=== PATIENT | female | born 1945 | race Caucasian/White ===

== ENCOUNTER 2018-03-24 14:28 | Emergency (ER) | payer MEDICARE ==
[~2018-03-24] VITALS: Ht 160 cm; Wt 69.4 kg
== END 2018-03-24 14:42 | disposition home or self-care (01) ==
LOC: ED 14:28
DX: M79.671 Pain in right foot (principal); M79.89 Other specified soft tissue disorders

== ENCOUNTER 2019-03-02 13:37 | Emergency (ER) | payer MEDICARE ==
[~2019-03-02] VITALS: Ht 160 cm; Wt 69.4 kg
--- OUTSIDE RECORDS SUMMARY | ~2019-03-02 | XMS | Clinical Summary ---
Demographics + + + | Address | [address] | | | [place] [address] | + + + | Home Phone | | + + + | Preferred Language | Unknown | + + + | Marital Status | Unknown | + + + | Nondenominational Affiliation | Unknown | + + + | Race | Unknown | + + + | Ethnic Group | Unknown | + + + Author + + + | Author | [facility] | + + + | Organization | [facility] | + + + | Address | Unknown | + + + | Phone | Unavailable | + + + Care Team Providers + +------+ + | Care Oceanologist Name | Role | Phone | + +------+ + PP | Unavailable | + +------+ + Source Comments RYAN is fully live on both [facility] Ambulatory and [facility] InPatient.[facility] Allergies Not on File Current Medications Not [...]
--- OUTSIDE RECORDS SUMMARY | ~2019-03-02 | XMS | Clinical Summary ---
Demographics + + + | Address | [address] | | | [place] [address] | + + + | Home Phone | | + + + | Preferred Language | Unknown | + + + | Marital Status | Unknown | + + + | Yazidism Affiliation | Unknown | + + + | Race | Unknown | + + + | Ethnic Group | Unknown | + + + Author + + + | Author | [facility] | + + + | Organization | [facility] | + + + | Address | Unknown | + + + | Phone | Unavailable | + + + Care Team Providers + +------+ + | Care Pointing Machine Operator Name | Role | Phone | + +------+ + PP | Unavailable | + +------+ + Source Comments RYAN is fully live on both [facility] Amb[facility] and [facility] InPatient.[facility] Allergies Not on File Current Medications Not [...]
[2019-03-02] MEDS ORDERED: LISINOPRIL20 MG PO (13:55)
[2019-03-02] MEDS ORDERED: SYNTHROID88 MCG PO (13:56)
[2019-03-02] MEDS ORDERED: NORVASC10 MG PO (13:56)
[2019-03-02] MEDS ORDERED: VITAMIN D50000 UNI1 PO (13:57)
[2019-03-02] MEDS ORDERED: MELOXICAM15 MG PO (13:57)
[2019-03-02] MEDS ORDERED: PANTOPRAZOLE SO40 MG PO (18:19)
[2019-03-02] MEDS ORDERED: ZOFRAN4 MG SL (18:19)
--- NOTE | 2019-03-03 08:07 | EKG ---
[facility] [address] [place], [place] [address] Signed Normal sinus rhythm Normal ECG No previous ECGs available Confirmed by ORLY DE ANDA MD ([id number]) on 03/03/2019 8:07:19 AM Electronically Signed By: ORLY DE ANDA MD 03/03/19 0807 PATIENT NAME: ILIANA WANG Electrocardiogram DATE OF : 43 PHYSICIAN: ORLY DE ANDA MD REPORT #: [id number] REPORT IS CONFIDENTIAL AND NOT TO BE RELEASED WITHOUT AUTHORIZATION
== END 2019-03-02 18:32 | disposition home or self-care (01) ==
LOC: ED 13:37
DX: K29.70 Gastritis, unspecified, without bleeding (principal); I10 Essential (primary) hypertension; F03.90 Unspecified dementia, unspecified severity, without behavioral disturbance, psychotic disturbance, mood disturbance, and anxiety; E03.9 Hypothyroidism, unspecified; Z88.0 Allergy status to penicillin; Z88.5 Allergy status to narcotic agent; Z79.899 Other long term (current) drug therapy
CPT/HCPCS: 71045; 71260; 80053; 83605; 83690; 84484; 85025; 85379; 85610; 93005; 93010; 96361; 99284-25; J2405; J7030; Q9967

== ENCOUNTER 2019-03-03 11:29 | Inpatient (IN) | payer MEDICARE ==
[~2019-03-03] VITALS: Ht 160 cm; Wt 73.0 kg
--- OUTSIDE RECORDS SUMMARY | ~2019-03-03 | XMS | Clinical Summary ---
Demographics + + + | Address | [address] | | | [place] [address] | + + + | Home Phone | | + + + | Preferred Language | Unknown | + + + | Marital Status | Unknown | + + + | Yazidi Affiliation | Unknown | + + + | Race | Unknown | + + + | Ethnic Group | Unknown | + + + Author + + + | Author | [facility] | + + + | Organization | [facility] | + + + | Address | Unknown | + + + | Phone | Unavailable | + + + Care Team Providers + +------+ + | Care Charging Plug Placer Name | Role | Phone | + +------+ + PP | Unavailable | + +------+ + Source Comments RYAN is fully live on both [facility] Ambulatory and [facility] InPatient.[facility] Allergies Not on File Current Medications Not on file Active Problems Not on file Social History + +-------+ +--------+------+ | Tobacco [...] on file | | + + + Plan of Treatment + + + + + | Health Maintenance | Due Date | Last Done | Comments | + + + + + | Pneumococcal (Adult) | | | | | (1 of 2 - PCV13) | 9 | | | + + + + + | Influenza (Flu) | | | | | vaccination (#1) | 8 | | | + + + + + Results Not on filefrom Last 3 Months"
--- OUTSIDE RECORDS SUMMARY | ~2019-03-03 | XMS | Clinical Summary ---
Demographics + + + | Address | [address] | | | [place] [address] | + + + | Home Phone | | + + + | Preferred Language | Unknown | + + + | Marital Status | Unknown | + + + | Confucianist Affiliation | Unknown | + + + | Race | Unknown | + + + | Ethnic Group | Unknown | + + + Author + + + | Author | [facility] | + + + | Organization | [facility] | + + + | Address | Unknown | + + + | Phone | Unavailable | + + + Care Team Providers + +------+ + | Care Reed Polisher Name | Role | Phone | + +------+ + PP | Unavailable | + +------+ + Source Comments RYAN is fully live on both [facility] Ambulatory and [facility] InPatient.[facility] Allergies Not on File Current Medications Not [...]
--- OUTSIDE RECORDS SUMMARY | ~2019-03-03 | XMS | Clinical Summary ---
Demographics + + + | Address | [address] | | | [place] [address] | + + + | Home Phone | | + + + | Preferred Language | Unknown | + + + | Marital Status | Unknown | + + + | Judaism Affiliation | Unknown | + + + | Race | Unknown | + + + | Ethnic Group | Unknown | + + + Author + + + | Author | [facility] | + + + | Organization | [facility] | + + + | Address | Unknown | + + + | Phone | Unavailable | + + + Care Team Providers + +------+ + | Care Dressmaking Teacher Name | Role | Phone | + +------+ + PP | Unavailable | + +------+ + Source Comments RYAN is fully live on both [facility] Ambulatory and [facility] InPatient.[facility] Allergies Not on File Current [...]
--- OUTSIDE RECORDS SUMMARY | ~2019-03-03 | XMS | Clinical Summary ---
Demographics + + + | Address | [address] | | | [place] [address] | + + + | Home Phone | | + + + | Preferred Language | Unknown | + + + | Marital Status | Unknown | + + + | Denominational Affiliation | Unknown | + + + | Race | Unknown | + + + | Ethnic Group | Unknown | + + + Author + + + | Author | [facility] | + + + | Organization | [facility] | + + + | Address | Unknown | + + + | Phone | Unavailable | + + + Care Team Providers + +------+ + | Care Bullet Swaging Machine Adjuster Name | Role | Phone | + +------+ + PP | Unavailable | + +------+ + Source Comments RYAN is fully live on both [facility] Amb[facility] and [facility] InPatient.[facility] Allergies Not on File Current Medications [...]
[~2019-03-03 11:29] MED LIST: LISINOPRIL20 MG PO; MELOXICAM15 MG PO; NORVASC10 MG PO; PANTOPRAZOLE SO40 MG PO; SYNTHROID88 MCG PO; VITAMIN D50000 UNI1 PO; ZOFRAN4 MG SL
--- OUTSIDE RECORDS SUMMARY | 2019-03-03 11:32 | XMS ---
PreManage Notification: ILIANA WANG Security Electromechanic Events No recent Security Events currently on file CRITERIA MET - [facility] - 2 Visits in 30 Days CARE PROVIDERS Yunier Felix MD Primary Care Current PHONE: [phone] orguevara Case or Track Worker Current PHONE: Unknown Yamil has no Care Guidelines for this patient. Melinda VISIT COUNT (12 MO.) [address] [place] [address] TOTAL 3 NOTE: Visits indicate total known visits. ED/UCC VISIT TRACKING (12 MO.) 03/03/2019 11:29 [facility] [place] TYPE: Emergency COMPLAINT: - WEAKNESS 03/02/2019 13:39 [facility] TYPE: Emergency COMPLAINT: - VOMITING/BACK PAIN NON INJURY 03/24/2018 14:30 [facility] [place] TYPE: Emergency COMPLAINT: - SORE ON R FOOT/NO INJURY/MSE TO CLINIC DIAGNOSES: - Other specified soft tissue disorders - Pain in right foot INPATIENT VISIT TRACKING (12 MO.) No inpatient visits to display in this time frame [email or web address]
--- NOTE | 2019-03-03 15:02 | NUR ---
1440 CALL FROM ER NURSE REGARDING PATIENT ADMISSION 1445 CALL TO WIRE SAW OPERATOR REGARDING PATIENT 1450 CALL BACK TO ER WITH ROOM ASSIGNMENT, NURSE TOOK REPORT FROM ER NURSE.
--- NOTE | 2019-03-03 15:37 | NUR ---
PATIENT ARRIVED TO MED SURG, ADMITTED, PREPARED FOR SURGERY.
--- NOTE | 2019-03-03 15:38 | NUR ---
DR. LANDRUM IN TO TALK TO PATIENT.
--- NOTE | 2019-03-03 15:41 | EKG ---
[facility] [address] [place], [place] [address] Signed Normal sinus rhythm Normal ECG When compared with ECG of 02-MAR-2019 13:59, No significant change was found Confirmed by ORLY DE ANDA MD ([id number]) on 03/03/2019 3:41:41 PM Electronically Signed By: ORLY DE ANDA MD 03/03/19 1541 PATIENT NAME: ILIANA WANG NATY Electrocardiogram DATE OF : 43 PHYSICIAN: ORLY DE ANDA MD REPORT #: [id number] REPORT IS CONFIDENTIAL AND NOT TO BE RELEASED WITHOUT AUTHORIZATION
--- NOTE | 2019-03-03 18:25 | NUR ---
03/03/191824 Judith Banegas 182: PATIENT BOOSTED UP IN BED. HOB ELEVATED. PATIENT OPENS EYES AND DOES NOT RESPOND TO QUESTIONS. PATIENT CLOSES HER EYES AND FOLLOWS RN COMMAND TO RELAX HER HEAD.
--- NOTE | 2019-03-03 18:28 | CONS ---
[facility] [address] [place], [place] [address] Signed DATE OF CONSULTATION: 03/03/2019 CHIEF COMPLAINT: Generalized abdominal pain/right upper quadrant abdominal pain. HISTORY OF PRESENT ILLNESS: Monserrat is a 73-year-old female, who seems to be demented. In fact, she is going to be seeing a Neurologist in [place] here in about a week or so. Yesterday, she developed what seems like generalized abdominal pain and maybe some right upper quadrant abdominal pain with some nausea and vomiting. She had been to the emergency room yesterday for evaluation. She had a CT scan of the chest, which was unrevealing for any pulmonary embolism and/or pneumonia. There were some concern, she prior had gastroenteritis and she was allowed to go home with her . However, the pain continued to worsen, so her brought her back again today. The white count is borderline high at 12.0 with neutrophils at 88, but yet the liver function tests were fine. Urine seems to have some bacteria in it and lactic acid was okay at 1.7. She seemed to be tender in the right upper quadrant, so a CT scan of the abdomen and pelvis was ordered and sure enough she has a thickened gallbladder wall with a fairly large stone in the neck of her gallbladder with pericholecystic fluid. The common bile duct was unremarkable. I was therefore asked to see her as the general surgeon on-call. In the meantime, she has received her cefoxitin and Flagyl along with some IV fluids, pain medication and her EKG. PAST MEDICAL HISTORY: Diverticulosis, diastasis recti, peripheral arterial disease, osteoarthritis including lumbar area, hypertension, hypothyroidism, obesity, left 5th rib fracture from riding horses and some recent dementia for which she is going to see a neurologist soon. PAST SURGICAL HISTORY: Right total knee replacement, cataracts and her bilateral tubal ligation. SOCIAL HISTORY: She does not smoke, but she has a drink about each week. She is to her at [phone]. They have four children together. She no longer drives. 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 Leroy Kitchen is her primary care provider they prefer the [facility]. FAMILY HISTORY: Mom had diabetes, but not sure about her dad. REVIEW OF SYSTEMS: She had 10 systems reviewed and I can see that she has dementia. She has to basically look to her for most of the answers and he actually did an excellent job, really Electronically Signed By: JOSE LUIS LANDRUM MD 03/03/19 1828 PATIENT NAME: MONSERRAT WANG CONSULTATION DATE OF : 43 REPORT #: [id number] PHYSICIAN: JOSE LUIS LANDRUM MD PCP: ELROY KITCHEN PA-C REPORT IS CONFIDENTIAL AND NOT TO BE RELEASED WITHOUT AUTHORIZATION [facility] [address] [place], [place] [address] Signed the pertinent positives are included in the above. ALLERGIES: Penicillin. MEDICATIONS: Protonix, Zofran, lisinopril, amlodipine, levothyroxine, meloxicam, and vitamin D. PHYSICAL EXAMINATION: VITAL SIGNS: Blood pressure is 136/60, heart rate 81, respiratory rate 16, temperature is 99.3. She is 95% on room air. She is 5 feet 3 inches, at 73 kg. GENERAL: Monserrat is a 73-year-old female lying supine in her hospital bed. Her is with her in the room. It is clear that she has some dementia and is not answering well and has to look to her for most of the answers. She does not appear systemically ill or toxic. She is not jaundiced. She seems to have good skin turgor. LUNGS: Clear to auscultation bilaterally. HEART: Regular rate and rhythm. ABDOMEN: Mildly protuberant, but soft and she is clearly tender in the right upper quadrant right over the gallbladder. LABORATORY DATA: Her white blood count is 12.0, neutrophils were 88, hemoglobin is 13, platelets 231. BUN 13, creatinine 0.8. Her urinalysis showed some bacteria, some white cells and some red blood cells. Lactic acid looked at normal 1.7. Blood cultures were taken and they are pending. Her albumin is good at 4.0, lipase 6.0, total bilirubin 1.2, AST 13, ALT 12, alkaline phosphatase 70. RADIOGRAPHIC STUDIES: The CT scan of the chest, abdomen and pelvis were reviewed, both the report and the actual images. She has no evidence of a pulmonary embolism or pneumonia or other chest pathology. The gallbladder wall is clearly thickened with a large stone in the neck of the gallbladder. There is some pericholecystic inflammation and fluid. Common bile duct seemed to be unremarkable. She has bilateral renal pelvic cysts and/or ectasias. There was also some diverticulosis. As well as diastasis recti. ASSESSMENT/PLAN: Monserrat is a 73-year-old female, who presents with acute cholecystitis and cholelithiasis. She has been admitted, given IV fluids and antibiotics. I reviewed with Monserrat and her the location and function of the gallbladder with respect to the above findings. We discussed laparoscopic versus open cholecystectomy. They understand and expected intraoperative and postoperative course. I think given this time and day, and her dementia, she will probably stay overnight at home in the morning. We have also reviewed the expected intraop and postop course. There is risk to surgery including, but not limited to bleeding, infection, scarring, change in contour of the skin, damage Electronically Signed By: JOSE LUIS LANDRUM MD 03/03/19 1828 PATIENT NAME: MONSERRAT WANG CONSULTATION DATE OF : 43 REPORT #: [id number] PHYSICIAN: JOSE LUIS LANDRUM MD PCP: LEROY KITCHEN PA-C REPORT IS CONFIDENTIAL AND NOT TO BE RELEASED WITHOUT AUTHORIZATION [facility] [address] [place], [place] [address] Signed to bowel, damage to main bile duct, and incisional hernias along with other unforeseen comorbidities. They have expressed understanding and would like to proceed. In fact, her went ahead and signed for her today. MD ADELITA Villanueva/BRICEL /[id number] cc: MD Leroy Villanueva Copies: JOSE LUIS LANDRUM MD ~ Electronically Signed By: JOSE LUIS LANDRUM MD 03/03/19 1828 PATIENT NAME: MONSERRAT WANG CONSULTATION DATE OF : 43 REPORT #: [id number] PHYSICIAN: JOSE LUIS LANDRUM MD PCP: LEROY KITCHEN PA-C REPORT IS CONFIDENTIAL AND NOT TO BE RELEASED WITHOUT AUTHORIZATION
--- NOTE | 2019-03-03 19:13 | NUR ---
RECEIVED REPORT FROM PACU NURSE AND QUAN RN. PATIENT ARRIVED TO THE FLOOR AROUND 1900 FROM SURGERY. PATIENT REPORTS BEING PAINFUL, ICE PACK IN PLACE. AFTER PATIENT WAS TRANSFERED TO BED, PATIENT DENIED HAVING PAIN. PATIENT DROWSY, BUT AROUSABLE WHEN SPOKEN TO AND TOUCHED ON ARM. 2L VIA NC, NO SIGNS OF DISTRESS, CPOX IN PLACE AND O2 SATS WNL. SCDS IN PLACE. X3 DRESSINGS IN PLACE ON ABD, DRESSINGS ARE CDI, NO NEW DRAINAGE NOTED. IV'S ASSESSED, PATENT AND WNL. ACTIVE BT IN RUQ AND LUQ, HYPOACTIVE BT IN RLQ AND LLQ. FAMILY AT BEDSIDE. ASSESSMENT COMPLETE, REFER TO ASSESSMENT. CALL LIGHT WITHIN REACH. NO MORE NEEDS AT THIS TIME. PATIENT COMPLAINS OF NAUSEA, EMESIS BAG PROVIDED, AFTER PATIENT SETTLED IN BED, NO REPORTS OF NAUSEA.
--- NOTE | 2019-03-03 19:40 | NUR ---
PT MOSTLY SLEEPY, BUT AWAKES TO NAME AND SOUND. DENIES PAIN AT THIS TIME. IV INFUSING PER ORDER. FAMILY IN ROOM. EDUCATED TO CALL IF PT NEEDS ANYTHING. FAMILY DENIED NEEDS WELL.
--- NOTE | 2019-03-03 20:15 | NUR ---
PT FAMILY CALLED, PT NEEDING TO USE THE BATHROOM. BSC AT HEAD OF BED, MIMINAL ASSIST, CUEING, PT ABLE TO GET UP OUT OF BED TO COMMODE. COMPLAINS OF RIGHT SHOUDLER DISCOMFORT. NOTE NO SWELLING, DISCOLORATION. ONCE BACK BED, WHICH PT TOLERATED WELL, ICE APPLIED TO RIGHT SHOULDER WELL RIGHT SIDE. PT PREFERED TAP WATER, DRANK SOME, DENIED NAUSEA. VOIDED WITHOUT COMPLAINTS.
--- NOTE | 2019-03-03 21:34 | NUR ---
ROUNDED ON PATIENT RESTING SOUNDLY IN BED WITH EYES CLOSED, RESPIRATORY RATE IS EVEN AND UNLABORED. NO SIGNS OF TENSING OR GRIMACING, NO SIGNS OF DISTRESS. 2L VIA NC, CPOX, WNL. VITALS ASSESSED, WNL. ABD ASSESSED, ACTIVE BOWEL TONES NOTED. DRESSSINGS ON ABD ARE CDI, NO NEW DRAINAGE NOTED. ICE IN PLACE ON ABD. FAMILY AT BEDSIDE. CALL LIGHT WITHIN REACH. NO MORE NEEDS AT THIS TIME. PROVIDED EDUCATION TO FAMILY ABOUT USE OF CALL LIGHT, FAMILY EXPRESSED UNDERSTANDING.
--- NOTE | 2019-03-03 22:23 | NUR ---
ROUNDED ON PATIENT TO OBTAIN FOURTH POST OP VITALS, VITALS ASSESSED, WNL. PATIENT DENIES HAVING PAIN OR NAUSEA. ACTIVE BOWEL TONES NOTED IN RLQ, HYPOACTIVE BOWEL TONES NOTED IN OTHER QUADRANTS. PATIENT SHOWS NO SIGNS OF TENSING OR GRIMACING. PATIENT DROWSY INITIALLY WHEN NURSING STAFF ENTERED ROOM, HOWEVER BECAME MORE ALERT AFTER WAKING UP. FED PATIENT GREEN JELLO, PATIENT TOLERATED WELL. DRESSINGS ON ABD ARE CDI, NO NEW DRAINAGE NOTED. CALL LIGHT WITHIN REACH. NO MORE NEEDS AT THIS TIME.
--- NOTE | 2019-03-03 22:37 | NUR ---
ROUNDED ON PATIENT TO ASSIST PATIENT TO USE BSC. THIS RN AND ANOTHER RN ASSISTED PATIENT TO SITTING UP POSTION IN BED, FOLDED BLANKET USED TO GUARD ABD, PATIENT EDUCATION PROVIDED ABOUT SUCH TECHNIQUE, PATIENT EXPRESSED UNDERSTANDING. ONCE PATIENT WAS ASSISTED TO SITTING POSITION, PATIENT JUST A 1 PA TO BSC. PATIENT SAFELY BACK INTO BED WITH AT BEDSIDE. ICE PACKS IN PLACE. CALL LIGHT WITHIN REACH. IV FLUIDS INFUSING PER MAR ORDER. NO MORE NEEDS AT THIS TIME.
--- NOTE | 2019-03-03 22:54 | NUR ---
DE ALCOHOLIZER AND THIS SUPERINTENDENT GENERAL HELPED PATIENT USE THE BEDSIDE COMMODE AND BACK TO BED. FAMILY IN THE ROOM.
--- NOTE | 2019-03-04 | NUR ---
ROUNDED ON PATIENT RESTING IN BED WITH EYES CLOSED, RESPIRATORY RATE IS EVEN AND UNLABORED. CPOX, WNL. PT SHOWS NO SIGN OF TENSING OR GRIMACING. CALL LIGHT WITHIN REACH. BED ALARM ON FOR SAFETY.
--- NOTE | 2019-03-04 00:45 | NUR ---
ASSESSMENT COMPLETE, REFER TO ASSESSMENT. PATIENT DENIES CHEST PAIN, SHORTNESS OF BREATH, OR DIFFICULTY BREATHING. PATIENT CONFUSED TO DAY OF WEEK, EASILY REORIENTED. PATIENT STATES THAT PATIENT HAS "VERY LITTLE PAIN" AND PATIENT UNABLE TO PROVIDE SPECIFIC NUMERICAL RATING OF PAIN, FACE SCALE USED AND PATIENT POINTED TO FACE THAT COORESPONDS TO "4/10" PAIN RATING, PATIENT DENIES WANTING PRN PAIN MEDICATION. ACTIVE BOWEL TONES NOTED AND PATIENT DENIES NAUSEA. DRESSING ON ABD IS CDI, NO NEW DRAINAGE NOTED. FAMILY AT BEDSIDE. IV FLUIDS INFUSING PER ORDER. BED ALARM ON FOR SAFETY. CALL LIGHT WITHIN REACH. NO MORE NEEDS AT THIS TIME. ICE IN PLACE.
--- NOTE | 2019-03-04 03:01 | NUR ---
THIS RN AND RETAIL BANKING MANAGER ASSISTED PATIENT TO AMBULATE TO RESTROOM. 2PA TO ASSIST PATIENT INTO BED, OTHERWISE PATIENT SBA-1PA TO RESTROOM. PATIENT SAFELY BACK INTO BED. CPOX IN PLACE. 2L VIA NC, NO SIGNS OF DISTRESS. O2 SATS 87% ON ROOM AIR, AFTER 2L VIA NC APPLIED O2 SATS INCREASED TO 90%. BED ALARM ON FOR SAFETY. CALL LIGHT WITHIN REACH, EDUCATION PROVIDED TO PATIENT ON ITS USE. PATIENT STATES PATIENT HAS "VERY LITTLE PAIN", PATIENT DENIES PRN PAIN MEDICATION. NO MORE NEEDS AT THIS TIME.
--- NOTE | 2019-03-04 03:02 | NUR ---
1PA TO THE BATHROOM AND BACK TO BED. SCDS AND BED ALARM ARE BACK ON. IN THE ROOM.
--- NOTE | 2019-03-04 05:28 | NUR ---
ASSESSMENT COMPLETE, REFER TO ASSESSMENT. PATIENT REPORTS "10/10" PAIN IN RIGHT SIDE OF ABD, PRN PAIN MEDICATION ADMINISTERED. PATIENT DENIES CHEST PAIN OR DIFFICULTY BREATHING. PATIENT REPORTS SLIGHT SHORTNESS OF BREATH, PATIENT STATES THIS IS AFTER MOVEMENT, NO SIGNS OF DISTRESS. DRESSING ON ABD SHOWS SCANT AMOUNT OF SHADOWING ON RUQ DRESSING. ALL OTHER DRESSING ARE CDI, NO NEW DRAINAGE NOTED. ACTIVE BOWEL TONES PRESENT IN LLQ, OTHER QUADRANTS HYPOACTIVE. PATIENT TOOK SIPS OF WATER WHEN OFFERED. CHAP STICK APPLIED BY . ICE IN PLACE PER ORDER. 2L VIA NC, NO SIGNS OF DISTRESS, CPOX: 91%. BED ALARM ON FOR SAFETY. CALL LIGHT WITHIN REACH. NO MORE NEEDS AT THIS TIME.
--- NOTE | 2019-03-04 06:04 | OR ---
[facility] [address], [place] [address] Signed DATE OF OPERATION: 03/03/2019 SURGEON: Jose Luis Landrum MD PREOPERATIVE DIAGNOSIS: Acute cholecystitis, cholelithiasis. POSTOPERATIVE DIAGNOSIS: Acute cholecystitis, cholelithiasis (gallstones x2). PROCEDURE PERFORMED: Laparoscopic cholecystectomy without intraoperative cholangiogram. ESTIMATED BLOOD LOSS: 75 to 100 mL. FINDINGS: Monserrat had a significantly distended gallbladder. The gallbladder wall was thickened and inflamed yet friable. The bile was clear and somewhat thin. She had one large stone in the neck of the gallbladder. After gallbladder was out and opened on the back table, there was one additional stone next to it, which was much smaller. As we took the gallbladder down from about the bottom one-third, we encountered significant bleeding in several areas and we ended up abandoning our intraoperative cholangiogram, so we could divide the cystic duct and apply direct pressure with a Ray-Kelly and then we were able to go back and apply several clips along with some judicious cautery to control that bleeding. Consequently, we did abandon our intraoperative cholangiogram. INDICATIONS: Monserrat is a 73-year-old female, who lives with her . She is becoming progressively more demented and she has an appointment actually within the next 7-10 days to see her neurologist. However, she came to our emergency room yesterday with what sounded like generalized abdominal pain and some nausea and vomiting. She had a CT scan of her chest to rule out pulmonary embolism, which was negative. No other pathology in the chest. She was discharged home with a diagnosis of gastroenteritis. Her pain persisted and was worsening, so her brought her back today. On this occasion, the white count was up at 12,000 and she was more tender in the right upper quadrant. Nevertheless, her liver function tests were fine. The urine did have some bacteria. She had a CT scan of the abdomen and pelvis today. The gallbladder wall was thickened. There was pericholecystic fluid and inflammation and a large stone in the neck of the gallbladder. The common bile duct was unremarkable. Consequently, I was asked to see her as a Electronically Signed By: JOSE LUIS LANDRUM MD 03/04/19 0604 PATIENT NAME: MONSERRAT WANG OPERATIVE REPORT DATE OF : 43 REPORT #: [id number] PHYSICIAN: JOSE LUIS LANDRUM MD PCP: LEROY ELIZABETH PA-C REPORT IS CONFIDENTIAL AND NOT TO BE RELEASED WITHOUT AUTHORIZATION [facility] [address], [place] [address] Signed general surgeon on-call. In the meantime, she received some IV fluids, pain control, and her antibiotics including cefoxitin and Flagyl. I met with Monserrat and her in the hospital room. I reviewed with them the above findings. We discussed the location and function of the gallbladder. We discussed laparoscopic versus open cholecystectomy. They understand the expected intraop and postop course. Knowing Sushant medical issues, her dementia, and the level of illness that she has plus the time of day that it is, we decided it will be best Monserrat stay overnight for monitoring and if things are going well, she can go home in the morning. We also discussed the risk of surgery including, but not limited to bleeding, infection, scarring, change in contour of the skin, damage to bowel, damage to main bile duct, incisional hernias, and other unforeseen comorbidities such as pneumonia, heart attacks, and stroke. She and her expressed understanding. Her did sign for her consent. PROCEDURE NOTE: Monserrat was brought down to our operating room and placed in the supine position under general endotracheal tube anesthesia. She was already on preoperative antibiotics. She had SCDs in place. We did hold the heparin on this occasion. She was then prepped and draped in the usual sterile fashion. All trocars were placed in her usual positions under direct visualization of camera without difficulty. We had taken pictures throughout for photodocumentation. We could see the omentum lying over the gallbladder as it was mounded up inside the abdomen. Fortunately, the omentum relatively easily from the gallbladder. We were unable to grasp the gallbladder, so we made a small hole near the fundus and suctioned out clear bile. We then grabbed the hole with our grasper and elevated the gallbladder in the right upper quadrant. We started our routine standard dissection about the bottom third of the gallbladder where it joined the fat, headed towards the triangle of Calot. We did have some bleeding along the lateral liver edge, two clips and some gentle cautery help control that. We encountered some additional bleeding along the edge of the triangle of Calot, which responded well to a clip, and then behind the cystic duct, we encountered the cystic artery. That actually required a couple of clips as well. It took us a few minutes to control the bleeding and we had decided to divide the gallbladder where it came down at the top of the cystic duct. That gave us access to the triangle of Calot and we held direct pressure with the Ray-Kelly for a full 5 minutes. After that, the Ray-Kelly was gently rolled away and all the bleeding had stopped. We suctioned out the blood and then we placed three clips across the cystic duct stump and then just proximal to those three clips, we placed a PDS Endoloop to secure the cystic duct stump. Consequently, we did abandon the intraoperative cholangiogram. We then irrigated the area and suctioned that out until clear. There was no additional bleeding. We carefully and slowly removed the gallbladder from the gallbladder fossa with the help of the cautery. We noticed that the gallbladder wall although thickened, but it was quite friable. As is common, there was some bleeding between the gallbladder wall and the gallbladder fossa. It took a few minutes then to get the gallbladder off the liver and into the EndoCatch bag along with Electronically Signed By: JOSE LUIS LANDRUM MD 03/04/19 0604 PATIENT NAME: MONSERRAT WANG OPERATIVE REPORT DATE OF : 43 REPORT #: [id number] PHYSICIAN: JOSE LUIS LANDRUM MD PCP: LEROY ELIZABETH PA-C REPORT IS CONFIDENTIAL AND NOT TO BE RELEASED WITHOUT AUTHORIZATION [facility] [address], [place] [address] Signed our Ray-Kelly. There was some very mild oozing from the gallbladder fossa, so we placed a piece of Surgicel along the gallbladder fossa and down in to the cystic duct in the triangle of Calot. After this, we used our laparoscopic suturing device to pass 0 Vicryl suture on either side of the fascia of the subxiphoid trocar site. This was tied down to close this fascia primarily. The gallbladder was then removed along with the remaining trocars from the abdomen. The Ray-Kelly was then given to our scrub nurse. The gallbladder was passed off the field and opened by our circulating nurse. There was one large stone and then one smaller stone next to that. Again, the gallbladder showed thickened very friable gallbladder wall. The fascia of the supraumbilical trocar site was then closed with interrupted [id number] and simple 0 Vicryl sutures. Local anesthetic was copiously injected into all trocar sites. The skin and dermis of each trocar site was closed with interrupted 3-0 subcuticular Monocryl sutures. Dry gauze and tape were then applied to all incisions. Monserrat was then awakened from anesthesia, extubated in the OR, and taken to recovery room in stable condition. Jose Luis Landrum MD ALB/MODL /[id number] cc: MD Dr. Leroy Villanueva Copies: JOSE LUIS LANDRUM MD ~ Electronically Signed By: JOSE LUIS LANDRUM MD 03/04/19 0604 PATIENT NAME: MONSERRTA WANG OPERATIVE REPORT DATE OF : 43 REPORT #: [id number] PHYSICIAN: JOSE LUIS LANDRUM MD PCP: LEROY ELIZABETH PA-C REPORT IS CONFIDENTIAL AND NOT TO BE RELEASED WITHOUT AUTHORIZATION
--- NOTE | 2019-03-04 06:30 | NUR ---
ROUNDED ON PATIENT TO ASSIST PATIENT TO RESTROOM SBA. PATIENT REPORTS BEING PAINFUL UPON RETURNING TO BED. BED ALARM ON FOR SAFETY. CALL LIGHT WITHIN REACH. CPOX IN PLACE, WNL. 2L VIA NC, NO SIGN OF DISTRESS. SHANAE RN NOTIFIED TO PROVIDE PATIENT WITH PRN PAIN MEDICATION. PATIENT AND FAMILY DENY ANYMORE NEEDS AT THIS TIME.
--- NOTE | 2019-03-04 06:42 | NUR ---
medicated with 1 norco 3/10 abd and r sided pain.
--- NOTE | 2019-03-04 08:00 | NUR ---
AM CARE OFFERED. FACE WASHED. PT RESTING IN BED. WANTS TO BRUSH TEETH AFTER BREAKFAST.
--- NOTE | 2019-03-04 08:26 | NUR ---
PT SLEEPING SOUDNLY UPON ENTERING ROOM. AWOKE EASILY TO VOICE. PT STATES "MY STOMACH HURTS AROUND HERE." (GESTURING TO GENERALIZED ABDOMEN AREA. MEDICATED WITH 1MG IV DILAUDID. PT ORIENTED TO SELF ONLY. THINKS SHE IS AT HOME. PT EASILY REORIENTED. DENIES NAUSEA. IV FLUSHED AND INFUSING WNL. 3 LAP SITES NOTED, DRESSED WITH GAUZE AND TAPE, SCANT AMOUNT OF SHADOWING TO EACH DRESSING. POSITIVE BT, MILD DISTENTION. DISCUSSED AMBULATION THIS SHIFT, PT AGREEABLE. PT SATTING 92% ON 2LNC. CALL LIGHT WITHIN REACH. BED ALARM ON.
--- NOTE | 2019-03-04 09:15 | NUR ---
PT 1PA UP TO RECLINER. IN ROOM ASSISTING PT TO EAT BREAKFAST. CHAIR ALARM ON. CALL LIGHT WITHIN REACH.
[2019-03-04] MEDS ORDERED: AMLODIPINE BESYL5 MG PO (11:10)
[2019-03-04] MEDS ORDERED: ATORVASTATIN CA20 MG PO (11:11)
[2019-03-04] MEDS ORDERED: VITAMIN D31000 UNI1 PO (11:26)
--- NOTE | 2019-03-04 11:27 | NUR ---
Medications reconciled using pharmacy records and patient's interview
--- NOTE | 2019-03-04 13:12 | NUR ---
PT SITTING UP IN BED. TEARFUL BECAUSE IS GETTING READY TO LEAVE. O2 SATS 89-90% ON 2L NC. ASSISTED PT TO USE I.S. BED ALARM ON.
--- NOTE | 2019-03-04 14:49 | NUR ---
PATIENT UP TO BSC AND BACK TO BED. O2 LOW AND NO VOID, RN NOTIFIED. FRESH WATER GIVEN. PATIENT SAYS SHE HAS PAIN WHEN ASKED, RN NOTIFIED. CALL LIGHT IN REACH. NO FURTHER NEEDS AT THIS TIME.
--- NOTE | 2019-03-04 15:00 | NUR ---
PT SITTING UP ON COMMODE UPON ENTERING ROOM. SATS 88-89% ON 2L NC. INCREASED O2 TO 3L SAT INCREASED TO 90%. HR 125. PT DID NOT VOID. ASSISTED BACK TO BED. ONCE AT REST O2 SAT 92% ON 2L. HR REMAINS 125 AND RESPIRATION RATE 33. BP 155/77. NOTIFIED DR. LANDRUM. RECIEVED ORDER TO ADVANCE DIET TO REGULAR AND TROPONIN LABS. R.T. NOTIFIED, STATES HE WILL BE BY SOON TO ASSESS PT. QUAN CHARGE NURSE AWARE OF PT CONDITION. PT REFUSES TO USE I.S. WILL CONTINUE TO MONITOR CLOSELY.
--- NOTE | 2019-03-04 15:45 | NUR ---
PT AGREEABLE TO GOING FOR A WALK. PT AMB HALLWAY WITH THIS RN, , AND WHEELCHAIR FOLLOW. PT STEADY ON FEET WITH SBA. PT SHOWED NO SIGNS OF DISTRESS OR SOB WHILE AMB. AMB BACK TO ROOM TO SIT UP IN RECLINER. SATS 90% ON 2L UPON FINISHING WALK, HR 132. HR DOWN TO 105 AT REST. RR 28. AT BEDSIDE. WILL CONTINUE TO MONITOR. PT ENCOURAGED PO FLUIDS AND FOOD. CALL LIGHT WITHIN REACH.
--- NOTE | 2019-03-04 17:05 | NUR ---
PT SLEEPING SOUNDLY IN BED. RESP EVEN AND UNLABORED. SATTING 94% ON 2L NC. HR 105. BED ALARM ON.
--- NOTE | 2019-03-04 19:01 | NUR ---
PT SITTING UP IN BED. ATE 100% OF DINNER OMID WELL. PT REPORTS HEART "POUNDING REALLY HARD." HR REMAINS 105-125, REGULAR. FACE FLUSHED, ORAL TEMP 99. RR 24, BP 145/65, O2 SAT 90% ON 2LNC. PT DENIES CHEST PAIN OR SOB. NOTIFIED DR. LANDRUM. SEE NEW ORDERS. PT AND FAMILY EDUCATED ON PLAN OF CARE AND NEW ORDERS.
--- NOTE | 2019-03-04 19:13 | NUR ---
PT ATE BETTER THIS EVENING. DRANK 2 ENSURES, ATE 100% OF DINNER. TAKING MORE PO FLUIDS WELL. PT MENTATION APPEARS MORE CLEAR. , SON, AND DAUGHTER IN LAW AT BEDSIDE. BED ALARM ON.
--- NOTE | 2019-03-04 19:35 | NUR ---
BEDSIDE REPORT RECEIVED FROM CARLOS HERNANDEZ. PT RESTING IN BED, HOB ELEVATED. HR 113, SPO2 91% ON 2L OXYGEN BY NC. IV IN RIGHT HAND INFILTRATED, D/C'D WNL. IVF BOLUS INFUSING WNL RIGHT AC. PT RATES PAIN 4/10 IN HAND, RIGHT ARM ELEVATED. BED ALARM ON. FAMILY AT BEDSIDE.
--- NOTE | 2019-03-04 21:41 | NUR ---
PT ASSESSMENT COMPLETE. DRESSINGS CDI X 3. PT UNABLE TO RATE PAIN, 4/10 WITH FACES SCALE. PT ORIENTED TO NAME AND ONLY. AT BEDSIDE. PT GIVEN CHUX FOLDED TO BRACE AND ENCOURAGED TO DEEP BREATHE. IV LEAKING, D/C'D WNL. RN DEVON IN ROOM FOR IV START. SCDS, BED ALARM ON. PT GIVEN CHOCOLATE ENSURE. HR 117 ON TELE 1. SPO2 WNL ON 2L OXYGEN BY NC.
--- NOTE | 2019-03-04 22:33 | NUR ---
IV STARTED BY CCU RN IN RIGHT HAND, PT TOLERATED WELL. PT DENIES ANY PAIN AT THIS TIME. IVF AND ANTIBIOTIC INFUSING WNL. LIGHTS OFF IN PT ROOM. BED ALARM ON. PT REQUESTING TO SLEEP. SPO2 WNL ON 2L OXYGEN BY NC. HR 120.
--- NOTE | 2019-03-04 22:44 | EKG ---
[facility] [address] [place] [address] Signed Sinus tachycardia Minimal voltage criteria for LVH, may be normal variant Abnormal ECG When compared with ECG of 03-MAR-2019 11:41, Nonspecific T wave abnormality Confirmed by ORLY DE ANDA MD ([id number]) on 03/04/2019 10:43:57 PM Electronically Signed By: ORLY DE ANDA MD 03/04/19 2244 PATIENT NAME: ILIANA WANG Electrocardiogram DATE OF : 43 PHYSICIAN: ORLY DE ANDA MD REPORT #: [id number] REPORT IS CONFIDENTIAL AND NOT TO BE RELEASED WITHOUT AUTHORIZATION
--- NOTE | 2019-03-04 23:18 | NUR ---
NOTIFIED DR DE ANDA OF PT SUSTAINED HEART RATE PER TELE IN THE 130'S. PT IS LAYING IN BED, LOOKING AROUND, NO TREMORS, DENIES PAIN, VOIDED; RESP EVEN AND UNLABORED. AT BEDSIDE. CONTINUE TO MONITOR, BLADDER SCAN PRN, REPORT SX
--- NOTE | 2019-03-05 00:03 | NUR ---
IN TO SWITCH IV FLUIDS, PT QUIETLY ASKING WHO ARE YOU, WHAT ARE YOU DOING, REASSURED PT, ALTHOUGH UNSURE IF PT ABLE TO UNDERSTAND, EYE GAZE DID NOT RESPOND TO ANSWER. POSSIBLE THAT HER HEART RATE INCREASING DUE TO A STARTLE REACTION HEART RATE IN THE TEENS AND WHEN RN OUT OF ROOM HR UP TO THE 30'S. ASLEEP ON THE COUCH.
--- NOTE | 2019-03-05 00:05 | NUR ---
CHECKED ON PT, RESTING IN BED WITH EYES CLOSED. BREATHING EQUAL AND NON-LABORED. SPO2 92% ON 2L OXYGEN BY NC. HR 117.
--- NOTE | 2019-03-05 00:08 | NUR ---
V/S AND I&O DONE AND CHARTED. ASSISTED PATIENT TO USE THE BATHROOM AND BACK TO BED. BED ALARM ON. IS IN THE ROOM.
--- NOTE | 2019-03-05 02:30 | NUR ---
PT APPEARS TO BE SLEEPING, EYES CLOSED, BREATHING NON-LABORED. HR 104 ON TELE 1, SPO2 WNL ON 2L OXYGEN BY NC. BED ALARM IN PLACE. IVF INFUSING.
--- NOTE | 2019-03-05 04:06 | NUR ---
IN PT ROOM FOR MEDICATION ADMINISTRATION. PT DISORIENTED TO ALL BUT SELF. AT BEDSIDE. PRN PAIN MEDICATION ADMINISTERED PER FACES SCALE 6. 2PA TO BSC FOR VOID PT STATES "I DON'T FEEL WELL." ENCOURAGED TO DEEP BREATHE, PT UNABLE TO EFFECTIVELY USE IS INSTRUCTED. PT GIVEN BITES OF CRACKERS, PUDDING WITH PO PAIN MEDICATION. SPO2 90% ON 2L OXYGEN BY NC, RR INCREASED WITH ACTIVITY, CONFUSION. REORIENATION PROVIDED. AXILLARY TEMP 100.4. PT NOW RESTING IN BED. ASSESSMENT COMPLETE. SCDS ON. CALL LIGHT IN REACH. IVF INFUSING WNL.
--- NOTE | 2019-03-05 04:40 | NUR ---
IV FLAGYL INFUSION COMPLETE. PT AWAKENS CONFUSED, REORIENTATION PROVIDED. IVF INFUSING WNL. RR 22 AT THIS TIME. HR 120 ON TELE 1, SINUS TACHYCARDIA. BED ALARM IN PLACE.
--- NOTE | 2019-03-05 05:22 | NUR ---
CALL LIGHT ANSWERED, USED CALL LIGHT FOR ASSISTANCE. 1PA TO RESTROOM FOR 200 ML VOID. PT CONFUSED, ORIENTATION PROVIDED. IVF INFUSING WNL. GIVEN ICE WATER REQUESTED. CALL LIGHT IN REACH. BED ALARM ON.
--- NOTE | 2019-03-05 05:48 | NUR ---
PT WITH EYES CLOSED. COUNTED RESP WHILE ASLEEP, SL IRREGULAR, SHALLOW @ 26. IV INFUSING PER ORDER.
--- NOTE | 2019-03-05 06:40 | NUR ---
PT ORIENTED TO SELF ONLY THIS SHIFT, REORIENTATION PROVIDED THROUGHOUT SHIFT. PT REMAINS TACHYCARDIC ON TELE 1 THROUGHOUT SHIFT. SPO2 WNL ON 2L OXYGEN BY NC. SBA TO RESTROOM FOR VOIDS. BED ALARM IN PLACE. USING CALL LIGHT FOR . IVF INFUSING THROUGHOUT SHIFT, NEW IV SITE RIGHT HAND WNL. SCDS IN PLACE. MINIMAL PO INTAKE. PT ENCOURAGED TO TAKE DEEP BREATHS, USE IS, UNABLE TO FOLLOW COMMANDS TO DEEP BREATHE.
--- NOTE | 2019-03-05 06:56 | NUR ---
PT RESTING WITH EYES CLOSED, AWAKENS TO VOICE FOR IV ANTIBIOTIC ADMINISTRATION AND PO MEDICATION ADMINISTRATION. SPO2 90% ON 2L OXYGEN BY NC, HR 123, CONT. PULSE OX IN PLACE. BED ALARM ON.
--- NOTE | 2019-03-05 08:25 | NUR ---
PT SITTING UP IN BED DRINKING ENSURE, WATCHING TV. STATES "I'M FEELING BETTER." NOTED THAT NC WAS OFF AND O2 SATS WERE 86%. REAPPLIED 2L NC, SATS INCREASED TO 88%. SATS 90% ON 3LNC. ATTEMPTED TO EDUCATE PT ON I.S. AND ENCOURAGE USE, PT NONCOMPLIANT AT THIS TIME. AT BEDSIDE. BED ALARM ON.
--- NOTE | 2019-03-05 08:26 | NUR ---
PATIENT SITTING UP IN BED EATING BREAKFAST, IN ROOM. RN IN ROOM. CALL LIGHT IN REACH. NO FURTHER NEEDS AT THIS TIME.
--- NOTE | 2019-03-05 08:45 | NUR ---
STRAIGHT CATH COMPLETED BY [facility] STUDENT NURSE, THIS RN PRESENT FOR OBSERVATION. URINE OBTAINED. PT OMID WELL. SAMPLE SENT TO LAB. PT ASSISTED TO POSITION OF COMFORT. CURRENTLY SITTING UP EATING BREAKFAST WITH ASSISTANCE FROM . ORIENTED TO SELF AND "DAGO". COMPLIANT WITH I.S. AFTER STRAIGHT CATH, USED APPROPRIATELY. CALL LIGHT WITHIN REACH. BED ALARM ON.
--- NOTE | 2019-03-05 09:20 | NUR ---
PT 1PA TO AMB TO RECLINER. SITTING UP IN RECLINER WITH WARM BLANKET VISITING WITH . CALL LIGHT WITHIN REACH.
--- NOTE | 2019-03-05 11:00 | NUR ---
PT AMB HALLWAY WITH 1PA. HEART RATE INCREASED TO 145 WHILE WALKING, PT BECAME SLIGHTLY SOB BUT OTHERWISE ASYMPTOMATIC. DR. DE ANDA AWARE. PT BACK TO BED AFTER WALK. HR CAME DOWN TO 115 SHORTLY AFTER GETTING BACK TO BED. PT DENIES PAIN. DRINKING ENSURE. AT BEDSIDE. O2 SATS 93% ON 3L NC. BED ALARM ON. CALL LIGHT WITHIN REACH.
--- NOTE | 2019-03-05 13:20 | NUR ---
PT RESTING IN BED, EYES CLOSED, RESP EVEN AND UNLABORED. O2 SATS 94% ON 3LNC WHILE ASLEEP. AT BEDSIDE. BED ALARM ON.
--- NOTE | 2019-03-05 14:45 | NUR ---
PT SITTING UP IN BED, DRINKING ENSURE. DENIES PAIN OR OTHER CONCERNS. REMAINS CONFUSED. AT BEDSIDE. BED ALARM ON.
--- NOTE | 2019-03-05 16:10 | NUR ---
PT BECOMING AGITATED IN BED, TRYING TO PULL ON CORDS, TEARFUL, REFUSING TO LEAVE NASAL CANNULA ON, O2 SATS 80%. HR 125-136. DR. RODRIGUES AWARE. ATTEMPTED TO CALM PT DOWN, GOT HER TO REAPPLY NC AND ASSISTED PT TO AMB TO RESTROOM. PT VOIDED 100ML OF FOUL SMELLING SELINA URINE. PT 1PA TO AMB TO RECLINER. BLADDER SCANNED FOR 1ML. ONCE IN RECLINER AND AT REST PT HR DOWN TO 88-98. O2 SAT 90% ON 3L NC. PT MORE RELAXED, TOOK A FEW SIPS OF WATER, NO RESTING WITH EYES CLOSED. CALL LIGHT WITHIN REACH.
--- NOTE | 2019-03-05 16:36 | NUR ---
PT HAD SMALL EMESIS, APPROX 100ML. PT DENIES NAUSEA, STATES "I FEEL BETTER." PT CLEANED UP GOWN CHANGED.
--- NOTE | 2019-03-05 16:42 | NUR ---
22G IV IN RIGHT HAND STARTED 03/04/19 BY [facility] CONSULTANT CARLOS COLEMAN.
--- NOTE | 2019-03-05 17:02 | NUR ---
PT TRANSPORTED TO IMAGING FOR CHEST X RAY. RETURNED AT THIS TIME. ASSISTED TO BED. BED ALARM ON. AT BEDSIDE.
--- NOTE | 2019-03-05 17:51 | NUR ---
NOTED MODERATE ABD DISTENTION, SLIGHTLY FIRM TO THE TOUCH, PT REPORTS MILD "BLOATING." AND DR. RODRIGUES NOTIFIED AND AWARE OF DISTENTION, POSITIVE BT AND FLATUS. MADE AWARE OF LOW URINE OUTPUT, EMESIS AND LE EDEMA.
--- NOTE | 2019-03-05 18:04 | NUR ---
PATIENT IN CHAIR RESTING WITH EYES CLOSED, FAMILY IN ROOM. FRESH WATER GIVEN. CALL LIGHT IN REACH. NO FURTHER NEEDS AT THIS TIME.
--- NOTE | 2019-03-05 19:06 | NUR ---
PT RESTING IN CHAIR WITH EYES CLOSED, RESP EVEN AND UNLABORED. SATS 93% ON 3L NC, HR 105. FAMILY AT BEDSIDE.
--- NOTE | 2019-03-05 19:15 | NUR ---
SHIFT REPORT RECEIVED. PATIENT'S RETURNED TO ROOM. PATIENT IS SLEEPING SOUNDLY IN RECLINER, OPENS EYES ONCE DURING REPORT. RR 22. O2 SAT 93% ON 2L NC. PATIENT'S DENIES ANY QUESTIONS AT THIS TIME.
--- NOTE | 2019-03-05 21:29 | NUR ---
PATIENT SLEEPING SOUNDLY IN RECLINER. PATIENT REPLIES 1 WORD ANSWERS TO VERBAL STIMULI BUT WILL NOT OPEN EYES. ASSISTED PATIENT 2PA UP TO BSC. PATIENT IS SEVERELY DROWSEY. PATIENT HAD NO URINE OUTPUT AND NO SIGNS OF INCONTINENCE IN CHAIR. VS STABLE, PATIENT REQUIRING 3L NC TO MAINTAIN O2 SAT >90%. BREATHING IS SLIGHTLY LABORED. LUNGS ARE CLEAR. IV BOLUS STARTED NOW DUE TO IV INCOMPATIBILITY WITH PRIOR IV MEDS. LAP SITES APPEAR WNL. BOWEL SOUNDS ACTIVE. ABD MODERATELY DISTENDED AND FIRM. 1+ EDEMA NOTED IN JONATHAN LOWER EXTREMITIES. PATIENT TOLERATED PILLS WITH VERBAL ENCOURAGEMENT FROM HER . 2PA PATIENT TO BED. HOB ELEVATED. LEGS ELEVATED ON PILLOW X2. BED ALARM ON. CALL LIGHT IN REACH. PATIENT'S STAYING THE NIGHT, LINENS PROVIDED.
--- NOTE | 2019-03-05 22:30 | NUR ---
PATIENT SLEEPING SOUNDLY. DOES NOT WAKE WHEN RN ENTERED ROOM. IV SITES WNL, X2. IV FLUIDS PER ORDER. IV ABX STARTED PER ORDER. PATIENT BREATHING EVEN AND NONLABORED, RR 20. O2 SAT 92% ON 3L NC. ATTENDS ARE DRY. BED ALARM ON. CALL LIGHT IN REACH.
--- NOTE | 2019-03-05 23:32 | NUR ---
JOSE LOWE CHECKED PATIENTS ATTENDS WHICH WERE DRY. WILL CONTINUE TO MONITOR FOR URINE OUTPUT.
--- NOTE | 2019-03-06 01:09 | NUR ---
PROGRAM SUPPORT ASSISTANT AND JOSE LOWE ASSISTED PATIENT UP TO BSC. PATIENT CONTINUES TO HAVE NO URINE OUTPUT. BLADDER SCAN FOR 249ML. IV FLUIDS CONTINUE TO INFUSE. PATIENT APPEARS COMFORTABLE RESTING IN BED. BED ALARM ON. CALL LIGHT IN REACH.
--- NOTE | 2019-03-06 04:00 | NUR ---
IV ABX STARTED. PATIENT APPEARED TO BE SLEEPING BUT WAS TALKING VERY LOW, LIKE TALKING IN HER SLEEP. ATTEMPT TO WAKE PATIENT AND ASSESS IF SHE NEEDS ANYTHING. PATIENT STATES "I'M JUST FINE" AND REST QUIETLY. PATIENT APPEARS COMFORTABLE. O2 SAT 86% ON 3L NC, INCREASED TO 4L NC. O2 SAT 90%. WILL CONTINUE TO MONITOR.
--- NOTE | 2019-03-06 04:58 | NUR ---
PATIENT ATTEMPTS TO CLIMB OUT OF BED, BED ALARM ALERTS STAFF AND ATTEMPTING TO ASSIST THE PATIENT. PATIENT UNABLE TO VERBALIZE NEEDS. ASSITED HER UP TO THE BSC. PATIENT CONTINUES TO BE VERY DROWSY. PATIENT VOIDED SMALL AMOUNT AND RETURNED TO BED. DENIES PAIN AND MOVES SLOWLY BUT EASILY. REQUIRES FREQUENT DIRECTION. PATIENT O2 SAT 90% ON THE 4L NC. ABD SEVERELY DISTENDED AND FIRM. BOWEL SOUNDS HYPOACTIVE. 1+ EDEMA NOTED IN JONATHAN LOWER EXTREMITIES. ELEAVTED ON PILLOW. SCDS IN PLACE. PATIENT POSITIONED FOR COMFORT. BED ALARM ON. CALL LIGHT IN REACH.
--- NOTE | 2019-03-06 05:57 | NUR ---
NOTIFIED DR. LANDRUM AT 0515 OF PATIENT CURRENT VS, ABD AND O2 CONCERNS. ORDERS FOR ABD/PELVIS CT RECEIVED. IMAGING CALLED, FLOAT NURSE TO ACCOMPANY PATIENT. PATIENT'S NOTIFIED.
--- NOTE | 2019-03-06 06:00 | NUR ---
PATIENT OFF FLOOR FOR IMAGING
--- NOTE | 2019-03-06 06:11 | NUR ---
PATIENT WAS VERY DROWSY THIS SHIFT, UNABLE TO VERBALIZE PAIN OR OTHER CONCERNS. URINE OUTPUT 225ML FOR THIS SHIFT, BLADDER SCAN SHOWS NO EVIDENCE OF RETENSION. O2 REQUIREMENTS INCREASED FROM 2L NC TO 4L VIA OXYMASK. ABD SEVERLY DISTENDED, FIRM AND BOWEL SOUNDS HYPOACTIVE TO ABSENT. CT ORDERED THIS MORNING TO ASSESS FOR POSSIBLE ILEUS PER DR. LANDRUM. 2PA UP TO BSC. IV FLUIDS PER ORDER. AT BEDSIDE DURING THE NIGHT AND HOME THIS AM, REQUESTING TO BE NOTIFIED OF ANY UPDATES.
--- NOTE | 2019-03-06 06:23 | NUR ---
PATIENT RETURNED FOR IMAGING. 4L OXYMASK IN PLACE. PATIENT DROWSEY AND NOT ANSWERING QUESTIONS. HOB ELEAVTED. BED ALARM ON. IV FLUIDS PER ORDER. DR. LANDRUM ARRIVED TO UNIT TO SEE PATIENT.
--- NOTE | 2019-03-06 07:15 | NUR ---
DR. LANDRUM IN TO SEE PATIENT. ORDERS FOR ROBBINS RECIEVED. [facility] STUDENT ERMIAS ASSISTED IN ROBBINS PLACEMENT. STERIL TECHNIQUE USED. PATIENT TOLERATED WELL. 350 OUT, URINE SELINA.
--- NOTE | 2019-03-06 07:15 | NUR ---
REPORT RECEIVED FROM CARLOS HUTCHISON. PT IN BED IN UPRIGHT POSITION. DROWSY BUT AROUSABLE. MUMBLES ANSWERS TO QUESTIONS. ON OXY MASK ATT.
--- NOTE | 2019-03-06 07:43 | NUR ---
PATIENT RESTING IN BED, EYES CLOSED. THIS PRIMARY GRADE TEACHER ASSISTED PATIENT TO WASH HANDS, PATIENT DOES NOT WANT FACE WASHED AT THIS TIME. CALL LIGHT IN REACH. BED ALARM ON. NO OTHER NEEDS AT THIS TIME.
--- NOTE | 2019-03-06 10:00 | NUR ---
PT SITTING UPRIGHT IN BED ALSEEP. ASSESSMENT DONE. MEDS GIVEN WITH RN STUDENT SHARRI.
--- NOTE | 2019-03-06 11:00 | NUR ---
PATIENT RESTING IN BED, EYES CLOSED. THIS RADIO FREQUENCY TECHNICIAN ASSISTED PATIENT WITH ORAL SWABS AND APPLIED CHAPSTICK TO PATIENT'S LIPS. PATIENT'S IN ROOM, CALL LIGHT IN REACH, NO OTHER NEEDS AT THIS TIME.
--- NOTE | 2019-03-06 14:00 | NUR ---
PATIENT COMPLAINS OF DRY CRACKED TONGUE, RN AND PHYSICIAN TO BEDSIDE, FAMILY IN ROOM. THIS PATIENT SERVICE REPRESENTATIVE PERFORMED ORAL CARE AND APPLIED CHAPSTICK TO PATIENT'S LIPS, NO OTHER NEEDS AT THIS TIME.
--- NOTE | 2019-03-06 15:59 | NUR ---
PT SENT VIA [facility] TO [facility] FOR ERCP PER DR LANDRUM. PT REMAINS DROWSY. FAMILY IN ROOM. REPORT GIVEN TO [facility]W. UNHOOKED FROM IVF. VS STABLE. PT TEMP 100.1.
--- NOTE | 2019-03-06 16:39 | NUR ---
CALLED REPORT TO RN TERRY AT [facility]. DISCUSSED PT HISTORY AND THIS STAY. VS, LABS, MEDS AND SOCIAL SITUATION. ANSWERED RN'S QUESTIONS.
--- NOTE | 2019-03-06 16:48 | NUR ---
TRIED TO WASTE 0.5 MG DILAUIDID WITH CARLOS MANRIQUE. PT NO LONGER IN PYXIS. UNABLE TO ACCOUNT FOR IN PYXIS. PHARMACY NOTIFIED. PLACED REMAINING 0.5 MG IN SHARPS CONTAINER.
--- NOTE | 2019-03-08 07:47 | DS ---
[facility] [address], [place] [address] Signed ADMISSION DATE: 03/05/2019 DISCHARGE DATE: 03/06/2019 FINAL DIAGNOSES: 1. Acute cholecystitis with cholelithiasis. 2. Urinary tract infection. PROCEDURES PERFORMED: 1. Laparoscopic cholecystectomy without intraoperative cholangiogram. 2. CT scan of abdomen and pelvis. HISTORY OF PRESENT ILLNESS: Monserrat is a 73-year-old demented lady, who lives with her . She came into the ER on Monday and was evaluated and found to have normal labs and so forth and a negative chest x-ray following an elevated D-dimer. She was discharged to home with a thought she might have viral gastroenteritis. Her brought her back the next day as she was not getting any better. The white count was borderline at 12 and again the liver function tests and so forth seemed to be fine. A CT scan of abdomen and pelvis was done and on this occasion one could see a thick and inflamed gallbladder with a large gallstone. I was asked to admit her as a general surgeon on-call. HOSPITAL COURSE: Monserrat was admitted as above and started on her antibiotics, initially cefoxitin and Flagyl and later cefepime and Flagyl. We took her to the operating room that same day and she underwent a laparoscopic cholecystectomy without intraoperative cholangiogram. As it is common with inflamed gallbladder, she had some bleeding along the edge of the gallbladder where it joins the liver and we did have little bleeding from our cystic duct, which we controlled with a clip. Due to the amount of inflammation in the triangle of Calot, we decided not to dissect down any farther than where the neck joins the cystic duct. We secured the cyst. Therefore, we abandoned our intraoperative cholangiogram. We secured the cystic duct stump with a PDS Endoloop and a couple of clips were placed to macy its location. Gallbladder had been carefully removed from the gallbladder fossa with the help of our cautery. We did place some Surgicel in the gallbladder fossa, but we did not place a drain. There was no further bleeding and we felt satisfied with the surgery. She was kept in the hospital and was noted to have some tachycardia while awake. We attributed this partly to her dementia. While asleep, her heart rate went back down into the 70s and 80s. Repeat blood work was fine including our troponin levels. We did have our Internal Medicine Service see her as well. However, we started to increase her diet and she started to have some increased abdominal distention, mainly in the epigastric and right upper quadrant areas. We did send off a straight cath urine. It came back with white blood cells and bacteria and we Electronically Signed By: JOSE LUIS LANDRUM MD 03/08/19 0747 PATIENT NAME: MONSERRAT WANG DISCHARGE SUMMARY DATE OF : 43 REPORT #: [id number] PHYSICIAN: JOSE LUIS LANDRUM MD PCP: LEROY KITCHEN PA-C REPORT IS CONFIDENTIAL AND NOT TO BE RELEASED WITHOUT AUTHORIZATION [facility] [address], [place] [address] Signed were awaiting that final result. In the meantime, we kept her on the cefepime and Flagyl. She was very difficult to assess with her dementia, she looks mostly to her and answers very little. She really was not able to cooperate with her incentive spirometry. She did have a temperature spike and we felt like her epigastric distention and right upper quadrant distention were little more, although she did not complain of pain and did not seem to have any peritoneal signs or symptoms on exam. We went ahead and send her down for CT scan of abdomen and pelvis and there is fluid collection in her gallbladder fossa and kind of extending around the left lobe of the liver. It seemed to be contained. I had a long discussion with Monserrat and her and later her son and daughter, who were in the room. We felt like we did not know the exact source of that presumed biloma. The density was not enough to consider the hematoma plus the hemoglobin levels did not drop significantly. We did give her some IV fluid and even then her urine output dropped off as well. We felt like she needed an ERCP to not only provide preferential drainage of the distal common bile duct, but to look for source of leak as well. Hence, she might also require percutaneous drainage as well. Neither of those are available at our small [facility]. Consequently, we had contacted Dr. Yony Roe, at [facility]. After a long review with Dr. Roe and family, Dr. Roe was kind enough to take her in transfer. DISCHARGE PLANS AND MEDICATIONS: Monserrat was transferred down to [facility] as stated above. Her ongoing care will be per the staff. We will look forward to their input. I am certainly available locally here in [place] to help follow up with Monserrat as she returns home. I am also available obviously to answer any additional questions once she and her and family return back to [place]. Discussed this in detail, overall in agreement. Monserrat and her have expressed understanding and agreed to the above plan. Jose Luis Landrum MD ALB/MODL /[id number] cc: Vero Kitchen MD Electronically Signed By: JOSE LUIS LANDRUM MD 03/08/19 0747 PATIENT NAME: MONSERRAT WANG DISCHARGE SUMMARY DATE OF : 43 REPORT #: [id number] PHYSICIAN: JOSE LUIS LANDRUM MD PCP: LEROY KITCHEN PA-C REPORT IS CONFIDENTIAL AND NOT TO BE RELEASED WITHOUT AUTHORIZATION [address] [address] Signed MD Yony Villanueva MD Copies: VERO KITCHEN MD, ANDREW L MD SHEPPARD, BRETT MD ~ Electronically Signed By: JOSE LUIS LANDRUM MD 03/08/19 0747 PATIENT NAME: MONSERRAT WANG DISCHARGE SUMMARY DATE OF : 43 REPORT #: [id number] PHYSICIAN: JOSE LUIS LANDRUM MD PCP: LEROY KITCHEN PA-C REPORT IS CONFIDENTIAL AND NOT TO BE RELEASED WITHOUT AUTHORIZATION
== END 2019-03-06 15:42 | disposition short-term general hospital (02) | DRG 393 ==
LOC: ED 11:29 → MS 15:00 → ED 15:00 → MS 15:01
PROVIDERS: ADMIT Colon & Rectal Surgery
DX: K91.89 Other postprocedural complications and disorders of digestive system (principal); J96.91 Respiratory failure, unspecified with hypoxia; J90 Pleural effusion, not elsewhere classified; N39.0 Urinary tract infection, site not specified; R00.0 Tachycardia, unspecified; F03.90 Unspecified dementia, unspecified severity, without behavioral disturbance, psychotic disturbance, mood disturbance, and anxiety; I73.9 Peripheral vascular disease, unspecified; M47.816 Spondylosis without myelopathy or radiculopathy, lumbar region; I10 Essential (primary) hypertension; E03.9 Hypothyroidism, unspecified; E66.9 Obesity, unspecified; Z79.899 Other long term (current) drug therapy; Z79.1 Long term (current) use of non-steroidal anti-inflammatories (NSAID); Z96.651 Presence of right artificial knee joint; Z88.5 Allergy status to narcotic agent; Z88.0 Allergy status to penicillin; Y83.6 Removal of other organ (partial) (total) as the cause of abnormal reaction of the patient, or of later complication, without mention of misadventure at the time of the procedure; Z90.49 Acquired absence of other specified parts of digestive tract; Z68.28 Body mass index [BMI] 28.0-28.9, adult
CPT/HCPCS: 00790; 36415; 71046; 74177; 80048; 80053; 81001; 83605; 83690; 83735; 83880; 84100; 84484; 85025; 87088; 93005; 93010; 94762; 96361; 99285-25; J0330; J0692; J0694; J1100; J1170; J1644; J1650; J1885; J2250; J2405; J2704; J2765; J3010; J7030; J7040; J7060; J7120; Q9967

== ENCOUNTER 2019-04-09 10:28 | Emergency (ER) | payer MEDICARE ==
[~2019-04-09] VITALS: Ht 160 cm; Wt 73.0 kg
--- OUTSIDE RECORDS SUMMARY | ~2019-04-09 | XMS | Encounter Summary ---
Demographics + + + | Address | [address] | | | [place] [address] | + + + | Home Phone | | + + + | Preferred Language | Unknown | + + + | Marital Status | | + + + | Anabaptist Affiliation | ADV | + + + | Race | White | + + + | Ethnic Group | Not or | + + + Author + + + | Author | [facility] | + + + | Organization | [facility] | + + + | Address | Unknown | + + + | Phone | Unavailable | + + + Support + + +---------+ + | Name | Relationship | Address | Phone | + + +---------+ + | Aristides Marrufo | ECON | Unknown | | + + +---------+ + Care Team Providers + +------+ + | Care Saxophone Assembler Name | Role | Phone | + +------+ + | Estelita Kitchen PA-C | PCP | | + +------+ + Encounter Details +--------+--------+ + + + | Date | Type | Department | Care Team | Description | +--------+--------+ + + + | 03/06/ | Intake | Transfer Center | | N/A | | 2019 | | [address] | | | | | | [place], | | | | | | [place] [address] | | | +--------+--------+ + + + Social History + +-------+ [...] + + documented as of this encounter Plan of Treatment +--------+ + + + + | Date | Type | Specialty | Care Team | Description | +--------+ + + + + | 04/19/ | Hospital | | Ulysses Raines W | | | 2018 | Encounter | | MD Joseph [address] | | | | | | [address] | | | | | | [place], [place] | | | | | | [address] | | | | | | [phone] | | | | | | | | +--------+ + + + + | 04/19/ | Appointment | Gastroenterology | Tabatha Coello | | | 2018 | | | [address] | | | | | | [address] | | | | | | [place] [address] | | +--------+ + + + + documented as of this encounter Visit Diagnoses Not on filedocumented in this encounter"
--- OUTSIDE RECORDS SUMMARY | ~2019-04-09 | XMS | Encounter Summary ---
Demographics + + + | Address | [address] | | | [place] [address] | + + + | Home Phone | | + + + | Preferred Language | Unknown | + + + | Marital Status | | + + + | Sikhism Affiliation | ADV | + + + | Race | White | + + + | Ethnic Group | Not or | + + + Author + + + | Author | [facility] | + + + | Organization | [facility] | + + + | Address | Unknown | + + + | Phone | Unavailable | + + + Support + + +---------+ + | Name | Relationship | Address | Phone | + + +---------+ + | Aristides Marrufo | ECON | Unknown | | + + +---------+ + Care Team Providers + +------+ + | Care Automatic Edger Name | Role | Phone | + +------+ + | Estelita Kitchen PA-C | PCP | | + +------+ + Reason for Referral PROC - Dept/Practice Procedure (Urgent) + +--------+ + + + + | Status | Reason | Specialty | Diagnoses / | Referred By | Referred To | | | | | Procedures | Contact | Contact | + +--------+ + + + + | Authorized | | Gastroenterol | Diagnoses | [place], | Gas Endo | | | | ogy | Bile leak, | Ulysses W | [address] | | | | | postoperativ | MD Joseph | [address] | | | | | e | [address] | [facility] | | | | | Procedures | [place] | Mailcode: | | | | | CONSULT TO | Rd | [address] | | | | | GI | [place], [place] | [place] | | | | | PROCEDURE: | [id number] | [address] | | | | | ERCP / | Phone: | [place], | | | | | BILIARY | [phone] | [place] [address] | | | | | MANOMETRY | Fax: | Phone: | | | | | MD ANES UPR | [phone] | [phone] | | | | | GI NDSC PX | | Fax: | | | | | NOS MD | | [phone] | | | | | ERCP,BIOPSY | | | | | | | MD | | | | | | | ERCP,SPHINCT | | | | | | | EROTOMY MD | | | | | | | ERCP,W/REMOV | | | | | | | AL | | | | | | | STONE,JONATHAN/PA | | | | | | | NCR DUCTS | | | | | | | MD ERCP | | | | | | | W/REMOVAL | | | | | | | FOREIGN BODY | | | | | | | OR STENT | | | | | | | MD ERCP | | | | | | | W/PLACE OF | | | | | | | ENDOSCOPIC | | | | | | | STENT MD | | | | | | | ERCP W/REMOV | | | | | | | AND | | | | | | | EXCHANGE OF | | | | | | | STENT MD | | | | | | | ERCP W/TRANS | | | | | | | ENDOSCOPI | | | | | | | BALLOON | | | | | | | DILATION OF | | | | | | | DUCT MD | | | | | | | ERCP | | | | | | | W/ABLATION | | | | | | | OF TUMOR | | | | | | | POLP OR | | | | | | | LESION | | | + +--------+ + + + + Encounter Details +--------+ + + + + | Date | Type | Department | Care Team | Description | +--------+ + + + + | 03/08/ | Tire Classifier | Digestive Health | Ulysses Raines W | Bile leak, | | 2019 | | Center at [facility] [address] | MD Joseph [address] | postoperative | | | | [address] | [address] | (Primary Dx) | | | | Mailcode: Center | [place], [place] | | | | | [facility] and | [address] | | | | | [facility] | [phone] | | | | | [place], [place] | | | | | | [address] | | | | | | [phone] | | | +--------+ + + + [...] | Ulysses Raines W | | | 2019 | Encounter | | MD Joseph [address] | | | | | | [address] | | | | | | [place], [place] | | | | | | [address] | | | | | | [phone] | | | | | | | | +--------+ + + + + | 04/19/ | Appointment | Gastroenterology | Tabatha Coello | | | 2018 | | | Therapeutic [address] | | | | | | [address] | | | | | | [place] [address] | | +--------+ + + + + documented as of this encounter Visit Diagnoses + + | Diagnosis | + + | Bile leak, postoperative - Primary Unspecified disorder of biliary tract | + + documented in this encounter"
--- OUTSIDE RECORDS SUMMARY | ~2019-04-09 | XMS | Encounter Summary ---
Demographics + + + | Address | [address] | | | [place] [address] | + + + | Home Phone [...] + + + | Author | [facility] | + + + | Organization | [facility] | + + + | Address | Unknown | + + + | Phone | Unavailable | + + + Support + + +---------+ + | Name | Relationship | Address | Phone | + + +---------+ + | Aristides Marrufo | ECON | Unknown | | + + +---------+ + Care Team Providers + +------+ + | Care Print Production Associate Name | Role | Phone | + [...] | Event | Procedural Unit at | Lui, [address] | | | | | Rachelle Patel [address] | [address] | | | | | [address] [facility] | [place], [place] | | | | | Road Mailcode: | [address] | | | | | [address] | [phone] | | | | | [address] | | | | | | [place], [place] | | | | | | [address] | | | | | | [phone] | | | +--------+ + + + [...] + + + | [facility] | Other [facility]; Right; adb- upper | 03/06/191753 by | [...] 20 g; Yes; Lidocaine; No; | Hernando Burns RN | Dorothy Sinha RN | | [address] [...] [address] | | | | | | [place], [place] | | | | | | [address] | | | | | | [phone] | | | | | | | | +--------+ + + + + | 04/19/ | Appointment | Gastroenterology | Tabatha Coello | | | 2018 | | | [address] | | | | | | [address] | | | | | | [place] [address] | | +--------+ + + + + [...] | | | | INTRAPROCEDURE PRN, Starting Mon | | 4:39 | | | | | 03/08/19 at 1639, Until Mon03/08/19 | | PM PDT | | | | | at 1656 | | | | | | + +-------+ +-------+---+---+ +---+---+ | | | +---+---+ documented in this encounter"
--- OUTSIDE RECORDS SUMMARY | ~2019-04-09 | XMS | Clinical Summary ---
Demographics + + + | Address | [address] | | | [place] [address] | + + + | Home Phone | | + + + | Preferred Language | Unknown | + + + | Marital Status | | + + + | Scientology Affiliation | ADV | + + + | Race | White | + + + | Ethnic Group | Not or | + + + Author + + + | Author | [facility] | + + + | Organization | [facility] | + + + | Address | Unknown | + + + | Phone | Unavailable | + + + Support + + +---------+ + | Name | Relationship | Address | Phone | + + +---------+ + | Aristides Marrufo | ECON | Unknown | | + + +---------+ + Care Team Providers + +------+ + | Care Log Getter Name | Role | Phone | + +------+ + | Estelita Kitchen PA-C | PP | | + +------+ + Source Comments [facility] is fully live on both [facility] and [facility] Allergies + + + + + + | Active Allergy | Reactions | Severity | Noted | Comments | | | | | Date | | + + + + + + | Codeine | Unknown | | 03/06/20 | Possible GI Upset. | | | | | 19 | | + + + + + + | Penicillin | Unknown | | 03/06/20 | | | | | | 19 | | + + + + + + Medications + + + +---------+------+------+-------+ | Medication | Sig | Dispensed | Refills | Star | End | Statu | | | | | | t | Date | s | | | | | | Date | | | + + + +---------+------+------+-------+ | amLODIPine 5 mg | Take 5 mg by mouth | | 0 | | | Activ | | oral tablet | once daily. | | | | | e | + + + +---------+------+------+-------+ | atorvastatin 20 mg | Take 20 mg by mouth | | 0 | | | Activ | | oral tablet | once daily. | | | | | e | + + + +---------+------+------+-------+ | levothyroxine 88 | Take 88 mcg by mouth | | 0 | | | Activ | | mcg oral tablet | before breakfast. | | | | | e | + + + +---------+------+------+-------+ | lisinopril 20 mg | Take 20 mg by mouth | | 0 | | | Activ | | oral tablet | once daily. | | | | | e | + + + +---------+------+------+-------+ | meloxicam 15 mg | Take 15 mg by mouth | | 0 | | | Activ | | oral tablet | once daily. | | | | | e | + + + +---------+------+------+-------+ | pantoprazole 40 mg | Take 40 mg by mouth | | 0 | | | Activ | | oral tablet,delayed | once daily. | | | | | e | | release (/EC) | | | | | | | + + + +---------+------+------+-------+ | ondansetron ODT 4 | Dissolve 4 mg on | | 0 | | | Activ | | mg oral | tongue and swallow | | | | | e | | tablet,disintegratin | every eight hours as | | | | | | | g | needed. | | | | | | + + + +---------+------+------+-------+ | acetaminophen 325 | Take 2 tablets by | | 0 | 05/0 | | Activ | | mg oral tablet | mouth every four | | | 5/20 | | e | | | hours as needed. | | | 19 | | | + + + +---------+------+------+-------+ | artificial tears | Instill 1 drop into | 15 mL | 0 | 05/0 | | Activ | | (dextran | both eyes three | | | 5/20 | | e | | 70-hypromellose) | times daily. | | | 19 | | | | 0.1-0.3 % ophthalmic | Indications: dry and | | | | | | | (eye) | inflamed cornea and | | | | | | | dropsIndications: | conjunctiva of eyes | | | | | | | keratoconjunctivitis | | | | | | | | sicca | | | | | | | + + + +---------+------+------+-------+ | polyethylene | Mix 1 packet and | | 0 | 05/0 | | Activ | | glycol 17 gram oral | take orally three | | | 5/20 | | e | | powder in packet | times daily as | | | 19 | | | | | needed (1st line - | | | | | | | | for no BM for 2 | | | | | | | | days). | | | | | | + + + +---------+------+------+-------+ | senna-docusate | Take 1 tablet by | 50 | 0 | 05/0 | | Activ | | 8.6-50 mg oral | mouth two times | tablet | | 5/20 | | e | | tablet | daily. | | | 19 | | | + + + +---------+------+------+-------+ Active Problems Not on file Encounters +--------+ + + + + | Date | Type | Specialty | Care Team | Description | +--------+ + + + + | 04/05/ | Abstract | | Gio Gonzalez, | Medical Records | | 2019 | | | MD | Review | +--------+ + + + + | 03/11/ | Transcribe | | Transcribe | | | 2019 | Orders | | Ashley Yoo, | | | | | | | | +--------+ + + + + | 03/11/ | Pharmacy | | | | | 2018 | Visit | | | | +--------+ + + + + | 03/10/ | Pharmacy | | | | | 2018 | Visit | | | | +--------+ + + + + 03/08/ | Anesthesia | | Travis Rivers | | | 2019 | Event | | MD Liu | | +--------+ + + + + | 03/08/ | Stage Settings Painter | | de Ulysses Woods W | Bile leak, | | 2019 | | | MD Joseph | postoperative | | | | | | (Primary Dx) | +--------+ + + + + | 03/06/ | Hospital | | Gio Gonzalez, | | | 2019 - | Encounter | | | | | | | | | | | 03/10/ | | | | | | 2019 | | | | | +--------+ + + + + +---+ + | | Discharge | | | Summary - | | | Jonatan, | | | MD Keaton | | | - | | | 03/10/2019 | | | 11:08 AM | | | PDT | | | Formatting | | | of this | | | note might | | | be | | | different | | | from the | | | original.[facility] | | | [facility] | | | & [facility] | | | [facility] | | | ISCHARGE | | | SUMMARY & | | | INTERDISCIP | | | LINARY | | | INSTRUCTION | | | SPatient: | | | Monserrat Krasu | | | [place]N: | | | [id number] | | | ission | | | Date: | | | 03/06/2019Dis | | | charge | | | Date: | | | 03/10/2019 | | | Attending | | | Physician: | | | Gio | | | Gonzalez, | | | MDPCP: | | | Estelita | | | E Ron, | | | PA-CService | | | : [facility] blue | | | | | | surgeryDiag | | | noses | | | Principal | | | Final | | | Diagnosis: | | | 1. Bile | | | leakAdditio | | | nal | | | Diagnoses: | | | 2. | | | Decondition | | | ingPROCEDUR | | | ES 1. | | | Sphincterot | | | charlie 2. 10F | | | x 10 cm | | | plastic | | | stent | | | placed3. | | | ERCP4. RUQ | | | biloma | | | drain | | | placement - | | | 12 F | | | biliary | | | drainBrief | | | Hospital | | | Course 73 | | | year old | | | female with | | | worsening | | | dementia, | | | recent | | | laparoscopi | | | c | | | cholecystec | | | emmanuel | | | presenting | | | as a | | | transfer | | | from O[facility] | | | ([facility] [place], | | | [place] | | | [place]) with | | | possible | | | biloma. | | | Patient | | | initially | | | presented | | | to OSH with | | | abdominal | | | pain, work | | | up revealed | | | a | | | leukocytosi | | | s of 12K | | | and CT | | | imaging | | | concerning | | | for acute | | | jethro | | | cystitis. | | | Although | | | her LFTs | | | were | | | normal. | | | She then | | | underwent | | | laparoscopi | | | c | | | cholecystec | | | emmanuel on | | | 02/21/19. | | | Intraoperat | | | lisa course | | | was | | | significant | | | for | | | moderate | | | bleeding | | | around the | | | triangle of | | | Calot and | | | liver edges | | | during | | | dissection | | | (EBL | | | 150ml), | | | intra op | | | cholangiogr | | | am was | | | aborted due | | | to | | | difficult | | | dissection | | | and | | | bleeding. | | | Post | | | operatively | | | patient | | | was slow to | | | advance. | | | On POD #3, | | | patient was | | | noted to | | | have low | | | urine | | | output with | | | very | | | minimal PO | | | intake. Her | | | wbc was | | | 4.8 with t | | | max of | | | 100.1. CT | | | imaging was | | | obtained | | | and was | | | concerning | | | for biloma. | | | She was | | | then | | | transferred | | | to [facility] | | | for next | | | level of | | | care. | | | Upon | | | arrival to | | | [facility], | | | patient was | | | very | | | somnolent | | | and hard to | | | arouse, | | | requiring | | | 4L by NC. | | | 0.2 mg of | | | narcan was | | | administere | | | d with | | | improvement | | | in | | | alertness. | | | Narcan | | | improved | | | her | | | somnolence. | | | On 5 | | | she was | | | taken with | | | IR for RUQ | | | biloma | | | drain | | | placement | | | and biloma | | | drainage | | | which she | | | tolerated | | | well. | | | Following | | | the | | | procedure, | | | she did | | | seem to | | | have an | | | improvement | | | in her | | | mentation | | | and per | | | she | | | was | | | nearing | | | baseline | | | other than | | | more severe | | | sundowning | | | each | | | night. On | | | 054/03 she | | | went with | | | GI for ERCP | | | where they | | | completed | | | a | | | sphincterot | | | charlie and | | | placed a | | | [id number] | | | plast | | | stent. On | | | day of | | | discharge, | | | her pain | | | was well | | | controlled | | | and she was | | | tolerating | | | a regular | | | diet. PT | | | recommended | | | SNF | | | placement | | | however she | | | does have | | | an | | | extremely | | | supportive | | | family and | | | has great | | | in house | | | support. | | | We decided | | | to send her | | | home with | | | home health | | | and | | | physical | | | therapy | | | given these | | | | | | factors.Phy | | | sical Exam | | | at | | | Discharge:W | | | t 78.1 kg | | | (172 lb 3.2 | | | oz), BP | | | 169/70, | | | Pulse 72, | | | Temperature | | | 36.9 C | | | (98.4 F), | | | RR 16, | | | SpO2 94%. | | | Facility | | | age limit | | | for growth | | | percentiles | | | is 17 | | | years. See | | | progress | | | noteActivit | | | y No | | | activity | | | restriction | | | s | | | Medication | | | List START | | | taking | | | these | | | medications | | | | | | acetaminoph | | | en 325 mg | | | TabCommonly | | | known as: | | | | | | TYLENOLTake | | | 2 tablets | | | by mouth | | | every four | | | hours as | | | needed. | | | artificial | | | tears | | | (dextran | | | 70-hypromel | | | lose) | | | 0.1-0.3 % | | | DropCommonl | | | y known as: | | | NATURE'S | | | TEARSInstil | | | l 1 drop | | | into both | | | eyes three | | | times | | | daily. | | | Indications | | | : dry and | | | inflamed | | | cornea and | | | conjunctiva | | | of eyes | | | omeprazole | | | 40 mg | | | CpdrCommonl | | | y known as: | | | | | | PRILOSECTak | | | e 1 capsule | | | by mouth | | | before | | | breakfast. | | | Administer | | | 30 to 60 | | | minutes | | | before | | | mealsStart | | | taking on: | | | 03/11/2019 | | | polyethylen | | | e glycol 17 | | | gram | | | PwpkCommonl | | | y known as: | | | | | | MIRALAXMix | | | 1 packet | | | and take | | | orally | | | three times | | | daily as | | | needed (1st | | | line - for | | | no BM for | | | 2 days). | | | senna-docus | | | ate 8.6-50 | | | mg | | | TabCommonly | | | known as: | | | SENOKOT | | | STake 1 | | | tablet by | | | mouth two | | | times | | | daily. | | | CONTINUE | | | taking | | | these | | | medications | | | | | | amLODIPine | | | 5 mg | | | TabCommonly | | | known as: | | | | | | NORVASCTake | | | 5 mg by | | | mouth once | | | daily. | | | atorvastati | | | n 20 mg | | | TabCommonly | | | known as: | | | | | | LIPITORTake | | | 20 mg by | | | mouth once | | | daily. | | | levothyroxi | | | ne 88 mcg | | | TabTake 88 | | | mcg by | | | mouth | | | before | | | breakfast. | | | lisinopril | | | 20 mg | | | TabCommonly | | | known as: | | | | | | PRINIVILTak | | | e 20 mg by | | | mouth once | | | daily. | | | meloxicam | | | 15 mg | | | TabCommonly | | | known as: | | | MOBICTake | | | 15 mg by | | | mouth once | | | daily. | | | ondansetron | | | ODT 4 mg | | | TbdiCommonl | | | y known as: | | | ZOFRAN | | | ODTDissolve | | | 4 mg on | | | tongue and | | | swallow | | | every eight | | | hours as | | | needed. | | | pantoprazol | | | e 40 mg | | | TbecCommonl | | | y known as: | | | | | | PROTONIXTak | | | e 40 mg by | | | mouth once | | | daily. | | | HOME HEALTH | | | REFERRAL | | | AFTER | | | HOSPITALIZA | | | TION | | | Comments: I | | | certify | | | that this | | | patient is | | | under my | | | care and | | | that I, or | | | Nurse | | | Practitione | | | r or | | | Physician | | | Health And Fitness Instructor | | | working | | | with me, | | | had a face | | | to face | | | encounter | | | with this | | | patient on | | | 03/10/2019On | | | behalf of | | | Attending | | | Physician: | | | Gio | | | Gonzalez, | | | MDI am | | | ordering | | | and certify | | | that the | | | following | | | services | | | are | | | medically | | | necessary | | | home health | | | services | | | Home Health | | | Skilled | | | Nursing | | | Evaluate | | | and Treat | | | I am | | | ordering | | | and certify | | | that the | | | following | | | services | | | are | | | medically | | | necessary | | | home health | | | services | | | Home Health | | | Physical | | | Therapy | | | Evaluate | | | and Treat | | | I certify | | | that the | | | patient is | | | homebound | | | based on | | | the | | | following | | | clinical | | | findings | | | Blind or | | | senile and | | | rquires the | | | assistance | | | of another | | | person in | | | leaving | | | his/her | | | residence | | | | | | Electronica | | | lly signed | | | by Gio | | | Jyothi | | | at | | | 03/10/2019 | | | 11:30 AM | | | PDT | +---+ + +--------+ +---+ +-----+ | 03/06/ | Outside | | Other, Faculty | | | 2018 | Records | | | | +--------+ +---+ +-----+ | 03/06/ | Intake | | | N/A | | 2018 | | | | | +--------+ +---+ +-----+ 03/05/ | Outside | | Other, Faculty | | | 2018 | Records | | | | +--------+ +---+ +-----+ | 03/03/ | Outside | | Other, Faculty | | | 2018 | Records | | | | +--------+ +---+ +-----+ | 03/02/ | Outside | | Other, Faculty | | | 2018 | Records | | | | +--------+ +---+ +-----+ from Last 3 Months Family History + + +------+ + | Medical History | Relation | Name | Comments | + + +------+ + | GI problems | Neg Hx | | | + + +------+ + Social History + +-------+ +--------+------+ | [...] recent travel history available. | + + Last Filed Vital Signs + + + [...] | | + + + + + Plan of Treatment +--------+ + + + + | Date | Type | Specialty | Care Team | Description | +--------+ + + + + | 04/19/ | Hospital | | Ulysses Rondon W | | | 2018 | Encounter | | MD Joseph [address] | | | | | | [address] | | | | | | [place], [place] | | | | | | [address] | | | | | | [phone] | | | | | | | | +--------+ + + + + | 04/19/ | Appointment | | Tabatha Coello | | | 2018 | | | [address] | | | | | | [address] | | | | | | [place] [address] | | +--------+ + + + + + + + + + | Health Maintenance | Due Date | Last Done | Comments | + + + + + | Pneumococcal | | | | | vaccination (1 of 2 | 9 | | | | - PCV13) | | | | + + + + + | Influenza (Flu) | | | | | vaccination (Season | 9 | | | | Ended) | | | | + + + + + Implants + +-------+------+ +--------+--------+--------+ | Implanted | Type | Area | Manufacture | Device | Shelf | Model | | | | | r | | Expira | / | | | | | | Identi | tion | Serial | | | | | | fier | Date | / Lot | + +-------+------+ +--------+--------+--------+ | Stent-03/08/2019Implanted: | STENT | | COOK | | 08/13/ | / | | 03/08/2019 by Ulysses oRndon | | | MEDICAL | | 2020 | /[id number] | | W MD Joseph (Quantity not on | | | | | | [id number] | | file) | | | | | | | + +-------+------+ +--------+--------+--------+ + + | Description:Rad Shine | | Biliary Stent | + + Procedures + +--------+ + + + | [...] + | OUTSIDE RADIOLOGY - | | 03/06/2019 | | Results for this | | CT | | 12:00 AM | | procedure are in the | | | | PDT | | results section. | + +--------+ + + + | OUTSIDE RADIOLOGY - | | 03/06/2019 | | Results for this | | CT | | 12:00 AM | | procedure [...] + | OUTSIDE RADIOLOGY - | | 03/03/2019 | | Results for this | | CT | | 12:00 AM | | procedure are in the | | | | PDT | | results section. | + +--------+ + + + | OUTSIDE RADIOLOGY - | | 03/03/2019 | | Results for this | | CT | | 12:00 AM | | procedure [...] | | Results for this | | CT | | 12:00 AM | | procedure are in the | | | | PDT | | results section. | + +--------+ + + + from Last 3 Months Results RENAL FUNCTION SET (NA,K,CL,CO2,BUN,CREAT,GLUC,CA,PHOS,ALB ) (03/10/2019 10:04 AM PDT)Only the most recent of 2 results within the time period is included. + + + + + + | [...] | | | LABORATORY | | | [facility] | | | SERVICES, | | | [...] | Specimen | + + | Blood | + + + + + | Narrative | Performed At | + + + | Sample hemolyzed. Results for LD, K, and AST may be | [facility] | | inaccurate. Refer to comment under test. GFR is estimated using | LABORATORY | | the MDRD equation recommended by the National Kidney Disease Education | SERVICES, CORE | | Program. Estimated GFR Interpretive Information: <60 mL/min/1.73 | | | sq m Chronic Kidney Disease <15 | | | mL/min/1.73 sq m Kidney Failure Estimated | | | GFR greater than 60 mL/min/1.73 sq m is of limited clinical value. | | | The MDRD equation is not valid in the following situations: - | | | Patients under 18 years of age - Severe malnutrition or obesity - | | | Vegetarian diet - Rapidly changing kidney function - Amputees, | | | paraplegics, or other muscle-wasting diseses | | + + + + + + + + | Performing | Address | City/State/Zipcode | Phone Number | | Organization | | | | + + + + + | [facility] | [address] | [place] [address] | | | SERVICES, CORE | [address] | | | + + + + + MAGNESIUM, PLASMA (03/10/2019 10:04 AM PDT)Only the most recent of 5 results within the is included. + +-------+ + + + | Component [...] | Specimen | + + | Blood | + + + + + + + | Performing | Address | City/State/Zipcode | Phone Number | | Organization | | | | + + + + + | [facility] | [address] | [place] [address] | | | SERVICES, CORE | [address] | | | + + + + + COMPLETE METABOLIC SET (NA,K,CL,CO2,BUN,CREAT,GLUC,CA,AST,ALT,BILI TOTAL,ALK PHOS,ALB,PROT TOTAL) (2019 5:02 AM PDT)Only the most recent of 3 results within the time period is included. + + + + + + | [...] | | | LABORATORY | | | [facility] | | | SERVICES, | | | [...] | Specimen | + + | Blood | + + + + + | Narrative | Performed At | + + + | GFR is estimated using the MDRD equation recommended by the | [facility] | | National Kidney Disease Education Program. Estimated GFR | LABORATORY | | Interpretive Information: <60 mL/min/1.73 sq | SERVICES, CORE | | m Chronic Kidney Disease <15 mL/min/1.73 | | | sq m Kidney Failure Estimated GFR greater | | | than 60 mL/min/1.73 sq m is of limited clinical value. The MDRD | | | equation is not valid in the following situations: - Patients under | | | 18 years of age - Severe malnutrition or obesity - Vegetarian diet | | | - Rapidly changing kidney function - Amputees, paraplegics, or other | | | muscle-wasting diseses | | + + + + + + + + | Performing | Address | City/State/Zipcode | Phone Number | | Organization | | | | + + + + + | [facility] | [address] | [place] [address] | | | SERVICES, CORE | [address] [...] | Specimen | + + | Blood | + + + + + + + | Performing | Address | City/State/Zipcode | Phone Number | | Organization | | | | + + + + + | [facility] | [address] | [place] [address] | | | SERVICES, CORE | [address] [...] Ulysses Rondon Jr., MD 03/08/2019 5:06 PM | | | Gastroenterology Post-procedure Note Patient was submitted to ERCP | | | with sphincterotomy and stent placement successfully. Garcia | | | Findings: No active extravasation seen during injection but pooling | | | seen over time Sphincterotomy 10F x 10 cm plastic [...] + | MRN: | [facility] | | [id number] Date: 03/08/2019Patient Name: Monserrat Perkins #: | ENDOSCOPY | | [id number] of : 4CSN: [id number] Type: | | | InpatientRoom: GI 3Procedure: | | | ERCPIndications: Treatment of bile | | | leakProviders: ULYSSES RONDON JR, MD (Doctor), | | | RADHA DUNNE RN (Nurse), | | | GUERO MICHEL (Residential Leasing Agent)Referring MD: GIO GONZALEZ, | | | MDRequesting Provider: Medicines: Cipro 400 mg IV, | | | Indomethacin 100 mg [place], Monitored | | | Anesthesia | | | CareComplications: No immediate complications. Estimated | | | blood loss: | | | Minimal.Procedure: Pre-Anesthesia | | | Assessment: - Prior to the | | | procedure, a History and Physical was | | | performed, and patient | | | medications and allergies were | | | reviewed. The patient is | | | competent. The risks and | | | benefits of the procedure and the sedation options and | | | risks were discussed with the | | | patient. All questions were | | | answered and informed consent was obtained. Patient | | | identification and proposed | | | procedure were verified by | | | the physician, the nurse, the insulation engineman and the | | | police crime scene technician in the | | | pre-procedure area in the procedure | | | room. Mental Status | | | Examination: alert and oriented. | | | Airway Examination: normal | | | oropharyngeal airway and neck | | | mobility. Respiratory Examination: clear to | | | auscultation. CV Examination: | | | RRR, no murmurs, no S3 or | | | S4. Prophylactic Antibiotics: The patient requires | | | prophylactic antibiotics as | | | clinically indicated based on | | | published guidelines for the planned ERCP. The | | | patient received antibiotic | | | therapy before the procedure. | | | Prior Anticoagulants: The patient has taken | | | no previous anticoagulant or | | | antiplatelet agents. ASA | | | Grade Assessment: III - A patient with severe systemic | | | disease. After reviewing the | | | risks and benefits, the | | | patient was deemed in satisfactory condition to undergo | | | the procedure. The anesthesia | | | plan was to use monitored | | | anesthesia care (MAC). Immediately prior to | | | administration of | | | medications, the patient was | | | re-assessed for adequacy to receive sedatives. The heart | | | rate, respiratory rate, | | | oxygen saturations, blood | | | pressure, adequacy of pulmonary ventilation, and | | | response to care were | | | monitored throughout the | | | procedure. The physical status of the patient was | | | re-assessed after the | | | procedure. Prior to the | | | procedure, a History and Physical with | | | airway assessment was | | | performed (see patient record), | | | and patient medications and | | | allergies were reviewed. The | | | risks and benefits of the procedure and the sedation | | | options and risks were | | | discussed. All questions were | | | answered and informed consent was obtained. After | | | reviewing the risks and | | | benefits, the patient was deemed | | | in satisfactory condition to | | | undergo the procedure. | | | Immediately prior to administration of medications, the | | | patient was re-assessed for | | | adequacy to receive | | | sedatives. The heart rate, respiratory rate, oxygen | | | saturations, blood pressure, | | | adequacy of pulmonary | | | ventilation, and response to care were monitored | | | throughout the procedure. The | | | physical status of the | | | patient was re-assessed after the | | | procedure. The Olympus | | | [id number]-[id number] Duodenoscope #[id number] was | | | introduced through the mouth, | | | and advanced to the duodenum | | | and used to inject contrast into the bile duct. | | | The ERCP was accomplished | | | without difficulty. The | | | patient tolerated the procedure well.Estimated Blood Loss: | | | Estimated blood loss was minimal.Findings: A underwater welder film of the | | | abdomen was obtained. Surgical clips, consistent with a | | | previous cholecystectomy, were seen in the area of the right | | | upper quadrant of the abdomen. The esophagus was successfully | | | intubated under direct vision. The scope was advanced from | | | the mouth to the duodenum. The pharynx, larynx and associated | | | structures, as well as the upper GI tract, were normal. The | | | major papilla was on the rim of a diverticulum. A 0.035 inch | | | x 270 cm straight Visiglide wire was passed into the biliary | | | tree. The CleverCut distal wire sphincterotome was passed | | | over the guidewire and the bile duct was then deeply cannulated. | | | Contrast was injected. I personally interpreted the bile duct | | | images. Ductal flow of contrast was adequate. Image quality | | | was adequate. Contrast extended to the entire biliary tree. | | | Opacification of the entire biliary tree was successful. The | | | maximal diameter of the main bile duct was 8 mm. The was no | | | active extravasation during injection but mild pooling was | | | seen on delayed fluoroscopy at the percutaneous drain site. A | | | 4 mm biliary sphincterotomy was made with a monofilament | | | traction (standard) sphincterotome using ERBE electrocautery. There | | | was no post-sphincterotomy bleeding. One 10 Fr by 10 cm | | | temporary plastic biliary stent with a single external flap | | | and a single internal flap was placed 9 cm into the common | | | bile duct. Bile flowed through the stent. The stent was in | | | good position. The total fluoroscopy exposure time was 40 | | | seconds.Impression: - The major papilla was on the | | | rim of a diverticulum. - A | | | biliary sphincterotomy was | | | performed. - One temporary | | | plastic biliary stent was placed into | | | the common bile | | | duct.Recommendation: - Return patient to hospital [facility] for | | | ongoing care. - Clear liquid | | | diet today. - Watch for | | | pancreatitis, bleeding, perforation, and | | | | | | cholangitis. - Repeat ERCP in | | | 6 weeks to remove stent.Attending Participation: I personally | | | performed the entire procedure.ULYSSES RONDON JR, MD03/08/2019 5:11:12 | | | PMNumber of Addenda: 0Note Initiated On: 03/08/2019 4:04 [facility] Letter | | | to: ESTELITA KITCHEN PA-C | | + + + + +---------+ + + | Performing | Address | City/State/[facility] | Phone Number | | Organization | | | | + +---------+ + + | [facility] | | | | + +---------+ + + PROCEDURE NOTE (03/08/2019 11:14 AM PDT)ALT, PLASMA (03/08/2019 5:26 AM PDT) + +-------+ [...] | Specimen | + + | Blood | + + + + + + + | Performing | Address | City/State/Zipcode | Phone Number | | Organization | | | | + + + + + | [facility] | [address] | [place] [address] | | | SERVICES, CORE | PARK [...] | Specimen | + + | Blood | + + + + + | Narrative | Performed At | + + + | Sample hemolyzed. Results for LD, K, and AST may be | [facility] | | inaccurate. Refer to comment under test. | LABORATORY | | | SERVICES, CORE | + + + + + + + + | Performing | Address | City/State/Zipcode | Phone Number | | Organization | | | | + + + + + | [facility] | [address] | [place] [address] | | | SERVICES, CORE | PARK [...] | Specimen | + + | Blood | + + + + + + + | Performing | Address | City/State/Zipcode | Phone Number | | Organization | | | | + + + + + | [facility] | [address] | [place] [address] | | | SERVICES, CORE | [address] | | | + + + + + PROTEIN TOTAL, PLASMA (03/08/2019 5:26 AM PDT) + [...] | Specimen | + + | Blood | + + + + + + + | Performing | Address | City/State/Zipcode | Phone Number | | Organization | | | | + + + + + | [facility] | [address] | [place] [address] | | | SERVICES, CORE | [address] [...] | Specimen | + + | Blood | + + + + + + + | Performing | Address | City/State/Zipcode | Phone Number | | Organization | | | | + + + + + | [facility] | [address] | [place] [address] | | | SERVICES, CORE | PARK [...] | Specimen | + + | Blood | + + + + + + + | Performing | Address | City/State/Zipcode | Phone Number | | Organization | | | | + + + + + | [facility] | [address] | [place] [address] | | | SERVICES, CORE | [address] [...] of bilateral leak. COMPARISON: Outside CT | RECOGNITION 2 | | dated 03/06/2019 TECHNIQUE: Radiopharmaceutical: Tc-99m labeled | | | iminodiacetic acid (ZACH) derivative 4.72 mCi IV. The IV | | | administration of the radiopharmaceutical was uneventful. Dynamic | | | images in 20 degrees POLISH were obtained for an angiogram and then [...] Erica Lyons MD 03/07/2019 5:23 PM Preliminary: | | | Erica Lyons MD Dictation initiated: Erica Lyons MD | | | 03/07/2019 5:11 PM | | + + + [...] | | Dynamic images in 20 degrees POLISH were obtained for an angiogram and then [...] necessary, edited the report. I agree with e report as now presented. | | [...] | IMPRESSION: Percutaneous placement of a 12.5) Gibraltarian drainage | | | catheter into biliary, yielding 800 mL of purulent fluid. Plan: | | | Back placed to gravity drainage. | | | | | | PROCEDURE SUMMARY: - 12.5 Gibraltarian biliary drainage catheter | | | placement [...] Preliminary: Micah Sharma MD Dictation initiated: Micah | | | MD Zachary 03/07/2019 5:32 PM | | + + + + + | Procedure Note | + + | Service Account, Radiant Res In Interface - 03/07/2019 5:37 PM PDT PROCEDURE: | | Drainage catheter placement Procedural PersonnelAttending physician(s): Micah Sharma | | [place]afne physician(s): Rimma Velasquez MD Pre-procedure diagnosis: Postoperative | | bilomaPost-procedure diagnosis: SameIndication: Postoperative bilomaAdditional clinical | | history: 33-year-old female status post laparoscopic cholecystectomy now with large | | intra-abdominal biloma requiring drainage. Complications: No immediate complications. | | IMPRESSION: Percutaneous placement of a 12.5) Gibraltarian drainage catheter into biliary, | | yielding 800 mL of purulent fluid. Plan: Back placed to gravity | | drainage. | | PROCEDURE SUMMARY:- 12.5 Gibraltarian biliary drainage catheter placement under ultrasound and [...] necessary, edited the report. I agree with e report as now presented. | | [...] | | | + +---------+ + + BILIRUBIN, TOTAL, BODY FLUID (03/07/2019 [...] visit | | | | | | [email or web address] | | | | | | luids/ Test developed | | | | | | and characteristics | | | | | | determined by [facility] | | | | | | Laboratories. See | | | | | | Compliance Statement B: | | | | | | [employer]/CSPerformed | | | | | | by [employer],[address] | | | | | | [facility],[place] | | | | | | [address] | | | | | | [phone]. | | | | | | the orthopedic specialty hospitalVadim MD, | | | | | | [...] [facility] | [address] | [place], [place] | | | [place] | | [address] | | + + + + + LAB HOLD - BODY FLUID (03/07/2019 11:53 AM PDT) + + | Specimen | + + | Aspirate | + + + + + + + | Performing | Address | City/State/Zipcode | Phone Number | | Organization | | | | + + + + + | [email or web address] | [address] | [place] [address] | | | SERVICES, KENNY | [address] | | | [...] - | | | | | | [place] | | + + + + + + + + | Specimen | + + | Aspirate | + + + + + | [...] + | [facility] - | [address] | [place] [address] | | | [place] | | | | + + + [...] | + + + + + | [facility] | [address] | [place] [address] | | | SERVICES, CORE | [address] [...] | | | | | | a cvahx-qr-yjfnn amylase | | | | | | [...] | diagnosis or patient management decisions. | SERVICES, CORE | + + + + + + + + | Performing | Address | City/State/Zipcode | Phone Number | | Organization | | | | + + + + + | [facility] | [address] | [place] [address] | | | SERVICES, CORE | [address] | | | + + + + + PROCEDURE NOTE (03/07/2019 8:28 AM PDT)CBC (HEMOGRAM) ONLY (03/07/2019 7:46 AM PDT)Only khari pretty most recent of 2 results within the time period is included. + + + + + + | [...] | Specimen | + + | Blood | + + + + + + + | Performing | Address | City/State/Zipcode | Phone Number | | Organization | | | | + + + + + | [facility] | [address] | [place] [address] | | | KENNY POWELL | [address] | | | + + + + + ORDERS OTHER (03/07/2019 12:00 AM PDT) + + + | Narrative | Performed At | + + + | | | + + + CULTURE, BLOOD BACTI & YEAST [facility] (03/06/2019 9:13 PM PDT)Only the most recent of 2 result s within the time period is included. + + + + + + | [...] | Specimen | + + | Blood | + + + + + + + | Performing | Address | City/State/Zipcode | Phone Number | | Organization | | | | + + + + + | [facility] | [address] | [place] [address] | | | SERVICES, CORE | PARK [...] | Specimen | + + | Blood | + + + + + | Narrative | Performed At | + + + | INR Therapeutic ranges for full anticoagulation: INR for | [facility] | | Venous Thromboembolism (2.0 - 3.0) INR INR | LABORATORY | | for most patients with mech. valves (2.5 - 3.5) INR | SERVICES, KENNY | + + + + + + + + | Performing | Address | City/State/Zipcode | Phone Number | | Organization | | | | + + + + + | [facility] | [address] | [place] [address] | | | KENNY POWELL | [address] [...] + + + + + + | [facility] | 428 | ms | [facility] [...] + | [facility] | [address] | [place], [place] | | | CARDIOLOGY | [address] | [address] | | + + + + + OUTSIDE RADIOLOGY - CT (03/06/2019 12:00 AM PDT)Only the most recent of 5 results within th e time period is included. + + + | Narrative | Performed At | + + + | | | + + + OUTSIDE RADIOLOGY - X-RAY (03/05/2019 12:00 AM PDT)Only the most recent of 2 results within the time period is included. + + + | Narrative | Performed At | + + + | | | + + + from Last 3 Months Insurance + +--------+ +--------+ + +------+ | Payer | Benefi | Subscriber | Effect | Phone | Address | Type | | | t Plan | ID | lisa | | | | | | / | | Dates | | | | | | Group | | | | | | + +--------+ +--------+ + +------+ | [employer] | MODA | xxxxxxxxx | 05/06/20 | [phone] | [address] | PPO | | | MEDICA | | 16-Pre | 4 | [address] | | | | RE PPO | | sent | | [place], | | | | | | | | [place] [address] | | + +--------+ +--------+ + +------+ + +--------+ +--------+ + + | Guarantor Name | Accoun | Relation to | Date | Phone | Billing Address | | | t Type | Patient | of | | | | | | | | | | + +--------+ +--------+ + + | Monserrat Marrufo | Person | Self [birth year] | [id number] | | | al/Fam | | 1945 | [phone] | [place] [address] | | | vilma | | | 0 (Home) | | + +--------+ +--------+ + + Advance Directives + + + + + | Code Status | Date | Date | Comments | | | Activated | Inactivated | | + + + + + | Full Code | 03/06/2019 | 03/10/2019 | | | | 6:27 PM | 6:53 PM | | + + + + +"
--- OUTSIDE RECORDS SUMMARY | ~2019-04-09 | XMS | Clinical Summary ---
Demographics + + + | Address | [address] | | | [place] [address] | + + + | Home Phone | | + + + | Preferred Language | Unknown | + + + | Marital Status | | + + + | Yazdanism Affiliation | ADV | + + + [...] Team Providers + +------+ + | Care Tire Balancer Name | Role | Phone | + +------+ + | Estelita Kitchen PA-C | PP | | + +------+ + Source Comments [facility] is fully live on both [facility] and [facility] In[facility] Allergies + + + + + + [...] | 2019 | Event | | MD Lui | | +--------+ + + + + | 03/08/ | Piano Refinisher | | de Ulysses Woods W | [...] | | SPatient: | | | Monserrat Kraus | | | AlgerMRN: | | | [id number] | | | ission | | | [...] | | placed a | | | [id number] | | | plast | | | [...] | | | Physician | | | Designer | | | working | | | [...] [address] | | | | | | [place], [place] | | | | | | [address] | | | | | | [phone] | | | | | | | | +--------+ + + + + | 04/19/ | Appointment | | Tabatha Coello | | | 2018 | | | [address] | | | | | | [address] | | | | | | [place] [address] | | +--------+ + + + + [...] | / | | 03/08/2019 by Ulysses Rondon | | | MEDICAL | | 2020 [...] | | | LABORATORY | | | NIUEAN | | | SERVICES, | | | [...] | + + + + + | [facility] | [address] | [place] [address] | | | SERVICES, CORE | [address] [...] [facility] | [address] | [place] [address] | | | SERVICES, CORE | [address] [...] | | | LABORATORY | | | NIUEAN | | | SERVICES, | | | [...] the MDRD equation recommended by the | [facility] | | National Kidney Disease Education Program. [...] | + + + + + | [facility] | [address] | [place] [address] | | | SERVICES, CORE | PARK [...] | + + + + + | [facility] | [address] | [place] [address] | | | SERVICES, CORE | [address] [...] + | MRN: | [facility] | | [id number] Date: 03/08/2019Patient Name: Monserrat Perkins #: | ENDOSCOPY | | [id number] of : 4CSN: [id number] Type: | | | InpatientRoom: GI 3Procedure: | | | ERCPIndications: Treatment of bile | | | leakProviders: ULYSSES RONDON JR, MD (Doctor), | | | RADHA DUNNE RN (Nurse), | | | GUERO MICHEL (Autism Specialist)Referring MD: GIO GONZALEZ, | | | MDRequesting Provider: Medicines: Cipro 400 mg IV, | | | Indomethacin 100 mg PA, Monitored | | | Anesthesia | | [...] | | the physician, the nurse, the telecom assistant and the | | | medical instrument technician in the | | | pre-procedure [...] The Olympus | | | TJF-[id number] Duodenoscope #[id number] was | | | introduced through the mouth, | | | and advanced to the duodenum | | | and used to inject contrast into the bile duct. | | | The ERCP was accomplished | | | without difficulty. The | | | patient tolerated the procedure well.Estimated Blood Loss: | | | Estimated blood loss was minimal.Findings: A resident program specialist film of the | | | abdomen [...] of Addenda: 0Note Initiated On: 03/08/2019 4:04 [facility] Letter | | | to: ESTELITA KITCHEN PA-C | | + + + + +---------+ + + | Performing | Address | City/State/[facility] | Phone Number | | Organization | [...] [facility] | [address] | [place] [address] | | | SERVICES, CORE | PARK [...] [facility] | [address] | [place] [address] | | | SERVICES, CORE | PARK [...] [facility] | [address] | [place] [address] | | | SERVICES, CORE | PARK [...] | + + + + + | [facility] | [address] | [place] [address] | | | SERVICES, CORE | [address] [...] [facility] | [address] | [place] [address] | | | SERVICES, CORE | PARK [...] | + + + + + | [facility] | [address] | [place] [address] | | | SERVICES, CORE | [address] [...] | | | images in 20 degrees ENGLISH were obtained for an angiogram and then [...] | | Dynamic images in 20 degrees ENGLISH were obtained for an angiogram and then [...] | IMPRESSION: Percutaneous placement of a 12.5) Uruguayan drainage | | | catheter into biliary, yielding 800 mL of purulent fluid. Plan: | | | Back placed to gravity drainage. | | | | | | PROCEDURE SUMMARY: - 12.5 Uruguayan biliary drainage catheter | | | placement [...] | IMPRESSION: Percutaneous placement of a 12.5) Uruguayan drainage catheter into biliary, | | yielding 800 mL of purulent fluid. Plan: Back placed to gravity | | drainage. | | PROCEDURE SUMMARY:- 12.5 Uruguayan biliary drainage catheter placement under ultrasound and [...] visit | | | | | | [email or web address] | | | | | | luids/ Test developed | | | | | | and characteristics | | | | | | determined by [facility] | | | | | | Laboratories. See | | | | | | Compliance Statement B: | | | | | | [employer]/CSPerformed | | | | | | by [employer],[address] | | | | | | [facility],[place] | | | | | | [address] | | | | | | [phone]. | | | | | | spanish fork hospitalVadim MD, | | | | | [...] [facility] | [address] | [place], [place] | | | [place] | | [address] | | + + + + + LAB HOLD - BODY FLUID (03/07/2019 11:53 AM PDT) + + | Specimen | + + | Aspirate | + + + + + + + | Performing | Address | City/State/Zipcode | Phone Number | | Organization | | | | + + + + + | [email or web address] | [address] | [place] [address] | | | SERVICES, KENNY | [address] [...] + | [facility] - | [address] | [place] [address] | | | [place] | | | | + + + [...] | + + + + + | [facility] | [address] | [place] [address] | | | SERVICES, CORE | [address] [...] | | | | | | a ucltj-nq-cqxzt amylase | | | | | | [...] | + + + + + | [facility] | [address] | [place] [address] | | | SERVICES, CORE | [address] [...] | + + + + + | [facility] | [address] | [place] [address] | | | KENNY POWELL | [address] | | | + + + + + ORDERS OTHER (03/07/2019 12:00 AM PDT) + + + | Narrative | Performed At | + + + | | | + + + CULTURE, BLOOD BACTI & YEAST [facility] (03/06/2019 9:13 PM PDT)Only the most recent [...] [facility] | [address] | [place] [address] | | | SERVICES, CORE | PARK [...] [facility] | [address] | [place] [address] | | | KENNY POWELL | [address] [...] DEPT OF | [address] | [place], [place] | | | CARDIOLOGY | [address] | [address] | | + + + + + [...] | [employer] | [phone] | 05/06/20 | [phone] | [address] | PPO | | | MEDICA | | 16-Pre | 4 | [address] | | | | RE PPO | | sent | | [place], | | | | | | | | [place] [address] | | + +--------+ +--------+ + +------+ + +--------+ +--------+ + + | Guarantor Name | Accoun | Relation to | Date | Phone | Billing Address | | | t Type | Patient | of | | | | | | | | | | + +--------+ +--------+ + + | Monserrat Marrufo | Person | Self | [birth year] | [address] | | | al/Fam | | 1945 | [phone] | [place] [address] | | | vilma | | | [...]
--- OUTSIDE RECORDS SUMMARY | ~2019-04-09 | XMS | Encounter Summary ---
Demographics + + + | Address | [address] | | | [place] [address] | + + + | Home Phone | | + + + | Preferred Language | Unknown | + + + | Marital Status | | + + + | Latter-Day Affiliation | ADV | + + + | Race | White | + + + | Ethnic Group | Not or | + + + Author + + + | Author | [facility] | + + + | Organization | [facility] | + + + | Address | Unknown | + + + | Phone | Unavailable | + + + Support + + +---------+ + | Name | Relationship | Address | Phone | + + +---------+ + | Aristides Marrufo | ECON | Unknown | | + + +---------+ + Care Team Providers + +------+ + | Care Web Design Specialist Name | Role | Phone | + [...] Pharmacy | | | | | | [address] | | | | | | [facility] | | | | | | [place], [place] | | | | | | [address] | | | +--------+ + + + [...] 2018 | Encounter | | MD Joseph [address] [facility] | | | | | | [address] | | | | | | [place], [place] | | | | | | [address] | | | | | | [phone] | | | | | | | | +--------+ + + + + | 04/19/ | Appointment | Gastroenterology | Tabatha Coello | | | 2019 | | | Therapeutic [address] | | | | | | [address] | | | | | | [place] [address] | | +--------+ + + + + documented as of this encounter Visit Diagnoses Not on filedocumented in this encounter"
--- OUTSIDE RECORDS SUMMARY | ~2019-04-09 | XMS | Encounter Summary ---
Demographics + + + | Address | [address] | | | [place] [address] | + + + | Home Phone | | + + + | Preferred Language | Unknown | + + + | Marital Status | | + + + | Christianity Affiliation | ADV | + + + | Race | White | + + + | Ethnic Group | Not or | + + + Author + + + | Author | [facility] | + + + | Organization | [facility] | + + + | Address | Unknown | + + + | Phone | Unavailable | + + + Support + + +---------+ + | Name | Relationship | Address | Phone | + + +---------+ + | Aristides Marrufo | ECON | Unknown | | + + +---------+ + Care Team Providers + +------+ + | Care Roller Engraver Name | Role | Phone | + +------+ + PCP | Unavailable | + +------+ + Encounter Details +--------+ + + + + | Date | Type | Department | Care Team | Description | +--------+ + + + + | 03/10/ | Abstract | Neurology at | Clinic, Neurology | | | 2017 | | [facility] & | | | | | | Healing [address] | | | | | | [address] Mail Code: | | | | | | [facility] | | | | | | Health and Healing, | | | | | | [address] [facility] | | | | | | [place] [address] | | | | | | [phone] | | | +--------+ + + + [...] | Encounter | | MD Joseph [address] | | | | | | [address] | | | | | | [place], [place] | | | | | | [address] | | | | | | [phone] | | | | | | | | +--------+ + + + + | 04/19/ | Appointment | Gastroenterology | Tabatha Coello | | | 2019 | | | Therapeutic [address] | | | | | [address] | | | | | | [place] [address] | | +--------+ + + + + documented as of this encounter Visit Diagnoses Not on filedocumented in this encounter"
--- OUTSIDE RECORDS SUMMARY | ~2019-04-09 | XMS | Encounter Summary ---
Demographics + + + | Address | [address] | | | [place] [address] | + + + | Home Phone [...] + + + | Author | [facility] | + + + | Organization | [facility] | + + + | Address | Unknown | + + + | Phone | Unavailable | + + + Support + + +---------+ + | Name | Relationship | Address | Phone | + + +---------+ + | Aristides Marrufo | ECON | Unknown | | + + +---------+ + Care Team Providers + +------+ + | Care Commissary Helper Name | Role | Phone | + +------+ + | Estelita Kitchen PA-C | PCP | | + +------+ + Encounter Details +--------+ + + + + | Date | Type | Department | Care Team | Description | +--------+ + + + + | 03/02/ | Outside | UNKNOWN DEPARTMENT | Other, Faculty | | | 2019 | Records | [address] | [phone] | | | | | [facility] | | | | | | [place], [place] | | | | | | [address] | | | +--------+ + + + [...] Rd | | | | | | [place], [place] | | | | | | [address] | | | | | | [phone] | | | | | | | | +--------+ + + + + | 04/19/ | Appointment | Gastroenterology | Teamb[facility]atha | | | 2018 | | | Therapeutic [address] | | | | | | [address] | | | | | | [place] [address] | | +--------+ + + + + [...]
--- OUTSIDE RECORDS SUMMARY | ~2019-04-09 | XMS | Encounter Summary ---
Demographics + + + | Address | [address] | | | [place] [address] | + + + | Home Phone | | + + + | Preferred Language | Unknown | + + + | Marital Status | | + + + | Yarsanism Affiliation | ADV | + + + | Race | White | + + + | Ethnic Group | Not or | + + + Author + + + | Author | [facility] | + + + | Organization | [facility] | + + + | Address | Unknown | + + + | Phone | Unavailable | + + + Support + + +---------+ + | Name | Relationship | Address | Phone | + + +---------+ + | Aristides Marrufo | ECON | Unknown | | + + +---------+ + Care Team Providers + +------+ + | Care Clinical Program Director Name | Role | Phone | + [...] [address] | | | | | | [facility] | | | | | | [place], [place] | | | | | | [address] | | | +--------+ + + + [...] 2018 | Encounter | | MD Joseph [address] [facility] | | | | | | [address] | | | | | | [place], [place] | | | | | | [address] | | | | | | [phone] | | | | | | | | +--------+ + + + + | 04/19/ | Appointment | Gastroenterology | Tabatha Coello | | | 2019 | | | Therapeutic [address] | | | | | | [address] | | | | | | [place] [address] | | +--------+ + + + + documented as of this encounter Visit Diagnoses Not on filedocumented in this encounter"
--- OUTSIDE RECORDS SUMMARY | ~2019-04-09 | XMS | Encounter Summary ---
Demographics + + + | Address | [address] | | | [place] [address] | + + + | Home Phone | | + + + | Preferred Language | Unknown | + + + | Marital Status | | + + + | Christian Affiliation | ADV | + + + | Race | White | + + + | Ethnic Group | Not or | + + + Author + + + | Author | [facility] | + + + | Organization | [facility] | + + + | Address | Unknown | + + + | Phone | Unavailable | + + + Support + + +---------+ + | Name | Relationship | Address | Phone | + + +---------+ + | Aristides Marrufo | ECON | Unknown | | + + +---------+ + Care Team Providers + +------+ + | Care Merchandise Processor Name | Role | Phone | + [...] Medical Records | | 2019 | | [place] [address] | [address] | Review | | | | [address] | [facility] | | | | | Mailcode: Chemult | [place], [place] | | | | | [facility] and | [address] | | | | | [facility] | [phone] | | | | | [place], [place] | | | | | | [address] | | | | | | [phone] | | | +--------+ + + + [...] | | | | | | [place] | | | | | | [address] | | | | | | [phone] | | | | | | | | +--------+ + + + + | 04/19/ | Appointment | Gastroenterology | Tabatha Coello | | | 2018 | | | [address] | | | | | | [address] | | | | | | [place] [address] | | +--------+ + + + + documented as of this encounter Visit Diagnoses Not on filedocumented in this encounter"
--- OUTSIDE RECORDS SUMMARY | ~2019-04-09 | XMS | Encounter Summary ---
Demographics + + + | Address | [address] | | | [place] [address] | + + + | Home Phone | | + + + | Preferred Language | Unknown | + + + | Marital Status | | + + + | Voodoo Affiliation | ADV | + + + | Race | White | + + + | Ethnic Group | Not or | + + + Author + + + | Author | [facility] | + + + | Organization | [facility] | + + + | Address | Unknown | + + + | Phone | Unavailable | + + + Support + + +---------+ + | Name | Relationship | Address | Phone | + + +---------+ + | Aristides Marrufo | ECON | Unknown | | + + +---------+ + Care Team Providers + +------+ + | Care Bookkeeping Clerk Name | Role | Phone | + +------+ + | Estelita Kitchen PA-C | PCP | | + +------+ + Encounter Details +--------+ + + + + | Date | Type | Department | Care Team | Description | +--------+ + + + + | 03/06/ | Outside | UNKNOWN DEPARTMENT | Other, Faculty | | | 2019 | Records | [address] | [phone] | | | | | [facility] | | | | | | [place], [place] | | | | | | [address] | | | +--------+ + + + [...] [address] | | | | | | [place], [place] | | | | | | [address] | | | | | | [phone] | | | | | | | | +--------+ + + + + | 04/19/ | Appointment | Gastroenterology | [address] | | | 2019 | | | Therapeutic [address] | | | | | | [address] | | | | | | [place] [address] | | +--------+ + + + + [...]
--- OUTSIDE RECORDS SUMMARY | ~2019-04-09 | XMS | Encounter Summary ---
Demographics + + + | Address | [address] | | | [place] [address] | + + + | Home Phone | | + + + | Preferred Language | Unknown | + + + | Marital Status | | + + + | Yazidi Affiliation | ADV | + + + | Race | White | + + + | Ethnic Group | Not or | + + + Author + + + | Author | [facility] | + + + | Organization | [facility] | + + + | Address | Unknown | + + + | Phone | Unavailable | + + + Support + + +---------+ + | Name | Relationship | Address | Phone | + + +---------+ + | Aristides Marrufo | ECON | Unknown | | + + +---------+ + Care Team Providers + +------+ + | Care Public Relations Assistant Name | Role | Phone | + +------+ + | Estelita Kitchen PA-C | PCP | | + +------+ + Encounter Details +--------+ + + + + | Date | Type | Department | Care Team | Description | +--------+ + + + + | 03/06/ | Outside | UNKNOWN DEPARTMENT | Other, Faculty | | | 2019 | Records | [address] [facility] | [phone] | | | | | [facility] | | | | | | [place], [place] | | | | | | [address] | | | +--------+ + + + [...] Rd | | | | | | [place], [place] | | | | | | [address] | | | | | | [phone] | | | | | | | | +--------+ + + + + | 04/19/ | Appointment | Gastroenterology | [address] | | | 2019 | | | Therapeutic [address] | | | | | | [address] | | | | | | [place] [address] | | +--------+ + + + + [...]
--- OUTSIDE RECORDS SUMMARY | ~2019-04-09 | XMS | Encounter Summary ---
Demographics + + + | Address | [address] | | | [place] [address] | + + + | Home Phone | | + + + | Preferred Language | Unknown | + + + | Marital Status | | + + + | Sabianism Affiliation | ADV | + + + | Race | White | + + + | Ethnic Group | Not or | + + + Author + + + | Author | [facility] | + + + | Organization | [facility] | + + + | Address | Unknown | + + + | Phone | Unavailable | + + + Support + + +---------+ + | Name | Relationship | Address | Phone | + + +---------+ + | Aristides Marrufo | ECON | Unknown | | + + +---------+ + Care Team Providers + +------+ + | Care Boiler Welder Name | Role | Phone | + +------+ + | Estelita Kitchen PA-C | PCP | | + +------+ + Encounter Details +--------+ + + + + | Date | Type | Department | Care Team | Description | +--------+ + + + + | 03/11/ | Transcribe | Endoscopic | Transcribe | | | 2019 | Orders | Procedural Unit at | Encounter, Provider, | | | | | [facility] | MD [address] | | | | | [address] | [place] [address] | | | | | Mailcode: OC2L | | | | | | [facility] | | | | | | and Healing, | | | | | | [address] | | | | | | [place], [place] | | | | | | [address] | | | | | | [phone] | | | +--------+ + + + [...] + | 04/19/ | Hospital | | de [facility]es [facility] | | | 2019 | Encounter | | MD Joseph [address] | | | | | | [address] | | | | | | [place], [place] | | | | | | [address] | | | | | | [phone] | | | | | | | | +--------+ + + + + | 04/19/ | Appointment | Gastroenterology | Tabatha Coello | | | 2018 | | | [address] | | | | | | [address] | | | | | | [place] [address] | | +--------+ + + + + +------+ +--------+ + + | Name | Type | Priori | Associated Diagnoses | Order Schedule | | | | ty | | | +------+ +--------+ + + | ERCP | Procedures | Urgent | Bile leak, | Expected: 03/11/2019 | | | | | postoperative | | +------+ +--------+ + + documented as of this encounter Visit Diagnoses + + | Diagnosis | + + | Bile leak, postoperative - Primary Unspecified disorder of biliary tract | + + documented in this encounter"
--- OUTSIDE RECORDS SUMMARY | ~2019-04-09 | XMS | Encounter Summary ---
Demographics + + + | Address | [address] | | | [place] [address] | + + + | Home Phone | | + + + | Preferred Language | Unknown | + + + | Marital Status | | + + + | Confucianism Affiliation | ADV | + + + | Race | White | + + + | Ethnic Group | Not or | + + + Author + + + | Author | [facility] | + + + | Organization | [facility] | + + + | Address | Unknown | + + + | Phone | Unavailable | + + + Support + + +---------+ + | Name | Relationship | Address | Phone | + + +---------+ + | Aristides Marrufo | ECON | Unknown | | + + +---------+ + Care Team Providers + +------+ + | Care Furnace Repairer Helper Name | Role | Phone | [...] Medical Records | | 2019 | | [place] [address] | [address] | Review | | | | [address] | [facility] | | | | | Mailcode: [place] | [place], [place] | | | | | [facility] and | [address] | | | | | [facility] | [phone] | | | | | [place], [place] | | | | | | [address] | | | | | | [phone] | | | +--------+ + + + [...] [place] | | | | | | [address] | | | | | | [phone] | | | | | | | | +--------+ + + + + | 04/19/ | Appointment | Gastroenterology | Tabatha Coello | | | 2018 | | | [address] | | | | | | [address] | | | | | | [place] [address] | | +--------+ + + + + documented as of this encounter Visit Diagnoses Not on filedocumented in this encounter"
--- OUTSIDE RECORDS SUMMARY | ~2019-04-09 | XMS | Encounter Summary ---
Demographics + + + | Address | [address] | | | [place] [address] | + + + | Home Phone | | + + + | Preferred Language | Unknown | + + + | Marital Status | | + + + | Judaism Affiliation | ADV | + + + | Race | White | + + + | Ethnic Group | Not or | + + + Author + + + | Author | [facility] | + + + | Organization | [facility] | + + + | Address | Unknown | + + + | Phone | Unavailable | + + + Support + + +---------+ + | Name | Relationship | Address | Phone | + + +---------+ + | Aristides Marrufo | ECON | Unknown | | + + +---------+ + Care Team Providers + +------+ + | Care Manager Of Marketing Name | Role | Phone | + +------+ + | Estelita Kitchen PA-C | PCP | | + +------+ + Encounter Details +--------+ + + + + | Date | Type | Department | Care Team | Description | +--------+ + + + + | 03/03/ | Outside | UNKNOWN DEPARTMENT | Other, Faculty | | | 2019 | Records | [address] [facility] | [phone] | | | | | [facility] | | | | | | [place], [place] | | | | | | [address] | | | +--------+ + + + [...] Rd | | | | | | [place], [place] | | | | | | [address] | | | | | | [phone] | | | | | | | | +--------+ + + + + | 04/19/ | Appointment | Gastroenterology | [address] | | | 2019 | | | Therapeutic [address] | | | | | | [address] | | | | | | [place] [address] | | +--------+ + + + + [...] this encounter Results OUTSIDE RADIOLOGY - CT (03/03/2019 12:00 AM PDT) + + + | Narrative | Performed At | + + + | | | + + + OUTSIDE RADIOLOGY - CT (03/03/2019 12:00 AM PDT) + + + | Narrative | Performed At | + + + | | | + + + documented in this encounter Visit Diagnoses Not on filedocumented in this encounter"
--- OUTSIDE RECORDS SUMMARY | ~2019-04-09 | XMS | Encounter Summary ---
Demographics + + + | Address | [address] | | | [place] [address] | + + + | Home Phone | | + + + | Preferred Language | Unknown | + + + | Marital Status | | + + + | Roman Catholic Affiliation | ADV | + + + | Race | White | + + + | Ethnic Group | Not or | + + + Author + + + | Author | [facility] | + + + | Organization | [facility] | + + + | Address | Unknown | + + + | Phone | Unavailable | + + + Support + + +---------+ + | Name | Relationship | Address | Phone | + + +---------+ + | Aristides Marrufo | ECON | Unknown | | + + +---------+ + Care Team Providers + +------+ + | Care Newspaper Writer Name | Role | Phone | + [...] | | 2019 - | Encounter | [address] | MD [address] | | | | | [place], [place] | [address] | | | 03/10/ | | [address] | [place], [place] | | | 2018 | | [phone] | [address] | | | | | | [phone] | | | | | | | [...] might be different fro m the original. [facility] DISCHARGE SUMMARY & INTERDISCIPLINARY INSTRUCTIONS Patient: Monserrat Marrufo Admission Date: 03/06/2019 Discharge Date: 03/10/2019 Attending Physician: Gio Hsu MD PCP: Estelita Velasquez PA-C Service: [facility] blue surgery Diagnoses Principal Final Diagnosis: 1. Bile leak Additional Diagnoses: 2. Deconditioning PROCEDURES 1. Sphincterotomy 2. 10F x 10 cm plastic stent placed 3. ERCP 4. RUQ biloma drain placement - 12 F biliary drain Brief Hospital Course 73 year old female with worsening dementia, recent laparoscopic cholecystectomy presenting as a transfer from [facility] with possible biloma. Patient initially presented [...] for biloma. She was then transferred to [facility] for next level of care. Upon arrival to [facility], patient was very somnolent and hard [...] that I, or Nurse Practitioner or Physician Reservationist working with me, had a face to face encounter with this patient on 03/10/2019 On behalf of Attending Physician: Gio Hsu MD I am ordering and certify that the following services are medically necessary home health [facility] Jail Evaluate and Treat I am ordering and certify that the following services are medically necessary [facility] Physical Therapy Evaluate and Treat I certify that the patient is homebound based on the following clinical findings Blind or s enile and rquires the assistance of another person in leaving his/her residence Associated attestation - Gio Hsu MD - 03/10/2019 11:30 AM PDT Gio Hsu M.D. On License Of [facility] ([facility]) Professor and Vice-Ice Cream Maker of Surgery The [employer]on Ramey Chair for Pancreatic Disease Research [facility] [place] Cell phone: [phone] / [facility] provider's line [phone]. email: [email or web address] documented in this encounter Medications at [...] documented as of this encounter Progress Notes Ketaon Cheung MD - 03/10/2019 7:40 AM PDTFormatting [...] such information, when appropriate Gio Hsu M.D. [facility] ([facility]) Professor and Vice-Ice Cream Maker of Surgery The [employer] Chair for Pancreatic Disease Research [facility] [place] Cell phone: [phone] / [facility] provider's line [phone]. 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 I saw the patient and reviewed and verified all information documented by the medical stud ent and resident, and made modifications to such information, when appropriate Gio Hsu M.D. On License Of [facility] ([facility]) Professor and Vice-Ice Cream Maker of Surgery The [employer] Ramey Chair for Pancreatic Disease Research [facility] [place] Cell phone: [phone] / [facility] provider's line [phone]. email: [email or web address] Kortney Russo MD - 03/07/2019 8:50 [...] 03/06/192299 - 03/07/1965803/07/19699 - 03/08/19 0659 Shift 4306-4643 24 Hour Total 8481-0110 1105-0173 0650-0431 24 Hour Total I N T A [...] ( LOS: 1 day ) Attending Provider: iGo Hsu MD Interval History and Events: -febrile [...] Jarrett Barrios MD General Surgery PGY-1 Pager [phone] Associated attestation - Gio Hsu MD - 03/07/2019 7:11 AM PDT I saw the patient and reviewed and verified all information documented by the medical stud ent and resident, and made modifications to such information, when appropriate Gio Hsu M.D. [facility] ([facility]) Professor and Vice-Ice Cream Maker of Surgery The [employer] R[employer] Chair for Pancreatic Disease Research [facility] [place] Cell phone: [phone] / [facility] provider's line [phone]. email: [email or web address] documented in this encounter Plan of Treatment +--------+ + + + + | Date | Type | Specialty | Care Team | Description | +--------+ + + + + | 04/19/ | Hospital | | Ulysses Rondon W | | | 2019 | Encounter | | MD Joseph [address] | | | | | | [address] | | | | | | [place], [place] | | | | | | [address] | | | | | | [phone] | | | | | | | | +--------+ + + + + | 04/19/ | Appointment | Gastroenterology | Tabatha Coello | | | 2019 | | | [address] | | | | | | [address] | | | | | | [place] [address] | | +--------+ + + + + + +---------+--------+ + + | Name | [...] | + + + + + | [facility] | [address] | [place] [address] | | | SERVICES, CORE | PARK [...] | | | LABORATORY | | | B[place] | | | SERVICES, | | | [...] [facility] | [address] | [place] [address] | | | SERVICES, CORE | PARK [...] | + + + + + | [facility] | [address] | [place] [address] | | | SERVICES, CORE | COLETTE [...] [facility] | [address] | [place] [address] | | | KENNY POWELL | COLETTE [...] | | | LABORATORY | | | [place]HI | | | SERVICES, | | | [...] the MDRD equation recommended by the | [facility] | | National Kidney Disease Education Program. [...] | + + + + + | [facility] | [address] | [place] [address] | | | SHERRY, KENNY | COLETTE [...] + | MRN: | [facility] | | [id number] Date: 03/08/2019Patient Name: Monserrat Perkins #: | ENDOSCOPY | | [id number] of : [id number]: [id number] Type: | | | InpatientRoom: GI 3Procedure: | | | ERCPIndications: Treatment of bile | | | leakProviders: ULYSSES RONDON JR, MD (Doctor), | | | RADHA DUNNE RN (Nurse), | | | GUERO MICHEL (Dental Assistant)Referring MD: GIO HSU, | | | MDRequesting Provider: Medicines: Cipro 400 mg IV, | | | Indomethacin 100 mg DE, Monitored | | | Anesthesia | | [...] | | the physician, the nurse, the intermodal dispatcher and the | | | surfacing technician in the | | | pre-procedure [...] The Olympus | | | TJF-160VF Duodenoscope #[id number] was | | | introduced through the mouth, | | | and advanced to the duodenum | | | and used to inject contrast into the bile duct. | | | The ERCP was accomplished | | | without difficulty. The | | | patient tolerated the procedure well.Estimated Blood Loss: | | | Estimated blood loss was minimal.Findings: A power reactor operator film of the | | | abdomen [...] Addenda: 0Note Initiated On: 03/08/2019 4:04 [facility] Letter | | | to: [...] (L) | 6.4 - 8.2 g/dL | [facility] | | | PROTEIN, | | | [...] | + + + + + | [facility] | [address] | [place] [address] | | | SERVICES, CORE | PARK [...] [facility] | [address] | [place] [address] | | | SERVICES, CORE | PARK [...] under test. | LABORATORY | | | KNENY POWELL | + + + + + + + + | Performing | Address | City/State/Zipcode | Phone Number | | Organization | | | | + + + + + | [facility] | [address] | [place] [address] | | | SERVICES, KENNY | COLETTE [...] [facility] | [address] | [place] [address] | | | SERVICES, CORE | PARK [...] | + + + + + | [facility] | [address] | [place] [address] | | | SERVICES, CORE | COLETTE [...] | + + + + + | [facility] | [address] | [place] [address] | | | SERVICES, CORE | COLETTE [...] SHERRY, | | | | | | KENNY | | + +-------+ + + + + + | Specimen | + + | Blood | + + + + + + + | Performing | Address | City/State/Zipcode | Phone Number | | Organization | | | | + + + + + | [facility] | [address] | [place] [address] | | | KENNY POWELL | COLETTE [...] | | | LABORATORY | | | [place] | | | SERVICES, | | | [...] | + + + + + | [facility] ([facility]) | [address] | [place] [address] | | | SERVICES, CORE | COLETTE [...] | | | images in 20 degrees SYRIAC were obtained for an angiogram and then [...] | | Dynamic images in 20 degrees SYRIAC were obtained for an angiogram and then [...] | IMPRESSION: Percutaneous placement of a 12.5) Puerto Rican drainage | | | catheter into biliary, yielding 800 mL of purulent fluid. Plan: | | | Back placed to gravity drainage. | | | | | | PROCEDURE SUMMARY: - 12.5 Puerto Rican biliary drainage catheter | | | placement [...] | IMPRESSION: Percutaneous placement of a 12.5) Puerto Rican drainage catheter into biliary, | | yielding 800 mL of purulent fluid. Plan: Back placed to gravity | | drainage. | | PROCEDURE SUMMARY:- 12.5 Puerto Rican biliary drainage catheter placement under ultrasound and [...] | + + + + + | [facility] | [address] | [place] [address] | | | SERVICES, CORE | COLETTE [...] | epithelial cells No organisms seen | [facility] | + + + + + + [...] + | [facility] - | [address] | [place] [address] | | | [facility] | | | | + + + + + CY VENEGAS STAT (03/07/2019 11:53 AM PDT) + + [...] + + | [facility] | [address] | [place] [address] | | | SERVICES, CORE | PARK [...] | | | | | | a xxiuz-jx-mggms amylase | | | | | | [...] | + + + + + | [facility] | [address] | [place] [address] | | | SERVICES, CORE | PARK [...] visit | | | | | | [email or web address] | | | | | | luids/ Test developed | | | | | | and characteristics | | | | | | determined by [facility] | | | | | | Laboratories. See | | | | | | Compliance Statement B: | | | | | | [employer]/CSPerformed | | | | | | by Here@ [employer],[address] | | | | | | [facility] | | | | | | [address] | | | | | | [phone].[employer]. | | | | | | [facility], Vadim Rodas MD, | | | | | | [...] [facility] | [address] | ONLY, [place] | | | UNIV [facility] INT[facility] | | [address] | | + + + + + [...] | + + + + + | [facility] | [address] | [place] [address] | | | SHERRY, KENNY | COLETTE [...] SERVICES, | | | | | | KENNY | | + +-------+ + + + + + | Specimen | + + | Blood | + + + + + + + | Performing | Address | City/State/Zipcode | Phone Number | | Organization | | | | + + + + + | [facility] | [address] | [place] [address] | | | SERVICES, CORE | COLETTE [...] | | | LABORATORY | | | B[place]HI | | | SERVICES, | | | [...] | Interpretive Information: <60 mL/min/1.73 sq | [facility] | | m Chronic Kidney Disease <15 [...] | + + + + + | [facility] | [address] | [place] [address] | | | KENNY POWELL | COLETTE DONALD | | | + + + + + ORDERS OTHER (03/07/2019 12:00 AM PDT) + + + | Narrative | Performed At | + + + | | | + + + CULTURE, BLOOD BACTI & YEAST [facility] (03/06/2019 9:13 PM PDT) + + + [...] | + + + + + | [facility] | [address] | [place] [address] | | | SERVICES, CORE | PARK [...] [facility] | [address] | [place] [address] | | | SERVICES, CORE | PARK [...] [facility] | [address] | [place] [address] | | | SERVICES, CORE | PARK [...] [facility] | [address] | [place] [address] | | | KENNY POWELL | COLETTE [...] [facility] | [address] | [place] [address] | | | SERVICES, CORE | PARK [...] | | | LABORATORY | | | BANGLADESHI | | | SERVICES, | | | [...] [facility] | [address] | [place] [address] | | | SERVICES, CORE | COLETTE [...] + + + + + | [facility] | [address] | [place], [place] | | | CARDIOLOGY | [address] | [address] | | + + + + + [...] | | | EVENING, First dose on Fri | | PM PDT | | [...] | | | | 20 doses, Starting Lenora 03/07/19 at | | | | | | | 1008, Until Lenora 03/07/19 at 1226, | | | | [...] 4:38 | | | | | Starting Mon03/08/19 at 1638, | | PM PDT | | | | | Until Mon03/08/19 at 1746 | | | | | [...] | + +---------+ +--------+---+---+ +---------+ +--------+---+---+ | New Bag | 03/09/20 | 500 mg | | | | | 19 3:40 | | | | | | AM PDT | | | | +---------+ +--------+---+---+ | New Bag | 03/08/20 | 500 mg | | [...] | | | | 20 doses, Starting Lenora 03/07/19 at | | | | | | | 1008, Until Lenora 5/2/19 at 1226, | | | | | | | periprocedural sedation | | | | | | + +-------+ +--------+---+---+ +---+---+ | | | +---+---+ + +-------+ +--------+---+---+ | naloxone (NARCAN) injection 0.2 | Given | 03/06/20 | 0.2 mg | | | | mg 0.2 mg, intravenous, | | 19 7:47 | | | | | NEEDED, Starting 03/06/19 at | | PM PDT | | | | | 1944, Until Rome 03/10/19 at 1848, | | | | | | | over sedation | | | | | | + +-------+ +--------+---+---+ +---+---+ | | | +---+---+ + +-------+ +--------+---+---+ | naloxone (NARCAN) injection 0.4 | Given | 03/06/20 | 0.2 mg | | | | mg 0.4 mg, intravenous, ONCE, 1 | | 19 6:09 | | | [...] 9:45 | | | | | on 5/4/19 at 2100, Until | | AM PDT [...] | | | | | | Until Mon03/08/19 at 1807 | | | | | [...]
--- OUTSIDE RECORDS SUMMARY | ~2019-04-09 | XMS | Encounter Summary ---
Demographics + + + | Address | [address] | | | [place] [address] | + + + | Home Phone [...] Team Providers + +------+ + | Care Spa Director/Finance Name | Role | Phone | + [...] | | | | | [address] [facility] | [place], [place] | | | | | Road Mailcode: | [address] | | | | | [address] | [phone] | | | | | [address] | | | | | | [place], [place] | | | | | | [address] | | | | | | [phone] | | | +--------+ + + + [...] + + + | [facility] | Other [facility]; Right; adb- upper | [address]/19[address] by [...] [address] | | | | | | [place], [place] | | | | | | [address] | | | | | | [phone] | | | | | | | | +--------+ + + + + | 04/19/ | Appointment | Gastroenterology | Tabatha Coello | | | 2018 | | | [address] | | | | | | [address] | | | | | | [place] [address] | | +--------+ + + + + [...]
--- OUTSIDE RECORDS SUMMARY | ~2019-04-09 | XMS | Encounter Summary ---
Demographics + + + | Address | [address] | | | [place] [address] | + + + | Home Phone | | + + + | Preferred Language | Unknown | + + + | Marital Status | | + + + | Congregational Affiliation | ADV | + + + | Race | White | + + + | Ethnic Group | Not or | + + + Author + + + | Author | [facility] | + + + | Organization | [facility] | + + + | Address | Unknown | + + + | Phone | Unavailable | + + + Support + + +---------+ + | Name | Relationship | Address | Phone | + + +---------+ + | Aristides Marrufo | ECON | Unknown | | + + +---------+ + Care Team Providers + +------+ + | Care Capsule Filler Name | Role | Phone | + +------+ + | Estelita Kitchen PA-C | PCP | | + +------+ + Encounter Details +--------+ + + + + | Date | Type | Department | Care Team | Description | +--------+ + + + + | 03/05/ | Outside | UNKNOWN DEPARTMENT | Other, Faculty | | | 2019 | Records | [address] | [phone] | | | | | [facility] | | | | | | [place], [place] | | | | | | [address] | | | +--------+ + + + [...] Rd | | | | | | [place], [place] | | | | | | [address] | | | | | | [phone] | | | | | | | | +--------+ + + + + | 04/19/ | Appointment | Gastroenterology | [facility] | | | 2018 | | | Therapeutic [address] | | | | | | [address] | | | | | | [place] [address] | | +--------+ + + + + [...]
--- OUTSIDE RECORDS SUMMARY | ~2019-04-09 | XMS | Encounter Summary ---
Demographics + + + | Address | [address] | | | [place] [address] | + + + | Home Phone [...] Team Providers + +------+ + | Care Dispatcher Service Name | Role | Phone | + +------+ + | Estelita Kitchen PA-C | PCP | | + +------+ + Encounter Details +--------+ + + + + | Date | Type | Department | Care Team | Description | +--------+ + + + + | 03/02/ | Outside | UNKNOWN DEPARTMENT | Other, Faculty | | | 2019 | Records | [address] [facility] [address] | [phone] | | | | | [facility] | | | | | | [place], [place] | | | | | | [address] | | | +--------+ + + + [...] Rd | | | | | | [place], [place] | | | | | | [address] | | | | | | [phone] | | | | | | | | +--------+ + + + + | 04/19/ | Appointment | Gastroenterology | [facility] | | | 2018 | | | Therapeutic [address] | | | | | | [address] | | | | | | [place] [address] | | +--------+ + + + + [...]
--- OUTSIDE RECORDS SUMMARY | ~2019-04-09 | XMS | Encounter Summary ---
Demographics + + + | Address | [address] | | | [place] [address] | + + + | Home Phone | | + + + | Preferred Language | Unknown | + + + | Marital Status | | + + + | Druze Affiliation | ADV | + + + | Race | White | + + + | Ethnic Group | Not or | + + + Author + + + | Author | [facility] | + + + | Organization | [facility] | + + + | Address | Unknown | + + + | Phone | Unavailable | + + + Support + + +---------+ + | Name | Relationship | Address | Phone | + + +---------+ + | Aristides Marrufo | ECON | Unknown | | + + +---------+ + Care Team Providers + +------+ + | Care Golf Shoe Spike Assembler Name | Role | Phone | + +------+ + PCP | Unavailable | + +------+ + Encounter Details +--------+ + + + + | Date | Type | Department | Care Team | Description | +--------+ + + + + | 03/10/ | Abstract | Neurology at | Clinic, Neurology | | | 2017 | | [facility] | | | | | | Healing [address] | | | | | | [address] Mail Code: | | | | | | [facility] | | | | | | Health and Healing, | | | | | | [address] [facility] | | | | | | [place] [address] | | | | | | [phone] | | | +--------+ + + + [...] Rd | | | | | | [place], [place] | | | | | | [address] | | | | | | [phone] | | | | | | | | +--------+ + + + + | 04/19/ | Appointment | Gastroenterology | Tabatha Coello | | | 2019 | | | Therapeutic [address] | | | | | [address] | | | | | | [place] [address] | | +--------+ + + + + documented as of this encounter Visit Diagnoses Not on filedocumented in this encounter"
--- OUTSIDE RECORDS SUMMARY | ~2019-04-09 | XMS | Encounter Summary ---
Demographics + + + | Address | [address] | | | [place] [address] | + + + | Home Phone | | + + + | Preferred Language | Unknown | + + + | Marital Status | | + + + | Episcopalian Affiliation | ADV | + + + | Race | White | + + + | Ethnic Group | Not or | + + + Author + + + | Author | [facility] | + + + | Organization | [facility] | + + + | Address | Unknown | + + + | Phone | Unavailable | + + + Support + + +---------+ + | Name | Relationship | Address | Phone | + + +---------+ + | Aristides Marrufo | ECON | Unknown | | + + +---------+ + Care Team Providers + +------+ + | Care Psychology Lecturer Name | Role | Phone | + [...] [address] | | | | | | [facility] | | | | | | [place], [place] | | | | | | [address] | | | +--------+ + + + [...] 2018 | Encounter | | MD Joseph [address] [facility] | | | | | | [address] | | | | | | [place], [place] | | | | | | [address] | | | | | | [phone] | | | | | | | | +--------+ + + + + | 04/19/ | Appointment | Gastroenterology | Tabatha Coello | | | 2019 | | | Therapeutic [address] | | | | | | [address] | | | | | | [place] [address] | | +--------+ + + + + documented as of this encounter Visit Diagnoses Not on filedocumented in this encounter"
--- OUTSIDE RECORDS SUMMARY | ~2019-04-09 | XMS | Encounter Summary ---
Demographics + + + | Address | [address] | | | [place] [address] | + + + | Home Phone [...] + + + | Author | [facility] | + + + | Organization | [facility] | + + + | Address | Unknown | + + + | Phone | Unavailable | + + + Support + + +---------+ + | Name | Relationship | Address | Phone | + + +---------+ + | Aristides Marrufo | ECON | Unknown | | + + +---------+ + Care Team Providers + +------+ + | Care Launch Operator Name | Role | Phone | [...] | e | [address] | [facility] | | | | | Procedures | [address] | Mailcode: | | | | | CONSULT TO | Rd | [address] | | | | | GI | [place], [place] | [address] | | | | | PROCEDURE: | [address] | [address] | | | | | ERCP / | Phone: | [place], | | | | | BILIARY | [phone] | [place] [address] | | | | | MANOMETRY | Fax: | Phone: | | | | | [place] ANES [facility] | [phone] | [phone] | | | | | GI NDSC PX | | Fax: | | | | | [place] | | [phone] | | | | | ERCP,BIOPSY | | | | | | | [place] | | | | | | | ERCP,SPHINCT | | | | | | | EROTOMY [place] | | | | | | | ERCP,W/REMOV | | | | | | | AL | | | | | | | STONE,JONATHAN/PA | | | | | | | NCR DUCTS | | | | | | | [place] ERCP | | | | | | | W/REMOVAL | | | | | | | FOREIGN BODY | | | | | | | OR STENT | | | | | | | [place] ERCP | | | | | | | W/PLACE OF | | | | | | | ENDOSCOPIC | | | | | | | STENT [place] | | | | | | | ERCP W/REMOV | | | | | | | AND | | | | | | | EXCHANGE OF | | | | | | | STENT [place] | | | | | | | ERCP W/TRANS | | | | | | | ENDOSCOPI | | | | | | | BALLOON | | | | | | | DILATION OF | | | | | | | DUCT [place] | | | | | | | [...] + + + + | 03/08/ | Book Canvasser | Digestive Health | [address] | Bile leak, | | 2019 | | Center at [facility] [address] | MD Joseph [address] | postoperative | | | | [address] | [address] | (Primary Dx) | | | | Mailcode: Center | [place], [place] | | | | | [facility] and | [address] | | | | | [facility] [address] | [phone] | | | | | [place], [place] | | | | | | [address] | | | | | | [phone] | | | +--------+ + + + [...] Rd | | | | | | [place], [place] | | | | | | [address] | | | | | | [phone] | | | | | | | | +--------+ + + + + | 04/19/ | Appointment | Gastroenterology | Tabatha Coello | | | 2018 | | | Therapeutic [address] | | | | | | [address] | | | | | | [place] [address] | | +--------+ + + + + documented as of this encounter Visit Diagnoses + + | Diagnosis | + + | Bile leak, postoperative - Primary Unspecified disorder of biliary tract | + + documented in this encounter"
--- OUTSIDE RECORDS SUMMARY | ~2019-04-09 | XMS | Encounter Summary ---
Demographics + + + | Address | [address] | | | [place] [address] | + + + | Home Phone | | + + + | Preferred Language | Unknown | + + + | Marital Status | | + + + | Restorationism Affiliation | ADV | + + + | Race | White | + + + | Ethnic Group | Not or | + + + Author + + + | Author | [facility] | + + + | Organization | [facility] | + + + | Address | Unknown | + + + | Phone | Unavailable | + + + Support + + +---------+ + | Name | Relationship | Address | Phone | + + +---------+ + | Aristides Marrufo | ECON | Unknown | | + + +---------+ + Care Team Providers + +------+ + | Care Engineering Inspection Assistant Name | Role | Phone | [...] | | | | | [place], | | | | | | [place] [address] | | | +--------+--------+ + + + [...] [address] | | | | | | [place], [place] | | | | | | [address] | | | | | | [phone] | | | | | | | | +--------+ + + + + | 04/19/ | Appointment | Gastroenterology | Tabatha Coello | | | 2018 | | | [address] | | | | | | [address] | | | | | | [place] [address] | | +--------+ + + + + documented as of this encounter Visit Diagnoses Not on filedocumented in this encounter"
--- OUTSIDE RECORDS SUMMARY | ~2019-04-09 | XMS | Encounter Summary ---
Demographics + + + | Address | [address] | | | [place] [address] | + + + | Home Phone | | + + + | Preferred Language | Unknown | + + + | Marital Status | | + + + | Confucianism Affiliation | ADV | + + + | Race | White | + + + | Ethnic Group | Not or | + + + Author + + + | Author | [facility] | + + + | Organization | [facility] | + + + | Address | Unknown | + + + | Phone | Unavailable | + + + Support + + +---------+ + | Name | Relationship | Address | Phone | + + +---------+ + | Aristides Marrufo | ECON | Unknown | | + + +---------+ + Care Team Providers + +------+ + | Care Glue Sprayer Name | Role | Phone | + +------+ + | Estelita Kitchen PA-C | PCP | | + +------+ + Encounter Details +--------+ + + + + | Date | Type | Department | Care Team | Description | +--------+ + + + + | 03/05/ | Outside | UNKNOWN DEPARTMENT | Other, Faculty | | | 2019 | Records | [address] | [phone] | | | | | [facility] | | | | | | [place], [place] | | | | | | [address] | | | +--------+ + + + [...] Rd | | | | | | [place], [place] | | | | | | [address] | | | | | | [phone] | | | | | | | | +--------+ + + + + | 04/19/ | Appointment | Gastroenterology | [facility] | | | 2018 | | | Therapeutic [address] | | | | | | [address] | | | | | | [place] [address] | | +--------+ + + + + [...]
--- OUTSIDE RECORDS SUMMARY | ~2019-04-09 | XMS | Encounter Summary ---
Demographics + + + | Address | [address] | | | [place] [address] | + + + | Home Phone | | + + + | Preferred Language | Unknown | + + + | Marital Status | | + + + | Congregation Affiliation | ADV | + + + | Race | White | + + + | Ethnic Group | Not or | + + + Author + + + | Author | [facility] | + + + | Organization | [facility] | + + + | Address | Unknown | + + + | Phone | Unavailable | + + + Support + + +---------+ + | Name | Relationship | Address | Phone | + + +---------+ + | Aristides Marrufo | ECON | Unknown | | + + +---------+ + Care Team Providers + +------+ + | Care Continuous Improvement Manager Name | Role | Phone | [...] Encounter, Provider, | | | | | [facility] | MD [address] | | | | | [address] | [place] [address] | | | | | Mailcode: OC2L | | | | | | [facility] | | | | | | and Healing, | | | | | | [address] | | | | | | [place], [place] | | | | | | [address] | | | | | | [phone] | | | +--------+ + + + [...] Rd | | | | | | [place], [place] | | | | | | [address] | | | | | | [phone] | | | | | | | | +--------+ + + + + | 04/19/ | Appointment | Gastroenterology | Tabatha Coello | | | 2018 | | | [address] | | | | | | [address] | | | | | | [place] [address] | | +--------+ + + + + [...]
--- OUTSIDE RECORDS SUMMARY | ~2019-04-09 | XMS | Encounter Summary ---
Demographics + + + | Address | [address] | | | [place] [address] | + + + | Home Phone | | + + + | Preferred Language | Unknown | + + + | Marital Status | | + + + | Moravian Affiliation | ADV | + + + | Race | White | + + + | Ethnic Group | Not or | + + + Author + + + | Author | [facility] | + + + | Organization | [facility] | + + + | Address | Unknown | + + + | Phone | Unavailable | + + + Support + + +---------+ + | Name | Relationship | Address | Phone | + + +---------+ + | Aristides Marrufo | ECON | Unknown | | + + +---------+ + Care Team Providers + +------+ + | Care Bad Credit Collector Name | Role | Phone [...] [address] | | | | | | [facility] | | | | | | [place], [place] | | | | | | [address] | | | +--------+ + + + [...] 2018 | Encounter | | MD Joseph [address] [facility] [facility] | | | | | | [address] | | | | | | [place], [place] | | | | | | [address] | | | | | | [phone] | | | | | | | | +--------+ + + + + | 04/19/ | Appointment | Gastroenterology | Tabatha Coello | | | 2019 | | | Therapeutic [address] | | | | | | [address] | | | | | | [place] [address] | | +--------+ + + + + documented as of this encounter Visit Diagnoses Not on filedocumented in this encounter"
--- OUTSIDE RECORDS SUMMARY | ~2019-04-09 | XMS | Encounter Summary ---
Demographics + + + | Address | [address] | | | [place] [address] | + + + | Home Phone [...] + + + | Author | [facility] | + + + | Organization | [facility] | + + + | Address | Unknown | + + + | Phone | Unavailable | + + + Support + + +---------+ + | Name | Relationship | Address | Phone | + + +---------+ + | Aristides Marrufo | ECON | Unknown | | + + +---------+ + Care Team Providers + +------+ + | Care Scrap Preparer Name | Role | Phone | + [...] [address] | | | | | [place], [place] | [address] | | | 03/10/ | | [address] | [place] | | | 2018 | | [phone] | [address] | | | | | | [phone] | | | | | | | [...] might be different fro m the original. [facility] DISCHARGE SUMMARY & INTERDISCIPLINARY INSTRUCTIONS Patient: Monserrat Marrufo Admission Date: 03/06/2019 Discharge Date: 03/10/2019 Attending Physician: Gio Hsu MD PCP: Estelita Velasquez PA-C Service: [facility] blue surgery Diagnoses Principal Final Diagnosis: 1. Bile leak Additional Diagnoses: 2. Deconditioning PROCEDURES 1. Sphincterotomy 2. 10F x 10 cm plastic stent placed 3. ERCP 4. RUQ biloma drain placement - 12 F biliary drain Brief Hospital Course 73 year old female with worsening dementia, recent laparoscopic cholecystectomy presenting [facility] a [facility] with possible biloma. Patient initially presented [...] She was then transferred to [facility] for next level of care. Upon arrival to [facility], patient was very somnolent and hard [...] that I, or Nurse Practitioner or Physician Log Truck Driver working with me, had a face to face encounter with this patient on 03/10/2019 On behalf of Attending Physician: Gio Hsu MD I am ordering and certify that the following services are medically necessary home health [facility] Evaluate and Treat I am ordering and certify that the following services are medically necessary [facility] Physical Therapy Evaluate and Treat I certify that the patient is homebound based on the following clinical findings Blind or s enile and rquires the assistance of another person in leaving his/her residence Associated attestation - Gio Hsu MD - 03/10/2019 11:30 AM PDT Gio Hsu M.D. [employer] [facility] [employer] ([facility]) Professor and Vice-Ton Cylinder Inspector of Surgery [employer] [facility] for Pancreatic Disease Research [facility] [place] Cell phone: [phone] / [facility] provider's line [phone]. email: [email or web address] documented in this encounter Medications at [...] bowel regimen - DVT ppx: SCDs, lovenox Ketaon Cheung MD PGY1 Associated attestation - Gio Hsu MD - 03/10/2019 9:57 AM PDT I saw the patient and reviewed and verified all information documented by the medical stud ent and resident, and made modifications to such information, when appropriate Gio Hsu M.D. [employer] ([facility]) Professor and Vice-Ton Cylinder Inspector of Surgery [employer] [facility] for Pancreatic Disease Research [facility] Cell phone: [phone] / [facility] provider's line [phone]. email: [email or web address] Jarrett Barrios MD - 03/08/2019 5:42 [...] today - continue cefepime and metronidazole - TELEVISION DIRECTOR after procedure (when patient is non-NPO) - OT cog eval - PT eval, encourage ambulation - pain control, no opioids - bowel regimen - DVT ppx: SCDs Jarrett Barrios MD General Surgery PGY-1 Pager [phone] Associated attestation - Gio Hsu MD - 03/08/2019 3:56 PM PDT. I saw the patient and reviewed and verified all information documented by the medical stud ent and resident, and made modifications to such information, when appropriate Gio Hsu M.D. [employer] ([facility]) Professor and Vice-Ton Cylinder Inspector of Surgery [employer] [facility] for Pancreatic Disease Research [facility] Cell phone: [phone] / [facility] provider's line [phone]. email: [email or web address] Kortney Russo MD - 03/07/2019 8:50 [...] 03/06/192299 - 03/07/1965803/07/19699 - 03/08/19 0659 Shift 9200-0642 24 Hour Total 7093-6333 3712-9537 4024-2863 24 Hour Total I N T A [...] in Epic. ALEXY De Jesus [facility] imma Vealsquez [facility] - 03/07/2019 11:03 AM PDTPre-procedure evaluation [...] Jarrett Barrios MD General Surgery PGY-1 Pager [phone] Associated attestation - Gio Hsu MD - 03/07/2019 7:11 AM PDT I saw the patient and reviewed and verified all information documented by the medical stud ent and resident, and made modifications to such information, when appropriate Gio Hsu M.D. [employer] [facility] [employer] ([facility]) Professor and Vice-Ton Cylinder Inspector of Surgery [employer] Chair for Pancreatic Disease Research [facility] Cell phone: [phone] / [facility] provider's line [phone]. email: [email or web address] documented in this encounter Plan of Treatment +--------+ + + + + | Date | Type | Specialty | Care Team | Description | +--------+ + + + + | 04/19/ | Hospital | | Ulysses Rondon W | | | 2019 | Encounter | | MD Joseph [address] | | | | | | [address] | | | | | | [place], [place] | | | | | | [address] | | | | | | [phone] | | | | | | | | +--------+ + + + + | 04/19/ | Appointment | Gastroenterology | Tabatha Coello | | | 2019 | | | [address] | | | | | | [address] | | | | | | [place] [address] | | +--------+ + + + + [...] | + + + + + | [facility] | [address] | [place] [address] | | | SERVICES, CORE | PARK [...] | | | LABORATORY | | | RWANDAN | | | SERVICES, | | | [...] [facility] | [address] | [place] [address] | | | SERVICES, CORE | PARK [...] | + + + + + | [facility] | [address] | [place] [address] | | | SERVICES, CORE | COLETTE [...] [facility] | [address] | [place] [address] | | | KENNY POWELL | COLETTE [...] | | | LABORATORY | | | RWANDAN | | | SERVICES, | | | [...] the MDRD equation recommended by the | [facility] | | National Kidney Disease Education [...] + + + + | [facility]ORATORY | [address] [facility] | [place] [address] | | | SHERRY, KENNY | COLETTE [...] + | MRN: | [facility] | | [id number] Date: 03/08/2019Patient Name: Monserrat Perkins #: | ENDOSCOPY | | [id number] of : 4CSN: [id number] Type: | | | InpatientRoom: GI 3Procedure: | | | ERCPIndications: Treatment of bile | | | leakProviders: ULYSSES RONDON JR, MD (Doctor), | | | RADHA DUNNE RN (Nurse), | | | GUERO MCIHEL (Brewery Pumper)Referring MD: GIO HSU, | | | MDRequesting Provider: Medicines: Cipro 400 mg IV, | | | Indomethacin 100 mg RI, Monitored | | | Anesthesia | | [...] | | the physician, the nurse, the ship mate and the | | | eye technician in the | | | pre-procedure [...] The Olympus | | | TJF-[id number] Duodenoscope #[id number] was | | | introduced through the mouth, | | | and advanced to the duodenum | | | and used to inject contrast into the bile duct. | | | The ERCP was accomplished | | | without difficulty. The | | | patient tolerated the procedure well.Estimated Blood Loss: | | | Estimated blood loss was minimal.Findings: A pier hand helper film of the | | | abdomen [...] of Addenda: 0Note Initiated On: 03/08/2019 4:04 [facility] Letter | | | to: ESTELITA KITCHEN [...] (L) | 6.4 - 8.2 g/dL | [facility] | | | PROTEIN, | | | [...] | + + + + + | [facility] | [address] | [place] [address] | | | SERVICES, CORE | PARK [...] [facility] | [address] | [place] [address] | | | SERVICES, CORE | PARK [...] [facility] | [address] | [place] [address] | | | SERVICES, KENNY | COLETTE [...] [facility] | [address] | [place] [address] | | | SERVICES, CORE | PARK [...] | + + + + + | [facility] | [address] [facility] | [place] [address] | | | SERVICES, CORE | COLETTE [...] + + + + | [facility] | [address] | [place] [address] | | | SERVICES, CORE | COLETTE [...] [facility] | [address] | [place] [address] | | | KENNY POWELL | COLETTE [...] | | | LABORATORY | | | RWANDAN | | | SERVICES, | | | [...] + + + + | [facility] [employer] [facility] | [address] [facility] | [place] [address] | | | SERVICES, CORE | COLETTE [...] | | | images in 20 degrees PORTUGUESE were obtained for an angiogram and then [...] | | Dynamic images in 20 degrees PORTUGUESE were obtained for an angiogram and then [...] | IMPRESSION: Percutaneous placement of a 12.5) Swazi drainage | | | catheter into biliary, yielding 800 mL of purulent fluid. Plan: | | | Back placed to gravity drainage. | | | | | | PROCEDURE SUMMARY: - 12.5 Swazi biliary drainage catheter | | | placement [...] | IMPRESSION: Percutaneous placement of a 12.5) Swazi drainage catheter into biliary, | | yielding 800 mL of purulent fluid. Plan: Back placed to gravity | | drainage. | | PROCEDURE SUMMARY:- 12.5 Swazi biliary drainage catheter placement under ultrasound and [...] | + + + + + | [facility] | [address] | [place] [address] | | | SERVICES, CORE | COLETTE [...] | epithelial cells No organisms seen | [facility] | + + + + + + [...] + | [facility] - | [address] | [place] [address] | | | [facility] | | | | + + + [...] + + | [facility] | [address] [facility] | [place] [address] | | | SERVICES, CORE | PARK [...] | | | | | | a njbtt-gx-rvgfb amylase | | | | | | [...] | + + + + + | [facility] | [address] | [place] [address] | | | SERVICES, CORE | PARK [...] visit | | | | | | [email or web address] | | | | | | luids/ Test developed | | | | | | and characteristics | | | | | | determined by [facility] [employer] | | | | | | [facility]. See | | | | | | Compliance Statement B: | | | | | | Me[employer]/CSPerformed | | | | | | by [employer],[address] | | | | | | [facility] | | | | | | [address] | | | | | | [phone][employer]. | | | | | | [facility], Vadim Rodas MD, | | | [...] [facility] | [address] | [place], [place] | | | [facility] | | [address] | | + + + + + [...] + + + + | [facility] | [address] | [place] [address] | | | SHERRY, KENNY | COLETTE [...] [facility] | [address] | [place] [address] | | | SERVICES, CORE | COLETTE [...] | | | LABORATORY | | | RWANDAN | | | SERVICES, | | | [...] | Interpretive Information: <60 mL/min/1.73 sq | [facility] | | m Chronic Kidney Disease <15 [...] | + + + + + | [facility] | [address] | [place] [address] | | | KENNY POWELL | COLETTE DONALD | | | + + + + + ORDERS OTHER (03/07/2019 12:00 AM PDT) + + + | Narrative | Performed At | + + + | | | + + + CULTURE, BLOOD BACTI & YEAST [facility] (03/06/2019 9:13 PM PDT) + + [...] [facility] | [address] | [place] [address] | | | SERVICES, CORE | PARK [...] [facility] | [address] | [place] [address] | | | SERVICES, CORE | PARK [...] [facility] | [address] | [place] [address] | | | SERVICES, CORE | PARK [...] [facility] | [address] | [place] [address] | | | KENNY POWELL | COLETTE [...] [facility] | [address] | [place] [address] | | | SERVICES, CORE | PARK [...] | | | LABORATORY | | | RWANDAN | | | SERVICES, | | | [...] [facility] | [address] | [place] [address] | | | SERVICES, CORE | COLETTE [...] + + | [facility] | [address] | [place], [place] | | | CARDIOLOGY | [address] | [address] | | + + + + + [...] | | | | | 1945, Until [place] 03/10/19 at 1848, | | | | [...]
--- OUTSIDE RECORDS SUMMARY | ~2019-04-09 | XMS | Encounter Summary ---
Demographics + + + | Address | [address] | | | [place] [address] | + + + | Home Phone [...] Team Providers + +------+ + | Care Embroidery Supervisor Name | Role | Phone | [...] 2019 | Records | [address] [facility] | [phone] | | | | | [facility] | | | | | | [place], [place] | | | | | | [address] | | | +--------+ + + + [...] Rd | | | | | | [place], [place] | | | | | | [address] | | | | | | [phone] | | | | | | | | +--------+ + + + + | 04/19/ | Appointment | Gastroenterology | [facility] | | | 2019 | | | Therapeutic [address] | | | | | | [address] | | | | | | [place] [address] | | +--------+ + + + + [...]
[~2019-04-09 10:28] MED LIST changes: +AMLODIPINE BESYL5 MG PO; +ATORVASTATIN CA20 MG PO; +VITAMIN D31000 UNI1 PO
== END 2019-04-09 17:09 | disposition home or self-care (01) ==
LOC: ED 10:28
DX: G89.18 Other acute postprocedural pain (principal); R10.10 Upper abdominal pain, unspecified; I10 Essential (primary) hypertension; E03.9 Hypothyroidism, unspecified; Z88.0 Allergy status to penicillin; Z88.5 Allergy status to narcotic agent; Z79.899 Other long term (current) drug therapy
CPT/HCPCS: 74160; 80053; 83690; 85025; 99284-25; Q9967

== ENCOUNTER 2019-11-07 10:28 | Emergency (ER) | payer MEDICARE ==
[~2019-11-07] VITALS: Ht 160 cm; Wt 73.0 kg
--- OUTSIDE RECORDS SUMMARY | ~2019-11-07 | XMS | Encounter Summary ---
Demographics + + + | Address | [address] | | | [place] [address] | + + + | Home Phone | | + + + | Preferred Language | Unknown | + + + | Marital Status | | + + + | Shinto Affiliation | ADV | + + + | Race | White | + + + | Ethnic Group | Not or | + + + Author + + + | Author | [facility] | + + + | Organization | [facility] | + + + | Address | Unknown | + + + | Phone | Unavailable | + + + Support + + +---------+ + | Name | Relationship | Address | Phone | + + +---------+ + | Aristides Marrufo | ECON | Unknown | | + + +---------+ + Care Team Providers + +------+ + | Care Melt Helper Name | Role | Phone | + +------+ + | Estelita Kitchen PA-C | PCP | | + +------+ + Reason for Visit AUTH/CERT +--------+--------+ + + + + | Status | Reason | Specialty | Diagnoses / | Referred By | Referred To | | | | | Procedures | Contact | Contact | +--------+--------+ + + + + | | | | | | | +--------+--------+ + + + + Encounter Details +--------+ + + + + | Date | Type | Department | Care Team | Description | +--------+ + + + + | 03/06/ | Hospital | [facility] [address] | Gio Hsu, | | | 2019 - | Encounter | [address] | MD [address] [facility] | | | | | [place], [place] | [address] | | | 03/10/ | | [address] | [place], [place] | | | 2018 | | [phone] | [address] | | | | | | [phone] | | | | | | | | +--------+ + + + + Social History + +-------+ +--------+------+ | Tobacco Use | Types | Packs/Day | Years | Date | | | | | Used | | + +-------+ +--------+------+ | Never Assessed | | | | | + +-------+ +--------+------+ + + + | Sex Assigned at | Date Recorded | | | | + + + | Not on file | | + + + + + + + | Job Start Date | Occupation | Industry | + + + + | Not on file | Not on file | Not on file | + + + + + + + + | Travel History | Travel Start | Travel End | + + + + + + | No recent travel history available. | + + documented as of this encounter Last Filed Vital Signs + + + + + | Vital Sign | Reading | Time Taken | Comments | + + + + + | Blood Pressure | 169/70 | 03/10/2019 5:21 AM | | | | | PDT | | + + + + + | Pulse | 72 | 03/10/2019 5:21 AM | | | | | PDT | | + + + + + | Temperature | 36.9 C (98.4 F) | 03/10/2019 5:21 AM | | | | | PDT | | + + + + + | Respiratory Rate | 16 | 03/10/2019 5:21 AM | | | | | PDT | | + + + + + | Oxygen Saturation | 92% | 03/10/2019 9:00 AM | | | | | PDT | | + + + + + | Inhaled Oxygen | - | - | | | Concentration | | | | + + + + + | Weight | 78.1 kg (172 lb 3.2 | 03/08/2019 3:34 PM | | | | oz) | PDT | | + + + + + | Height | - | - | | + + + + + | Body Mass Index | - | - | | + + + + + documented in this encounter Functional Status + + + + | Functional Status | Response | Date of Assessment | + + + + | Because of a physical, mental, or emotional | No | 03/07/2019 | | condition, do you have serious difficulty | | | | doing errands alone such as visiting the | | | | doctor? | | | + + + + + + + + | Cognitive Status | Response | Date of Assessment | + + + + | Because of a physical, mental, or emotional | No | 03/07/2019 | | condition, do you have serious difficulty | | | | concentrating, remembering, or making | | | | decisions? (5 years old or older) | | | + + + + documented as of this encounter Discharge Summaries Keaton Cheung MD - 03/10/2019 11:08 AM PDTFormatting of this note might be different fro m the original. [facility] DISCHARGE SUMMARY & INTERDISCIPLINARY INSTRUCTIONS Patient: Monserrat Marrufo Admission Date: 03/06/2019 Discharge Date: 03/10/2019 Attending Physician: Gio Hsu MD PCP: Estelita Velasquez PA-C Service: [facility] blue surgery Diagnoses Principal Final Diagnosis: 1. Bile leak Additional Diagnoses: 2. Deconditioning PROCEDURES 1. Sphincterotomy 2. 10F x 10 cm plastic stent placed 3. ERCP 4. RUQ biloma drain placement - 12 F biliary drain Brief Hospital Course 73 year old female with worsening dementia, recent laparoscopic cholecystectomy presenting as a transfer from [facility] ([facility]) with possible biloma. Patient initially presented to OS with abdominal pain, work up revealed a leukocytosis of 12K and CT imaging concerning for acute jethro cystitis. Although her LFTs were normal. She then underwent laparoscopic cholecystectomy on 02/21/19. Intraoperative course was significan t for moderate bleeding around the triangle of Calot and liver edges during dissection (EBL 150ml), intra op cholangiogram was aborted due to difficult dissection and bleeding. Post op eratively patient was slow to advance. On POD #3, patient was noted to have low urine output with very minimal PO intake. Her wbc was 4.8 with t max of 100.1. CT imaging was obtained a nd was concerning for biloma. She was then transferred to [facility] for next level of care. Upon arrival to [facility], patient was very somnolent and hard to arouse, requiring 4L by NC. 0. 2 mg of narcan was administered with improvement in alertness. Narcan improved her somnolen ce. On 03/06 she was taken with IR for RUQ biloma drain placement and biloma drainage which she tolerated well. Following the procedure, she did seem to have an improvement in her men tation and per she was nearing baseline other than more severe sundowning each night . On she went with GI for ERCP where they completed a sphincterotomy and placed a 10 Fx10cm plast stent. On day of discharge, her pain was well controlled and she was toleratin g a regular diet. PT recommended SNF placement however she does have an extremely supportiv e family and has great in house support. We decided to send her home with home health and p hysical therapy given these factors. Physical Exam at Discharge: Wt 78.1 kg (172 lb 3.2 oz), BP 169/70, Pulse 72, Temperature 36.9 C (98.4 F), RR 16, Sp O2 94%. Facility age limit for growth percentiles is 18 years. See progress note Activity No activity restrictions Medication List START taking these medications acetaminophen 325 mg Tab Commonly known as: TYLENOL Take 2 tablets by mouth every four hours as needed. artificial tears (dextran 70-hypromellose) 0.1-0.3 % Drop Commonly known as: NATURE'S TEARS Instill 1 drop into both eyes three times daily. Indications: dry and inflamed cornea and c onjunctiva of eyes omeprazole 40 mg Cpdr Commonly known as: PRILOSEC Take 1 capsule by mouth before breakfast. Administer 30 to 60 minutes before meals Start taking on: 03/11/2019 polyethylene glycol 17 gram Pwpk Commonly known as: MIRALAX Mix 1 packet and take orally three times daily as needed (1st line - for no BM for 2 days). senna-docusate 8.6-50 mg Tab Commonly known as: SENOKOT S Take 1 tablet by mouth two times daily. CONTINUE taking these medications amLODIPine 5 mg Tab Commonly known as: NORVASC Take 5 mg by mouth once daily. atorvastatin 20 mg Tab Commonly known as: LIPITOR Take 20 mg by mouth once daily. levothyroxine 88 mcg Tab Take 88 mcg by mouth before breakfast. lisinopril 20 mg Tab Commonly known as: PRINIVIL Take 20 mg by mouth once daily. meloxicam 15 mg Tab Commonly known as: MOBIC Take 15 mg by mouth once daily. ondansetron ODT 4 mg Tbdi Commonly known as: ZOFRAN ODT Dissolve 4 mg on tongue and swallow every eight hours as needed. pantoprazole 40 mg Tbec Commonly known as: PROTONIX Take 40 mg by mouth once daily. HOME HEALTH REFERRAL AFTER HOSPITALIZATION Comments: I certify that this patient is under my care and that I, or Nurse Practitioner or Physician Gas Flow Regulator working with me, had a face to face encounter with this patient on 03/10/2019 On behalf of Attending Physician: Gio Hsu MD I am ordering and certify that the following services are medically necessary home health [facility] Evaluate and Treat I am ordering and certify that the following services are medically necessary [facility] Physical Therapy Evaluate and Treat I certify that the patient is homebound based on the following clinical findings Blind or s enile and rquires the assistance of another person in leaving his/her residence Associated attestation - Gio Hsu MD - 03/10/2019 11:30 AM PDT Gio Hsu M.D. [employer] ([facility]) Professor and Vice-Clerical Methods Analyst of Surgery [employer] for Pancreatic Disease Research [facility] [place] Cell phone: [phone] / [facility] provider's line [phone]. email: [email or web address] documented in this encounter Medications at Time of Discharge + + + +---------+ + + | Medication | Sig | Dispensed | Refills | Start | End Date | | | | | | Date | | + + + +---------+ + + | acetaminophen 325 | Take 2 tablets by | | 0 | 05/05/20 | | | mg oral tablet | mouth every four | | | 19 | | | | hours as needed. | | | | | + + + +---------+ + + | amLODIPine 5 mg | Take 5 mg by mouth | | 0 | | | | oral tablet | once daily. | | | | | + + + +---------+ + + | artificial tears | Instill 1 drop into | 15 mL | 0 | 05/05/20 | | | (dextran | both eyes three | | | 19 | | | 70-hypromellose) | times daily. | | | | | | 0.1-0.3 % ophthalmic | Indications: dry and | | | | | | (eye) | inflamed cornea and | | | | | | dropsIndications: | conjunctiva of eyes | | | | | | keratoconjunctivitis | | | | | | | sicca | | | | | | + + + +---------+ + + | atorvastatin 20 mg | Take 20 mg by mouth | | 0 | | | | oral tablet | once daily. | | | | | + + + +---------+ + + | levothyroxine 88 | Take 88 mcg by mouth | | 0 | | | | mcg oral tablet | before breakfast. | | | | | + + + +---------+ + + | lisinopril 20 mg | Take 20 mg by mouth | | 0 | | | | oral tablet | once daily. | | | | | + + + +---------+ + + | meloxicam 15 mg | Take 15 mg by mouth | | 0 | | | | oral tablet | once daily. | | | | | + + + +---------+ + + | ondansetron ODT 4 | Dissolve 4 mg on | | 0 | | | | mg oral | tongue and swallow | | | | | | tablet,disintegratin | every eight hours as | | | | | | g | needed. | | | | | + + + +---------+ + + | pantoprazole 40 mg | Take 40 mg by mouth | | 0 | | | | oral tablet,delayed | once daily. | | | | | | release (DR/EC) | | | | | | + + + +---------+ + + | polyethylene | Mix 1 packet and | | 0 | 05/05/20 | | | glycol 17 gram oral | take orally three | | | 19 | | | powder in packet | times daily as | | | | | | | needed (1st line - | | | | | | | for no BM for 2 | | | | | | | days). | | | | | + + + +---------+ + + | senna-docusate | Take 1 tablet by | 50 | 0 | 05/05/20 | | | 8.6-50 mg oral | mouth two times | tablet | | 19 | | | tablet | daily. | | | | | + + + +---------+ + + documented as of this encounter Progress Notes Keaton Cheung MD - 03/10/2019 7:40 AM PDTFormatting of this note might be different fro m the original. DEPARTMENT OF SURGERY Blue Surgery Admission Date: 03/06/2019 ( LOS: 4 days ) Attending Provider: Gio Hsu MD Procedure: 03/07 RUQ biloma drain placement 03/08 Sphincterotomy, 10F x 10 cm plastic stent placed Interval History and Events: - VSS, overactive and a bit delirious per overnight BP 169/70 (BP Location: Right upper arm, Patient Position: Lying on back) | Pulse 72 | Te mp 36.9 C (98.4 F) | Resp 16 | Wt 78.1 kg (172 lb 3.2 oz) | SpO2 94% Intake/Output 03/08 07 - 03/09 0700 03/09 0701 - 03/10 0700 05 0701 - 03/11 0700 P.O. 400 I.V. 1510 1523.8 IV Piggyback 560 100 Total Intake 2069 2022.8 Urine (mL/kg/hr) 11 (0) 1 (0) Drains (mL/kg/hr) 200 (0.1) 30 (0) Total Output(mL/kg) 200 (2.6) 41 (0.5) 1 (0) Net +1870 +1982.8 -1 Urine 6 x 14 x 1 x Stool 1 x General: Laying in bed HEENT: R eye with diminishing redness and tearing today Resp: Unlabored breathing on RA CV: Non-tachycardic Abd: soft, mildly distended, non-tender, incisions c/d/i. Drain with 30 ml bilious o/p Extremities: WWP Mental status: alert, engaged Data Labs: CBC with diff last 72 hours (or 3 results) - Refreshable Chemistries: Last 72 Hours (or 3 results) - Refreshable Recent Labs 03/08/19 0526 03/09/19 0502 NA 139 140 K 3.9 3.1* CL 107 107 BICARB 26 27 BUN 15 13 EGFRAFRICAN >60 >60 CR 0.56* 0.51* GLU 112* 119* CA 7.7* 7.6* MG 2.1 2.2 PO4 1.9* 2.2* Liver Tests: Last 72 hours (or 3 results) Recent Labs 03/08/19 0503/09/19 0502 AST 28 39 ALT 22 26 TBILI 0.8 0.8 AP 74 85 ALB 1.5* 1.5* TP 5.2* 5.1* Microbiology: reviewed, 03/06 BCx NGTD, 03/07 Drain Cx with E coli Path: reviewed, none Imagin/2 HIDA scan: Rapid tracer visualization within the drain placed inferior to the left hepatic lobe, consistent with drained bile leak. Minimal pooling of the tracer at the g allbladder fossa and near the CBD. Assessment and Plan: Monserrat Marrufo is a 73 y.o. female with HTN, hypothyroidism and dementia who transferred after a recent laparoscopic cholecystectomy c/b biloma s/p drain on 03/07. HIDA scan with ongoing b ile leak. #biloma, ongoing bile leak, s/p IR drain placement #s/p Sphincterotomy, 10F x 10 cm plastic stent placed -ERCP to be repeated in 6 weeks -maintain IR drain -continue cefepime and metronidazole #FenGI -regular diet -daily labs, replete lytes prn #funcitonal status, ADLs - OT cog eval, appreciate recs - PT eval, encourage ambulation - pain control, no opioids - bowel regimen - DVT ppx: SCDs, lovenox Keaton Cheung MD PGY1 Associated attestation - Gio Hsu MD - 03/10/2019 9:57 AM PDT I saw the patient and reviewed and verified all information documented by the medical stud ent and resident, and made modifications to such information, when appropriate Gio Hsu M.D. [employer] ([facility]) Professor and Vice-Clerical Methods Analyst of Surgery [employer] for Pancreatic Disease Research [facility] [place] Cell phone: [phone] / [facility] provider's line [phone]. email: [email or web address] Jarrett Barrios MD - 03/08/2019 5:42 AM PDTFormatting of this note might be different fro m the original. DEPARTMENT OF SURGERY Blue Surgery Admission Date: 03/06/2019 ( LOS: 2 days ) Attending Provider: Gio Hsu MD Procedure: 03/07 RUQ biloma drain placement Interval History and Events: - RUQ biloma drain placement yesterday - HIDA scan showed ongoing leak - temp close to febrile yesterday at 37.9 and tachycardic with range 84-112, otherwise vss BP 147/77 (BP Location: Left upper arm, Patient Position: Lying on back) | Pulse 97 | Tem p 37.3 C (99.1 F) | Resp 18 | SpO2 97% Intake/Output 03/06 07 - 03/07 0700 05/ 07 - 03/08 0700 03/08 07 - 03/09 0700 P.O. 0 I.V. 816.3 1220 IV Piggyback 460 560 Total Intake 1276.3 1780 Urine 1000 1 Drains 925 Total Output 1000 926 Net +276.3 +854 Urine 1 x 6 x General: Laying in bed HEENT: Nasal cannula in place Resp: Unlabored breathing on 4 L NC CV: Non-tachycardic Abd: soft, mildly distended, non-tender, incisions c/d/i. Drain with 925 ml bilious o/p Extremities: WWP Mental status: Sleeping, arousable, engages with providers Data Labs: reviewed, LFTs normal, pertinents: Phos 1.9 Microbiology: reviewed, 03/06 BCx NGTD, 03/07 Drain Cx pending Path: reviewed, none Imagin/2 HIDA scan: Rapid tracer visualization within the drain placed inferior to the left hepatic lobe, consistent with drained bile leak. Minimal pooling of the tracer at the g allbladder fossa and near the CBD. Assessment and Plan: Monserrat Marrufo is a 73 y.o. female with HTN, hypothyroidism and dementia who transferred after a recent laparoscopic cholecystectomy c/b biloma s/p drain on 03/07. HIDA scan with ongoing b ile leak. - NPO, mIVF - plan for ERCP possibly today - continue cefepime and metronidazole - TABLE SETTER after procedure (when patient is non-NPO) - OT cog eval - PT eval, encourage ambulation - pain control, no opioids - bowel regimen - DVT ppx: SCDs Jarrett Barrios MD General Surgery PGY-1 Pager [phone] Associated attestation - Gio Hsu MD - 03/08/2019 3:56 PM PDT. I saw the patient and reviewed and verified all information documented by the medical stud ent and resident, and made modifications to such information, when appropriate Gio Hsu M.D. [employer] ([facility]) Professor and Vice-Clerical Methods Analyst of Surgery [employer] for Pancreatic Disease Research [facility] [place] Cell phone: [phone] / [facility] provider's line [phone]. email: [email or web address] Kortney Russo MD - 03/07/2019 8:50 PM PDT INTERVENTIONAL RADIOLOGY Progress Note Assessment: 73 y.o. female POD # 1 s/p RUQ biloma drain placement - 12 F biliary drain with drain to gr avity bag. Plan: -continue drain to gravity bag. S: Part hard of hearing, missing hearing aid. Relatives and at bedside during AM 5/3 interview. Patient awake, alert, answering questions with slight delay. Denies fever, chil ls, abdominal pain. Bag draining brownish fluid, minimal within the bag at time of intervie w. Minimal erythema of skin medially at edge of dressing, patient reports no pain at site. E dge will be marked by nursing staff after interview and will be followed. Patient's reports that patient is more interactive and alert today compared to prior, able to recall some items and reports missing her dog. O: Last 24 hour min/max Temp: 37.9 C (100.2 F) Temp Min: 36.6 C (97.9 F) Max: 38.8 C (101.8 F) Pulse: 98 Pulse Min: 84 Max: 121 Resp: 18 Resp Min: 16 Max: 26 BP: 153/75 BP Min: 137/69 Max: 182/89 SpO2: 96 % SpO2 Min: 91 % Max: 97 % There is no height or weight on file to calculate BMI. Physical Examination Gen: nontoxic appearing alert elderly female in no acute distress resting comfortably in be d with at bedside and relatives Cardiac: Regular rate Chest: No respiratory distress, speaking short sentences after minimal delay Abdomen: Non-distended, non-tender; no rebound or guarding, biliary drain dressing is clean , no leakage, minimal erythema less than 2 mm of the skin at medial edge of dressing Date 03/06/192299 - 03/07/1965803/07/19699 - 03/08/19 0659 Shift 0725-4217 24 Hour Total 3905-3232 6526-8714 7261-5077 24 Hour Total I N T A K E I.V. 791.3 816.3 338.8 207.5 546.3 IV Piggyback 460 460 100 100 200 Shift Total 1251.3 1276.3 438.8 307.5 746.3 O U T P U T Urine 850 1000 Drains 800 50 850 Shift Total 850 1000 800 50 850 Weight (kg) Labs CBC with diff last 72 hours (or 3 results) - Refreshable Recent Labs 03/06/19191203/07/19 0746 WBC 4.08 4.85 HB 10.5* 10.8* HCT 31.7* 32.3* PLT 219 264 Chemistries: Last 72 Hours (or 3 results) - Refreshable Recent Labs 03/06/19191203/07/19 0746 NA 139 141 K 3.4 3.5 CL 106 107 BICARB 25 30 BUN 16 13 CR 0.67 0.60 GLU 137* 123* CA 7.8* 8.3* MG 1.9 1.9 Lab Results Component Value Date AST 23 03/07/2019 ALT 26 03/07/2019 TBILI 0.9 03/07/2019 AP 70 03/07/2019 TP 5.5 03/07/2019 ALB 1.7 03/07/2019 No results found for: APTT, FIBRINOGEN Lab Results Component Value Date INRPT 1.47 (H) 03/06/2019 Imaging No new imaging in the interim Medications Current Facility-Administered Medications Medication Dose Route Frequency acetaminophen (TYLENOL) tablet 650 mg 650 mg oral Q4H PRN bisacodyl (DULCOLAX) suppository 10 mg 10 mg rectal DAILY PRN ceFEPIme (MAXIPIME) injection 1 g 1 g intravenous Q8H lactated ringers IV 75 mL/hr intravenous CONTINUOUS metroNIDAZOLE (FLAGYL) IV 500 mg 500 mg intravenous Q8H naloxone (NARCAN) injection 0.2 mg 0.2 mg intravenous PRN polyethylene glycol (MIRALAX) packet 34 g 34 g oral TID PRN potassium chloride IV (peripheral line) 20 mEq 20 mEq intravenous ONCE senna-docusate (SENOKOT S) 8.6-50 mg 1 tablet 1 tablet oral BID sodium chloride 0.9 % (NS) IV infusion intravenous PRN Allergies Allergen Reactions Codeine Unknown Possible GI Upset. Penicillin Unknown Problem List There is no problem list on file for this patient. Kortney Russo MD Rimma Miller [facility] - 03/07/2019 12:02 PM PDTINTERVENTIONAL RADIOLOGY POST SEDATION NOTE Maximum level of sedation achieved during the procedure: 2 Moderately sedated, easily arous ed with light tactile stimulation Current level of sedation: 0 Awake and alert BP 168/90 | Pulse 104 | Temp 37.3 C (99.1 F) | Resp 18 | SpO2 94% Access site: percutaneous The patient is recovered from moderate (conscious) sedation with an appropriate level of pa in control. ALEXY De Jesus [facility] Rimma Diaz [facility] - 03/07/2019 12:00 PM PDTINTERVENTIONAL RADIOLOGY BRIEF PROCEDURE NOTE DATE: 03/07/2019 12:00 PM PROCEDURE: RUQ biloma drain placement - 12 F biliary drain PRE-PROCEDURE DIAGNOSIS: 73 y.o. female PMHx dementia presenting as transfer from [facility] s/p r ecent laparoscopic cholecystectomy with possible biloma POST-PROCEDURE DIAGNOSIS: same IR ATTENDING: Dr Sharma IR FELLOW: Dr Velasquez IR PA: ACCESS: percutaneous MEDICATIONS: Fentanyl 25 mcg IV Versed 0.5 mg IV COMPLICATION(S): None immediate ESTIMATED BLOOD LOSS: minimal FINDINGS: 1. Yellow colored fluid aspirated - a total of 800 ml . Sample sent to lab 2. Keep drain to gravity bag Full dictated report forthcoming, which can be found under the imaging tab in Epic. ALEXY De Jesus [facility] imma Velasquez [facility] - 03/07/2019 11:03 AM PDTPre-procedure evaluation I assessed the patient immediately prior to the procedure and reviewed the most recent cons ult/H&P. There are no relevant changes from the most recent consult/H&P or pre-sedation evaluation. ALEXY De Jesus [facility] Jarrett Loera MD - 03/07/2019 5:23 AM PDT DEPARTMENT OF SURGERY Blue Surgery Admission Date: 03/06/2019 ( LOS: 1 day ) Attending Provider: Gio Hsu MD Interval History and Events: -febrile to 38.8 overnight, tachycardic with range 83-121, requiring 4L NC O2 to maintain s ats 92-95 -pulled abbott out with balloon up overnight, pulled multiple PIVs, now has a sitter - was somnolent, received narcan after arrival BP 165/87 (BP Location: Left upper arm, Patient Position: Lying on back) | Pulse 121 | Te mp 37.7 C (99.9 F) | Resp 22 | SpO2 94% Intake/Output 03/05 701 - 03/06 0700 03/06 701 - 03/07 0700 I.V. 65 IV Piggyback 460 Total Intake 525 Urine 1000 Total Output 1000 Net -475 General: not alert but not somnolent, arousable, will engage w providers HEENT: Nasal cannula in place Resp: on 4 L NC, non labored CV: tachy to 120s, regular Abd: soft, mildly distended, diffusely tender to palpation with guarding, incisions c/d/i : abbott replaced after being pulled out w balloon up overnight Extremities: wwp Neuro: somnolent Mental Status: alert to verbal, oriented x 0 Data Labs: reviewed, no leukocytosis, LFTs normal, H/H 10.5/31.7 Microbiology: reviewed, BCx pending Path: reviewed, none Imaging: reviewed, none Assessment and Plan: Monserrat Marrufo is a 73 y.o. female with HTN, hypothyroidism and dementia who transferred after a recent laparoscopic cholecystectomy c/b biloma. - NPO, mIVF - IR drain placement today - ERCP today - continue cefepime and metronidazole - follow up blood cultures - pain control, no opioids - bowel regimen - DVT ppx: SCDs Jarrett Barrios MD General Surgery PGY-1 Pager [phone] Associated attestation - Gio Hsu MD - 03/07/2019 7:11 AM PDT I saw the patient and reviewed and verified all information documented by the medical stud ent and resident, and made modifications to such information, when appropriate Gio Hsu M.D. [employer] ([facility]) Professor and Vice-Clerical Methods Analyst of Surgery [employer] Panc[employer] Disease Research [facility] [place] Cell phone: [phone] / [facility] provider's line [phone]. email: [email or web address] documented in this encounter Plan of Treatment + +---------+--------+ + + | Name | Type | Priori | Associated Diagnoses | Order Schedule | | | | ty | | | + +---------+--------+ + + | IR DRAIN PROCEDURE | Imaging | Routin | | One Time for 1 | | | | e | | Occurrences starting | | | | | | 03/07/2019 until | | | | | | 03/07/2019 | + +---------+--------+ + + documented as of this encounter Procedures + +--------+ + + + | Procedure Name | Priori | Date/Time | Associated Diagnosis | Comments | | | ty | | | | + +--------+ + + + | RENAL FUNCTION SET | Routin | 03/10/2019 | | Results for this | | (NA,K,CL,CO2,BUN,CRE | e | 10:04 AM | | procedure are in the | | AT,GLUC,CA,PHOS,ALB | | PDT | | results section. | | ) | | | | | + +--------+ + + + | MAGNESIUM, PLASMA | Routin | 03/10/2019 | | Results for this | | | e | 10:04 AM | | procedure are in the | | | | PDT | | results section. | + +--------+ + + + | COMPLETE METABOLIC | Routin | 2019 | | Results for this | | SET | e | 5:02 AM | | procedure are in the | | (NA,K,CL,CO2,BUN,CRE | | PDT | | results section. | | AT,GLUC,CA,AST,ALT,B | | | | | | TUNG TOTAL,ALK | | | | | | PHOS,ALB,PROT TOTAL) | | | | | + +--------+ + + + | PHOSPHORUS, PLASMA | Routin | 2019 | | Results for this | | | e | 5:02 AM | | procedure are in the | | | | PDT | | results section. | + +--------+ + + + | MAGNESIUM, PLASMA | Routin | 2019 | | Results for this | | | e | 5:02 AM | | procedure are in the | | | | PDT | | results section. | + +--------+ + + + | CARDIOLOGY | | 2019 | | Results for this | | | | 12:00 AM | | procedure are in the | | | | PDT | | results section. | + +--------+ + + + | ERCP | Routin | 03/08/2019 | | Results for this | | | e | 5:04 PM | | procedure are in the | | | | PDT | | results section. | + +--------+ + + + | ERCP | Routin | 03/08/2019 | | Results for this | | | e | 4:04 PM | | procedure are in the | | | | PDT | | results section. | + +--------+ + + + | PROCEDURE NOTE | Routin | 03/08/2019 | | Results for this | | | e | 11:14 AM | | procedure are in the | | | | PDT | | results section. | + +--------+ + + + | ALT, PLASMA | Urgent | 03/08/2019 | | Results for this | | | | 5:26 AM | | procedure are in the | | | | PDT | | results section. | + +--------+ + + + | RENAL FUNCTION SET | Routin | 03/08/2019 | | Results for this | | (NA,K,CL,CO2,BUN,CRE | e | 5:26 AM | | procedure are in the | | AT,GLUC,CA,PHOS,ALB | | PDT | | results section. | | ) | | | | | + +--------+ + + + | AST, PLASMA | Urgent | 03/08/2019 | | Results for this | | | | 5:26 AM | | procedure are in the | | | | PDT | | results section. | + +--------+ + + + | BILIRUBIN DIRECT | Urgent | 03/08/2019 | | Results for this | | | | 5:26 AM | | procedure are in the | | | | PDT | | results section. | + +--------+ + + + | PROTEIN TOTAL, | Urgent | 03/08/2019 | | Results for this | | PLASMA | | 5:26 AM | | procedure are in the | | | | PDT | | results section. | + +--------+ + + + | ALKALINE | Urgent | 03/08/2019 | | Results for this | | PHOSPHATASE, PLASMA | | 5:26 AM | | procedure are in the | | | | PDT | | results section. | + +--------+ + + + | MAGNESIUM, PLASMA | Routin | 03/08/2019 | | Results for this | | | e | 5:26 AM | | procedure are in the | | | | PDT | | results section. | + +--------+ + + + | BILIRUBIN TOTAL | Urgent | 03/08/2019 | | Results for this | | | | 5:26 AM | | procedure are in the | | | | PDT | | results section. | + +--------+ + + + | NM HEPATOBILIARY | Routin | 03/07/2019 | | Results for this | | INCLUDING | e | 4:32 PM | | procedure are in the | | GALLBLADDER | | PDT | | results section. | + +--------+ + + + | IR DRAIN PROCEDURE | Routin | 03/07/2019 | | Results for this | | | e | 12:06 PM | | procedure are in the | | | | PDT | | results section. | + +--------+ + + + | BILIRUBIN, TOTAL, | Routin | 03/07/2019 | | Results for this | | BODY FLUID | e | 11:53 AM | | procedure are in the | | | | PDT | | results section. | + +--------+ + + + | LAB HOLD - BODY | Routin | 03/07/2019 | | | | FLUID | e | 11:53 AM | | | | | | PDT | | | + +--------+ + + + | CULTURE, WOUND | Routin | 03/07/2019 | | Results for this | | ABSCESS OR ASPIRATE | e | 11:53 AM | | procedure are in the | | W/ ANAEROBE | | PDT | | results section. | + +--------+ + + + | GRAM SMEAR ONLY, | Routin | 03/07/2019 | | Results for this | | STAT | e | 11:53 AM | | procedure are in the | | | | PDT | | results section. | + +--------+ + + + | AMYLASE, BODY FLUIDS | Routin | 03/07/2019 | | Results for this | | | e | 11:53 AM | | procedure are in the | | | | PDT | | results section. | + +--------+ + + + | PROCEDURE NOTE | Routin | 03/07/2019 | | Results for this | | | e | 8:28 AM | | procedure are in the | | | | PDT | | results section. | + +--------+ + + + | CBC (HEMOGRAM) ONLY | Urgent | 03/07/2019 | | Results for this | | | | 7:46 AM | | procedure are in the | | | | PDT | | results section. | + +--------+ + + + | COMPLETE METABOLIC | Routin | 03/07/2019 | | Results for this | | SET | e | 7:46 AM | | procedure are in the | | (NA,K,CL,CO2,BUN,CRE | | PDT | | results section. | | AT,GLUC,CA,AST,ALT,B | | | | | | TUNG TOTAL,ALK | | | | | | PHOS,ALB,PROT TOTAL) | | | | | + +--------+ + + + | CBC ONLY | Urgent | 03/07/2019 | | Results for this | | | | 7:46 AM | | procedure are in the | | | | PDT | | results section. | + +--------+ + + + | MAGNESIUM, PLASMA | Routin | 03/07/2019 | | Results for this | | | e | 7:46 AM | | procedure are in the | | | | PDT | | results section. | + +--------+ + + + | ORDERS OTHER | | 03/07/2019 | | Results for this | | | | 12:00 AM | | procedure are in the | | | | PDT | | results section. | + +--------+ + + + | CULTURE, BLOOD BACTI | Routin | 03/06/2019 | | Results for this | | & YEAST [facility] | e | 9:13 PM | | procedure are in the | | | | PDT | | results section. | + +--------+ + + + | CULTURE, BLOOD BACTI | Routin | 03/06/2019 | | Results for this | | & YEAST [facility] | e | 9:13 PM | | procedure are in the | | | | PDT | | results section. | + +--------+ + + + | CULTURE, BLOOD BACTI | Routin | 03/06/2019 | | Results for this | | & YEAST | e | 9:13 PM | | procedure are in the | | | | PDT | | results section. | + +--------+ + + + | CULTURE, BLOOD BACTI | Routin | 03/06/2019 | | Results for this | | & YEAST | e | 9:13 PM | | procedure are in the | | | | PDT | | results section. | + +--------+ + + + | CBC (HEMOGRAM) ONLY | Routin | 03/06/2019 | | Results for this | | | e | 7:13 PM | | procedure are in the | | | | PDT | | results section. | + +--------+ + + + | INR | Routin | 03/06/2019 | | Results for this | | | e | 7:13 PM | | procedure are in the | | | | PDT | | results section. | + +--------+ + + + | COMPLETE METABOLIC | Routin | 03/06/2019 | | Results for this | | SET | e | 7:13 PM | | procedure are in the | | (NA,K,CL,CO2,BUN,CRE | | PDT | | results section. | | AT,GLUC,CA,AST,ALT,B | | | | | | TUNG TOTAL,ALK | | | | | | PHOS,ALB,PROT TOTAL) | | | | | + +--------+ + + + | CBC ONLY | Routin | 03/06/2019 | | Results for this | | | e | 7:13 PM | | procedure are in the | | | | PDT | | results section. | + +--------+ + + + | MAGNESIUM, PLASMA | Routin | 03/06/2019 | | Results for this | | | e | 7:13 PM | | procedure are in the | | | | PDT | | results section. | + +--------+ + + + | 12 LEAD ECG | Routin | 03/06/2019 | | Results for this | | | e | 6:43 PM | | procedure are in the | | | | PDT | | results section. | + +--------+ + + + | OUTSIDE RADIOLOGY - | | 03/02/2019 | | Results for this | | X-RAY | | 12:00 AM | | procedure are in the | | | | PDT | | results section. | + +--------+ + + + documented in this encounter Results MAGNESIUM, PLASMA (03/10/2019 10:04 AM PDT) + +-------+ + + + | Component | Value | Ref Range | Performed | Pathologist | | | | | At | Signature | + +-------+ + + + | MAGNESIUM,P | 2.0 | 1.6 - 2.6 mg/dL | [facility] | | | LASMA | | | LABORATORY | | | | | | SERVICES, | | | | | | CORE | | + +-------+ + + + + + | Specimen | + + | Blood - Blood | | (substance) | + + + + + + + | Performing | Address | City/State/Zipcode | Phone Number | | Organization | | | | + + + + + | [facility] | [address] | [place] [address] | | | SERVICES, CORE | [address] | | | + + + + + RENAL FUNCTION SET (NA,K,CL,CO2,BUN,CREAT,GLUC,CA,PHOS,ALB ) (03/10/2019 10:04 AM PDT) + + + + + + | Component | Value | Ref Range | Performed | Pathologist | | | | | At | Signature | + + + + + + | GLUCOSE, | 116 (H) | 70 - 99 mg/dL | [facility] | | | PLASMA | | | LABORATORY | | | (LAB) | | | SERVICES, | | | | | | CORE | | + + + + + + | BUN, PLASMA | 7 | 6 - 20 mg/dL | [facility] | | | (LAB) | | | LABORATORY | | | | | | SERVICES, | | | | | | CORE | | + + + + + + | CREATININE | 0.48 (L) | 0.60 - 1.10 | [facility] | | | PLASMA | | mg/dL | LABORATORY | | | (LAB) | | | SERVICES, | | | | | | CORE | | + + + + + + | EGFR | >60 | >60 mL/min | [facility] | | | - | | | LABORATORY | | | GABONESE | | | SERVICES, | | | | | | CORE | | + + + + + + | EGFR NON | >60 | >60 mL/min | [facility] | | | -MARGA | | | LABORATORY | | | RICAN | | | SERVICES, | | | | | | CORE | | + + + + + + | SODIUM, | 139 | 136 - 145 | [facility] | | | PLASMA | | mmol/L | LABORATORY | | | (LAB) | | | SERVICES, | | | | | | CORE | | + + + + + + | POTASSIUM, | 3.3 (L) | 3.4 - 5.0 | [facility] | | | PLASMA | | mmol/L | LABORATORY | | | (LAB) | | | SERVICES, | | | | | | CORE | | + + + + + + | CHLORIDE, | 105 | 97 - 108 mmol/L | [facility] | | | PLASMA | | | LABORATORY | | | (LAB) | | | SERVICES, | | | | | | CORE | | + + + + + + | TOTAL CO2, | 29 | 21 - 32 mmol/L | [facility] | | | PLASMA | | | LABORATORY | | | (LAB) | | | SERVICES, | | | | | | CORE | | + + + + + + | CALCIUM, | 7.8 (L) | 8.6 - 10.2 | [facility] | | | PLASMA | | mg/dL | LABORATORY | | | (LAB) | | | SERVICES, | | | | | | CORE | | + + + + + + | CALCIUM(ALB | 9.5 | 8.6 - 10.2 | [facility] | | | CORRECTED) | | mg/dL | LABORATORY | | | | | | SERVICES, | | | | | | CORE | | + + + + + + | ALBUMIN, | 1.9 (L) | 3.5 - 4.7 g/dL | [facility] | | | PLASMA | | | LABORATORY | | | (LAB) | | | SERVICES, | | | | | | CORE | | + + + + + + | PHOSPHORUS, | 2.2 (L) | 2.4 - 4.7 mg/dL | [facility] | | | PLASMA | | | LABORATORY | | | (LAB) | | | SERVICES, | | | | | | CORE | | + + + + + + | POTASSIUM | Sl Hemo | | [facility] | | | CMNT | | | LABORATORY | | | | | | SERVICES, | | | | | | CORE | | + + + + + + | ANION GAP | 5 | 4 - 11 mmol/L | [facility] | | | | | | LABORATORY | | | | | | SERVICES, | | | | | | CORE | | + + + + + + | ANION | 10 | 4 - 11 mmol/L | [facility] | | | GAP(ALB | | | LABORATORY | | | CORRECTED) | | | SERVICES, | | | | | | CORE | | + + + + + + + + | Specimen | + + | Blood - Blood | | (substance) | + + + + + | Narrative | Performed At | + + + | Sample hemolyzed. Results for LD, K, and AST may be inaccurate. | [facility] | | Refer to comment under test. GFR is estimated using the MDRD | LABORATORY | | equation recommended by the National Kidney Disease Education Program. | SERVICES, CORE | | Estimated GFR Interpretive Information: <60 mL/min/1.73 sq m | | | Chronic Kidney Disease <15 mL/min/1.73 sq m | | | Kidney Failure Estimated GFR greater than 60 | | | mL/min/1.73 sq m is of limited clinical value. The MDRD equation | | | is not valid in the following situations: - Patients under 18 years | | | of age - Severe malnutrition or obesity - Vegetarian diet - Rapidly | | | changing kidney function - Amputees, paraplegics, or other | | | muscle-wasting diseses | | + + + + + + + + | Performing | Address | City/State/Zipcode | Phone Number | | Organization | | | | + + + + + | [facility] | [address] | [place] [address] | | | SERVICES, CORE | [address] | | | + + + + + PHOSPHORUS, PLASMA (2019 5:02 AM PDT) + +---------+ + + + | Component | Value | Ref Range | Performed | Pathologist | | | | | At | Signature | + +---------+ + + + | PHOSPHORUS, | 2.2 (L) | 2.4 - 4.7 mg/dL | [facility] | | | PLASMA | | | LABORATORY | | | (LAB) | | | SERVICES, | | | | | | CORE | | + +---------+ + + + + + | Specimen | + + | Blood - Blood | | (substance) | + + + + + + + | Performing | Address | City/State/Zipcode | Phone Number | | Organization | | | | + + + + + | [facility] | [address] | [place] [address] | | | SERVICES, CORE | [address] | | | + + + + + MAGNESIUM, PLASMA (2019 5:02 AM PDT) + +-------+ + + + | Component | Value | Ref Range | Performed | Pathologist | | | | | At | Signature | + +-------+ + + + | MAGNESIUM,P | 2.2 | 1.6 - 2.6 mg/dL | [facility] | | | LASMA | | | LABORATORY | | | | | | SERVICES, | | | | | | CORE | | + +-------+ + + + + + | Specimen | + + | Blood - Blood | | (substance) | + + + + + + + | Performing | Address | City/State/Zipcode | Phone Number | | Organization | | | | + + + + + | [facility] | [address] | [place] [address] | | | SERVICES, CORE | [address] | | | + + + + + COMPLETE METABOLIC SET (NA,K,CL,CO2,BUN,CREAT,GLUC,CA,AST,ALT,BILI TOTAL,ALK PHOS,ALB,PROT TOTAL) (2019 5:02 AM PDT) + + + + + + | Component | Value | Ref Range | Performed | Pathologist | | | | | At | Signature | + + + + + + | GLUCOSE, | 119 (H) | 70 - 99 mg/dL | [facility] | | | PLASMA | | | LABORATORY | | | (LAB) | | | SERVICES, | | | | | | CORE | | + + + + + + | BUN, PLASMA | 13 | 6 - 20 mg/dL | [facility] | | | (LAB) | | | LABORATORY | | | | | | SERVICES, | | | | | | CORE | | + + + + + + | CREATININE | 0.51 (L) | 0.60 - 1.10 | [facility] | | | PLASMA | | mg/dL | LABORATORY | | | (LAB) | | | SERVICES, | | | | | | CORE | | + + + + + + | EGFR | >60 | >60 mL/min | [facility] | | | - | | | LABORATORY | | | GABONESE | | | SERVICES, | | | | | | CORE | | + + + + + + | EGFR NON | >60 | >60 mL/min | [facility] | | | -MARGA | | | LABORATORY | | | RICAN | | | SERVICES, | | | | | | CORE | | + + + + + + | SODIUM, | 140 | 136 - 145 | [facility] | | | PLASMA | | mmol/L | LABORATORY | | | (LAB) | | | SERVICES, | | | | | | CORE | | + + + + + + | POTASSIUM, | 3.1 (L) | 3.4 - 5.0 | [facility] | | | PLASMA | | mmol/L | LABORATORY | | | (LAB) | | | SERVICES, | | | | | | CORE | | + + + + + + | CHLORIDE, | 107 | 97 - 108 mmol/L | [facility] | | | PLASMA | | | LABORATORY | | | (LAB) | | | SERVICES, | | | | | | CORE | | + + + + + + | TOTAL CO2, | 27 | 21 - 32 mmol/L | [facility] | | | PLASMA | | | LABORATORY | | | (LAB) | | | SERVICES, | | | | | | CORE | | + + + + + + | CALCIUM, | 7.6 (L) | 8.6 - 10.2 | [facility] | | | PLASMA | | mg/dL | LABORATORY | | | (LAB) | | | SERVICES, | | | | | | CORE | | + + + + + + | CALCIUM(ALB | 9.6 | 8.6 - 10.2 | [facility] | | | CORRECTED) | | mg/dL | LABORATORY | | | | | | SERVICES, | | | | | | CORE | | + + + + + + | BILIRUBIN | 0.8 | 0.3 - 1.2 mg/dL | [facility] | | | TOTAL | | | LABORATORY | | | | | | SERVICES, | | | | | | CORE | | + + + + + + | TOTAL | 5.1 (L) | 6.4 - 8.2 g/dL | [facility] | | | PROTEIN, | | | LABORATORY | | | PLASMA | | | SERVICES, | | | (LAB) | | | CORE | | + + + + + + | ALBUMIN, | 1.5 (L) | 3.5 - 4.7 g/dL | [facility] | | | PLASMA | | | LABORATORY | | | (LAB) | | | SERVICES, | | | | | | CORE | | + + + + + + | ALK PHOS | 85 | 53 - 141 U/L | [facility] | | | | | | LABORATORY | | | | | | SERVICES, | | | | | | CORE | | + + + + + + | AST(SGOT) | 39 | <=41 U/L | [facility] | | | | | | LABORATORY | | | | | | SERVICES, | | | | | | CORE | | + + + + + + | ALT (SGPT) | 26 | <=60 U/L | [facility] | | | | | | LABORATORY | | | | | | SERVICES, | | | | | | CORE | | + + + + + + | ANION GAP | 6 | 4 - 11 mmol/L | [facility] | | | | | | LABORATORY | | | | | | SERVICES, | | | | | | CORE | | + + + + + + | ANION | 12 (H) | 4 - 11 mmol/L | [facility] | | | GAP(ALB | | | LABORATORY | | | CORRECTED) | | | SERVICES, | | | | | | CORE | | + + + + + + | POTASSIUM | No Hemo | | [facility] | | | CMNT | | | LABORATORY | | | | | | SERVICES, | | | | | | CORE | | + + + + + + | BILI T CMNT | No Hemo | | [facility] | | | | | | LABORATORY | | | | | | SERVICES, | | | | | | CORE | | + + + + + + | AST CMNT | No Hemo | | [facility] | | | | | | LABORATORY | | | | | | SERVICES, | | | | | | CORE | | + + + + + + + + | Specimen | + + | Blood - Blood | | (substance) | + + + + + | Narrative | Performed At | + + + | GFR is estimated using the MDRD equation recommended by the | [facility] | | National Kidney Disease Education Program. Estimated GFR | LABORATORY | | Interpretive Information: <60 mL/min/1.73 sq m | SERVICES, CORE | | Chronic Kidney Disease <15 mL/min/1.73 sq m | | | Kidney Failure Estimated GFR greater than 60 mL/min/1.73 sq m is of | | | limited clinical value. The MDRD equation is not valid in the | | | following situations: - Patients under 18 years of age - Severe | | | malnutrition or obesity - Vegetarian diet - Rapidly changing kidney | | | function - Amputees, paraplegics, or other muscle-wasting diseses | | + + + + + + + + | Performing | Address | City/State/Zipcode | Phone Number | | Organization | | | | + + + + + | [facility] | [address] | [place] [address] | | | SERVICES, CORE | [address] | | | + + + + + CARDIOLOGY (2019 12:00 AM PDT) + + + | Narrative | Performed At | + + + | | | + + + ERCP (03/08/2019 5:04 PM PDT) + + + | Narrative | Performed At | + + + | Ulysses Rondon Jr., MD 03/08/2019 5:06 PM Gastroenterology | | | Post-procedure Note Patient was submitted to ERCP with | | | sphincterotomy and stent placement successfully. Garcia Findings: | | | No active extravasation seen during injection but pooling seen over | | | time Sphincterotomy 10F x 10 cm plastic stent placed | | | Recommendations: 1. Repeat ERCP in 6 weeks 2. Clear liquid diet | | | Please refer to procedure report under the results tab for the | | | full details. Ulysses Rondon MD | | + + + ERCP (03/08/2019 4:04 PM PDT) + + | Specimen | + + | | + + + + + | Narrative | Performed At | + + + | MRN: | [facility] | | [id number] Date: 03/08/2019Patient Name: Monserrat Perkins #: | ENDOSCOPY | | [id number] of : 4CSN: [id number] Type: | | | InpatientRoom: GI 3Procedure: ERCPIndications: | | | Treatment of bile leakProviders: ULYSSES WChe DE BRICEÑO | | | MD DEANNE (Doctor), RADHA DUNNE RN | | | (Nurse), GUERO MICHEL (Band Sewer)Referring MD: G[facility], | | | MDRequesting Provider: Medicines: Cipro 400 mg IV, | | | Indomethacin 100 mg IN, Monitored | | | Anesthesia CareComplications: No immediate complications. | | | Estimated blood loss: | | | Minimal.Procedure: Pre-Anesthesia Assessment: | | | - Prior to the procedure, a History and Physical | | | was performed, and patient medications | | | and allergies were reviewed. The | | | patient is competent. The risks and | | | benefits of the procedure and the sedation options and | | | risks were discussed with the patient. All questions | | | were answered and informed consent was | | | obtained. Patient identification and | | | proposed procedure were verified by the | | | physician, the nurse, the experimental plastics fabricator and the | | | tool repair technician in the pre-procedure area in the procedure | | | room. Mental Status Examination: alert and | | | oriented. Airway Examination: normal | | | oropharyngeal airway and neck mobility. | | | Respiratory Examination: clear to | | | auscultation. CV Examination: RRR, no murmurs, no S3 or | | | S4. Prophylactic Antibiotics: The patient requires | | | prophylactic antibiotics as clinically | | | indicated based on published guidelines | | | for the planned ERCP. The patient | | | received antibiotic therapy before the | | | procedure. Prior Anticoagulants: The patient has taken | | | no previous anticoagulant or antiplatelet agents. ASA | | | Grade Assessment: III - A patient with | | | severe systemic disease. After | | | reviewing the risks and benefits, the | | | patient was deemed in satisfactory condition to undergo | | | the procedure. The anesthesia plan was to use | | | monitored anesthesia care (MAC). | | | Immediately prior to administration of | | | medications, the patient was | | | re-assessed for adequacy to receive sedatives. The heart | | | rate, respiratory rate, oxygen saturations, blood | | | pressure, adequacy of pulmonary | | | ventilation, and response to care were | | | monitored throughout the procedure. The | | | physical status of the patient was | | | re-assessed after the procedure. Prior | | | to the procedure, a History and Physical with | | | airway assessment was performed (see patient record), | | | and patient medications and allergies were | | | reviewed. The risks and benefits of the | | | procedure and the sedation options and | | | risks were discussed. All questions were | | | answered and informed consent was obtained. After | | | reviewing the risks and benefits, the patient was | | | deemed in satisfactory condition to | | | undergo the procedure. Immediately | | | prior to administration of medications, the | | | patient was re-assessed for adequacy to receive | | | sedatives. The heart rate, respiratory rate, oxygen | | | saturations, blood pressure, adequacy of | | | pulmonary ventilation, and response to | | | care were monitored throughout the | | | procedure. The physical status of the | | | patient was re-assessed after the procedure. | | | The Olympus TJF-160VF Duodenoscope #[id number] was | | | introduced through the mouth, and advanced to the | | | duodenum and used to inject contrast into | | | the bile duct. The ERCP was | | | accomplished without difficulty. The | | | patient tolerated the procedure well.Estimated Blood Loss: | | | Estimated blood loss was minimal.Findings: A stock preparer film of the | | | abdomen was obtained. Surgical clips, consistent with a | | | previous cholecystectomy, were seen in the area of the right | | | upper quadrant of the abdomen. The esophagus was successfully | | | intubated under direct vision. The scope was advanced from the | | | mouth to the duodenum. The pharynx, larynx and associated | | | structures, as well as the upper GI tract, were normal. The | | | major papilla was on the rim of a diverticulum. A 0.035 inch x | | | 270 cm straight Visiglide wire was passed into the biliary | | | tree. The CleverCut distal wire sphincterotome was passed over | | | the guidewire and the bile duct was then deeply cannulated. | | | Contrast was injected. I personally interpreted the bile duct images. | | | Ductal flow of contrast was adequate. Image quality was | | | adequate. Contrast extended to the entire biliary tree. | | | Opacification of the entire biliary tree was successful. The | | | maximal diameter of the main bile duct was 8 mm. The was no | | | active extravasation during injection but mild pooling was seen | | | on delayed fluoroscopy at the percutaneous drain site. A 4 mm | | | biliary sphincterotomy was made with a monofilament traction | | | (standard) sphincterotome using ERBE electrocautery. There was | | | no post-sphincterotomy bleeding. One 10 Fr by 10 cm temporary plastic | | | biliary stent with a single external flap and a single internal | | | flap was placed 9 cm into the common bile duct. Bile flowed | | | through the stent. The stent was in good position. The total | | | fluoroscopy exposure time was 40 seconds.Impression: | | | - The major papilla was on the rim of a diverticulum. | | | - A biliary sphincterotomy was performed. | | | - One temporary plastic biliary stent was placed | | | into the common bile | | | duct.Recommendation: - Return patient to hospital [facility] for | | | ongoing care. - Clear liquid diet today. | | | - Watch for pancreatitis, bleeding, | | | perforation, and cholangitis. | | | - Repeat ERCP in 6 weeks to remove | | | stent.Attending Participation: I personally performed the entire | | | procedure.ULYSSES RONDON JR, MD03/08/2019 5:11:12 PMNumber of | | | Addnunu: Leo Initiated On: 03/08/2019 4:04 [facility] Letter to: | | | ESTELITA KITCHEN PA-C | | + + + + +---------+ + + | Performing | Address | City/State/Zipcode | Phone Number | | Organization | | | | + +---------+ + + | [facility] | | | | + +---------+ + + PROCEDURE NOTE (03/08/2019 11:14 AM PDT)PROTEIN TOTAL, PLASMA (03/08/2019 5:26 AM PDT) + +---------+ + + + | Component | Value | Ref Range | Performed | Pathologist | | | | | At | Signature | + +---------+ + + + | TOTAL | 5.2 (L) | 6.4 - 8.2 g/dL | [facility] | | | PROTEIN, | | | LABORATORY | | | PLASMA | | | SERVICES, | | | (LAB) | | | CORE | | + +---------+ + + + + + | Specimen | + + | Blood - Blood | | (substance) | + + + + + + + | Performing | Address | City/State/Zipcode | Phone Number | | Organization | | | | + + + + + | [facility] | [address] | [place] [address] | | | SERVICES, CORE | [address] | | | + + + + + ALT, PLASMA (03/08/2019 5:26 AM PDT) + +-------+ + + + | Component | Value | Ref Range | Performed | Pathologist | | | | | At | Signature | + +-------+ + + + | ALT (SGPT) | 22 | <=60 U/L | [facility] | | | | | | LABORATORY | | | | | | SERVICES, | | | | | | CORE | | + +-------+ + + + + + | Specimen | + + | Blood - Blood | | (substance) | + + + + + + + | Performing | Address | City/State/Zipcode | Phone Number | | Organization | | | | + + + + + | [facility] | [address] | [place] [address] | | | SERVICES, CORE | [address] | | | + + + + + AST, PLASMA (03/08/2019 5:26 AM PDT) + +---------+ + + + | Component | Value | Ref Range | Performed | Pathologist | | | | | At | Signature | + +---------+ + + + | AST(SGOT) | 28 | <=41 U/L | [facility] | | | | | | LABORATORY | | | | | | SERVICES, | | | | | | CORE | | + +---------+ + + + | AST CMNT | [address] | | [facility] | | | | | | LABORATORY | | | | | | SERVICES, | | | | | | CORE | | + +---------+ + + + + + | Specimen | + + | Blood - Blood | | (substance) | + + + + + | Narrative | Performed At | + + + | Sample hemolyzed. Results for LD, K, and AST may be inaccurate. | [facility] | | Refer to comment under test. | LABORATORY | | | SERVICES, CORE | + + + + + + + + | Performing | Address | City/State/Zipcode | Phone Number | | Organization | | | | + + + + + | [facility] | [address] | [place] [address] | | | SERVICES, CORE | [address] | | | + + + + + ALKALINE PHOSPHATASE, PLASMA (03/08/2019 5:26 AM PDT) + +-------+ + + + | Component | Value | Ref Range | Performed | Pathologist | | | | | At | Signature | + +-------+ + + + | ALK PHOS | 74 | 53 - 141 U/L | [facility] | | | | | | LABORATORY | | | | | | SERVICES, | | | | | | CORE | | + +-------+ + + + + + | Specimen | + + | Blood - Blood | | (substance) | + + + + + + + | Performing | Address | City/State/Zipcode | Phone Number | | Organization | | | | + + + + + | [facility] | [address] | [place] [address] | | | SERVICES, CORE | [address] | | | + + + + + BILIRUBIN DIRECT (03/08/2019 5:26 AM PDT) + +-------+ + + + | Component | Value | Ref Range | Performed | Pathologist | | | | | At | Signature | + +-------+ + + + | BILIRUBIN | 0.1 | 0.0 - 0.3 mg/dL | [facility] | | | DIRECT | | | LABORATORY | | | | | | SERVICES, | | | | | | CORE | | + +-------+ + + + + + | Specimen | + + | Blood - Blood | | (substance) | + + + + + + + | Performing | Address | City/State/Zipcode | Phone Number | | Organization | | | | + + + + + | [facility] | [address] | [place] [address] | | | SERVICES, CORE | [address] | | | + + + + + BILIRUBIN TOTAL (03/08/2019 5:26 AM PDT) + +-------+ + + + | Component | Value | Ref Range | Performed | Pathologist | | | | | At | Signature | + +-------+ + + + | BILIRUBIN | 0.8 | 0.3 - 1.2 mg/dL | [facility] | | | TOTAL | | | LABORATORY | | | | | | SERVICES, | | | | | | CORE | | + +-------+ + + + + + | Specimen | + + | Blood - Blood | | (substance) | + + + + + + + | Performing | Address | City/State/Zipcode | Phone Number | | Organization | | | | + + + + + | [facility] | [address] | [place] [address] | | | SHERRY, KENNY | [address] | | | + + + + + MAGNESIUM, PLASMA (03/08/2019 5:26 AM PDT) + +-------+ + + + | Component | Value | Ref Range | Performed | Pathologist | | | | | At | Signature | + +-------+ + + + | MAGNESIUM,P | 2.1 | 1.6 - 2.6 mg/dL | [facility] | | | [place] | | | LABORATORY | | | | | | SHERRY, | | | | | | CORE | | + +-------+ + + + + + | Specimen | + + | Blood - Blood | | (substance) | + + + + + + + | Performing | Address | City/State/Zipcode | Phone Number | | Organization | | | | + + + + + | [facility] | [address] | [place] [address] | | | SERVICES, CORE | [address] | | | + + + + + RENAL FUNCTION SET (NA,K,CL,CO2,BUN,CREAT,GLUC,CA,PHOS,ALB ) (03/08/2019 5:26 AM PDT) + + + + + + | Component | Value | Ref Range | Performed | Pathologist | | | | | At | Signature | + + + + + + | GLUCOSE, | 112 (H) | 70 - 99 mg/dL | [facility] | | | PLASMA | | | LABORATORY | | | (LAB) | | | SERVICES, | | | | | | CORE | | + + + + + + | BUN, PLASMA | 15 | 6 - 20 mg/dL | [facility] | | | (LAB) | | | LABORATORY | | | | | | SERVICES, | | | | | | CORE | | + + + + + + | CREATININE | 0.56 (L) | 0.60 - 1.10 | [facility] | | | PLASMA | | mg/dL | LABORATORY | | | (LAB) | | | SERVICES, | | | | | | CORE | | + + + + + + | EGFR | >60 | >60 mL/min | [facility] | | | - | | | LABORATORY | | | GABONESE | | | SERVICES, | | | | | | CORE | | + + + + + + | EGFR NON | >60 | >60 mL/min | [facility] | | | -MARGA | | | LABORATORY | | | RICAN | | | SERVICES, | | | | | | CORE | | + + + + + + | SODIUM, | 139 | 136 - 145 | [facility] | | | PLASMA | | mmol/L | LABORATORY | | | (LAB) | | | SERVICES, | | | | | | CORE | | + + + + + + | POTASSIUM, | 3.9 | 3.4 - 5.0 | [facility] | | | PLASMA | | mmol/L | LABORATORY | | | (LAB) | | | SERVICES, | | | | | | CORE | | + + + + + + | CHLORIDE, | 107 | 97 - 108 mmol/L | [facility] | | | PLASMA | | | LABORATORY | | | (LAB) | | | SERVICES, | | | | | | CORE | | + + + + + + | TOTAL CO2, | 26 | 21 - 32 mmol/L | [facility] | | | PLASMA | | | LABORATORY | | | (LAB) | | | SERVICES, | | | | | | CORE | | + + + + + + | CALCIUM, | 7.7 (L) | 8.6 - 10.2 | [facility] | | | PLASMA | | mg/dL | LABORATORY | | | (LAB) | | | SERVICES, | | | | | | CORE | | + + + + + + | CALCIUM(ALB | 9.7 | 8.6 - 10.2 | [facility] | | | CORRECTED) | | mg/dL | LABORATORY | | | | | | SERVICES, | | | | | | CORE | | + + + + + + | ALBUMIN, | 1.5 (L) | 3.5 - 4.7 g/dL | [facility] | | | PLASMA | | | LABORATORY | | | (LAB) | | | SERVICES, | | | | | | CORE | | + + + + + + | PHOSPHORUS, | 1.9 (L) | 2.4 - 4.7 mg/dL | [facility] | | | PLASMA | | | LABORATORY | | | (LAB) | | | SERVICES, | | | | | | CORE | | + + + + + + | POTASSIUM | Sl Hemo | | [facility] | | | CMNT | | | LABORATORY | | | | | | SERVICES, | | | | | | CORE | | + + + + + + | ANION GAP | 6 | 4 - 11 mmol/L | [facility] | | | | | | LABORATORY | | | | | | SERVICES, | | | | | | CORE | | + + + + + + | ANION | 12 (H) | 4 - 11 mmol/L | [facility] | | | GAP(ALB | | | LABORATORY | | | CORRECTED) | | | SERVICES, | | | | | | CORE | | + + + + + + + + | Specimen | + + | Blood - Blood | | (substance) | + + + + + | Narrative | Performed At | + + + | Sample hemolyzed. Results for LD, K, and AST may be inaccurate. | [facility] | | Refer to comment under test. GFR is estimated using the MDRD | LABORATORY | | equation recommended by the National Kidney Disease Education Program. | SERVICES, CORE | | Estimated GFR Interpretive Information: <60 mL/min/1.73 sq m | | | Chronic Kidney Disease <15 mL/min/1.73 sq m | | | Kidney Failure Estimated GFR greater than 60 | | | mL/min/1.73 sq m is of limited clinical value. The MDRD equation | | | is not valid in the following situations: - Patients under 18 years | | | of age - Severe malnutrition or obesity - Vegetarian diet - Rapidly | | | changing kidney function - Amputees, paraplegics, or other | | | muscle-wasting diseses | | + + + + + + + + | Performing | Address | City/State/Zipcode | Phone Number | | Organization | | | | + + + + + | [facility] | [address] | [place] [address] | | | SERVICES, CORE | [address] | | | + + + + + NM HEPATOBILIARY INCLUDING GALLBLADDER (03/07/2019 4:32 PM PDT) + + | Specimen | + + | | + + + + + | Narrative | Performed At | + + + | HIDA GALLBLADDER SCAN: 03/07/2019 4:32 PM CLINICAL HISTORY: 73 | [facility] | | years of age, Female, with history of recent cholecystectomy, referred | RADIOLOGY VOICE | | for evaluation of bilateral leak. COMPARISON: Outside CT dated | RECOGNITION 2 | | 03/06/2019 TECHNIQUE: Radiopharmaceutical: Tc-99m labeled | | | iminodiacetic acid (ZACH) derivative 4.72 mCi IV. The IV | | | administration of the radiopharmaceutical was uneventful. Dynamic | | | images in 20 degrees AFGHAN were obtained for an angiogram and then every | | | minute for 60 minutes. Additional delayed imaging was performed at 75 | | | minutes. FINDINGS: There is rapid clearance of the | | | radiopharmaceutical by the liver, suggesting good hepatocellular | | | function. This is followed by radiotracer excretion into the bile | | | ducts and visualization of the small bowel, suggesting patency of the | | | biliary tree. The radiotracer is rapidly visualized within the drain | | | inferior to the left hepatic lobe, consistent with bilateral leak | | | draining into the percutaneous drain. The delayed images show | | | persistent tracer within the drain with minimal pooling of the tracer | | | at the gallbladder fossa and near the CBD. IMPRESSION: Rapid | | | tracer visualization within the drain placed inferior to the left | | | hepatic lobe, consistent with drained bile leak. Minimal pooling of | | | the tracer at the gallbladder fossa and near the CBD. I | | | have personally reviewed the images and, if necessary, edited the | | | report. I agree with the report as now presented. Final | | | signature: Erica Lyons MD 03/07/2019 5:23 PM Preliminary: Erica | | | MD Serena Dictation initiated: Erica Lyons MD 03/07/2019 | | | 5:11 PM | | + + + + + | Procedure Note | + + | Service Account, Radiant Res In Interface - 03/07/2019 5:24 PM PDT HIDA GALLBLADDER | | SCAN: 03/07/2019 4:32 PM CLINICAL HISTORY: 73 years of age, Female, with history of recent | | cholecystectomy, referred for evaluation of bilateral leak. COMPARISON: Outside CT | | dated 03/06/2019 TECHNIQUE: Radiopharmaceutical: Tc-99m labeled iminodiacetic acid (ZACH) | | derivative 4.72 mCi IV.The IV administration of the radiopharmaceutical was uneventful. | | Dynamic images in 20 degrees AFGHAN were obtained for an angiogram and then every minute | | for 60 minutes. Additional delayed imaging was performed at 75 minutes. FINDINGS: There | | is rapid clearance of the radiopharmaceutical by the liver, suggesting good | | hepatocellular function. This is followed by radiotracer excretion into the bile ducts | | and visualization of the small bowel, suggesting patency of the biliary tree. The | | radiotracer is rapidly visualized within the drain inferior to the left hepatic lobe, | | consistent with bilateral leak draining into the percutaneous drain. The delayed images | | show persistent tracer within the drain with minimal pooling of the tracer at the | | gallbladder fossa and near the CBD. IMPRESSION: Rapid tracer visualization within the | | drain placed inferior to the left hepatic lobe, consistent with drained bile leak. | | Minimal pooling of the tracer at the gallbladder fossa and near the CBD. I have | | personally reviewed the images and, if necessary, edited the report. I agree with the | | report as now presented. Final signature: Erica Lyons MD 03/07/2019 5:23 PM | | Preliminary: Erica Lyons MD Dictation initiated: Erica Lyons MD 03/07/2019 5:11 | | PM | | | | | | | |I have personally reviewed the images and, if necessary, edited the report. I agree with th e report as now presented. | | | |Final signature: Erica Lyons MD 03/07/2019 5:23 PM | |Preliminary: Erica Lyons MD | |Dictation initiated: Erica Lyons MD 03/07/2019 5:11 PM | + + + +---------+ + + | Performing | Address | City/State/Zipcode | Phone Number | | Organization | | | | + +---------+ + + | [facility] | | | | | VOICE RECOGNITION 2 | | | | + +---------+ + + IR DRAIN PROCEDURE (03/07/2019 12:06 PM PDT) + + | Specimen | + + | | + + + + + | Narrative | Performed At | + + + | PROCEDURE: Drainage catheter placement Procedural Personnel | [facility] | | Attending physician(s): Micah Sharma MD Fellow physician(s): | RADIOLOGY VOICE | | Rimma Velasquez MD Pre-procedure diagnosis: Postoperative biloma | RECOGNITION 2 | | Post-procedure diagnosis: Same Indication: Postoperative biloma | | | Additional clinical history: 33-year-old female status post | | | laparoscopic cholecystectomy now with large intra-abdominal biloma | | | requiring drainage. Complications: No immediate complications. | | | IMPRESSION: Percutaneous placement of a 12.5) Georgian drainage | | | catheter into biliary, yielding 800 mL of purulent fluid. Plan: | | | Back placed to gravity drainage. | | | | | | PROCEDURE SUMMARY: - 12.5 Georgian biliary drainage catheter | | | placement under ultrasound and guidance recorded images - Additional | | | procedure(s): None PROCEDURE DETAILS: Pre-procedure Consent: | | | Informed consent for the procedure including risks, benefits and | | | alternatives was obtained and time-out was performed prior to the | | | procedure. Preparation: The site was prepared and draped using | | | maximal sterile barrier technique including cutaneous antisepsis. | | | Anesthesia/sedation Level of anesthesia/sedation: Moderate sedation | | | (conscious sedation) Anesthesia/sedation administered by: Independent | | | trained observer under attending supervision with continuous | | | monitoring of the patient's level of consciousness and physiologic | | | status Total intra-service sedation time (minutes): 60 Drainage | | | catheter placement The patient was positioned supine. Initial imaging | | | was performed ultrasound. Images were recorded.. Local anesthesia was | | | administered. The fluid collection was accessed using 18-gauge open | | | needle and a wire was advanced behind the left lobe of the liver into | | | the region of the cholecystectomy clips. This allowed placement of the | | | pigtail catheter in this location. Position of the drainage catheter | | | within the fluid collection was confirmed. The fluid was then | | | aspirated for total of 800 mL's. - Initial imaging findings: Large | | | upper quadrant biloma surrounding the left lobe of the liver offering | | | pathway to the gallbladder fossa. - Drainage catheter placed: Via | | | left upper quadrant approach with pigtail portion in the gallbladder | | | fossa. - External catheter securement: 0 Prolene suture - | | | Post-drainage imaging findings: Evacuation of the biloma. Contrast | | | Contrast agent: None Contrast volume (mL): 0 Radiation Dose | | | Fluoroscopy time (2): 7 Additional Details Additional | | | description of procedure: None Specimens removed: Aspirated fluid | | | sent for analysis. Estimated blood loss (mL): Less than 10 | | | Standardized report: [email or web address]_[email or web address] Attestation Signer | | | name: Micah Sharma MD I attest that I was present for the entire | | | procedure. I reviewed the stored images and agree with the report as | | | written. I have personally reviewed the images and, if | | | necessary, edited the report. I agree with the report as now | | | presented. Final signature: Micah Sharma MD 03/07/2019 5:36 PM | | | Preliminary: Micah Sharma MD Dictation initiated: Micah Sharma MD 03/07/2019 5:32 PM | | + + + + + | Procedure Note | + + | Service Account, Radiant Res In Interface - 03/07/2019 5:37 PM PDT PROCEDURE: | | Drainage catheter placement Procedural PersonnelAttending physician(s): Micah Sharma | | Fedanielle physician(s): Rimma Velasquez MD Pre-procedure diagnosis: Postoperative | | bilomaPost-procedure diagnosis: SameIndication: Postoperative bilomaAdditional clinical | | history: 33-year-old female status post laparoscopic cholecystectomy now with large | | intra-abdominal biloma requiring drainage. Complications: No immediate complications. | | IMPRESSION: Percutaneous placement of a 12.5) Georgian drainage catheter into biliary, | | yielding 800 mL of purulent fluid. Plan: Back placed to gravity | | drainage. | | PROCEDURE SUMMARY:- 12.5 Georgian biliary drainage catheter placement under ultrasound and | | guidance recorded images- Additional procedure(s): None PROCEDURE DETAILS: | | Pre-procedureConsent: Informed consent for the procedure including risks, benefits and | | alternatives was obtained and time-out was performed prior to the procedure.Preparation: | | The site was prepared and draped using maximal sterile barrier technique including | | cutaneous antisepsis. Anesthesia/sedationLevel of anesthesia/sedation: Moderate sedation | | (conscious sedation)Anesthesia/sedation administered by: Independent trained observer | | under attending supervision with continuous monitoring of the patient's level of | | consciousness and physiologic statusTotal intra-service sedation time (minutes): 60 | | Drainage catheter placementThe patient was positioned supine. Initial imaging was | | performed ultrasound. Images were recorded.. Local anesthesia was administered. The | | fluid collection was accessed using 18-gauge open needle and a wire was advanced behind | | the left lobe of the liver into the region of the cholecystectomy clips. This allowed | | placement of the pigtail catheter in this location. Position of the drainage catheter | | within the fluid collection was confirmed. The fluid was then aspirated for total of 800 | | mL's.- Initial imaging findings: Large upper quadrant biloma surrounding the left lobe | | of the liver offering pathway to the gallbladder fossa.- Drainage catheter placed: Via | | left upper quadrant approach with pigtail portion in the gallbladder fossa.- External | | catheter securement: 0 Prolene suture- Post-drainage imaging findings: Evacuation of the | | biloma. ContrastContrast agent: NoneContrast volume (mL): 0 Radiation Dose Fluoroscopy | | time (2): 7 Additional DetailsAdditional description of procedure: None Specimens | | removed: Aspirated fluid sent for analysis.Estimated blood loss (mL): Less than | | 10Standardized report: [email or web address]_DrainPlacement_v2 AttestationSigner name: Micah Sharma MDI | | attest that I was present for the entire procedure. I reviewed the stored images and | | agree with the report as written. I have personally reviewed the images and, if | | necessary, edited the report. I agree with the report as now presented. Final | | signature: Micah Sharma MD 03/07/2019 5:36 PM Preliminary: Micah Sharma MD | | Dictation initiated: Micah Sharma MD 03/07/2019 5:32 PM | |Drainage catheter placement | |The patient was positioned supine. Initial imaging was performed ultrasound. Images were re corded.. Local anesthesia was administered. The fluid collection was accessed using 18-gauge open needle and a wire was | |advanced behind the left lobe of the liver into the region of the cholecystectomy clips. Th is allowed placement of the pigtail catheter in this location. Position of the drainage cath eter within the fluid | |collection was confirmed. The fluid was then aspirated for total of 800 mL's. | |- Initial imaging findings: Large upper quadrant biloma surrounding the left lobe of the li ina offering pathway to the gallbladder fossa. | |- Drainage catheter placed: Via left upper quadrant approach with pigtail portion in the ga llbladder fossa. | |- External catheter securement: 0 Prolene suture | |- Post-drainage imaging findings: Evacuation of the biloma. | | | |Contrast | |Contrast agent: None | |Contrast volume (mL): 0 | | | |Radiation Dose | | | |Fluoroscopy time (2): 7 | | | | | |Additional Details | |Additional description of procedure: None | | | |Specimens removed: Aspirated fluid sent for analysis. | |Estimated blood loss (mL): Less than 10 | |Standardized report: SIR_DrainPlacement_v2 | | | |Attestation | |Signer name: Micah Sharma MD | |I attest that I was present for the entire procedure. I reviewed the stored images and agre e with the report as written. | | | | | | | |I have personally reviewed the images and, if necessary, edited the report. I agree with th e report as now presented. | | | |Final signature: Micah Sharma MD 03/07/2019 5:36 PM | |Preliminary: Micah Sharma MD | |Dictation initiated: Micah Sharma MD 03/07/2019 5:32 PM | + + + +---------+ + + | Performing | Address | City/State/Zipcode | Phone Number | | Organization | | | | + +---------+ + + | [facility] | | | | | VOICE RECOGNITION 2 | | | | + +---------+ + + LAB HOLD - BODY FLUID (03/07/2019 11:53 AM PDT) + + | Specimen | + + | Aspirate | + + + + + + + | Performing | Address | City/State/Zipcode | Phone Number | | Organization | | | | + + + + + | [facility] | [address] | [place] [address] | | | KENNY POWELL | [address] | | | + + + + + CULTURE, WOUND ABSCESS OR ASPIRATE W/ ANAEROBE (03/07/2019 11:53 AM PDT) + + + + + + | Component | Value | Ref Range | Performed | Pathologist | | | | | At | Signature | + + + + + + | CULTURE | Escherichia coli (A) | | [facility] | | | RESULT | | | [facility] - | | | | | | [facility]T | | + + + + + + + + | Specimen | + + | Aspirate - Thoracic | | structure (body | | structure) | + + + + + | Narrative | Performed At | + + + | Culture Report: 1+ Escherichia coli No anaerobic organisms | [facility] - | | isolated Gram Stain: Rare polymorphonuclear cells No squamous | [facility] - | | epithelial cells No organisms seen | [place] | + + + + + + + + | Organism | Antibiotic | Method | Susceptibility | + + + + + | Escherichia coli | Amoxicillin/Clavulan | SUSCEPTIBILITY-JANIA | Resistant | | | ate | | | + + + + + | Escherichia coli | Ampicillin | SUSCEPTIBILITY-JANIA | Resistant | + + + + + | Escherichia coli | Cefazolin | SUSCEPTIBILITY-[facility]AN[facility] | Resistant | + + + + + | Escherichia coli | Ceftriaxone | SUSCEPTIBILITY-JANIA | Sensitive | + + + + + | Escherichia coli | Ciprofloxacin | SUSCEPTIBILITY-[facility]AN[facility] | Sensitive | + + + + + | Escherichia coli | Gentamicin | SUSCEPTIBILITY-[facility]AN[facility] | Sensitive | + + + + + | Escherichia coli | Piperacillin/Tazobac | SUSCEPTIBILITY-JANIA | Sensitive | | | moore | | | + + + + + | Escherichia coli | Tobramycin | SUSCEPTIBILITY-[facility]AN[facility] | Sensitive | + + + + + | Escherichia coli | Trimethoprim/Sulfa | SUSCEPTIBILITY-[facility]AN[facility] | Sensitive | + + + + + + + + + + | Performing | Address | City/State/Zipcode | Phone Number | | Organization | | | | + + + + + | [facility] | [address] | [place] [address] | | | [place] | | | | + + + + + GRAM SMEAR ONLY, STAT (03/07/2019 11:53 AM PDT) + + + + + + | Component | Value | Ref Range | Performed | Pathologist | | | | | At | Signature | + + + + + + | GRAM STAIN | No organisms seen | No organisms | [facility] | | | RESULT | | seen | LABORATORY | | | | | | SERVICES, | | | | | | CORE | | + + + + + + | SMEAR | Dilute cytospin | | [facility] | | | PREPARATION | | | LABORATORY | | | | | | SERVICES, | | | | | | CORE | | + + + + + + | SOURCE BODY | Abdominal wound | | [facility] | | | SITE | | | LABORATORY | | | | | | SERVICES, | | | | | | CORE | | + + + + + + + + | Specimen | + + | Fluid | + + + + + + + | Performing | Address | City/State/Zipcode | Phone Number | | Organization | | | | + + + + + | [facility] | [address] | [place] [address] | | | SHERRY, CORE | [address] | | | + + + + + AMYLASE, BODY FLUIDS (03/07/2019 11:53 AM PDT) + + + + + + | Component | Value | Ref Range | Performed | Pathologist | | | | | At | Signature | + + + + + + | AMYLASE | <2Comment: | U/L | [facility] | | | BODY FLUID | Interpretative criteria | | LABORATORY | | | | for amylase in body | | SERVICES, | | | | fluids obtained from | | CORE | | | | different sites are as | | | | | | follows:DRAIN FLUIDDrain | | | | | | Fluid amylase should be | | | | | | interpreted in the | | | | | | context of source and in | | | | | | correlation with serum | | | | | | results and/or other | | | | | | clinical | | | | | | evidence.PANCREATIC | | | | | | FLUIDIn the context of | | | | | | pancreatic cyst versus | | | | | | pseudocyst | | | | | | differentiation, a | | | | | | pancreatic fluid amylase | | | | | | activity <115 U/L is | | | | | | evidence against the | | | | | | possibility that the | | | | | | fluid collection | | | | | | represents a | | | | | | pseudocyst.PERITONEAL | | | | | | FLUID/ASCITESIn normal | | | | | | peritoneal fluid, | | | | | | amylase activity is | | | | | | comparable to that | | | | | | observed in serum or | | | | | | plasma. Pancreatic | | | | | | ascites may be | | | | | | associated with | | | | | | peritoneal amylase | | | | | | activity 3-5 x greater | | | | | | than a corresponding | | | | | | serum or plasma | | | | | | level.PLEURAL FLUIDAn | | | | | | elevated pleural fluid | | | | | | amylase activity is a | | | | | | level greater than the | | | | | | upper reference limit | | | | | | for serum (115 U/L) and | | | | | | a [id number]-cimye amylase | | | | | | ratio greater than 1.0. | | | | + + + + + + + + | Specimen | + + | Fluid | + + + + + | Narrative | Performed At | + + + | This is a lab-developed test not evaluated by the FDA. The | [facility] | | results are not intended to be used as the sole means for clinical | LABORATORY | | diagnosis or patient management decisions. | [facility] | + + + + + + + + | Performing | Address | City/State/Zipcode | Phone Number | | Organization | | | | + + + + + | [facility] | [address] | [place] [address] | | | KENNY POWELL | [address] | | | + + + + + BILIRUBIN, TOTAL, BODY FLUID (03/07/2019 11:53 AM PDT) + + + + + + | Component | Value | Ref Range | Performed | Pathologist | | | | | At | Signature | + + + + + + | SOURCE | Drain | | [facility] | | | | | | REG UN[facility] | | | | | | [facility] | | + + + + + + | BILIRUBIN, | 8.3Comment: INTERPRETIVE | mg/dL | [facility] | | | TOTAL, BODY | INFORMATION: Bilirubin, | | REG UNIV | | | FLUID | Total, Body Fluid For | | PTH - [facility] | | | | information on body | | | | | | fluid reference ranges | | | | | | and/or interpretive | | | | | | guidance visit | | | | | | [email or web address] | | | | | | luids/ Test developed | | | | | | and characteristics | | | | | | determined by [facility] | | | | | | Laboratories. See | | | | | | Compliance Statement B: | | | | | | [employer]/CSPerformed | | | | | | by Car reviews,[address] | | | | | | [address], [facility] [place] | | | | | | [address] | | | | | | [phone].[employer]. | | | | | | Vadim cordon MD, | | | | | | Lab. Director | | | | + + + + + + + + | Specimen | + + | Fluid | + + + + + + + | Performing | Address | City/State/Zipcode | Phone Number | | Organization | | | | + + + + + | [facility] | [address] | [place], [place] | | | UNIV P[facility] | | [address] | | + + + + + PROCEDURE NOTE (03/07/2019 8:28 AM PDT)CBC (HEMOGRAM) ONLY (03/07/2019 7:46 AM PDT) + + + + + + | Component | Value | Ref Range | Performed | Pathologist | | | | | At | Signature | + + + + + + | WHITE CELL | 4.85 | 3.50 - 10.80 | [facility] | | | COUNT | | K/cu mm | LABORATORY | | | | | | SERVICES, | | | | | | CORE | | + + + + + + | RED CELL | 3.65 (L) | 4.00 - 5.20 | [facility] | | | COUNT | | M/cu mm | LABORATORY | | | | | | SERVICES, | | | | | | CORE | | + + + + + + | HEMOGLOBIN | 10.8 (L) | 12.0 - 16.0 | [facility] | | | | | g/dL | LABORATORY | | | | | | SERVICES, | | | | | | CORE | | + + + + + + | HEMATOCRIT | 32.3 (L) | 36.0 - 46.0 % | [facility] | | | | | | LABORATORY | | | | | | SERVICES, | | | | | | CORE | | + + + + + + | MCV | 88.5 | 80.0 - 100.0 fL | [facility] | | | | | | LABORATORY | | | | | | SERVICES, | | | | | | CORE | | + + + + + + | MCHC | 33.4 | 32.0 - 36.0 | [facility] | | | | | g/dL | LABORATORY | | | | | | SERVICES, | | | | | | CORE | | + + + + + + | RDW SD | 46.1 | 35.1 - 46.3 fL | [facility] | | | | | | LABORATORY | | | | | | SERVICES, | | | | | | CORE | | + + + + + + | PLATELET | 264 | 150 - 400 K/cu | [facility] | | | COUNT | | mm | LABORATORY | | | | | | SERVICES, | | | | | | CORE | | + + + + + + | MPV | 11.0 | 9.7 - 12.3 fL | [facility] | | | | | | LABORATORY | | | | | | SERVICES, | | | | | | CORE | | + + + + + + | NRBC% | 0.0 | 0.0 - 0.3 % | [facility] | | | | | | LABORATORY | | | | | | SERVICES, | | | | | | CORE | | + + + + + + | NRBC# | 0.00 | 0.00 - 0.02 | [facility] | | | | | K/cu mm | LABORATORY | | | | | | SERVICES, | | | | | | CORE | | + + + + + + + + | Specimen | + + | Blood - Blood | | (substance) | + + + + + + + | Performing | Address | City/State/Zipcode | Phone Number | | Organization | | | | + + + + + | [facility] | [address] | [place] [address] | | | SERVICES, CORE | [address] | | | + + + + + MAGNESIUM, PLASMA (03/07/2019 7:46 AM PDT) + +-------+ + + + | Component | Value | Ref Range | Performed | Pathologist | | | | | At | Signature | + +-------+ + + + | MAGNESIUM,P | 1.9 | 1.6 - 2.6 mg/dL | [facility] | | | LASMA | | | LABORATORY | | | | | | SERVICES, | | | | | | CORE | | + +-------+ + + + + + | Specimen | + + | Blood - Blood | | (substance) | + + + + + + + | Performing | Address | City/State/Zipcode | Phone Number | | Organization | | | | + + + + + | [facility] | [address] | [place] [address] | | | SERVICES, CORE | [address] | | | + + + + + COMPLETE METABOLIC SET (NA,K,CL,CO2,BUN,CREAT,GLUC,CA,AST,ALT,BILI TOTAL,ALK PHOS,ALB,PROT TOTAL) (03/07/2019 7:46 AM PDT) + +---------+ + + + | Component | Value | Ref Range | Performed | Pathologist | | | | | At | Signature | + +---------+ + + + | GLUCOSE, | 123 (H) | 70 - 99 mg/dL | [facility] | | | PLASMA | | | LABORATORY | | | (LAB) | | | SERVICES, | | | | | | CORE | | + +---------+ + + + | BUN, PLASMA | 13 | 6 - 20 mg/dL | [facility] | | | (LAB) | | | LABORATORY | | | | | | SERVICES, | | | | | | CORE | | + +---------+ + + + | CREATININE | 0.60 | 0.60 - 1.10 | [facility] | | | PLASMA | | mg/dL | LABORATORY | | | (LAB) | | | SERVICES, | | | | | | CORE | | + +---------+ + + + | EGFR | >60 | >60 mL/min | [facility] | | | - | | | LABORATORY | | | GABONESE | | | SERVICES, | | | | | | CORE | | + +---------+ + + + | EGFR NON | >60 | >60 mL/min | [facility] | | | -MARGA | | | LABORATORY | | | RICAN | | | SERVICES, | | | | | | CORE | | + +---------+ + + + | SODIUM, | 141 | 136 - 145 | [facility] | | | PLASMA | | mmol/L | LABORATORY | | | (LAB) | | | SERVICES, | | | | | | CORE | | + +---------+ + + + | POTASSIUM, | 3.5 | 3.4 - 5.0 | [facility] | | | PLASMA | | mmol/L | LABORATORY | | | (LAB) | | | SERVICES, | | | | | | CORE | | + +---------+ + + + | CHLORIDE, | 107 | 97 - 108 mmol/L | [facility] | | | PLASMA | | | LABORATORY | | | (LAB) | | | SERVICES, | | | | | | CORE | | + +---------+ + + + | TOTAL CO2, | 30 | 21 - 32 mmol/L | [facility] | | | PLASMA | | | LABORATORY | | | (LAB) | | | SERVICES, | | | | | | CORE | | + +---------+ + + + | CALCIUM, | 8.3 (L) | 8.6 - 10.2 | [facility] | | | PLASMA | | mg/dL | LABORATORY | | | (LAB) | | | SERVICES, | | | | | | CORE | | + +---------+ + + + | CALCIUM(ALB | 10.1 | 8.6 - 10.2 | [facility] | | | CORRECTED) | | mg/dL | LABORATORY | | | | | | SERVICES, | | | | | | CORE | | + +---------+ + + + | BILIRUBIN | 0.9 | 0.3 - 1.2 mg/dL | [facility] | | | TOTAL | | | LABORATORY | | | | | | SERVICES, | | | | | | CORE | | + +---------+ + + + | TOTAL | 5.5 (L) | 6.4 - 8.2 g/dL | [facility] | | | PROTEIN, | | | LABORATORY | | | PLASMA | | | SERVICES, | | | (LAB) | | | CORE | | + +---------+ + + + | ALBUMIN, | 1.7 (L) | 3.5 - 4.7 g/dL | [facility] | | | PLASMA | | | LABORATORY | | | (LAB) | | | SERVICES, | | | | | | CORE | | + +---------+ + + + | ALK PHOS | 70 | 53 - 141 U/L | [facility] | | | | | | LABORATORY | | | | | | SERVICES, | | | | | | CORE | | + +---------+ + + + | AST(SGOT) | 23 | <=41 U/L | [facility] | | | | | | LABORATORY | | | | | | SERVICES, | | | | | | CORE | | + +---------+ + + + | ALT (SGPT) | 26 | <=60 U/L | [facility] | | | | | | LABORATORY | | | | | | SERVICES, | | | | | | CORE | | + +---------+ + + + | ANION GAP | 4 | 4 - 11 mmol/L | [facility] | | | | | | LABORATORY | | | | | | SERVICES, | | | | | | CORE | | + +---------+ + + + | ANION | 9 | 4 - 11 mmol/L | [facility] | | | GAP(ALB | | | LABORATORY | | | CORRECTED) | | | SERVICES, | | | | | | CORE | | + +---------+ + + + | POTASSIUM | No Hemo | | [facility] | | | CMNT | | | LABORATORY | | | | | | SERVICES, | | | | | | CORE | | + +---------+ + + + | BILI T CMNT | No Hemo | | [facility] | | | | | | LABORATORY | | | | | | SERVICES, | | | | | | CORE | | + +---------+ + + + | AST CMNT | No Hemo | | [facility] | | | | | | LABORATORY | | | | | | SERVICES, | | | | | | CORE | | + +---------+ + + + + + | Specimen | + + | Blood - Blood | | (substance) | + + + + + | Narrative | Performed At | + + + | GFR is estimated using the MDRD equation recommended by the | [facility] | | National Kidney Disease Education Program. Estimated GFR | LABORATORY | | Interpretive Information: <60 mL/min/1.73 sq m | SERVICES, CORE | | Chronic Kidney Disease <15 mL/min/1.73 sq m | | | Kidney Failure Estimated GFR greater than 60 mL/min/1.73 sq m is of | | | limited clinical value. The MDRD equation is not valid in the | | | following situations: - Patients under 18 years of age - Severe | | | malnutrition or obesity - Vegetarian diet - Rapidly changing kidney | | | function - Amputees, paraplegics, or other muscle-wasting diseses | | + + + + + + + + | Performing | Address | City/State/Zipcode | Phone Number | | Organization | | | | + + + + + | [facility] | [address] | [place] [address] | | | KENNY POWELL | [address] | | | + + + + + ORDERS OTHER (03/07/2019 12:00 AM PDT) + + + | Narrative | Performed At | + + + | | | + + + CULTURE, BLOOD BACTI & YEAST [facility]ARRUKHVALENTINO (03/06/2019 9:13 PM PDT) + + + + + + | Component | Value | Ref Range | Performed | Pathologist | | | | | At | Signature | + + + + + + | CULTURE | Final Report:No Bacteria | | [facility] | | | RESULT | or Yeast isolated at 5 | | LABORATORY | | | | days. | | SERVICES, | | | | | | CORE | | + + + + + + + + | Specimen | + + | Blood - Antecubital | | region structure | | (body structure) | + + + + + + + | Performing | Address | City/State/Zipcode | Phone Number | | Organization | | | | + + + + + | [facility] | [address] | [place] [address] | | | SHERRY, KENNY | [address] | | | + + + + + CULTURE, BLOOD BACTI & YEAST [facility] (03/06/2019 9:13 PM PDT) + + + + + + | Component | Value | Ref Range | Performed | Pathologist | | | | | At | Signature | + + + + + + | CULTURE | Final Report:No Bacteria | | [facility] | | | RESULT | or Yeast isolated at 5 | | LABORATORY | | | | days. | | SERVICES, | | | | | | CORE | | + + + + + + + + | Specimen | + + | Blood - Antecubital | | region structure | | (body structure) | + + + + + + + | Performing | Address | City/State/Zipcode | Phone Number | | Organization | | | | + + + + + | [facility] | [address] | [place] [address] | | | SERVICES, CORE | [address] | | | + + + + + CBC (HEMOGRAM) ONLY (03/06/2019 7:13 PM PDT) + + + + + + | Component | Value | Ref Range | Performed | Pathologist | | | | | At | Signature | + + + + + + | WHITE CELL | 4.08 | 3.50 - 10.80 | [facility] | | | COUNT | | K/cu mm | LABORATORY | | | | | | SERVICES, | | | | | | CORE | | + + + + + + | RED CELL | 3.58 (L) | 4.00 - 5.20 | [facility] | | | COUNT | | M/cu mm | LABORATORY | | | | | | SERVICES, | | | | | | CORE | | + + + + + + | HEMOGLOBIN | 10.5 (L) | 12.0 - 16.0 | [facility] | | | | | g/dL | LABORATORY | | | | | | SERVICES, | | | | | | CORE | | + + + + + + | HEMATOCRIT | 31.7 (L) | 36.0 - 46.0 % | [facility] | | | | | | LABORATORY | | | | | | SERVICES, | | | | | | CORE | | + + + + + + | MCV | 88.5 | 80.0 - 100.0 fL | [facility] | | | | | | LABORATORY | | | | | | SERVICES, | | | | | | CORE | | + + + + + + | MCHC | 33.1 | 32.0 - 36.0 | [facility] | | | | | g/dL | LABORATORY | | | | | | SERVICES, | | | | | | CORE | | + + + + + + | RDW SD | 46.0 | 35.1 - 46.3 fL | [facility] | | | | | | LABORATORY | | | | | | SERVICES, | | | | | | CORE | | + + + + + + | PLATELET | 219 | 150 - 400 K/cu | [facility] | | | COUNT | | mm | LABORATORY | | | | | | SERVICES, | | | | | | CORE | | + + + + + + | MPV | 10.5 | 9.7 - 12.3 fL | [facility] | | | | | | LABORATORY | | | | | | SERVICES, | | | | | | CORE | | + + + + + + | NRBC% | 0.0 | 0.0 - 0.3 % | [facility] | | | | | | LABORATORY | | | | | | SERVICES, | | | | | | CORE | | + + + + + + | NRBC# | 0.00 | 0.00 - 0.02 | [facility] | | | | | K/cu mm | LABORATORY | | | | | | SERVICES, | | | | | | CORE | | + + + + + + + + | Specimen | + + | Blood - Blood | | (substance) | + + + + + + + | Performing | Address | City/State/Zipcode | Phone Number | | Organization | | | | + + + + + | [facility] | [address] | [place] [address] | | | SERVICES, CORE | [address] | | | + + + + + INR (03/06/2019 7:13 PM PDT) + + + + + + | Component | Value | Ref Range | Performed | Pathologist | | | | | At | Signature | + + + + + + | INR | 1.47 (H) | 0.90 - 1.20 INR | [facility] | | | | | | LABORATORY | | | | | | SERVICES, | | | | | | CORE | | + + + + + + + + | Specimen | + + | Blood - Blood | | (substance) | + + + + + | Narrative | Performed At | + + + | INR Therapeutic ranges for full anticoagulation: INR for | [facility] | | Venous Thromboembolism (2.0 - 3.0) INR INR for | LABORATORY | | most patients with mech. valves (2.5 - 3.5) INR | KENNY POWELL | + + + + + + + + | Performing | Address | City/State/Zipcode | Phone Number | | Organization | | | | + + + + + | [facility] | [address] | [place] [address] | | | KENNY POWELL | [address] | | | + + + + + MAGNESIUM, PLASMA (03/06/2019 7:13 PM PDT) + +-------+ + + + | Component | Value | Ref Range | Performed | Pathologist | | | | | At | Signature | + +-------+ + + + | MAGNESIUM,P | 1.9 | 1.6 - 2.6 mg/dL | [facility] | | | LASMA | | | LABORATORY | | | | | | SERVICES, | | | | | | CORE | | + +-------+ + + + + + | Specimen | + + | Blood - Blood | | (substance) | + + + + + + + | Performing | Address | City/State/Zipcode | Phone Number | | Organization | | | | + + + + + | [facility] | [address] | [place] [address] | | | SERVICES, CORE | [address] | | | + + + + + COMPLETE METABOLIC SET (NA,K,CL,CO2,BUN,CREAT,GLUC,CA,AST,ALT,BILI TOTAL,ALK PHOS,ALB,PROT TOTAL) (03/06/2019 7:13 PM PDT) + +---------+ + + + | Component | Value | Ref Range | Performed | Pathologist | | | | | At | Signature | + +---------+ + + + | GLUCOSE, | 137 (H) | 70 - 99 mg/dL | [facility] | | | PLASMA | | | LABORATORY | | | (LAB) | | | SERVICES, | | | | | | CORE | | + +---------+ + + + | BUN, PLASMA | 16 | 6 - 20 mg/dL | [facility] | | | (LAB) | | | LABORATORY | | | | | | SERVICES, | | | | | | CORE | | + +---------+ + + + | CREATININE | 0.67 | 0.60 - 1.10 | [facility] | | | PLASMA | | mg/dL | LABORATORY | | | (LAB) | | | SERVICES, | | | | | | CORE | | + +---------+ + + + | EGFR | >60 | >60 mL/min | [facility] | | | - | | | LABORATORY | | | GABONESE | | | SERVICES, | | | | | | CORE | | + +---------+ + + + | EGFR NON | >60 | >60 mL/min | [facility] | | | -MARGA | | | LABORATORY | | | RICAN | | | SERVICES, | | | | | | CORE | | + +---------+ + + + | SODIUM, | 139 | 136 - 145 | [facility] | | | PLASMA | | mmol/L | LABORATORY | | | (LAB) | | | SERVICES, | | | | | | CORE | | + +---------+ + + + | POTASSIUM, | 3.4 | 3.4 - 5.0 | [facility] | | | PLASMA | | mmol/L | LABORATORY | | | (LAB) | | | SERVICES, | | | | | | CORE | | + +---------+ + + + | CHLORIDE, | 106 | 97 - 108 mmol/L | [facility] | | | PLASMA | | | LABORATORY | | | (LAB) | | | SERVICES, | | | | | | CORE | | + +---------+ + + + | TOTAL CO2, | 25 | 21 - 32 mmol/L | [facility] | | | PLASMA | | | LABORATORY | | | (LAB) | | | SERVICES, | | | | | | CORE | | + +---------+ + + + | CALCIUM, | 7.8 (L) | 8.6 - 10.2 | [facility] | | | PLASMA | | mg/dL | LABORATORY | | | (LAB) | | | SERVICES, | | | | | | CORE | | + +---------+ + + + | CALCIUM(ALB | 9.6 | 8.6 - 10.2 | [facility] | | | CORRECTED) | | mg/dL | LABORATORY | | | | | | SERVICES, | | | | | | CORE | | + +---------+ + + + | BILIRUBIN | 0.9 | 0.3 - 1.2 mg/dL | [facility] | | | TOTAL | | | LABORATORY | | | | | | SERVICES, | | | | | | CORE | | + +---------+ + + + | TOTAL | 5.3 (L) | 6.4 - 8.2 g/dL | [facility] | | | PROTEIN, | | | LABORATORY | | | PLASMA | | | SERVICES, | | | (LAB) | | | CORE | | + +---------+ + + + | ALBUMIN, | 1.7 (L) | 3.5 - 4.7 g/dL | [facility] | | | PLASMA | | | LABORATORY | | | (LAB) | | | SERVICES, | | | | | | CORE | | + +---------+ + + + | ALK PHOS | 63 | 53 - 141 U/L | [facility] | | | | | | LABORATORY | | | | | | SERVICES, | | | | | | CORE | | + +---------+ + + + | AST(SGOT) | 21 | <=41 U/L | [facility] | | | | | | LABORATORY | | | | | | SERVICES, | | | | | | CORE | | + +---------+ + + + | ALT (SGPT) | 27 | <=60 U/L | [facility] | | | | | | LABORATORY | | | | | | SERVICES, | | | | | | CORE | | + +---------+ + + + | ANION GAP | 8 | 4 - 11 mmol/L | [facility] | | | | | | LABORATORY | | | | | | SERVICES, | | | | | | CORE | | + +---------+ + + + | ANION | 13 (H) | 4 - 11 mmol/L | [facility] | | | GAP(ALB | | | LABORATORY | | | CORRECTED) | | | SERVICES, | | | | | | CORE | | + +---------+ + + + | POTASSIUM | No Hemo | | [facility] | | | CMNT | | | LABORATORY | | | | | | SERVICES, | | | | | | CORE | | + +---------+ + + + | BILI T CMNT | No Hemo | | [facility] | | | | | | LABORATORY | | | | | | SERVICES, | | | | | | CORE | | + +---------+ + + + | AST CMNT | No Hemo | | [facility] | | | | | | LABORATORY | | | | | | SERVICES, | | | | | | CORE | | + +---------+ + + + + + | Specimen | + + | Blood - Blood | | (substance) | + + + + + | Narrative | Performed At | + + + | GFR is estimated using the MDRD equation recommended by the | [facility] | | National Kidney Disease Education Program. Estimated GFR | LABORATORY | | Interpretive Information: <60 mL/min/1.73 sq m | SERVICES, CORE | | Chronic Kidney Disease <15 mL/min/1.73 sq m | | | Kidney Failure Estimated GFR greater than 60 mL/min/1.73 sq m is of | | | limited clinical value. The MDRD equation is not valid in the | | | following situations: - Patients under 18 years of age - Severe | | | malnutrition or obesity - Vegetarian diet - Rapidly changing kidney | | | function - Amputees, paraplegics, or other muscle-wasting diseses | | + + + + + + + + | Performing | Address | City/State/Zipcode | Phone Number | | Organization | | | | + + + + + | [facility] | [address] | [place] [address] | | | SERVICES, CORE | [address] | | | + + + + + 12 LEAD ECG (03/06/2019 6:43 PM PDT) + + + + + + | Component | Value | Ref Range | Performed | Pathologist | | | | | At | Signature | + + + + + + | VENTRICULAR | 119 | bpm | [facility] | | | RATE | | | OF | | | | | | CARDIOLOGY | | + + + + + + | ATRIAL RATE | 119 | ms | [facility] | | | | | | OF | | | | | | CARDIOLOGY | | + + + + + + | P-R | 154 | ms | [facility] | | | INTERVAL | | | OF | | | | | | CARDIOLOGY | | + + + + + + | P AXIS | 28 | deg | [facility] | | | | | | OF | | | | | | CARDIOLOGY | | + + + + + + | QRS | 75 | ms | [facility] | | | DURATION | | | OF | | | | | | CARDIOLOGY | | + + + + + + | QT | 305 | ms | [facility] | | | | | | OF | | | | | | CARDIOLOGY | | + + + + + + | QTC-BAZETT | 428 | ms | [facility] | | | | | | OF | | | | | | CARDIOLOGY | | + + + + + + | R AXIS | -10 | deg | [facility] | | | | | | OF | | | | | | CARDIOLOGY | | + + + + + + | T AXIS | 188 | deg | [facility] | | | | | | OF | | | | | | CARDIOLOGY | | + + + + + + | ECG | Sinus tachycardia | | [facility] | | | IMPRESSION | | | OF | | | | | | CARDIOLOGY | | + + + + + + | ECG | Nonspecific T | | [facility] | | | IMPRESSION | abnormalities, diffuse | | OF | | | | leads- ABNORMAL ECG - | | CARDIOLOGY | | + + + + + + | ECG | Electronically signed | | [facility] | | | IMPRESSION | by: GEORGIE STYLES | | OF | | | | 03-06-2019 21:47:12 | | CARDIOLOGY | | + + + + + + + + | Specimen | + + | | + + + + + | Narrative | Performed At | + + + | | | + + + + + + + + | Performing | Address | City/State/Zipcode | Phone Number | | Organization | | | | + + + + + | [facility] | [address] | [place], [place] | | | CARDIOLOGY | [address] | [phone] | | + + + + + OUTSIDE RADIOLOGY - X-RAY (03/02/2019 12:00 AM PDT) + + + | Narrative | Performed At | + + + | | | + + + documented in this encounter Visit Diagnoses + + | Diagnosis | + + | Bile leak, postoperative - Primary Unspecified disorder of biliary tract | + + documented in this encounter Administered Medications + +--------+ +--------+------+------+ | Medication Order | MAR | Action | Dose | Rate | Site | | | Action | Date | | | | + +--------+ +--------+------+------+ | acetaminophen (TYLENOL) tablet | Given | 03/10/20 | 650 mg | | | | 650 mg 650 mg, oral, EVERY 4 | | 19 4:30 | | | | | HOURS NEEDED, Starting Wed | | AM PDT | | | | | 03/06/19 at 1824, Until 03/10/19 | | | | | | | at 1848, mild pain, first line, | | | | | | | multimodal pain control | | | | | | + +--------+ +--------+------+------+ +-------+ +--------+---+---+ | Given | 03/09/20 | 650 mg | | | | | 19 9:39 | | | | | | PM PDT | | | | +-------+ +--------+---+---+ | Given | 03/09/20 | 650 mg | | | | | 19 9:33 | | | | | | AM PDT | | | | +-------+ +--------+---+---+ +---+---+ | | | +---+---+ + +-------+ +------+---+---+ | amLODIPine (NORVASC) tablet 5 | Given | 03/10/20 | 5 mg | | | | mg 5 mg, oral, DAILY, First dose | | 19 9:43 | | | | | on 03/09/19 at 1500, Until | | AM PDT | | | | | Discontinued | | | | | | + +-------+ +------+---+---+ +-------+ +------+---+---+ | Given | 03/09/20 | 5 mg | | | | | 19 2:27 | | | | | | PM PDT | | | | +-------+ +------+---+---+ +---+---+ | | | +---+---+ + +-------+ +--------+---+---+ | artificial tears (dextran | Given | 03/10/20 | 1 drop | | | | 70-hypromellose) (NATURE'S TEARS) | | 19 9:43 | | | | | 0.1-0.3 % ophthalmic drops 1 | | AM PDT | | | | | drop 1 drop, Both Eyes, THREE | | | | | | | TIMES DAILY, First dose on Sat | | | | | | | 03/09/19 at 1715, Until | | | | | | | Discontinued | | | | | | + +-------+ +--------+---+---+ +-------+ +--------+---+---+ | Given | 03/10/20 | 1 drop | | | | | 19 5:25 | | | | | | AM PDT | | | | +-------+ +--------+---+---+ | Given | 03/09/20 | 1 drop | | | | | 19 6:08 | | | | | | PM PDT | | | | +-------+ +--------+---+---+ +---+---+ | | | +---+---+ + +-------+ +-------+---+---+ | atorvastatin (LIPITOR) tablet | Given | 03/10/20 | 20 mg | | | | 20 mg 20 mg, oral, DAILY, First | | 19 9:43 | | | | | dose on 03/09/19 at 1500, Until | | AM PDT | | | | | Discontinued | | | | | | + +-------+ +-------+---+---+ +-------+ +-------+---+---+ | Given | 03/09/20 | 20 mg | | | | | 19 2:28 | | | | | | PM PDT | | | | +-------+ +-------+---+---+ +---+---+ | | | +---+---+ + +-------+ +-----+---+---+ | ceFEPIme (MAXIPIME) injection 1 | Given | 03/10/20 | 1 g | | | | g 1 g, intravenous, EVERY 8 | | 19 5:22 | | | | | HOURS, First dose on Mon03/06/19 | | AM PDT | | | | | at 2100, Until Discontinued | | | | | | + +-------+ +-----+---+---+ +-------+ +-----+---+---+ | Given | 03/09/20 | 1 g | | | | | 19 9:16 | | | | | | PM PDT | | | | +-------+ +-----+---+---+ | Given | 03/09/20 | 1 g | | | | | 19 1:23 | | | | | | PM PDT | | | | +-------+ +-----+---+---+ +---+---+ | | | +---+---+ + +-------+ +-------+---+---------+ | enoxaparin (LOVENOX) injection | Given | 03/09/20 | 40 mg | | Abdomen | | 40 mg 40 mg, subcutaneous, EVERY | | 19 9:17 | | | | | EVENING, First dose on Mon | | PM PDT | | | | | 03/08/19 at 2100, Until | | | | | | | Discontinued | | | | | | + +-------+ +-------+---+---------+ +-------+ +-------+---+---------+ | Given | 03/08/20 | 40 mg | | Abdomen | | | 19 8:24 | | | | | | PM PDT | | | | +-------+ +-------+---+---------+ +---+---+ | | | +---+---+ + +-------+ +--------+---+---+ | fentaNYL (SUBLIMAZE) injection | Given | 03/07/20 | 25 mcg | | | | 25-100 mcg 25-100 mcg, | | 19 11:44 | | | | | intravenous, INTRAPROCEDURE PRN, | | AM PDT | | | | | 20 doses, Starting [facility] 03/07/19 at | | | | | | | 1008, Until [facility] 03/07/19 at 1226, | | | | | | | periprocedural pain management | | | | | | + +-------+ +--------+---+---+ +---+---+ | | | +---+---+ + +-------+ +--------+---+---+ | indomethacin (INDOCIN) | Given | 03/08/20 | 100 mg | | | | suppository 100 mg 100 mg, | | 19 4:37 | | | | | rectal, ONCE, 1 dose, Mon03/08/19 | | PM PDT | | | | | at 1700 | | | | | | + +-------+ +--------+---+---+ +---+---+ | | | +---+---+ + +-------+ +-------+---+---+ | iohexol (OMNIPAQUE) 300 mg | Given | 03/08/20 | 10 mL | | | | iodine/mL INTRAPROCEDURE PRN, | | 19 4:38 | | | | | Starting 03/08/19 at 1638, | | PM PDT | | | | | Until 03/08/19 at 1746 | | | | | | + +-------+ +-------+---+---+ +---+---+ | | | +---+---+ + +---------+ + + +---+ | lactated ringers IV 75 mL/hr, | New Bag | 03/09/20 | 75 mL/hr | 75 mL/hr | | | intravenous, CONTINUOUS, Starting | | 19 7:34 | | | | | 03/06/19 at 1900, Until Sun | | PM PDT | | | | | 03/10/19 at 0427 | | | | | | + +---------+ + + +---+ + + + + +---+ | Rate/Dose Verify | 03/09/20 | 75 mL/hr | 75 mL/hr | | | | 19 6:32 | | | | | | PM PDT | | | | + + + + +---+ | Rate/Dose Verify | 03/09/20 | 75 mL/hr | 75 mL/hr | | | | 19 2:30 | | | | | | PM PDT | | | | + + + + +---+ +---+---+ | | | +---+---+ + +---------+ +--------+-------+---+ | lactated ringers IV 500 mL, | New Bag | 03/06/20 | 500 mL | 500 | | | intravenous, ONCE, 1 dose, Wed | | 19 7:55 | | mL/hr | | | 03/06/19 at 1945 | | PM PDT | | | | + +---------+ +--------+-------+---+ +---+---+ | | | +---+---+ + +-------+ +--------+---+---+ | levothyroxine tablet 88 mcg 88 | Given | 03/10/20 | 88 mcg | | | | mcg, oral, BEFORE BREAKFAST, | | 19 5:22 | | | | | First dose on 03/10/19 at 0630, | | AM PDT | | | | | Until Discontinued | | | | | | + +-------+ +--------+---+---+ +---+---+ | | | +---+---+ + +-------+ +---+---+---+ | methyl salicylate-menthol | Given | 03/10/20 | | | | | (BENGAY) ointment topical, | | 19 5:31 | | | | | NEEDED, Starting 03/10/19 at | | AM PDT | | | | | 0157, Until 03/10/19 at 1848, | | | | | | | mild pain | | | | | | + +-------+ +---+---+---+ +-------+ +---+---+---+ | Given | 03/10/20 | | | | | | 19 2:32 | | | | | | AM PDT | | | | +-------+ +---+---+---+ +---+---+ | | | +---+---+ + +---------+ +--------+---+---+ | metroNIDAZOLE (FLAGYL) IV 500 | New Bag | 03/09/20 | 500 mg | | | | mg 500 mg, intravenous, EVERY 8 | | 19 12:20 | | | | | HOURS, First dose on Mon03/06/19 | | PM PDT | | | | | at 2000, Until Discontinued | | | | | | + +---------+ +--------+---+---+ +---------+ +--------+---+---+ | | 03/09/20 | 500 mg | | | | | 19 3:40 | | | | | | AM PDT | | | | +---------+ +--------+---+---+ | | 03/08/20 | 500 mg | | | | | 19 8:24 | | | | | | PM PDT | | | | +---------+ +--------+---+---+ +---+---+ | | | +---+---+ + +-------+ +--------+---+---+ | midazolam (PF) (VERSED) | Given | 03/07/20 | 0.5 mg | | | | injection 1-5 mg 1-5 mg, | | 19 11:48 | | | | | intravenous, INTRAPROCEDURE PRN, | | AM PDT | | | | | 20 doses, Starting [facility] 03/07/19 at | | | | | | | 1008, Until [facility] 03/07/19 at 1226, | | | | | | | periprocedural sedation | | | | | | + +-------+ +--------+---+---+ +---+---+ | | | +---+---+ + +-------+ +--------+---+---+ | naloxone (NARCAN) injection 0.2 | Given | 03/06/20 | 0.2 mg | | | | mg 0.2 mg, intravenous, | | 19 7:47 | | | | | NEEDED, Starting [facility] 03/06/19 at | | PM PDT | | | | | 1944, Until [facility] 03/10/19 at 1848, | | | | | | | over sedation | | | | | | + +-------+ +--------+---+---+ +---+---+ | | | +---+---+ + +-------+ +--------+---+---+ | naloxone (NARCAN) injection 0.4 | Given | 03/06/20 | 0.2 mg | | | | mg 0.4 mg, intravenous, ONCE, | | 19 6:09 | | | | | dose, Mon03/06/19 at 1845 | | PM PDT | | | | + +-------+ +--------+---+---+ + +---+ | | | + +---+ | naloxone (NARCAN) injection 1 | | | dose, Starting Mon03/06/19 at | | | 1945, Until Mon03/06/19 at 1947 | | + +---+ | | | + +---+ + +-------+ +-------+---+---+ | omeprazole (PRILOSEC) capsule | Given | 03/10/20 | 40 mg | | | | 40 mg 40 mg, oral, BEFORE | | 19 5:22 | | | | | BREAKFAST, First dose on Sat | | AM PDT | | | | | 03/09/19 at 1315, Until | | | | | | | Discontinued | | | | | | + +-------+ +-------+---+---+ +-------+ +-------+---+---+ | Given | 03/09/20 | 40 mg | | | | | 19 2:27 | | | | | | PM PDT | | | | +-------+ +-------+---+---+ +---+---+ | | | +---+---+ + +-------+ +--------+---+---+ | potassium & sodium phosphates | Given | 03/09/20 | 500 mg | | | | (K PHOS NEUTRAL) tablet 500 mg | | 19 9:21 | | | | | 500 mg, oral, ONCE, 1 dose, Sat | | AM PDT | | | | | 03/09/19 at 0645 | | | | | | + +-------+ +--------+---+---+ +---+---+ | | | +---+---+ + +---------+ +--------+---+---+ | potassium chloride IV | New Bag | 03/06/20 | 20 mEq | | | | (peripheral line) 20 mEq 20 mEq, | | 19 9:16 | | | | | intravenous, ONCE, 1 dose, Wed | | PM PDT | | | | | 03/06/19 at 2115 | | | | | | + +---------+ +--------+---+---+ +---+---+ | | | +---+---+ + + + +--------+---+---+ | potassium chloride IV | Rate/Dos | 03/08/20 | 20 mEq | | | | (peripheral line) 20 mEq 20 mEq, | e Verify | 19 12:55 | | | | | intravenous, ONCE, 1 dose, [place] | | AM PDT | | | | | 03/07/19 at 2000 | | | | | | + + + +--------+---+---+ + + +--------+ +---+ | Rate/Dose Change | 03/07/20 | 20 mEq | 50 mL/hr | | | | 19 9:56 | | | | | | PM PDT | | | | + + +--------+ +---+ | New Bag | 03/07/20 | 20 mEq | 86.7 | | | | 19 9:31 | | mL/hr | | | | PM PDT | | | | + + +--------+ +---+ +---+---+ | | | +---+---+ + +---------+ +--------+---+---+ | potassium chloride IV | New Bag | 03/09/20 | 20 mEq | | | | (peripheral line) 20 mEq 20 mEq, | | 19 7:33 | | | | | intravenous, ONCE, 1 dose, Sat | | AM PDT | | | | | 03/09/19 at 0645 | | | | | | + +---------+ +--------+---+---+ +---+---+ | | | +---+---+ + + + +---+---+---+ | probiotic kefir (KIRAN'S KEFIR) | Given - | 03/10/20 | | | | | oral, TWICE DAILY, First dose | Food | 19 9:45 | | | | | on 03/09/19 at 2100, Until | | AM PDT | | | | | Discontinued | | | | | | + + + +---+---+---+ +---+---+ | | | +---+---+ + +-------+ + +---+---+ | saliva substitute (MOUTH KOTE) | Given | 03/10/20 | 4 sprays | | | | spray 4 spray 4 spray, oral, | | 19 2:32 | | | | | NEEDED, Starting 03/10/19 at | | AM PDT | | | | | 0201, Until 03/10/19 at 1848, | | | | | | | dry mouth | | | | | | + +-------+ + +---+---+ +---+---+ | | | +---+---+ + +-------+ + +---+---+ | senna-docusate (SENOKOT S) | Given | 03/10/20 | 1 tablet | | | | 8.6-50 mg 1 tablet 1 tablet, | | 19 9:43 | | | | | oral, TWICE DAILY, First dose on | | AM PDT | | | | | 03/06/19 at 2100, Until | | | | | | | Discontinued | | | | | | + +-------+ + +---+---+ +-------+ + +---+---+ | Given | 03/09/20 | 1 tablet | | | | | 19 9:21 | | | | | | AM PDT | | | | +-------+ + +---+---+ +---+---+ | | | +---+---+ + +---------+ + + +---+ | sodium chloride 0.9 % (NS) IV | New Bag | 03/07/20 | 77 mL/hr | 77 mL/hr | | | infusion intravenous, | | 19 11:30 | | | | | INTRAPROCEDURE CONTINUOUS PRN, | | AM PDT | | | | | Starting [facility] 03/07/19 at 1130, | | | | | | | Until 03/08/19 at 1807 | | | | | | + +---------+ + + +---+ +---+---+ | | | +---+---+ + +---------+ +---------+---+---+ | sodium phosphate IV 30 mmol 30 | New Bag | 03/08/20 | 30 mmol | | | | mmol, intravenous, ONCE, 1 dose, | | 19 9:17 | | | | | 03/08/19 at 0830 | | AM PDT | | | | + +---------+ +---------+---+---+ +---+---+ | | | +---+---+ documented in this encounter"
--- OUTSIDE RECORDS SUMMARY | ~2019-11-07 | XMS | Encounter Summary ---
Demographics + + + | Address | [address] | | | [place] [address] | + + + | Home Phone | | + + + | Preferred Language | Unknown | + + + | Marital Status | | + + + | Synagogue Affiliation | ADV | + + + | Race | White | + + + | Ethnic Group | Not or | + + + Author + + + | Author | [facility] | + + + | Organization | [facility] | + + + | Address | Unknown | + + + | Phone | Unavailable | + + + Support + + +---------+ + | Name | Relationship | Address | Phone | + + +---------+ + | Aristides Marrufo | ECON | Unknown | | + + +---------+ + Care Team Providers + +------+ + | Care Manager Coding Name | Role | Phone | + [...] | [address] | MD [address] | | | | | [place], [place] | [address] | | | 03/10/ | | [address] | [place], [place] | | | 2018 | | [phone] | [address] | | | | | | [phone] | | | | | | | [...] might be different fro m the original. [facility] DISCHARGE SUMMARY & INTERDISCIPLINARY INSTRUCTIONS Patient: Monserrat Marrufo Admission Date: 03/06/2019 Discharge Date: 03/10/2019 Attending Physician: Gio Hsu MD PCP: Estelita Velasquez PA-C Service: [facility] blue surgery Diagnoses Principal Final Diagnosis: 1. Bile leak Additional Diagnoses: 2. Deconditioning PROCEDURES 1. Sphincterotomy 2. 10F x 10 cm plastic stent placed 3. ERCP 4. RUQ biloma drain placement - 12 F biliary drain Brief Hospital Course 73 year old female with worsening dementia, recent laparoscopic cholecystectomy presenting as a transfer from [facility] ([facility]) with possible biloma. Patient initially presented [...] for biloma. She was then transferred to [facility] for next level of care. Upon arrival to [facility], patient was very somnolent and hard to [...] that I, or Nurse Practitioner or Physician Security Control Room Officer working with me, had a face to face encounter with this patient on 03/10/2019 On behalf of Attending Physician: Gio Hsu MD I am ordering and certify that the following services are medically necessary home health [facility] Evaluate and Treat I am ordering and certify that the following services are medically necessary [facility] Physical Therapy Evaluate and Treat I certify that the patient is homebound based on the following clinical findings Blind or s enile and rquires the assistance of another person in leaving his/her residence Associated attestation - Gio Hsu MD - 03/10/2019 11:30 AM PDT Gio Hsu M.D. [facility] ([facility]) Professor and Vice-Packing Tractor Machine Operator of Surgery [employer] [facility] Panc[employer] [facility] [place] Cell phone: [phone] / [facility] provider's line [phone]. email: [email or web address] documented in this encounter Medications at [...] such information, when appropriate Gio Hsu M.D. [facility] ([facility]) Professor and Vice-Packing Tractor Machine Operator of Surgery [employer] [facility] for Pancreatic Disease Research [facility] [place] Cell phone: [phone] / [facility] provider's line [phone]. email: [email or web address] Jarrett Barrios MD - 03/08/2019 5:42 [...] today - continue cefepime and metronidazole - ETIQUETTE TEACHER after procedure (when patient is non-NPO) - OT cog eval - PT eval, encourage ambulation - pain control, no opioids - bowel regimen - DVT ppx: SCDs Jarrett Barrios MD General Surgery PGY-1 Pager [phone] Associated attestation - Gio Hsu MD - 03/08/2019 3:56 PM PDT. I saw the patient and reviewed and verified all information documented by the medical stud ent and resident, and made modifications to such information, when appropriate Gio Hsu M.D. [facility] ([facility]) Professor and Vice-Packing Tractor Machine Operator of Surgery [employer] [facility] [employer] Pancreat[employer] Disease Research [facility] [place] Cell phone: [phone] / [facility] provider's line [phone]. email: [email or web address] Kortney Russo MD - 03/07/2019 8:50 [...] 03/06/192299 - 03/07/1965803/07/19699 - 03/08/19 0659 Shift [id number] 24 Hour Total [id number] [phone] 7143-1514 24 Hour Total I N T A [...] Jarrett Barrios MD General Surgery PGY-1 Pager [phone] Associated attestation - Gio Hsu MD - 03/07/2019 7:11 AM PDT I saw the patient and reviewed and verified all information documented by the medical stud ent and resident, and made modifications to such information, when appropriate Gio Hsu M.D. [facility] ([facility]) Professor and Vice-Packing Tractor Machine Operator of Surgery [employer] [facility] Pancreatic Disease Research [facility] [place] Cell phone: [phone] / [facility] provider's line [phone]. email: [email or web address] documented in this encounter Plan of [...] [facility] | [address] | [place] [address] | | | SERVICES, CORE | CO[place]TTE [...] | | | LABORATORY | | | POLISH | | | SERVICES, | | | [...] | + + + + + | [facility] | [address] | [place] [address] | | | SERVICES, CORE | COLETTE [...] | + + + + + | [facility] | [address] | [place] [address] | | | SERVICES, CORE | PARK [...] + + | [facility] | [address] | [place] [address] | | | SERVICES, CORE | PARK [...] | | | LABORATORY | | | POLISH | | | SERVICES, | | | [...] | + + + + + | [facility] | [address] | [place] [address] | | | SERVICES, CORE | COLETTE [...] + | MRN: | [facility] | | [id number] Date: 03/08/2019Patient Name: Monserrat Perkins #: | ENDOSCOPY | | [id number] of : [id number]: [id number] Type: | | | InpatientRoom: GI 3Procedure: ERCPIndications: | | | Treatment of bile leakProviders: ULYSSES WChe DE BRICEÑO | | | MD DEANNE (Doctor), RADHA DUNNE RN | | | (Nurse), GUERO MICHEL (Drafting Engineer)Referring MD: GIO HSU, | | | MDRequesting Provider: Medicines: Cipro 400 mg IV, | | | Indomethacin 100 mg PA, Monitored | | | Anesthesia CareComplications: No [...] | | | physician, the nurse, the criminal justice faculty and the | | | natural resource technician in the pre-procedure area in the [...] | | | The Olympus TJF-[id number] Duodenoscope #[id number] was | | | introduced through the mouth, and advanced to the | | | duodenum and used to inject contrast into | | | the bile duct. The ERCP was | | | accomplished without difficulty. The | | | patient tolerated the procedure well.Estimated Blood Loss: | | | Estimated blood loss was minimal.Findings: A bindery machine feeder offbearer film of the | | | abdomen [...] | Addnunu: Leo Initiated On: 03/08/2019 4:04 [facility] Letter to: | | | ESTELITA KITCHEN [...] [facility] | [address] | [place] [address] | | | SERVICES, CORE | PARK [...] LABORATORY | [address] | [place] [address] | | | SERVICES, CORE | PARK [...] [facility] | [address] | [place] [address] | | | SERVICES, CORE | PARK [...] [facility] | [address] | [place] [address] | | | SERVICES, CORE | COLETTE [...] [facility] | [address] | [place] [address] | | | SERVICES, CORE | PARK [...] | + + + + + | [facility] | [address] | [place] [address] | | | SHERRY, KENNY | PARK [...] | + + + + + | [facility] | [address] | [place] [address] | | | SERVICES, CORE | COLETTE [...] | | | LABORATORY | | | POLISH | | | SERVICES, | | | [...] | + + + + + | [facility] | [address] | [place] [address] | | | SERVICES, CORE | COLETTE [...] | | | images in 20 degrees INDIAN were obtained for an angiogram and then [...] | | Dynamic images in 20 degrees INDIAN were obtained for an angiogram and then [...] | IMPRESSION: Percutaneous placement of a 12.5) Armenian drainage | | | catheter into biliary, yielding 800 mL of purulent fluid. Plan: | | | Back placed to gravity drainage. | | | | | | PROCEDURE SUMMARY: - 12.5 Armenian biliary drainage catheter | | | placement [...] | IMPRESSION: Percutaneous placement of a 12.5) Armenian drainage catheter into biliary, | | yielding 800 mL of purulent fluid. Plan: Back placed to gravity | | drainage. | | PROCEDURE SUMMARY:- 12.5 Armenian biliary drainage catheter placement under ultrasound and [...] | + + + + + | [facility] | [address] | [place] [address] | | | KENNY POWELL | [address] [...] - | | | | | | [place] | | + + + + + [...] + | [facility] - | [address] | [place] [address] | | | [place] | | | [...] [facility] | [address] | [place] [address] | | | SHERRY, CORE | PARK [...] | | | | | | a rjdgu-gj-lcxde amylase | | | | | | [...] | + + + + + | [facility] | [address] | [place] [address] | | | KENNY POWELL | COLETTE [...] visit | | | | | | [email or web address] | | | | | | luids/ Test developed | | | | | | and characteristics | | | | | | determined by [facility] | | | | | | Laboratories. See | | | | | | Compliance Statement B: | | | | | | Attendify/CSPerformed | | | | | | by [employer],[address] | | | | | | [address], [facility] | | | | | | [address] | | | | | | [phone].[email or web address]. | | | | | | Vadim [...] [facility] | [address] | [place], [place] | | | [facility] | | [address] | | + + + + + [...] [facility] | [address] | [place] [address] | | | SERVICES, CORE | [address] | | | + + + + + MAGNESIUM, PLASMA (03/07/2019 7:46 AM PDT) + +-------+ + + + | Component | Value | Ref Range | Performed | Pathologist | | | | | At | Signature | + +-------+ + + + | MAGNESIUM,P | 1.9 | 1.6 - 2.6 mg/dL | [facility] | | | LASMA | | | [...] | + + + + + | [facility] | [address] | [place] [address] | | | SERVICES, CORE | PARK [...] | | | LABORATORY | | | POLISH | | | SERVICES, | | | [...] the MDRD equation recommended by the | [facility] | | National Kidney Disease Education Program. [...] | + + + + + | [facility] | [address] | [place] [address] | | | KENNY POWELL | [address] [...] | + + + + + | [facility] | [address] | [place] [address] | | | SHERRY, KENNY | [address] [...] [facility] | [address] | [place] [address] | | | SERVICES, CORE | PARK [...] [facility] | [address] | [place] [address] | | | SERVICES, CORE | PARK [...] | + + + + + | [facility] | [address] | [place] [address] | | | KENNY POWELL | [address] [...] [facility] | [address] | [place] [address] | | | SERVICES, CORE | PARK [...] | | | LABORATORY | | | POLISH | | | SERVICES, | | | [...] [facility] | [address] | [place] [address] | | | SERVICES, CORE | [address] [...] DEPT OF | [address] | [place], [place] | | | CARDIOLOGY | [address] | [address] | | + + + + + [...] | | | | 20 doses, Starting [facility] 03/07/19 at | | | | | | | 1008, Until [facility] 03/07/19 at 1226, | | | [...] | | | | 20 doses, Starting [facility] 03/07/19 at | | | | | | | 1008, Until [facility] 03/07/19 at 1226, | | | | | | | periprocedural sedation | | | | | | + +-------+ +--------+---+---+ +---+---+ | | | +---+---+ + +-------+ +--------+---+---+ | naloxone (NARCAN) injection 0.2 | Given | 03/06/20 | 0.2 mg | | | | mg 0.2 mg, intravenous, | | 19 7:47 | | | | | NEEDED, Starting [facility] 03/06/19 at | | PM PDT | | | | | 1944, Until [place] 03/10/19 at 1848, | | | | [...]
--- OUTSIDE RECORDS SUMMARY | ~2019-11-07 | XMS | Encounter Summary ---
Demographics + + + | Address | [address] | | | [place] [address] | + + + | Home Phone | | + + + | Preferred Language | Unknown | + + + | Marital Status | | + + + | Anabaptist Affiliation | ADV | + + + | Race | White | + + + | Ethnic Group | Not or | + + + Author + + + | Author | [facility] | + + + | Organization | [facility] | + + + | Address | Unknown | + + + | Phone | Unavailable | + + + Support + + +---------+ + | Name | Relationship | Address | Phone | + + +---------+ + | Aristides Marrufo | ECON | Unknown | | + + +---------+ + Care Team Providers + +------+ + | Care Cobol Engineer Name | Role | Phone | + +------+ + | Estelita Kitchen PA-C | PCP | | + +------+ + Reason for Visit + + + | Reason | Comments | + + + | Medical Records | | | Review | | + + + Encounter Details +--------+ + + + + | Date | Type | Department | Care Team | Description | +--------+ + + + + | 04/05/ | Abstract | [facility] | Yony Roe, | Medical Records | | 2019 | | [place] [address] | [address] | Review | | | | [address] | [facility] | | | | | Mailcode: [place] | [place], [place] | | | | | [facility] and | [address] | | | | | [facility] | [phone] | | | | | [place], [place] | | | | | | [address] | | | | | | [phone] | | | +--------+ + + + [...] + + documented as of this encounter Functional Status + + + [...] as of this encounter Plan of Treatment Not on filedocumented as of this encounter Visit Diagnoses Not on filedocumented in this encounter"
--- OUTSIDE RECORDS SUMMARY | ~2019-11-07 | XMS | Encounter Summary ---
Demographics + + + | Address | [address] | | | [place] [address] | + + + | Home Phone | | + + + | Preferred Language | Unknown | + + + | Marital Status | | + + + | Moravian Affiliation | ADV | + + + | Race | White | + + + | Ethnic Group | Not or | + + + Author + + + | Author | [facility] | + + + | Organization | [facility] | + + + | Address | Unknown | + + + | Phone | Unavailable | + + + Support + + +---------+ + | Name | Relationship | Address | Phone | + + +---------+ + | Aristides Marrufo | ECON | Unknown | | + + +---------+ + Care Team Providers + +------+ + | Care Bank Vault Custodian Name | Role | Phone | + [...] | +--------+ + + + + | 03/08/ | Anesthesia | Endoscopic | Travis Rivers | | | 2019 | Event | Procedural Unit at | MD Lui [address] | | | | | [address] | [address] | | | | | [address] | [place], [place] | | | | | Mailcode: [facility]83 | [address] | | | | | Cipriano Odom | [phone] | | | | | [address] [place], [place] | | | | | | [address] | | | | | | [phone] | | | +--------+ + + + + Anesthesia Record + + + + + | Procedure Name | Responsible | Anesthesia Start | Anesthesia Stop Time | | | Anesthesiologist | Time | | + + + + + | ERCP | Travis Rivers, | 03/08/19 1618 | 03/08/19 1702 | | | MD | | | + + + + + +----+---+ + + | Da | T | Event | Comment | | te | i | | | | | m | | | | | e | | | +----+---+ + + | 05 | 1 | | | | /0 | 6 | | | | 3/ | 0 | | | | 20 | 5 | | | | 19 | | | | +----+---+ + + | | 1 | Pt. Check | Prior to anesthesia start, pt. Identified, examined, chart | | | 6 | | reviewed, PARQ held, anesthetic plan made or approved by | | | 0 | | attending anesthesiologist. NPO status confirmed as appropriate | | | 5 | | for procedure Preoperative evaluation: unchanged | +----+---+ + + | | 1 | Eq Check | Anesthesia machine checked Equipment verified | | | 6 | | | | | 0 | | | | | 7 | | | +----+---+ + + | | 1 | An Start | | | | 6 | | | | | 1 | | | | | 8 | | | +----+---+ + + | | 1 | An Start | | | | 6 | Data | | | | 3 | | | | | 0 | | | +----+---+ + + | | 1 | Vitals | Monitors applied Vital signs checked Patient ready for anesthesia | | | 6 | Checked | | | | 3 | | | | | 0 | | | +----+---+ + + | | 1 | Ready | | | | 6 | | | | | 3 | | | | | 7 | | | +----+---+ + + | | 1 | Abx | | | | 6 | Administere | | | | 4 | d | | | | 0 | | | +----+---+ + + | | 1 | Note | Vitals briefly not capturing in Epic, entered by hand | | | 6 | | | | | 4 | | | | | 1 | | | +----+---+ + + | | 1 | Incision | | | | 6 | | | | | 4 | | | | | 2 | | | +----+---+ + + | | 1 | O2 by FM | | | | 6 | | | | | 4 | | | | | 3 | | | +----+---+ + + | | 1 | O2 by NC | | | | 6 | | | | | 4 | | | | | 9 | | | +----+---+ + + | | 1 | Surgery end | | | | 6 | | | | | 5 | | | | | 6 | | | +----+---+ + + | | 1 | an stop | | | | 6 | data | | | | 5 | | | | | 6 | | | +----+---+ + + | | 1 | PACU Rpt | | | | 7 | Given | | | | 0 | | | | | 2 | | | +----+---+ + + | | 1 | Anesthesia | | | | 7 | End | | | | 0 | | | | | 2 | | | +----+---+ + + +------+ | Meds | +------+ + + + | Name | Total | + + + | propofol | 40 mg | + + + | propofol (DIPRIVAN) 200 mg | 127,303 mcg | + + + | ciprofloxacin (CIPRO) IV 400 mg | 400 mg | | in D5W (RTU) | | + + + | lactated ringers IV | 300 mL | + + + + + | Name | + + | Air Flow rate (L/min) | + + + + | No blood administrations on file. | + + +--------+ + + + | Type | Details | Placement | Removal | +--------+ + + + | [facility] | Other hospital; Midline; adb- | 03/06/191752 by | | | on | lower quadrant | | | +--------+ + + + | [facility] | Other hospital; Right; adb- upper | 03/06/191753 by | | | on | quadrant | | | +--------+ + + + | [facility] | Other hospital; Upper, Midline; | 03/06/191753 by | | | on | adb- upper quadrant | | | +--------+ + + + | Drain | 03/07/19; 1205; Dr Sharma; | 03/07/19 1205 by | | | | Biliary; Midline; adb- upper | Scot Gabi | | | | quadrant; 1 | | | +--------+ + + + | Periph | 03/08/19; 0442; Left; Lateral; | 03/08/19 0442 by | 03/10/19 1147 by | | eral | Wrist; 20 g; Yes; Lidocaine; No; | Hernando Burns, CARLOS | Dorothy Sinha RN | | IV | Positive; 03/10/19; 1147; | | | | | Discharge | | | +--------+ + + + documented in this encounter Social History + +-------+ +--------+------+ | Tobacco [...] Visit Diagnoses Not on filedocumented in this encounter Administered Medications + +--------+ +--------+------+------+ | Medication Order | MAR | Action | Dose | Rate | Site | | | Action | Date | | | | + +--------+ +--------+------+------+ | ciprofloxacin (CIPRO) IV 400 | Given | 03/08/20 | 400 mg | | | | mg in D5W (RTU) 400 mg, | | 19 4:42 | | | | | intravenous, ONCE, 1 dose, Fri | | PM PDT | | | | | 03/08/19 at 1700 | | | | | | + +--------+ +--------+------+------+ +---+---+ | | | +---+---+ + +---------+ [...] +---+ +---+---+ | | | +---+---+ + + + + +---+---+ | propofol (DIPRIVAN) 200 mg | Rate/Dos | 03/08/20 | 80 | | | | INTRAPROCEDURE CONTINUOUS PRN, | e Change | 19 4:39 | mcg/kg/m | | | | Starting 03/08/19 at 1629, | | PM PDT | in | | | | Until Mon03/08/19 at 1656 | | | | | | + + + + +---+---+ +---------+ + +---+---+ | New Bag | 03/08/20 | 75 | | | | | 19 4:29 | mcg/kg/m | | | | | PM PDT | in | | | +---------+ + +---+---+ +---+---+ | | | +---+---+ + +-------+ +-------+---+---+ | propofol (DIPRIVAN) injection | Given | 03/08/20 | 40 mg | | | | INTRAPROCEDURE PRN, Starting Fri | | 19 4:39 | | | | | 03/08/19 at 1639, Until Mon03/08/19 | | PM PDT | | | | | at 1656 | | | | | | + +-------+ +-------+---+---+ +---+---+ | | | +---+---+ documented in this encounter"
--- OUTSIDE RECORDS SUMMARY | ~2019-11-07 | XMS | Encounter Summary ---
Demographics + + + | Address | [address] | | | [place] [address] | + + + | Home Phone | | + + + | Preferred Language | Unknown | + + + | Marital Status | | + + + | Mandaeism Affiliation | ADV | + + + | Race | White | + + + | Ethnic Group | Not or | + + + Author + + + | Author | [facility] | + + + | Organization | [facility] | + + + | Address | Unknown | + + + | Phone | Unavailable | + + + Support + + +---------+ + | Name | Relationship | Address | Phone | + + +---------+ + | Aristides Marrufo | ECON | Unknown | | + + +---------+ + Care Team Providers + +------+ + | Care Marketing Systems Manager Name | Role | Phone | + [...] + + | 04/19/ | Hospital | [facility] [address] | Ulysses Magaña W | | | 2019 | Encounter | [address] | MD Joseph [address] | | | | | [facility] | [address] | | | | | Cipriano Floreson | [address], [place] | | | | | ([facility]) | [address] | | | | | [place], [place] | [phone] | | | | | [address] | | | | | | [phone] | | | +--------+ + + + + Social History + +-------+ +--------+------+ | Tobacco Use | Types | Packs/Day | Years | Date | | | | | Used | | + +-------+ +--------+------+ | Never Smoker | | | | | + +-------+ +--------+------+ + +---+---+---+ | Smokeless Tobacco: | | | | | Never Used | | | | + +---+---+---+ + + +---------+ + | Alcohol Use | Drinks/Week | oz/Week | Comments | + + +---------+ + | Yes | | | rare | + + +---------+ + + + + | Sex Assigned at [...] + + + | Blood Pressure | 139/69 | 04/19/2019 10:45 AM | | | | | PDT | | + + + + + | Pulse | 75 | 04/19/2019 10:45 AM | | | | | PDT | | + + + + + | Temperature | 36.1 C (97 F) | 04/19/2019 10:45 AM | | | | | PDT | | + + + + + | Respiratory Rate | 18 | 04/19/2019 10:45 AM | | | | | PDT | | + + + + + | Oxygen Saturation | 98% | 04/19/2019 10:45 AM | | | | | PDT | | + + + + + | Inhaled Oxygen | - | - | | | Concentration | | | | + + + + + | Weight | 64.4 kg (142 lb) | 04/19/2019 8:43 AM | | | | | PDT | | + + + + + | Height | 158.8 cm (5' 2.5") | 04/19/2019 8:43 AM | | | | | PDT | | + + + + + | Body Mass Index | 25.56 | 04/19/2019 8:43 AM | | | | | PDT [...] + documented as of this encounter Discharge Instructions Idris Bray RN - 04/19/2019Home Care Instructions after ERCP (Endoscopic Retrograde Cholangiopancreatography) You may resume your normal medications unless told otherwise. Medications The medications you received for your procedure can cause you to be forgetful and drowsy an d will take the remainder of the day to wear off. DO NOT drink alcohol, drive, operate heavy machinery, sign legal documents, or make major d ecisions until tomorrow. Common After Effects Mild abdominal pain, bloating, and gas. Sore throat. You may treat it with throat lozenges and/or gargle with warm salt water. You may bruise at your IV site. If you have pain, redness, or swelling at your IV site a pply a warm compress. Complications Call your GI doctor if you have: Abnormal amount of abdominal pain. Persistent nausea Vomiting or dark tarry stools. Shortness of breath, chest or neck pain. Fever above 101.5 Redness, pain, or swelling at your IV site that is not relieved with warm compress. For any questions related to your procedure, call Monday- Monday 8:00- 4:30 Call the endoscopy department toll free ext. [phone] or After business hours or on weekends and holiday Hospital Ticket Taker toll free [phone] ext. [phone] and have the GI doctor carbonator paged. The provider who performed your procedure is: Dr. Magaña Results of your ERCP: Stent removed. Balloon sweeps to your common bile duct. Stones remove d. Diet: Clear liquid diet today. Advance diet to normal tomorrow. Follow up Appointments with: Your primary referring provider as needed. Thank you for waqar caldera [place]! Your primary care provider or referring provider will receive copies of the procedure repor t and all the pathology reports with recommendations for treatment if needed. If Noted above that biopsies were taken or polyps removed we will receive the results in ap proximately 1 week. If you have not heard from us after 2 weeks please call for your results . documented in this encounter Medications at Time of Discharge + + + +---------+ + + | Medication | Sig | Dispensed | Refills | Start | End Date | | | | | | Date | | + + + +---------+ + + | acetaminophen 325 | Take 2 tablets by | | 0 | 03/10/20 | | | mg oral tablet | [...] tablet by | 50 | 0 | /03/25 | | | 8.6-50 mg oral | mouth two times | tablet | | 19 | | | tablet | daily. | | | | | + + + +---------+ + + documented as of this encounter Plan of Treatment + +---------+--------+ + + | Name | Type | Priori | Associated Diagnoses | Order Schedule | | | | ty | | | + +---------+--------+ + + | GI PROCEDURE UNIT | Imaging | Routin | | One Time for 1 | | FLUOROSCOPY | | e | | Occurrences starting | | | | | | 04/19/2019 until | | | | | | 04/19/2019, 1 | | | | | | completed | + +---------+--------+ + + documented as of this encounter Procedures + +--------+ + + + | Procedure Name | Priori | Date/Time | Associated Diagnosis | Comments | | | ty | | | | + +--------+ + + + | ERCP | Urgent | 04/19/2019 | Bile leak, | Results for this | | | | 9:19 AM | postoperative | procedure are in the | | | | PDT | | results section. | + +--------+ + + + | GI PROCEDURE UNIT | Routin | 04/19/2019 | | Results for this | | FLUOROSCOPY | e | 8:34 AM | | procedure are in the | | | | PDT | | results section. | + +--------+ + + + documented in this encounter Results ERCP (04/19/2019 9:19 AM PDT) + + | Specimen | + + | | + + + + + | Narrative | Performed At | + + + | MRN: | [facility] | | [id number] Date: 04/19/2019Patient Name: Monserrat Perkins #: | ENDOSCOPY | | [id number] of : 4CSN: [id number] Type: | | | AmbulatoryRoom: GI 3Procedure: ERCPIndications: | | | Follow-up of bile leakProviders: ULYSSES NIEVES | | | NAVARRO ALICEA MD (Doctor), IRDIS MINOR RN | | | (Nurse), GUERO MICHEL (Cracking Machine Operator)Referring MD: ULYSSES NIEVES | | | NAVARRO ALICEA MDRequesting Provider: Medicines: | | | Indomethacin 100 mg VT, Cipro 400 mg IV, Monitored | | | Anesthesia CareComplications: No immediate | | | complications. Estimated blood loss: | | | Minimal.Procedure: Pre-Anesthesia Assessment: | | | - Prior to the procedure, a History and Physical | | | was performed, and patient medications | | | and allergies were reviewed. The | | | patient is unable to give consent | | | secondary to the patient being legally incompetent to | | | consent. The risks and benefits of the procedure and | | | the sedation options and risks were | | | discussed with the patient's daughter. | | | All questions were answered and | | | informed consent was obtained. Patient identification | | | and proposed procedure were verified by the physician, | | | the nurse, the patient observer and the | | | weld technician in the pre-procedure area in | | | the procedure room. Mental Status | | | Examination: alert and oriented. Airway Examination: | | | normal oropharyngeal airway and neck mobility. | | | Respiratory Examination: clear to | | | auscultation. CV Examination: RRR, no | | | murmurs, no S3 or S4. 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 The | | | patient received antibiotic therapy before the | | | procedure. Prior Anticoagulants: The | | | patient has taken no previous | | | anticoagulant or antiplatelet agents. ASA | | | Grade Assessment: III - A patient with severe systemic | | | disease. After reviewing the risks and benefits, | | | the patient was deemed in satisfactory | | | condition to undergo the procedure. The | | | anesthesia plan was to use monitored | | | anesthesia care (MAC). Immediately prior to | | | administration of medications, the patient was | | | re-assessed for adequacy to receive sedatives. The | | | heart rate, respiratory rate, oxygen | | | saturations, blood pressure, adequacy | | | of pulmonary ventilation, and response | | | to care were monitored throughout the | | | procedure. The physical status of the patient was | | | re-assessed after the procedure. | | | Prior to the procedure, a History and Physical with | | | airway assessment was performed (see patient | | | record), and patient medications and | | | allergies were reviewed. The risks and | | | benefits of the procedure and the sedation | | | options and risks were discussed. All questions were | | | answered and informed consent was obtained. After | | | reviewing the risks and benefits, the | | | patient was deemed in satisfactory | | | condition to undergo the procedure. | | | Immediately prior to administration of medications, the | | | patient was re-assessed for adequacy to receive | | | sedatives. The heart rate, respiratory | | | rate, oxygen saturations, blood | | | pressure, adequacy of pulmonary | | | ventilation, and response to care were monitored | | | throughout the procedure. The physical status of the | | | patient was re-assessed after the procedure. | | | The Olympus TJF-160VF Duodenoscope | | | #[id number] was introduced through the | | | mouth, and advanced to the duodenum and | | | used to inject contrast into the bile duct. | | | The ERCP was accomplished without difficulty. The | | | patient tolerated the procedure well.Estimated Blood | | | Loss: Estimated blood loss was minimal.Findings: A | | | biliary stent was visible on the bridge repair crew person film. A bridge repair crew person film of the | | | abdomen was obtained. Surgical clips, consistent with a previous | | | cholecystectomy, were seen in the area of the right upper | | | quadrant of the abdomen. The esophagus was successfully | | | intubated under direct vision. The scope was advanced from the | | | mouth to the duodenum. The pharynx, larynx and associated | | | structures, as well as the upper GI tract, were normal. The | | | major papilla was on the rim of a diverticulum. One temporary | | | plastic biliary stent originating in the biliary tree was | | | emerging from the major papilla. The stent was partially occluded. A | | | 0.035 inch x 450 cm straight Visiglide wire was passed into the | | | biliary tree. The 8.5 mm balloon was passed over the guidewire | | | and the bile duct was then deeply cannulated. Contrast was | | | injected. I personally interpreted the bile duct images. Ductal | | | flow of contrast was adequate. Image quality was adequate. | | | Contrast extended to the entire biliary tree. The entire | | | biliary tree was normal. No evidence of bile leak. To discover | | | objects, the biliary tree was swept with an 8.5 mm balloon and | | | 10 mm balloon starting at the bifurcation. Sludge was swept from the | | | duct. The total fluoroscopy exposure time was 29 seconds. The | | | pancreatic duct was neither injected nor cannulated.Impression: | | | - The major papilla was on the rim of a diverticulum. | | | - One partially occluded stent from the | | | biliary tree was seen in the major | | | papilla. - The cholangiogram was normal. | | | - The biliary tree was swept and sludge | | | was found.Recommendation: - Discharge patient to home (with | | | escort). - Clear liquid diet today. | | | - Watch for pancreatitis, bleeding, | | | perforation, and cholangitis. | | | - Return to primary care physician as previously | | | scheduled. | | | - Repeat ERCP PRN for retreatment.Attending Participation: I | | | personally performed the entire procedure.ULYSSES MAGAÑA JR, | | | 04/19/2019 10:19:33 AMNumber of Addenda: 0Note Initiated On: | | | 04/19/2019 9:19 [facility] Letter to: ESTELITA KITCHEN PA-C, ANDREW | | | Joy LANDRUM MD | | + + + + +---------+ + + | Performing | Address | City/State/Zipcode | Phone Number | | Organization | | | | + +---------+ + + | [facility] | | | | + +---------+ + + GI PROCEDURE UNIT FLUOROSCOPY (04/19/2019 8:34 AM PDT) + + | Specimen | + + | | + + + + + | Narrative | Performed At | + + + | See GI procedure for results. | [facility] | | | RADIOLOGY | + + + + +---------+ + + | Performing | Address | City/State/Zipcode | Phone Number | | Organization | | | | + +---------+ + + | [facility] | | | | + +---------+ + + documented in this encounter Visit Diagnoses + + | Diagnosis | + + | Bile leak, postoperative - Primary Unspecified disorder of biliary tract | + + documented in this encounter Administered Medications + + + +------+------+------+ | Medication Order | MAR | Action | Dose | Rate | Site | | | Action | Date | | | | + + + +------+------+------+ | ciprofloxacin (CIPRO) IV 400 | Restarte | 04/19/20 | | | | | mg in D5W (RTU) 400 mg, | d | 19 9:17 | | | | | intravenous, PREPROCEDURE ONCE, 1 | | AM PDT | | | | | dose, Starting Mon04/19/19 at | | | | | | | 0834, Until Mon04/19/19 at 1706 | | | | | | + + + +------+------+------+ +---+---+ | | | +---+---+ + +-------+ +--------+---+---+ | indomethacin (INDOCIN) | Given | 04/19/20 | 100 mg | | | | suppository 100 mg 100 mg, | | 19 8:51 | | | | | rectal, ONCE, 1 dose, Mon04/19/19 | | AM PDT | | | | | at 0845 | | | | | | + +-------+ +--------+---+---+ +---+---+ | | | +---+---+ + +-------+ +-------+---+---+ | iohexol (OMNIPAQUE) 300 mg | Given | 04/19/20 | 40 mL | | | | iodine/mL INTRAPROCEDURE PRN, | | 19 10:02 | | | | | Starting Mon04/19/19 at 1002, | | AM PDT | | | | | Until Mon04/19/19 at 1002 | | | | | | + +-------+ +-------+---+---+ +---+---+ | | | +---+---+ + + + +---+---+---+ | lactated ringers IV 500 mL, | given by | 04/19/20 | | | | | intravenous, PREPROCEDURE ONCE, 1 | | 19 10:00 | | | | | dose, Starting Mon04/19/19 at | anesthes | AM PDT | | | | | 0834, Until Mon04/19/19 at 1706 | iology | | | | | + + + +---+---+---+ + + +---+---+---+ | Restarted | 04/19/20 | | | | | | 19 9:18 | | | | | | AM PDT | | | | + + +---+---+---+ +---+---+ | | | +---+---+ + + + +-------+-------+---+ | lactated ringers IV 100 mL/hr, | Restarte | 04/19/20 | 100 | 100 | | | intravenous, CONTINUOUS, | d | 19 9:18 | mL/hr | mL/hr | | | Starting Mon04/19/19 at 0845, | | AM PDT | | | | | Until Mon04/19/19 at 1706 | | | | | | + + + +-------+-------+---+ + +---+ | | | + +---+ | lidocaine viscous (XYLOCAINE | | | VISCOUS) 2 % mucosal solution 15 | | | mL 15 mL, oral, INTRAPROCEDURE | | | PRN, Starting Mon04/19/19 at | | | 0834, Until Mon04/19/19 at 1706, | | | sore oropharynx | | + +---+ | | | + +---+ | naloxone (NARCAN) injection | | | intravenous, POSTPROCEDURE PRN, | | | Starting Mon04/19/19 at 0916, | | | Until Mon04/19/19 at 1706, | | | hypopnea | | + +---+ | | | + +---+ | simethicone (MYLICON) | | | suspension 3.333 mg 3.333 mg | | | (rounded from 3.3333 mg = 1 | | | drop), oral, INTRAPROCEDURE PRN, | | | Starting 04/19/19 at 0834, | | | Until Mon04/19/19 at 1706, gas | | | bubbles in endoscope | | + +---+ | | | + +---+ documented in this encounter
--- OUTSIDE RECORDS SUMMARY | ~2019-11-07 | XMS | Encounter Summary ---
Demographics + + + | Address | [address] | | | [place] [address] | + + + | Home Phone | | + + + | Preferred Language | Unknown | + + + | Marital Status | | + + + | Episcopal Affiliation | ADV | + + + | Race | White | + + + | Ethnic Group | Not or | + + + Author + + + | Author | [facility] | + + + | Organization | [facility] | + + + | Address | Unknown | + + + | Phone | Unavailable | + + + Support + + +---------+ + | Name | Relationship | Address | Phone | + + +---------+ + | Aristides Marrufo | ECON | Unknown | | + + +---------+ + Care Team Providers + +------+ + | Care Instrumentation Designer Name | Role | Phone | + +------+ + | Estelita Kitchen PA-C | PCP | | + +------+ + Encounter Details +--------+ + + + + | Date | Type | Department | Care Team | Description | +--------+ + + + + | 03/05/ | Outside | UNKNOWN DEPARTMENT | Other, Faculty | | | 2019 | Records | [address] [facility] | [phone] | | | | | [address] | | | | | | [place], [place] | | | | | | [address] | | | +--------+ + + + [...] Not on filedocumented as of this encounter Procedures + +--------+ + + + | Procedure Name | Priori | Date/Time | Associated Diagnosis | Comments | | | ty | | | | + +--------+ + + + | OUTSIDE RADIOLOGY - | | 03/05/2019 | | Results for this | | X-RAY | | 12:00 AM | | procedure are in the | | | | PDT | | results section. | + +--------+ + + + documented in this encounter Results OUTSIDE RADIOLOGY - X-RAY (03/05/2019 12:00 AM PDT) + + + | Narrative | Performed At | + + + | | | + + + documented in this encounter Visit Diagnoses Not on filedocumented in this encounter"
--- OUTSIDE RECORDS SUMMARY | ~2019-11-07 | XMS | Encounter Summary ---
Demographics + + + | Address | [address] | | | [place] [address] | + + + | Home Phone | | + + + | Preferred Language | Unknown | + + + | Marital Status | | + + + | Pentecostal Affiliation | ADV | + + + [...] Team Providers + +------+ + | Care Credit Collector Name | Role | Phone | + [...] | | | | | [place] [address] [place], | | | | | | [place] [address] | | | +--------+--------+ + + + [...]
--- OUTSIDE RECORDS SUMMARY | ~2019-11-07 | XMS | Encounter Summary ---
Demographics + + + | Address | [address] | | | [place] [address] | + + + | Home Phone | | + + + | Preferred Language | Unknown | + + + | Marital Status | | + + + | Muslim Affiliation | ADV | + + + | Race | White | + + + | Ethnic Group | Not or | + + + Author + + + | Author | [facility] | + + + | Organization | [facility] | + + + | Address | Unknown | + + + | Phone | Unavailable | + + + Support + + +---------+ + | Name | Relationship | Address | Phone | + + +---------+ + | Aristides Marrufo | ECON | Unknown | | + + +---------+ + Care Team Providers + +------+ + | Care Forest Worker Name | Role | Phone | + +------+ + | Estelita Kitchen PA-C | PCP | | + +------+ + Encounter Details +--------+ + + + + | Date | Type | Department | Care Team | Description | +--------+ + + + + | 03/02/ | Outside | UNKNOWN DEPARTMENT | Other, Faculty | | | 2019 | Records | [address] [facility] | [phone] | | | | | [address] | | | | | | [place], [place] | | | | | | [address] | | | +--------+ + + + [...] in this encounter Results OUTSIDE RADIOLOGY - CT (03/02/2019 12:00 AM PDT) + + + | Narrative | Performed At | + + + | | | + + + documented in this encounter Visit Diagnoses Not on filedocumented in this encounter"
--- OUTSIDE RECORDS SUMMARY | ~2019-11-07 | XMS | Encounter Summary ---
Demographics + + + | Address | [address] | | | [place] [address] | + + + | Home Phone | | + + + | Preferred Language | Unknown | + + + | Marital Status | | + + + | Buddhism Affiliation | ADV | + + + | Race | White | + + + | Ethnic Group | Not or | + + + Author + + + | Author | [facility] | + + + | Organization | [facility] | + + + | Address | Unknown | + + + | Phone | Unavailable | + + + Support + + +---------+ + | Name | Relationship | Address | Phone | + + +---------+ + | Aristides Marrufo | ECON | Unknown | | + + +---------+ + Care Team Providers + +------+ + | Care Forest Fire Control Officer Name | Role | Phone | + +------+ + | Leroy Kitchen PA-C | PCP | | + +------+ + Encounter Details +--------+ + + + + | Date | Type | Department | Care Team | Description | +--------+ + + + + | 03/11/ | Transcribe | [facility] | Transcribe | | | 2019 | Orders | [facility] [address] | Encounter, Provider, | | | | | [address] Mailcode: | [address] | | | | | [place] for | [place] [address] | | | | | Health and Healing, | | | | | | [address] | | | | | | [place], [place] | | | | | | [address] | | | | | | [phone] | | | +--------+ + + + [...] on filedocumented as of this encounter Results ERCP (04/19/2019 9:19 AM PDT) + + | Specimen | + + | | + + + + + | Narrative | Performed At | + + + | MRN: | [facility] | | [id number] Date: 04/19/2019Patient Name: Monserrat Perkins #: | ENDOSCOPY | | [id number] of : 1945SN: [id number] Type: | | | AmbulatoryRoom: GI 3Procedure: ERCPIndications: | | | Follow-up of bile leakProviders: MIGEL NIEVES | | | NAVARRO ALICEA MD (Doctor), IDRIS MINOR RN | | | (Nurse), GUERO MICHEL (Icu Clerk)Referring MD: MIGEL NIEVES | | | NAVARRO ALICEA MDRequesting Provider: Medicines: | | | Indomethacin 100 mg WI, Cipro 400 mg IV, Monitored | | [...] physician, | | | the nurse, the drama critic and the | | | mechanical design technician in the pre-procedure area in | [...] The Olympus TJF-160VF Duodenoscope | | | #[id number] was introduced through the | | | mouth, and advanced to the duodenum and | | | used to inject contrast into the bile duct. | | | The ERCP was accomplished without difficulty. The | | | patient tolerated the procedure well.Estimated Blood | | | Loss: Estimated blood loss was minimal.Findings: A | | | biliary stent was visible on the program director scouting film. A program director scouting film of the | | | abdomen [...] Initiated On: | | | 04/19/2019 9:19 [facility] Letter to: LEROY KITCHEN PA-C, ANDREW | | | Joy [...]
--- OUTSIDE RECORDS SUMMARY | ~2019-11-07 | XMS | Encounter Summary ---
Demographics + + + | Address | [address] | | | [place] [address] | + + + | Home Phone | | + + + | Preferred Language | Unknown | + + + | Marital Status | | + + + | Presybeterian Affiliation | ADV | + + + | Race | White | + + + | Ethnic Group | Not or | + + + Author + + + | Author | [facility] | + + + | Organization | [facility] | + + + | Address | Unknown | + + + | Phone | Unavailable | + + + Support + + +---------+ + | Name | Relationship | Address | Phone | + + +---------+ + | Aristides Marrufo | ECON | Unknown | | + + +---------+ + Care Team Providers + +------+ + | Care Social Sciences Chair Name | Role | Phone | + +------+ + | Estelita Kitchen PA-C | PCP | | + +------+ + Reason for Visit + + + | Reason | Comments | + + + | Telephone follow-up | | + + + Encounter Details +--------+ + + + + | Date | Type | Department | Care Team | Description | +--------+ + + + + | 04/22/ | Telephone | Digestive Health | Ulysses Raines | Telephone follow-up | | 2018 | | Center at [facility] [address] | MD [address] | | | | | [address] | [address] | | | | | Mailcode: Center | [place], [place] | | | | | [facility] and | [address] | | | | | [facility] [address] | [phone] | | | | | [place], [place] | | | | | | [address] | | | | | | [phone] | | | +--------+ + + + [...]
--- OUTSIDE RECORDS SUMMARY | ~2019-11-07 | XMS | Encounter Summary ---
Demographics + + + | Address | [address] | | | [place] [address] | + + + | Home Phone | | + + + | Preferred Language | Unknown | + + + | Marital Status | | + + + | Buddhist Affiliation | ADV | + + + | Race | White | + + + | Ethnic Group | Not or | + + + Author + + + | Organization | Unknown | + + + | Address | Unknown | + + + | Phone | Unavailable | + + + Support + + +---------+ + | Name | Relationship | Address | Phone | + + +---------+ + | Aristides Marrufo | ECON | Unknown | | + + +---------+ + Care Team Providers + +------+ + | Care Director Sports Name | Role | Phone | + +------+ + | Estelita Kitchen PA-C PCP | | + +------+ + Encounter Details +--------+--------+ + + + | Date | Type | Department | Care Team | Description | +--------+--------+ + + + | 04/19/ | Travel | | | | | 2019 | | | | | +--------+--------+ + [...]
--- OUTSIDE RECORDS SUMMARY | ~2019-11-07 | XMS | Encounter Summary ---
Demographics + + + | Address | [address] | | | [place] [address] | + + + | Home Phone | | + + + | Preferred Language | Unknown | + + + | Marital Status | | + + + | Baptism Affiliation | ADV | + + + [...] Team Providers + +------+ + | Care Supervisor Water Softener Service Name | Role | Phone | + +------+ + PCP | Unavailable | + +------+ + Encounter Details +--------+ + + + + | Date | Type | Department | Care Team | Description | +--------+ + + + + | 03/10/ | Abstract | Neurology at | Clinic, Neurology | | | 2017 | | [facility] & | | | | | | Healing [address] | | | | | | [address] Mailcode: | | | | | | [address] [facility] | | | | | | Health and Healing, | | | | | | [facility] | | | | | | [place], [place] | | | | | | [address] | | | | | | [phone] | | | +--------+ + + + [...]
--- OUTSIDE RECORDS SUMMARY | ~2019-11-07 | XMS | Encounter Summary ---
Demographics + + + | Address | [address] | | | [place] [address] | + + + | Home Phone | | + + + | Preferred Language | Unknown | + + + | Marital Status | | + + + | Mormonism Affiliation | ADV | + + + [...] Providers + +------+ + | Care Manager Intel Name | Role | Phone | + [...] | | | | | | [place], [place] | | | | | | [address] | | | | | | [phone] | | | +--------+ + + + [...]
--- OUTSIDE RECORDS SUMMARY | ~2019-11-07 | XMS | Encounter Summary ---
Demographics + + + | Address | [address] | | | [place] [address] | + + + | Home Phone | | + + + | Preferred Language | Unknown | + + + | Marital Status | | + + + | Presybeterian Affiliation | ADV | + + + | Race | White | + + + | Ethnic Group | Not or | + + + Author + + + | Author | [facility] | + + + | Organization | [facility] | + + + | Address | Unknown | + + + | Phone | Unavailable | + + + Support + + +---------+ + | Name | Relationship | Address | Phone | + + +---------+ + | Aristides Marrufo | ECON | Unknown | | + + +---------+ + Care Team Providers + +------+ + | Care Engraving Operator Name | Role | Phone | + +------+ + | Esteilta Kitchen PA-C | PCP | | + [...] | | | [address] | [place], [place] | | | | | Mailcode: [address] | [address] | | | | | [address] | [phone] | | | | | [address] [place], [place] | | | | | | [address] | | | | | | [phone] | | | +--------+ + + + [...] Lidocaine; No; | Hernando Burns, CARLOS | Dorohty Sinha RN | | IV | Positive; [...]
--- OUTSIDE RECORDS SUMMARY | ~2019-11-07 | XMS | Encounter Summary ---
Demographics + + + | Address | [address] | | | [place] [address] | + + + | Home Phone | | + + + | Preferred Language | Unknown | + + + | Marital Status | | + + + | Zoroastrianism Affiliation | ADV | + + + | Race | White | + + + | Ethnic Group | Not or | + + + Author + + + | Author | [facility] | + + + | Organization | [facility] | + + + | Address | Unknown | + + + | Phone | Unavailable | + + + Support + + +---------+ + | Name | Relationship | Address | Phone | + + +---------+ + | Aristides Marrufo | ECON | Unknown | | + + +---------+ + Care Team Providers + +------+ + | Care Chemical Sales Representative Name | Role | Phone | + +------+ + | Estelita Kitchen PA-C | PCP | | + +------+ + Encounter Details +--------+ + + + + | Date | Type | Department | Care Team | Description | +--------+ + + + + | 03/06/ | Outside | UNKNOWN DEPARTMENT | Other, Faculty | | | 2019 | Records | [address] [facility] | [phone] | | | | | [address] | | | | | | [place], [place] | | | | | | [address] | | | +--------+ + + + [...]
--- OUTSIDE RECORDS SUMMARY | ~2019-11-07 | XMS | Encounter Summary ---
Demographics + + + | Address | [address] | | | [place] [address] | + + + | Home Phone | | + + + | Preferred Language | Unknown | + + + | Marital Status | | + + + | Temple Affiliation | ADV | + + + [...] Team Providers + +------+ + | Care Glue Drier Operator Name | Role | Phone | + +------+ + | Estelita Kitchen PA-C | PCP | | + +------+ + Encounter Details +--------+ + + + + | Date | Type | Department | Care Team | Description | +--------+ + + + + | 03/02/ | Outside | UNKNOWN DEPARTMENT | Other, Faculty | | | 2019 | Records | [address] [facility] | [phone] | | | | | [address] | | | | | | [place], [place] | | | | | | [address] | | | +--------+ + + + [...]
--- OUTSIDE RECORDS SUMMARY | ~2019-11-07 | XMS | Encounter Summary ---
Demographics + + + | Address | [address] | | | [place] [address] | + + + | Home Phone | | + + + | Preferred Language | Unknown | + + + | Marital Status | | + + + | Gnosticism Affiliation | ADV | + + + | Race | White | + + + | Ethnic Group | Not or | + + + Author + + + | Author | [facility] | + + + | Organization | [facility] | + + + | Address | Unknown | + + + | Phone | Unavailable | + + + Support + + +---------+ + | Name | Relationship | Address | Phone | + + +---------+ + | Aristides Marrufo | ECON | Unknown | | + + +---------+ + Care Team Providers + +------+ + | Care Sales Superintendent Name | Role | Phone | + [...] | postoperativ | MD Joseph | [address] | | | | | e | [address] [facility] | Mailcode: | | | | | Procedures | [address] | [address] | | | | | CONSULT TO | Rd | [address] | | | | | GI | [facility] [place] | [address] | | | | | PROCEDURE: | [id number] | [place], | | | | | ERCP / | Phone: | [place] [address] | | | | | BILIARY | [phone] | Phone: | | | | | MANOMETRY | Fax: | [phone] | | | | | CT ANES UPR | [phone] | Fax: | | | | | GI NDSC PX | | [phone] | | | | | NOS CT | | | | | | | ERCP,BIOPSY | | | | | | | CT | | | | | | | ERCP,SPHINCT | | | | | | | EROTOMY CT | | | | | | | ERCP,W/REMOV | | | | | | | AL | | | | | | | STONE,JONATHAN/PA | | | | | | | NCR DUCTS | | | | | | | CT ERCP | | | | | | | W/REMOVAL | | | | | | | FOREIGN BODY | | | | | | | OR STENT | | | | | | | CT ERCP | | | | | | | W/PLACE OF | | | | | | | ENDOSCOPIC | | | | | | | STENT CT | | | | | | | ERCP W/REMOV | | | | | | | AND | | | | | | | EXCHANGE OF | | | | | | | STENT CT | | | | | | | ERCP W/TRANS | | | | | | | ENDOSCOPI | | | | | | | BALLOON | | | | | | | DILATION OF | | | | | | | DUCT CT | | | | | | | [...] + + + + | 03/08/ | Claim Specialist | Digestive Health | Ulysses Raines W | Bile leak, | | 2019 | | [place] at [facility] [address] | MD [address] | postoperative | | | | [address] | [address] | (Primary Dx) | | | | Mailcode: [place] | [place], [place] | | | | | [facility] and | [address] | | | | | [place] [address] | [phone] | | | | | [place], [place] | | | | | | [address] | | | | | | [phone] | | | +--------+ + + + [...]
--- OUTSIDE RECORDS SUMMARY | ~2019-11-07 | XMS | Encounter Summary ---
Demographics + + + | Address | [address] | | | [place] [address] | + + + | Home Phone | | + + + | Preferred Language | Unknown | + + + | Marital Status | | + + + | Nondenominational Affiliation | ADV | + + + | Race | White | + + + | Ethnic Group | Not or | + + + Author + + + | Author | [facility] | + + + | Organization | [facility] | + + + | Address | Unknown | + + + | Phone | Unavailable | + + + Support + + +---------+ + | Name | Relationship | Address | Phone | + + +---------+ + | Aristides Marrufo | ECON | Unknown | | + + +---------+ + Care Team Providers + +------+ + | Care Gravity Prospecting Operator Helper Name | Role | Phone | [...] + + + + | 04/19/ | Anesthesia | Endoscopic | Adelia Mccarty, | | | 2019 | Event | Procedural Unit at | [address] | | | | | Rachelle Patel [address] | [address] | | | | | [address] | [place], [place] | | | | | Mailcode: [address] | [address] | | | | | [address] | [phone] | | | | | [address] [place], [place] | | | | | | [address] | | | | | | [phone] | | | +--------+ + + + + Anesthesia Record + + + + + | Procedure Name | Responsible | Anesthesia Start | Anesthesia Stop Time | | | Anesthesiologist | Time | | + + + + + | ERCP | Adelia Mccarty MD | 04/19/19 0922 | 04/19/19 1023 | + + + + + +----+---+ + + | Da | T | Event | Comment | | te | i | | | | | m | | | | | e | | | +----+---+ + + | 06 | 0 | Eq Check | Anesthesia machine checked Equipment verified | | /1 | 9 | | | | 4/ | 1 | | | | 20 | 4 | | | | 19 | | | | +----+---+ + + | | 0 | Pt. Check | Prior to anesthesia start, pt. Identified, examined, chart | | | 9 | | reviewed, PARQ held, anesthetic plan made or approved by | | | 1 | | attending anesthesiologist. NPO status confirmed as appropriate | | | 4 | | for procedure Preoperative evaluation: unchanged | +----+---+ + + | | 0 | Preprocedur | Pt ID confirmed, informed consent obtained, insertion site | | | 9 | e Checklist | marked, equipment available | | | 1 | | | | | 6 | | | +----+---+ + + | | 0 | Abx | | | | 9 | Administere | | | | 1 | d | | | | 7 | | | +----+---+ + + | | 0 | Quick Note | Antibotic started and charted by preop RN | | | 9 | | | | | 1 | | | | | 7 | | | +----+---+ + + | | 0 | | | | | 9 | | | | | 2 | | | | | 2 | | | +----+---+ + + | | 0 | An Start | | | | 9 | | | | | 2 | | | | | 2 | | | +----+---+ + + | | 0 | Vitals | Monitors applied Vital signs checked Patient ready for anesthesia | | | 9 | Checked | | | | 2 | | | | | 8 | | | +----+---+ + + | | 0 | Ready | | | | 9 | | | | | 3 | | | | | 0 | | | +----+---+ + + | | 0 | Timeout | | | | 9 | | | | | 3 | | | | | 8 | | | +----+---+ + + | | 0 | Incision | | | | 9 | | | | | 3 | | | | | 9 | | | +----+---+ + + | | 1 | Surgery end | | | | 0 | | | | | 0 | | | | | 1 | | | +----+---+ + + | | 1 | an stop | | | | 0 | data | | | | 0 | | | | | 5 | | | +----+---+ + + | | 1 | PACU Rpt | | | | 0 | Given | | | | 2 | | | | | 3 | | | +----+---+ + + | | 1 | Anesthesia | | | | 0 | End | | | | 2 | | | | | 3 | | | +----+---+ + + +------+ | Meds | +------+ + + + | Name | Total | + + + | propofol INF | 153,916 mcg | + + + | propofol bolus from INF | 30 mg | + + + | ciprofloxacin (CIPRO) IV 400 mg | 0 mg | | in D5W (RTU) | | + + + | esmolol | 30 mg | + + + | lactated ringers IV | 300 mL | + + + + + | Name | + + | O2 Flow Rate (Total Liters) | + + + + | No [...] +--------+ + + + | Periph | 04/19/19; 0930 (approx placed by | 04/19/19 0930 by | 04/19/19 1100 by | | eral | anesthesia); Left; Hand; 22 g; | Ashlie Ann, CARLOS | Fiorella Carty RN | | IV | No; 04/19/19; 1100 | | | +--------+ + + + [...] in this encounter Administered Medications + +--------+ +-------+------+------+ | Medication Order | MAR | Action | Dose | Rate | Site | | | Action | Date | | | | + +--------+ +-------+------+------+ | esmolol (BREVIBLOC) injection | Given | 04/19/20 | 30 mg | | | | intravenous, INTRAPROCEDURE PRN, | | 19 9:47 | | | | | Starting Mon04/19/19 at 0947, | | AM PDT | | | | | Until Mon04/19/19 at 1005 | | | | | | + +--------+ +-------+------+------+ +---+---+ | | | +---+---+ + + [...] +---+---+ + +-------+ +-------+---+---+ | propofol (DIPRIVAN) bolus from | Given | 04/19/20 | 30 mg | | | | continuous infusion | | 19 9:45 | | | | | INTRAPROCEDURE PRN, Starting Fri | | AM PDT | | | | | 04/19/19 at 0945, Until Fri | | | | | | | 04/19/19 at 1005 | | | | | | + +-------+ +-------+---+---+ +---+---+ | | | +---+---+ + + + + +--------+---+ | propofol (DIPRIVAN) injection | Rate/Dos | 04/19/20 | 70 | 27.05 | | | INTRAPROCEDURE CONTINUOUS PRN, | e Change | 19 9:33 | mcg/kg/m | mL/hr | | | Starting 04/19/19 at 0928, | | AM PDT | in | | | | Until 04/19/19 at 1005 | | | | | | + + + + +--------+---+ +---------+ + +--------+---+ | New Bag | 04/19/20 | 100 | 38.64 | | | | 19 9:28 | mcg/kg/m | mL/hr | | | | AM PDT | in | | | +---------+ + +--------+---+ +---+---+ | | | +---+---+ documented in this encounter"
--- OUTSIDE RECORDS SUMMARY | ~2019-11-07 | XMS | Encounter Summary ---
Demographics + + + | Address | [address] | | | [place] [address] | + + + | Home Phone | | + + + | Preferred Language | Unknown | + + + | Marital Status | | + + + | Jehovah'S Witness Affiliation | ADV | + + + [...] Team Providers + +------+ + | Care Ruching Machine Operator Name | Role | Phone | + +------+ + | Estelita Kitchen PA-C | PCP | | + +------+ + Encounter Details +--------+ + + + + | Date | Type | Department | Care Team | Description | +--------+ + + + + | 03/06/ | Outside | UNKNOWN DEPARTMENT | Other, Faculty | | | 2019 | Records | [address] [facility] | [phone] | | | | | [address] | | | | | | [place], [place] | | | | | | [address] | | | +--------+ + + + [...]
--- OUTSIDE RECORDS SUMMARY | ~2019-11-07 | XMS | Encounter Summary ---
Demographics + + + | Address | [address] | | | [place] [address] | + + + | Home Phone | | + + + | Preferred Language | Unknown | + + + | Marital Status | | + + + | Congregation Affiliation | ADV | + + + | Race | White | + + + | Ethnic Group | Not or | + + + Author + + + | Author | [facility] | + + + | Organization | [facility] | + + + | Address | Unknown | + + + | Phone | Unavailable | + + + Support + + +---------+ + | Name | Relationship | Address | Phone | + + +---------+ + | Aristides Marrufo | ECON | Unknown | | + + +---------+ + Care Team Providers + +------+ + | Care Chocolate Maker Name | Role | Phone | + [...] | | | | e | [address] [facility] | Mailcode: | | | | | Procedures | [address] | [address] | | | | | CONSULT TO | Rd | [address] | | | | | GI | [facility] [place] | [address] | | | | | PROCEDURE: | [id number] | [place], | | | | | ERCP / | Phone: | [place] [address] | | | | | BILIARY | [phone] | Phone: | | | | | MANOMETRY | Fax: | [phone] | | | | | [place] ANES UPR | [phone] | Fax: | | | | | GI NDSC PX | | [phone] | | | | | NOS [place] | | | | | | | ERCP,BIOPSY | | | | | | | [place] | | | | | | | ERCP,SPHINCT | | | | | | | EROTOMY [place] | | | | | | | ERCP,W/REMOV | | | | | | | AL | | | | | | | STONE,JONATHAN/PA | | | | | | | NCR DUCTS | | | | | | | [place] ERCP | | | | | | | W/REMOVAL | | | | | | | FOREIGN BODY | | | | | | | OR STENT | | | | | | | [place] ERCP | | | | | | | W/PLACE OF | | | | | | | ENDOSCOPIC | | | | | | | STENT [place] | | | | | | | ERCP W/REMOV | | | | | | | AND | | | | | | | EXCHANGE OF | | | | | | | STENT [place] | | | | | | | ERCP W/TRANS | | | | | | | ENDOSCOPI | | | | | | | BALLOON | | | | | | | DILATION OF | | | | | | | DUCT [place] | | | | | | | [...] + + + + | 03/08/ | Registered Diet Technician | Digestive Health | Ulysses Raines W | Bile leak, | | 2019 | | [place] at [facility] [address] | MD Joseph [address] | postoperative | | | | [address] | [address] | (Primary Dx) | | | | Mailcode: [place] | [place], [place] | | | | | [facility] and | [address] | | | | | [place] [address] | [phone] | | | | | [place], [place] | | | | | | [address] | | | | | | [phone] | | | +--------+ + + + [...]
--- OUTSIDE RECORDS SUMMARY | ~2019-11-07 | XMS | Encounter Summary ---
Demographics + + + | Address | [address] | | | [place] [address] | + + + | Home Phone | | + + + | Preferred Language | Unknown | + + + | Marital Status | | + + + | Holiness Affiliation | ADV | + + + | Race | White | + + + | Ethnic Group | Not or | + + + Author + + + | Author | [facility] | + + + | Organization | [facility] | + + + | Address | Unknown | + + + | Phone | Unavailable | + + + Support + + +---------+ + | Name | Relationship | Address | Phone | + + +---------+ + | Aristides Marrufo | ECON | Unknown | | + + +---------+ + Care Team Providers + +------+ + | Care Paying Teller Name | Role | Phone | + [...] | | | [address] | [place], [place] | | | | | Mailcode: [address] | [address] | | | | | [address] | [phone] | | | | | [address] [place], [place] | | | | | | [address] | | | | | | [phone] | | | +--------+ + + + [...]
--- OUTSIDE RECORDS SUMMARY | ~2019-11-07 | XMS | Encounter Summary ---
Demographics + + + | Address | [address] | | | [place] [address] | + + + | Home Phone | | + + + | Preferred Language | Unknown | + + + | Marital Status | | + + + | Jain Affiliation | ADV | + + + [...] Team Providers + +------+ + | Care Waiter/Waitress Cocktail Lounge Name | Role | Phone | + [...] Pharmacy | | | | | | [address] | | | | | | [place], [place] | | | | | | [address] | | | | | | [phone] | | | +--------+ + + + [...]
--- OUTSIDE RECORDS SUMMARY | ~2019-11-07 | XMS | Encounter Summary ---
Demographics + + + | Address | [address] | | | [place] [address] | + + + | Home Phone | | + + + | Preferred Language | Unknown | + + + | Marital Status | | + + + | Religion Affiliation | ADV | + + + | Race | White | + + + | Ethnic Group | Not or | + + + Author + + + | Author | [facility] | + + + | Organization | [facility] | + + + | Address | Unknown | + + + | Phone | Unavailable | + + + Support + + +---------+ + | Name | Relationship | Address | Phone | + + +---------+ + | Aristides Marrufo | ECON | Unknown | | + + +---------+ + Care Team Providers + +------+ + | Care Cripple Chaser Name | Role | Phone | + [...] | | | | | | [place], [place] | | | | | | [address] | | | | | | [phone] | | | +--------+ + + + [...]
--- OUTSIDE RECORDS SUMMARY | ~2019-11-07 | XMS | Encounter Summary ---
Demographics + + + | Address | [address] | | | [place] [address] | + + + | Home Phone | | + + + | Preferred Language | Unknown | + + + | Marital Status | | + + + | Anabaptism Affiliation | ADV | + + + | Race | White | + + + | Ethnic Group | Not or | + + + Author + + + | Author | [facility] | + + + | Organization | [facility] | + + + | Address | Unknown | + + + | Phone | Unavailable | + + + Support + + +---------+ + | Name | Relationship | Address | Phone | + + +---------+ + | Aristides Marrufo | ECON | Unknown | | + + +---------+ + Care Team Providers + +------+ + | Care Draw Press Operator Name | Role | Phone | [...] | | | | | [place], | | | | | | [place] [address] | | | +--------+--------+ + + + [...]
--- OUTSIDE RECORDS SUMMARY | ~2019-11-07 | XMS | Clinical Summary ---
Demographics + + + | Address | [address] | | | [place] [address] | + + + | Home Phone | | + + + | Preferred Language | Unknown | + + + | Marital Status | | + + + | Islam Affiliation | ADV | + + + [...] Team Providers + +------+ + | Care Fermentation Scientist Name | Role | Phone | + +------+ + | Estelita Kitchen PA-C | PCP | | + +------+ + Source Comments [facility] Allergies + + + + + [...] + +---------+------+------+-------+ Active Problems Not on file Family History + + +------+ + | [...] + + + + Plan of Treatment + + + + + | Health Maintenance | Due Date | Last Done | Comments | + + + + + | Influenza (Flu) | | | | | vaccination (#1) | 9 | | | + + + + + | Pneumococcal | Completed | 03/19/2019, 01/07/2013 | | | vaccination | | | | + + + + + Implants + +-------+------+ +--------+--------+--------+ | Explanted | Type | Area | Manufacture | [...] | / | | 03/08/2019 by Ulysses Raines | | | MEDICAL | | 2020 | /[id number] | | Richa Ruiz MD (Quantity not on | | | | | | 6685 | | file)Explanted: Qty: 1 on | | | | | | | | 04/19/2019 by Ulysses Raines | | | | | | | | Richa Ruiz MD | | | | | | | + +-------+------+ +--------+--------+--------+ + + | Description:Rad Shine | | Biliary Stent04/19: Stent | | removed; stent intact | + + Results Not on filefrom Last [...] | [employer] | xxxxxxxxx | 05/06/20 | [phone] | [address] | PPO | | | [employer] | | 16-Pre | 4 | [address] | | | | RE PPO | | sent | | [place], | | | | | | | | [place] [address] | | + +--------+ +--------+ + +------+ + +--------+ +--------+ + + | Guarantor Name | Accoun | Relation to | Date | Phone | Billing Address | | | t Type | Patient | of | | | | | | | | | | + +--------+ +--------+ + + | Mosnerrat Marrufo | Person | Self | [birth year] | [address] | | | al/Fam | | 1945 | [phone] | [place] [address] | | | vilma | | | 0 (Home) | | + +--------+ +--------+ + + Advance Directives + + + + + | Code Status | Date | Date | Comments | | | Activated | Inactivated | | + + + + + | Full Code | 04/19/2019 | 04/19/2019 | | | | 8:34 AM | 5:11 PM | | + + + + + + + + +---+ | | | | | + + + +---+ | Full Code | 03/06/2019 | 03/10/2019 | | | | 6:27 PM | 6:53 PM | | + + + +---+
--- OUTSIDE RECORDS SUMMARY | ~2019-11-07 | XMS | Encounter Summary ---
Demographics + + + | Address | [address] | | | [place] [address] | + + + | Home Phone [...] Team Providers + +------+ + | Care Flatwork Finisher Name | Role | Phone | + [...] | | 2018 | | Center at [facility] [address] | MD [address] | | | | | [address] | [address] | | | | | Mailcode: Center | [place], [place] | | | | | [facility] and | [address] | | | | | [facility] [address] | [phone] | | | | | [place], [place] | | | | | | [address] | | | | | | [phone] | | | +--------+ + + + [...]
--- OUTSIDE RECORDS SUMMARY | ~2019-11-07 | XMS | Encounter Summary ---
Demographics + + + | Address | [address] | | | [place] [address] | + + + | Home Phone | | + + + | Preferred Language | Unknown | + + + | Marital Status | | + + + | Bahai Affiliation | ADV | + + + | Race | White | + + + | Ethnic Group | Not or | + + + Author + + + | Author | [facility] | + + + | Organization | [facility] | + + + | Address | Unknown | + + + | Phone | Unavailable | + + + Support + + +---------+ + | Name | Relationship | Address | Phone | + + +---------+ + | Aristides Marrufo | ECON | Unknown | | + + +---------+ + Care Team Providers + +------+ + | Care Clinical Exercise Physiologist Name | Role | Phone | + +------+ + | Estelita Kitchen PA-C | PCP | | + +------+ + Encounter Details +--------+ + + + + | Date | Type | Department | Care Team | Description | +--------+ + + + + | 03/03/ | Outside | UNKNOWN DEPARTMENT | Other, Faculty | | | 2019 | Records | [address] [facility] | [phone] | | | | | [address] | | | | | | [place], [place] | | | | | | [address] | | | +--------+ + + + [...]
--- OUTSIDE RECORDS SUMMARY | ~2019-11-07 | XMS | Clinical Summary ---
Demographics + + + | Address | [address] | | | [place] [address] | + + + | Home Phone [...] Team Providers + +------+ + | Care Ferry Pilot Name | Role | Phone | + +------+ + | Estelita Kitchen PA-C | PCP | | + +------+ + Source Comments [facility] is fully [facility] and [facility] Allergies + + + + [...] RE PPO | | sent | | [place], | | | | | | | | [place] [address] | | + +--------+ +--------+ + +------+ + +--------+ +--------+ + + | Guarantor Name | Accoun | Relation to | Date | Phone | Billing Address | | | t Type | Patient | of | | | | | | | | | | + +--------+ +--------+ + + | Monserrat Marrufo | Person | Self | [birth year] | [address] | | | al/Fam | | 1945 | [phone] | [place] [address] | | | vilma | | | [...]
--- OUTSIDE RECORDS SUMMARY | ~2019-11-07 | XMS | Encounter Summary ---
Demographics + + + | Address | [address] | | | [place] [address] | + + + | Home Phone [...] Team Providers + +------+ + | Care American Indian Policy Specialist Name | Role | Phone | [...]
--- OUTSIDE RECORDS SUMMARY | ~2019-11-07 | XMS | Encounter Summary ---
Demographics + + + | Address | [address] | | | [place] [address] | + + + | Home Phone [...] Team Providers + +------+ + | Care Tank Wagon Driver Name | Role | Phone | + +------+ + PCP | Unavailable | + +------+ + Encounter Details +--------+ + + + + | Date | Type | Department | Care Team | Description | +--------+ + + + + | 03/10/ | Abstract | Neurology at | Clinic, Neurology | | | 2017 | | [facility] & | | | | | | Healing [address] | | | | | | [address] Mailcode: | | | | | | [facility] | | | | | | Health and Healing, | | | | | | [facility] | | | | | | [place], [place] | | | | | | [address] | | | | | | [phone] | | | +--------+ + + + [...]
--- OUTSIDE RECORDS SUMMARY | ~2019-11-07 | XMS | Encounter Summary ---
Demographics + + + | Address | [address] | | | [place] [address] | + + + | Home Phone | | + + + | Preferred Language | Unknown | + + + | Marital Status | | + + + | Latter-Day Affiliation | ADV | + + + | Race | White | + + + | Ethnic Group | Not or | + + + Author + + + | Author | [facility] | + + + | Organization | [facility] | + + + | Address | Unknown | + + + | Phone | Unavailable | + + + Support + + +---------+ + | Name | Relationship | Address | Phone | + + +---------+ + | Aristides Marrufo | ECON | Unknown | | + + +---------+ + Care Team Providers + +------+ + | Care Hand Cementer Name | Role | Phone | + +------+ + | Leroy Kitchen PA-C | PCP | | + +------+ + Encounter Details +--------+ + + + + | Date | Type | Department | Care Team | Description | +--------+ + + + + | 03/11/ | Transcribe | [facility] | Transcribe | | | 2019 | Orders | [facility] [address] | Encounter, Provider, | | | | | [address] Mailcode: | [address] | | | | | [address] [place] for | [place] [address] | | | | | Health and Healing, | | | | | | [address] | | | | | | [place], [place] | | | | | | [address] | | | | | | [phone] | | | +--------+ + + + [...] + | MRN: | [facility] | | [id number] Date: 04/19/2019Patient Name: Monserrat Perkins #: | ENDOSCOPY | | [id number] of : 1945SN: [id number] Type: | | | AmbulatoryRoom: GI 3Procedure: ERCPIndications: | | | Follow-up of bile leakProviders: MIGEL NIEVES | | | NAVARRO ALICEA MD (Doctor), IDRIS MINOR RN | | | (Nurse), GUERO MICHEL (Bilingual Student Tutor)Referring MD: MIGEL NIEVES | | | NAVARRO ALICEA MDRequesting Provider: Medicines: | | | Indomethacin 100 mg FL, Cipro 400 mg IV, Monitored | | [...] physician, | | | the nurse, the underwear finisher and the | | | radar technician in the pre-procedure area in | [...] The Olympus TJF-[id number] Duodenoscope | | | #[id number] was introduced through the | | | mouth, and advanced to the duodenum and | | | used to inject contrast into the bile duct. | | | The ERCP was accomplished without difficulty. The | | | patient tolerated the procedure well.Estimated Blood | | | Loss: Estimated blood loss was minimal.Findings: A | | | biliary stent was visible on the hot die press operator film. A hot die press operator film of the | | | [...] | | personally performed the entire procedure.MIGEL RNODON JR, | | | 04/19/2019 10:19:33 AMNumber of Addenda: 0Note Initiated On: | | | 04/19/2019 9:19 [facility] Letter to: LEROY KITCHEN PA-C, ANDREW [...]
--- OUTSIDE RECORDS SUMMARY | ~2019-11-07 | XMS | Encounter Summary ---
Demographics + + + | Address | [address] | | | [place] [address] | + + + | Home Phone [...] Team Providers + +------+ + | Care Heating And Ventilation Engineer Name | Role | Phone | [...] Pharmacy | | | | | | [address] | | | | | | [address] [place], [place] | | | | | | [address] | | | | | | [phone] | | | +--------+ + + + [...]
--- OUTSIDE RECORDS SUMMARY | ~2019-11-07 | XMS | Encounter Summary ---
Demographics + + + | Address | [address] | | | [place] [address] | + + + | Home Phone [...] Author | [facility] | + + + | Organization | [facility] | + + + | Address | Unknown | + + + | Phone | Unavailable | + + + Support + + +---------+ + | Name | Relationship | Address | Phone | + + +---------+ + | Aristides Marrufo | ECON | Unknown | | + + +---------+ + Care Team Providers + +------+ + | Care Interviewing Clerk Name | Role | Phone | [...] | 2019 | Records | [address] [facility] | [phone] | | | | | [address] | | | | | | [place], [place] | | | | | | [address] | | | +--------+ + + + [...]
--- OUTSIDE RECORDS SUMMARY | ~2019-11-07 | XMS | Encounter Summary ---
Demographics + + + | Address | [address] | | | [place] [address] | + + + | Home Phone [...] + + + | Author | [facility] | + + + | Organization | [facility] | + + + | Address | Unknown | + + + | Phone | Unavailable | + + + Support + + +---------+ + | Name | Relationship | Address | Phone | + + +---------+ + | Aristides Marrufo | ECON | Unknown | | + + +---------+ + Care Team Providers + +------+ + | Care Chemical Detection Expert Name | Role | Phone | + [...] + + | 04/19/ | Hospital | [facility] [address] | [address] | | | 2019 | Encounter | [address] | MD Joseph [address] | | | | | [facility] | [address] | | | | | [address] | [place], [place] | | | | | (MNP/[facility]) | [address] | | | | | [place], [place] | [phone] | | | | | [address] | | | | | | [phone] | | | +--------+ + + + [...] the endoscopy department toll free ext. [phone] or After business hours or on weekends and holiday Hospital Grading Machine Operator toll free [phone] ext. [phone] and have the GI doctor inspector exhaust emissions paged. The provider who performed your procedure [...] + | MRN: | [facility] | | [id number] Date: 04/19/2019Patient Name: Monserrat Perkins #: | ENDOSCOPY | | [id number] of : 4CSN: [id number] Type: | | | AmbulatoryRoom: GI 3Procedure: ERCPIndications: | | | Follow-up of bile leakProviders: ULYSSES NIEVES | | | NAVARRO ALICEA MD (Doctor), IDRIS MINOR RN | | | (Nurse), GUERO MICHEL (Senior Electronics Technician)Referring MD: ULYSSES NIEVES | | | NAVARRO ALICEA MDRequesting Provider: Medicines: | | | Indomethacin 100 mg NC, Cipro 400 mg IV, Monitored | | [...] physician, | | | the nurse, the store clerk checker and the | | | motorsports technician in the pre-procedure area in | [...] The Olympus TJF-160VF Duodenoscope | | | #[id number] was introduced through the | | | mouth, and advanced to the duodenum and | | | used to inject contrast into the bile duct. | | | The ERCP was accomplished without difficulty. The | | | patient tolerated the procedure well.Estimated Blood | | | Loss: Estimated blood loss was minimal.Findings: A | | | biliary stent was visible on the collar stitcher film. A collar stitcher film of the | | | abdomen [...] | | 04/19/2019 9:[address] [facility] Letter to: ESTELITA KITCHEN PA-C, ANDREW | [...]
--- OUTSIDE RECORDS SUMMARY | ~2019-11-07 | XMS | Encounter Summary ---
Demographics + + + | Address | [address] | | | [place] [address] | + + + | Home Phone | | + + + | Preferred Language | Unknown | + + + | Marital Status | | + + + | Adventism Affiliation | ADV | + + + | Race | White | + + + | Ethnic Group | Not or | + + + Author + + + | Author | [facility] | + + + | Organization | [facility] | + + + | Address | Unknown | + + + | Phone | Unavailable | + + + Support + + +---------+ + | Name | Relationship | Address | Phone | + + +---------+ + | Aristides Marrufo | ECON | Unknown | | + + +---------+ + Care Team Providers + +------+ + | Care Gate Manager Name | Role | Phone | + +------+ + | Estelita Kitchen PA-C | PCP | | + +------+ + Encounter Details +--------+ + + + + | Date | Type | Department | Care Team | Description | +--------+ + + + + | 03/03/ | Outside | UNKNOWN DEPARTMENT | Other, Faculty | | | 2019 | Records | [address] [facility] | [phone] | | | | | [address] | | | | | | [place], [place] | | | | | | [address] | | | +--------+ + + + [...]
--- OUTSIDE RECORDS SUMMARY | ~2019-11-07 | XMS | Encounter Summary ---
Demographics + + + | Address | [address] | | | [place] [address] | + + + | Home Phone | | + + + | Preferred Language | Unknown | + + + | Marital Status | | + + + | Jew Affiliation | ADV | + + + | Race | White | + + + | Ethnic Group | Not or | + + + Author + + + | Author | [facility] | + + + | Organization | [facility] | + + + | Address | Unknown | + + + | Phone | Unavailable | + + + Support + + +---------+ + | Name | Relationship | Address | Phone | + + +---------+ + | Aristides Marrufo | ECON | Unknown | | + + +---------+ + Care Team Providers + +------+ + | Care Seconds Grader Name | Role | Phone | + [...] Medical Records | | 2019 | | [place] [address] [address] | [address] | Review | | | | [address] | [address] [facility] | | | | | Mailcode: [place] | [place], [place] | | | | | [facility] and | [address] | | | | | [facility] [address] | [phone] | | | | | [place], [place] | | | | | | [address] | | | | | | [phone] | | | +--------+ + + + [...]
--- NOTE | 2019-11-07 17:11 | EKG ---
[facility] [address] [place] [address] Signed Normal sinus rhythm Normal ECG When compared with ECG of 04-MAR-2019 18:51, Vent. rate has decreased BY 44 BPM Nonspecific T wave abnormality, improved in Inferior leads Nonspecific T wave abnormality no longer evident in Anterolateral leads Confirmed by AMIRAH RODRIGUES DO ([id number]) on 11/07/2019 5:11:24 PM Electronically Signed By: AMIRAH RODRIGUES DO 11/07/19 1711 PATIENT NAME: FELIPEILIANA Electrocardiogram DATE OF : 43 PHYSICIAN: AMIRAH RODRIGUES DO REPORT #: [id number] REPORT IS CONFIDENTIAL AND NOT TO BE RELEASED WITHOUT AUTHORIZATION
== END 2019-11-07 14:25 | disposition home or self-care (01) ==
LOC: ED 10:28
DX: R07.89 Other chest pain (principal); E03.9 Hypothyroidism, unspecified; I10 Essential (primary) hypertension; Z88.0 Allergy status to penicillin; Z88.5 Allergy status to narcotic agent; Z79.899 Other long term (current) drug therapy
CPT/HCPCS: 71045; 80053; 84484; 85025; 93005; 93010; 99285-25

== ENCOUNTER 2020-07-30 01:24 | Emergency (ER) | payer MEDICARE ==
[~2020-07-30] VITALS: Ht 160 cm; Wt 73.0 kg
--- OUTSIDE RECORDS SUMMARY | ~2020-07-30 | XMS | Encounter Summary ---
Demographics + + + | Address | [address] | | | [place] [address] | + + + | Home Phone | | + + + | Preferred Language | Unknown | + + + | Marital Status | | + + + | Quaker Affiliation | ADV | + + + | Race | White | + + + | Ethnic Group | Not or | + + + Author + + + | Author | [facility] | + + + | Organization | [facility] | + + + | Address | Unknown | + + + | Phone | Unavailable | + + + Support + + +---------+ + | Name | Relationship | Address | Phone | + + +---------+ + | Aristides Marrufo | ECON | Unknown | | + + +---------+ + Care Team Providers + +------+ + | Care Data Capture Clerk Name | Role | Phone | + +------+ + | Estelita Kitchen PA-C | PCP | | + +------+ + Encounter Details +--------+ + + + + | Date | Type | Department | Care Team | Description | +--------+ + + + + | 03/10/ | Pharmacy | Outpatient Retail | | | | 2018 | Visit | [facility] | | | | | | [address] | | | | | | [address] [place], [place] | | | | | | [address] | | | | | | [phone] | | | +--------+ + + + [...] on file | | + + + documented as of this [...]
--- OUTSIDE RECORDS SUMMARY | ~2020-07-30 | XMS | Encounter Summary ---
Demographics + + + | Address | [address] | | | [place] [address] | + + + | Home Phone | | + + + | Preferred Language | Unknown | + + + | Marital Status | | + + + | Denominational Affiliation | ADV | + + + | Race | White | + + + | Ethnic Group | Not or | + + + Author + + + | Author | [facility] | + + + | Organization | [facility] | + + + | Address | Unknown | + + + | Phone | Unavailable | + + + Support + + +---------+ + | Name | Relationship | Address | Phone | + + +---------+ + | Aristides Marrufo | ECON | Unknown | | + + +---------+ + Care Team Providers + +------+ + | Care Daylight Driller Name | Role | Phone | + [...] | Event | Procedural Unit at | R, [address] | | | | | [address] | | | | | [address] | [place], [place] | | | | | [address], | [address] | | | | | 4th floor [place], | [phone] | | | | | [place] [address] | | | | | | [phone] | | | +--------+ + + + [...] | | | 6 | | reviewed, PARMounika held, anesthetic plan made or approved by [...] Note | Vitals briefly not capturing in Inmoo, entered by hand | | | 6 [...] + + + | Incisi | Other [facility]; Right; adb- upper | 03/06/191753 by | | | on | quadrant | | | +--------+ + + + | Incisi | Other [facility]; [facility], Midline; | 03/06/191753 by | | | on | adb- upper quadrant | | | +--------+ + + + | Drain | 03/07/19; 1205; Dr Sharma; | 03/07/19 1205 by | | | | Biliary; Midline; adb- upper | [place] | | | | quadrant; 1 | [...] + + documented as of this encounter OR Notes Anesthesia Postprocedure Evaluation - Radha Vera MD - 03/08/2019 5:02 PM PDTForma tting of this note might be different from the original. Monserrat Marrufo [id number] Allergies Allergen Reactions Codeine Unknown Possible GI Upset. Penicillin Unknown No past surgical history on file. Temp: 36.7 C (98.1 F) Heart Rate: 104 Resp: 16 Airway Resp Rate: 21 BP: 145/83 SpO2: 96 % EVALUATION VS (BP, HR, RR, SpO2, and Temp) and hydration status are stable ROS including Cards, Resp, Neuro, and GI without evidence of adverse effects No PONV Pain controlled No altered mental status COMPLICATIONS No adverse events nesthesia Preproc edure Evaluation - Travis Rivers MD - 03/08/2019 3:55 PM PDT Monserrat Marrufo [id number] Allergies Allergen Reactions Codeine Unknown Possible GI Upset. Penicillin Unknown NPO: since MN Last Vitals Temp: 37.4 C (99.3 F) Heart Rate: 104 Resp: 16 Airway Resp Rate: 21 BP: 158/85 SpO2: 96 % O2 Flow Rate: 1 LPM O2 Delivery Device: Nasal cannula Preg Status/LMP There is no problem list on file for this patient. No past surgical history on file. Current Medication List Name Sig Last Dose AMLODIPINE 5 MG TABLET Take 5 mg by mouth once daily. ATORVASTATIN 20 MG TABLET Take 20 mg by mouth once daily. LEVOTHYROXINE 88 MCG TABLET Take 88 mcg by mouth before breakfast. LISINOPRIL 20 MG TABLET Take 20 mg by mouth once daily. MELOXICAM 15 MG TABLET Take 15 mg by mouth once daily. ONDANSETRON 4 MG DISINTEGRATING TABLET Dissolve 4 mg on tongue and swallow every eight hour s as needed. PANTOPRAZOLE 40 MG TABLET,DELAYED RELEASE Take 40 mg by mouth once daily. Lab Results Component Value Date RATE 119 03/06/2019 ATRIALRATE 119 03/06/2019 MT 154 03/06/2019 QRS 75 03/06/2019 QT 305 03/06/2019 PAXIS 28 03/06/2019 RAXIS -10 03/06/2019 TAXIS 188 03/06/2019 Anesthesia Plan Comments ASA ASA 3 emergent NPO Status NPO Status: NPO by protocol Monitors/Lines to be used Standard Anesthetic Consideration PONV prophylaxis and Premeds Induction Anesthetic Technique Monitored Anesthesia Care; Obstetric Anesthesia Post-Op Pain Plan Orals and IV analgesics; Blood Products Informed Consent PARQ discussed with: patient, Procedures, Alternatives, Risks, and Questions discussed, Ri sk/benefit of anesthesia plan and blood product discussed and Due to urgent nature of proced ure and valid consent for surgery, will proceed Dental Risk discussed with patient Code status in OR Patients Code Status in OR: FULL 03/08 4:04 PM documented in thi s encounter Miscellaneous Notes PMC/ANE PreOp Note - Travis Rivers MD - 03/08/2019 3:53 PM PDTROS: HPI: 73 y.o. woman with HTN, hypothyroidism and dementia who transferred after a recent laparosc opic cholecystectomy c/b biloma s/p drain on 03/07. HIDA scan with ongoing bile leak. Presents here for ERCP and stent placement. Pt states she can climb 2 flts stairs. Prior Anestheti c Problems: No Pulmonary: Within Defined Limits except as noted below No dx of sleep apnea Risk factors for sleep a pnea: Pt. often feel TIRED, fatigued or sleepy during the daytime Pt. being treated for high blood pressure Age>50 pt. at high risk of TWYLA Cardiovascular: Within Defined Limits except as noted below Functional Capacity: Low hypertension well cont rolled no CAD Sx no pacemaker/ICD GI/Hepatic: Within Defined Limits except as noted below GERD Control: well controlled Renal: Within Defined Limits except as noted below Urology/Spiral Weaver: Within Defined Limits except as noted below Endo: no Diabetes: Endocrine Other Thyroid:+ hypothyroidism Neuro/Psych: Within Defined limits except as noted below no pain Current pain score: 0 Musculoskeletal: Within Defined Limits except as noted below Heme/Onc: Within Defined Limits except as noted below Infectious Disease: Within Defined Limits except as noted below Skin: integumentary system within defined limits AutoImmune Disorders: autoimmune disorders within defined limits Physical Exam General: Appearance: Age appropriate, No distress and Smiling LOC: Alert Airway: Dentition: dental implants, bridges or caps present Mallampati: 3 Mouth Opening: > 3 cm TM Distance:> 6 cm Osorio: No C-Spine ROM: Limited flexion & extension Neck Anatomy: Normal Jaw Protrusion: Normal (lower incisors go above upper incisors) Pulmonary: Respiratory: pulmonary exam normal Breath Sounds: breath sounds normal Cardiovascular: Rhythm: Regular Rate: Normal documented in thi s encounter Plan of Treatment Not on filedocumented [...] | mcg/kg/m | | | | Starting Mon03/08/19 at 1629, | | PM PDT | [...] | | | 03/08/19 at 1639, Until 03/08/19 | | PM PDT | | | | | at 1656 | | | | | | + +-------+ +-------+---+---+ +---+---+ | | | +---+---+ documented in this encounter"
--- OUTSIDE RECORDS SUMMARY | ~2020-07-30 | XMS | Encounter Summary ---
Demographics + + + | Address | [address] | | | [place] [address] | + + + | Home Phone | | + + + | Preferred Language | Unknown | + + + | Marital Status | | + + + | Latter Day Affiliation | ADV | + + + [...] Team Providers + +------+ + | Care Program Director Air Talent Name | Role | Phone | + +------+ + | Leroy Kitchen PA-C | PCP | | + +------+ + Encounter Details +--------+ + + + + | Date | Type | Department | Care Team | Description | +--------+ + + + + | 03/11/ | Transcribe | [facility] | Transcribe | | | 2019 | Orders | [facility] [address] | Encounter, Provider, | | | | | [address] [place] for | MD [address] | | | | | Health and Healing, | [place] [address] | | | | | [address] | | | | | | [place], [place] | | | | | | [address] | | | | | | [phone] | | | +--------+ + + + [...] Not on filedocumented as of this encounter Results [facility] (04/19/2019 9:19 AM PDT) + + | Specimen | + + | | + + + + + | Narrative | Performed At | + + + | MRN: | [facility] | | [id number] Date: 04/19/2019Patient Name: Monserrat Perkins #: | ENDOSCOPY | | [id number] of : 4CSN: [id number] Type: | | | AmbulatoryRoom: GI 3Procedure: ERCPIndications: | | | Follow-up of bile leakProviders: MIGEL NIEVES | | | NAVARRO ALICEA MD (Doctor), IDRIS MINOR RN | | | (Nurse), GUERO MICHEL (Correction Officer Supervisor)Referring MD: MIGLE NIEVES | | | NAVARRO ALICEA MDRequesting Provider: Medicines: | | | Indomethacin 100 mg OH, Cipro 400 mg IV, Monitored | | [...] physician, | | | the nurse, the crop ranch hand and the | | | environmental services technician in the pre-procedure area in | [...] The Olympus [id number]-[id number] Duodenoscope | | | #[id number] was introduced through the | | | mouth, and advanced to the duodenum and | | | used to inject contrast into the bile duct. | | | The ERCP was accomplished without difficulty. The | | | patient tolerated the procedure well.Estimated Blood | | | Loss: Estimated blood loss was minimal.Findings: A | | | biliary stent was visible on the lead embedded software engineer film. A lead embedded software engineer film of the | | | abdomen [...] | | | personally performed the entire procedure.MIGEL RONDON JR, | | | 04/19/2019 10:19:33 AMNumber of Addenda: 0Note Initiated On: | | | 04/19/2019 9:19 [facility] Letter to: LEROY KITCHEN PA-C, JOSE LUIS | | | Joy LANDRUM MD | [...] tract | + + documented in this encounter"
--- OUTSIDE RECORDS SUMMARY | ~2020-07-30 | XMS | Encounter Summary ---
Demographics + + + | Address | [address] | | | [place] [address] | + + + | Home Phone | | + + + | Preferred Language | Unknown | + + + | Marital Status | | + + + | Buddhist Affiliation | ADV | + + + | Race | White | + + + | Ethnic Group | Not or | + + + Author + + + | Author | [facility] | + + + | Organization | [facility] | + + + | Address | Unknown | + + + | Phone | Unavailable | + + + Support + + +---------+ + | Name | Relationship | Address | Phone | + + +---------+ + | Aristides Marrufo | ECON | Unknown | | + + +---------+ + Care Team Providers + +------+ + | Care Navy Material Inspector Name | Role | Phone | + +------+ + | Estelita Kitchen PA-C | PCP | | + +------+ + Reason for Visit + +--------+ + | Reason | Onset | Comments | | | Date | | + +--------+ + | Medical Records | 04/05/ | | | Review | 2019 | | + +--------+ + Encounter Details +--------+ + + + + | Date | Type | Department | Care Team | Description | +--------+ + + + + | 04/05/ | Abstract | Digestive Health | RoeYony wilson, | Medical Records | | 2019 | | [facility] at [facility] [address] | [address] [facility] | Review | | | | [place] elyse [place] | [facility] | | | | | for [facility] and | [place], [place] | | | | | [facility] [address] | [address] | | | | | [place], [place] | [phone] | | | | | [address] | | | | | | [phone] | | | +--------+ + + + [...]
--- OUTSIDE RECORDS SUMMARY | ~2020-07-30 | XMS | Encounter Summary ---
Demographics + + + | Address | [address] | | | [place] [address] | + + + | Home Phone | | + + + | Preferred Language | Unknown | + + + | Marital Status | | + + + | Congregational Affiliation | ADV | + + + | Race | White | + + + | Ethnic Group | Not or | + + + Author + + + | Author | [facility] | + + + | Organization | [facility] | + + + | Address | Unknown | + + + | Phone | Unavailable | + + + Support + + +---------+ + | Name | Relationship | Address | Phone | + + +---------+ + | Aristides Marrufo | ECON | Unknown | | + + +---------+ + Care Team Providers + +------+ + | Care Photocopy Operator Name | Role | Phone | + +------+ + | Estelita Kitchen PA-C | PCP | | + +------+ + Reason for Visit + +--------+ + | Reason | Onset | Comments | | | Date | | + +--------+ + | Telephone follow-up | 04/22/ | | | | 2019 | | + +--------+ + Encounter Details +--------+ + + + + | Date | Type | Department | Care Team | Description | +--------+ + + + + | 04/22/ | Telephone | Digestive Health | Ulysses Raines W | Telephone follow-up | | 2019 | | [place] [address] [address] | MD Joseph [address] [facility] | | | | | [facility] | [facility] | | | | | for [facility] and | [place], [place] | | | | | [place] [address] | [address] | | | | | [place], [place] | [phone] | | | | | [address] | | | | | | [phone] | | | +--------+ + + + [...] + + documented as of this encounter Miscellaneous Notes Telephone Encounter - Meghan Olson - 04/22/2019 1:54 PM PDTFollow up phone call to micheal ent regarding GI procedure from 04/19/2019.. Patient states the following: Patient is doing great. Just a little itchy around the tube a hansa that was removed but overall feeling great. Pain: No pain Bleeding: No bleeding Informed the patient that their referring provider will receive a copy of the procedure results within the next week. Patient advised to review all discharge information. documented in this encounter Plan of Treatment Not on filedocumented as of this encounter Visit Diagnoses Not on filedocumented in this encounter"
--- OUTSIDE RECORDS SUMMARY | ~2020-07-30 | XMS | Encounter Summary ---
Demographics + + + | Address | [address] | | | [place] [address] | + + + | Home Phone | | + + + | Preferred Language | Unknown | + + + | Marital Status | | + + + | Amish Affiliation | ADV | + + + | Race | White | + + + | Ethnic Group | Not or | + + + Author + + + | Author | [facility] | + + + | Organization | [facility] | + + + | Address | Unknown | + + + | Phone | Unavailable | + + + Support + + +---------+ + | Name | Relationship | Address | Phone | + + +---------+ + | Aristides Marrufo | ECON | Unknown | | + + +---------+ + Care Team Providers + +------+ + | Care Senior Professional Services Consultant Name | Role | Phone | + +------+ + | Estelita Kitchen PA-C | PCP | | + +------+ + Encounter Details +--------+--------+ + + + | Date | Type | Department | Care Team | Description | +--------+--------+ + + + | 03/06/ | Intake | Transfer Center | | | | 2019 | | [address] | | | | | | [place], | | | | | | [place] [address] | | | +--------+--------+ + + + [...]
--- OUTSIDE RECORDS SUMMARY | ~2020-07-30 | XMS | Encounter Summary ---
Demographics + + + | Address | [address] | | | [place] [address] | + + + | Home Phone | | + + + | Preferred Language | Unknown | + + + | Marital Status | | + + + | Uatsdin Affiliation | ADV | + + + [...] Team Providers + +------+ + | Care Relocation Manager Name | Role | Phone | + +------+ + | Estelita Kitchen PA-C | PCP | | + +------+ + Encounter Details +--------+ + + + + | Date | Type | Department | Care Team | Description | +--------+ + + + + | 03/11/ | Pharmacy | Outpatient Retail | | | | 2019 | Visit | [facility] | | | | | | [address] | | | | | | [address] [place], [place] | | | | | | [address] | | | | | | [phone] | | | +--------+ + + + [...]
--- OUTSIDE RECORDS SUMMARY | ~2020-07-30 | XMS | Encounter Summary ---
Demographics + + + | Address | [address] [facility] [address] | | | [place] [address] | + + + | Home Phone | | + + + | Preferred Language | Unknown | + + + | Marital Status | | + + + | Church Affiliation | ADV | + + + | Race | White | + + + | Ethnic Group | Not or | + + + Author + + + | Author | [facility] | + + + | Organization | [facility] | + + + | Address | Unknown | + + + | Phone | Unavailable | + + + Support + + +---------+ + | Name | Relationship | Address | Phone | + + +---------+ + | Aristides Marrufo | ECON | Unknown | | + + +---------+ + Care Team Providers + +------+ + | Care Burner Shaft Name | Role | Phone | + +------+ + PCP | Unavailable | + +------+ + Encounter Details +--------+ + + + + | Date | Type | Department | Care Team | Description | +--------+ + + + + | 03/10/ | Abstract | Neurology | Clinic, Neurology | | | 2016 | | Neuromuscular Clinic | | | | | | at [facility] | | | | | | Health & Healing | | | | | | [address] | | | | | | [facility] | | | | | | and Healing, | | | | | | Building | | | | | | Floor [place], [place] | | | | | | [address] | | | | | | [phone] | | | +--------+ + + + [...]
--- OUTSIDE RECORDS SUMMARY | ~2020-07-30 | XMS | Encounter Summary ---
Demographics + + + | Address | [address] | | | [place] [address] | + + + | Home Phone | | + + + | Preferred Language | Unknown | + + + | Marital Status | | + + + | Jew Affiliation | ADV | + + + | Race | White | + + + | Ethnic Group | Not or | + + + Author + + + | Author | [facility] | + + + | Organization | [facility] | + + + | Address | Unknown | + + + | Phone | Unavailable | + + + Support + + +---------+ + | Name | Relationship | Address | Phone | + + +---------+ + | Aristides Marrufo | ECON | Unknown | | + + +---------+ + Care Team Providers + +------+ + | Care Customer Program Manager Name | Role | Phone | + +------+ + | Estelita Kitchen PA-C | PCP | | + +------+ + Encounter Details +--------+ + + + + | Date | Type | Department | Care Team | Description | +--------+ + + + + | 03/06/ | Outside | UNKNOWN DEPARTMENT | Other, Faculty | | | 2019 | Records | [address] [facility] | [phone] | | | | | [address] | | | | | | [place], [place] | | | | | | [address] | | | +--------+ + + + [...] this encounter Results OUTSIDE RADIOLOGY - CT (03/06/2019 12:00 AM PDT) + + + | Narrative | Performed At | + + + | | | + + + OUTSIDE RADIOLOGY - CT (03/06/2019 12:00 AM PDT) + + + | Narrative | Performed At | + + + | | | + + + documented in this encounter Visit Diagnoses Not on filedocumented in this encounter"
--- OUTSIDE RECORDS SUMMARY | ~2020-07-30 | XMS | Clinical Summary ---
Demographics + + + | Address | [address] | | | [place] [address] | + + + | Home Phone | | + + + | Preferred Language | Unknown | + + + | Marital Status | | + + + | Jain Affiliation | Unknown | + + + | Race | Unknown | + + + | Ethnic Group | Unknown | + + + Author + + + | Author | [facility] | | | and [place] | + + + | Organization | [facility] | | | and [place] | + + + | Address | Unknown | + + + | Phone | Unavailable | + + + Support + + +---------+ + | Name | Relationship | Address | Phone | + + +---------+ + | Aristides Marrufo Sr. | ECON | Unknown | | + + +---------+ + Care Team Providers + +------+ + | Care Tire Servicer Name | Role | Phone | + +------+ + | Estelita Kitchen | PCP | | | PA-C | | | + +------+ + Allergies Not on File Medications Not on file Active Problems Not [...] on file | | + + + Last Filed Vital Signs Not on file Plan of Treatment +--------+---------+ + + + | Date | Type | Specialty | Care Team | Description | +--------+---------+ + + + | 12/04/ | Office | Neurology | Collin Graham MD | | | 2020 | Visit | | [address] | | | | | | [place] | | | | | | [address] | | | | | | | | +--------+---------+ + + + + + +-------+ + | Health Maintenance | Due Date | Last | Comments | | | | Done | | + + +-------+ + | Vaccine: | | | | | Dtap/Tdap/Td (1 - | 3 | | | | Tdap) | | | | + + +-------+ + | Vaccine: Zoster (1 | | | | | of 2) | 4 | | | + + +-------+ + | Breast Cancer | | | | | Screening | 9 | | | + + +-------+ + | Vaccine: | | | | | Pneumococcal 65+ (1 | 9 | | | | of 1 - PPSV23) | | | | + + +-------+ + | Vaccine: Influenza | | | | | (#1) | 0 | | | + + +-------+ + Results Not on filefrom Last 3 Months Insurance + +--------+ +--------+ + +--------+ | Payer | Benefi | Subscriber | Effect | Phone | Address | Type | | | t Plan | ID | lisa | | | | | | / | | Dates | | | | | | Group | | | | | | + +--------+ +--------+ + +--------+ | MOD[employer] | MODA | [id number] | 05/06/20 | [phone] | [address] | PPO | | | [place]FFINI | | 16-Pre | 9 | [phone] | | | | [place] | | sent | | [place], | | | | [place] | | | | [place] [address] | | | | STONE | | | | | | | | EPO | | | | | | + +--------+ +--------+ + +--------+ | [employer] | [employer] | [id number] | 11/06/19 | | | Medica | | | HEALTH | | 19-Pre | | | re | | | MDCR | | sent | | | | + +--------+ +--------+ + +--------+ + +--------+ +--------+ + + | Guarantor Name | Accoun | Relation to | Date | Phone | Billing Address | | | t Type | Patient | of | | | | | | | | | | + +--------+ +--------+ + + | Monserrat Marrufo | Person | Self | [birth year] | [address] | | | al/Fam | | 1945 | [phone] | [place] [address] | | | vilma | | | 0 (Home) | | + +--------+ +--------+ + + | Monserrat Marrufo | Person | Self [birth year] | [address] | | | al/Fam | | 1945 | [phone] | [place] [address] | | | vilma | | | 0 (Home) | | + +--------+ +--------+ + + Advance Directives + + + + + | Type | Date Recorded | Patient | Explanation | | | | Columnist | | + + + + + | Power of | | | | | Data Network Architect | | | | + + + + + | Advance | | | | | Directive | | | | + + + + +"
--- OUTSIDE RECORDS SUMMARY | ~2020-07-30 | XMS | Encounter Summary ---
Demographics + + + | Address | [address] | | | [place] [address] | + + + | Home Phone | | + + + | Preferred Language | Unknown | + + + | Marital Status | | + + + | Judaism Affiliation | ADV | + + + [...] Team Providers + +------+ + | Care Lathmaker Name | Role | Phone | + [...]
--- OUTSIDE RECORDS SUMMARY | ~2020-07-30 | XMS | Encounter Summary ---
Demographics + + + | Address | [address] | | | [place] [address] | + + + | Home Phone | | + + + | Preferred Language | Unknown | + + + | Marital Status | | + + + | Shinto Affiliation | ADV | + + + | Race | White | + + + | Ethnic Group | Not or | + + + Author + + + | Author | [facility] | + + + | Organization | [facility] | + + + | Address | Unknown | + + + | Phone | Unavailable | + + + Support + + +---------+ + | Name | Relationship | Address | Phone | + + +---------+ + | Aristides Marrufo | ECON | Unknown | | + + +---------+ + Care Team Providers + +------+ + | Care Refuse Driver Name | Role | Phone | + +------+ + | Estelita Kitchen PA-C | PCP | | + +------+ + Reason for Referral PROC - Dept/Practice Procedure (Urgent) +--------+--------+ + + + + | Status | Reason | Specialty | Diagnoses / | Referred By | Referred To | | | | | Procedures | Contact | Contact | +--------+--------+ + + + + | Closed | | Gastroenterol | Diagnoses | [place], | Gas Endo | | | | ogy | Bile leak, | [address]lysses [address] | [address] | | | | | postoperativ | MD Joseph | [address] | | | | | e | [address] | [place] | | | | | Procedures | [address] | [address] | | | | | CONSULT TO | Rd | floor | | | | | GI | [place], [place] | [place], [place] | | | | | PROCEDURE: | [address] | [address] | | | | | ERCP / | Phone: | Phone: | | | | | BILIARY | [phone] | [phone] | | | | | MANOMETRY | Fax: | Fax: | | | | | [place] ANES UPR | [phone] | [phone] | | | | | GI NDSC PX | | | | | | | NOS [place] | | | | | | | ERCP,BIOPSY | | | | | | | [place] | | | | | | | ERCP,SPHINCT | | | | | | | EROTOMY [place] | | | | | | | ERCP,W/REMOV | | | | | | | AL | | | | | | | STONE,JONATHAN/PA | | | | | | | NCR DUCTS | | | | | | | [place] ERCP | | | | | | | W/REMOVAL | | | | | | | FOREIGN BODY | | | | | | | OR STENT | | | | | | | [place] ERCP | | | | | | | W/PLACE OF | | | | | | | ENDOSCOPIC | | | | | | | STENT [place] | | | | | | | ERCP W/REMOV | | | | | | | AND | | | | | | | EXCHANGE OF | | | | | | | STENT [place] | | | | | | | ERCP W/TRANS | | | | | | | ENDOSCOPI | | | | | | | BALLOON | | | | | | | DILATION OF | | | | | | | DUCT [place] | | | | | | | ERCP | | | | | | | W/ABLATION | | | | | | | OF TUMOR | | | | | | | POLP [place] | | | | | | | LESION | | | +--------+--------+ + + + + Encounter Details +--------+ + + + + | Date | Type | Department | Care Team | Description | +--------+ + + + + | 03/08/ | [employer] | [facility] | Ulysses Raines W | Bile leak, | | 2019 | | Center at [facility] [address] | MD Joseph [address] | postoperative | | | | [facility] | [address] | (Primary Dx) | | | | for [facility] and | [place], [place] | | | | | [place] [address] | [address] | | | | | [place], [place] | [phone] | | | | | [address] | | | | | | [phone] | | | +--------+ + + + [...] filedocumented as of this encounter Visit Diagnoses + + | Diagnosis | + + | Bile leak, postoperative - Primary Unspecified disorder of biliary tract | + + documented in this encounter"
--- OUTSIDE RECORDS SUMMARY | ~2020-07-30 | XMS | Encounter Summary ---
Demographics + + + | Address | [address] | | | [place] [address] | + + + | Home Phone | | + + + | Preferred Language | Unknown | + + + | Marital Status | | + + + | Alevism Affiliation | ADV | + + + | Race | White | + + + | Ethnic Group | Not or | + + + Author + + + | Author | [facility] | + + + | Organization | [facility] | + + + | Address | Unknown | + + + | Phone | Unavailable | + + + Support + + +---------+ + | Name | Relationship | Address | Phone | + + +---------+ + | Aristides Marrufo | ECON | Unknown | | + + +---------+ + Care Team Providers + +------+ + | Care Automobile Accessories Salesperson Name | Role | Phone | + +------+ + | Estelita Kitchen PA-C | PCP | | + +------+ + Encounter Details +--------+ + + + + | Date | Type | Department | Care Team | Description | +--------+ + + + + | 03/02/ | Outside | UNKNOWN DEPARTMENT | Other, Faculty | | | 2019 | Records | [address] | [phone] | | | | | [address] | | | | | | [place], [place] | | | | | | [address] | | | +--------+ + + + [...]
--- OUTSIDE RECORDS SUMMARY | ~2020-07-30 | XMS | Encounter Summary ---
Demographics + + + | Address | [address] | | | [place] [address] | + + + | Home Phone | | + + + | Preferred Language | Unknown | + + + | Marital Status | | + + + | Holiness Affiliation | ADV | + + + | Race | White | + + + | Ethnic Group | Not or | + + + Author + + + | Author | [facility] | + + + | Organization | [facility] | + + + | Address | Unknown | + + + | Phone | Unavailable | + + + Support + + +---------+ + | Name | Relationship | Address | Phone | + + +---------+ + | Aristides Marrufo | ECON | Unknown | | + + +---------+ + Care Team Providers + +------+ + | Care Tub Rider Name | Role | Phone | + +------+ + | Estelita Kitchen PA-C | PCP | | + +------+ + Encounter Details +--------+ + + + + | Date | Type | Department | Care Team | Description | +--------+ + + + + | 03/03/ | Outside | UNKNOWN DEPARTMENT | Other, Faculty | | | 2019 | Records | [address] [facility] [address] | [phone] | | | | | [address] | | | | | | [place], [place] | | | | | | [address] | | | +--------+ + + + [...]
--- OUTSIDE RECORDS SUMMARY | ~2020-07-30 | XMS | Encounter Summary ---
Demographics + + + | Address | [address] | | | [place] [address] | + + + | Home Phone [...] Team Providers + +------+ + | Care Facility Rehab Director Name | Role | Phone | [...] | | | [address] | [place], [place] | | | | | [address], | [address] | | | | | [address] floor [place], | [phone] | | | | | [place] [address] | | | | | | [phone] | | | +--------+ + + + [...] + + + | Periph | 04/19/19; 09 (approx placed by | 04/19/19 0930 by | 04/19/19 1100 by | | eral | anesthesia); Left; Hand; 22 g; | Ashlie Ann RN | Fiorella Carty RN | | IV [...] encounter [place] Notes Anesthesia Postprocedure Evaluation - Maxine Marion CRNA - 04/19/2019 10:24 AM PDTFormatt ing of this note might be different from the original. Monserrat Marrufo [id number] Vitals Value Taken Time BP 123/78 04/19/2019 10:22 AM Temp 36.2 C (97.2 F) 04/19/2019 8:43 AM Pulse 81 04/19/2019 10:22 AM Resp 16 04/19/2019 10:22 AM SpO2 100 % 04/19/2019 10:22 AM EVALUATION VS (BP, HR, RR, SpO2, and Temp) and hydration status are stable ROS including Cards, Resp, Neuro, and GI without evidence of adverse effects No PONV Pain controlled No altered mental status COMPLICATIONS No adverse events nesthesia Preproced ure Evaluation - Maxine Marion CRNA - 04/19/2019 8:34 AM PDT Monserrat Marrufo [id number] Allergies Allergen Reactions Codeine Unknown Possible GI Upset. Penicillin Unknown NPO: Last Vitals Preg Status/LMP There is no problem list [...] Date RATE 119 03/06/2019 ATRIALRATE 119 03/06/2019 SC 154 03/06/2019 QRS 75 03/06/2019 QT 305 03/06/2019 PAXIS 28 03/06/2019 RAXIS -10 03/06/2019 TAXIS 188 03/06/2019 ANESTHESIA PLAN ASA 3 NPO Status: NPO by protocol ANESTHETIC TECHNIQUE Technique Used: Monitored Anesthesia Care MONITORS/LINES TO BE USED Standard ANESTHETIC CONSIDERATIONS PONV prophylaxis and Premeds POSTOP PAIN Orals IV analgesics INFORMED CONSENT PARQ and risks/benefits of anesthetic plan discussed with patient Additional Consent Issues: Procedures, Alternatives, Risks, and Questions discussed. Risk/b enefit of anesthesia plan and blood product discussed. Due to urgent nature of procedure and valid consent for surgery, will proceed Dental Risk discussed with patient PATIENT'S CODE STATUS IN OR FULL documented in this en counter Miscellaneous Notes PMC/ANE PreOp Note - Adelia Mccarty MD - 04/19/2019 8:12 AM PDTROS: HPI: 73 y.o. woman with HTN, hypothyroidism and dementia who transferred after a recent laparosc opic cholecystectomy c/b biloma s/p drain on 03/07. HIDA scan with ongoing bile leak. Presents here for ERCP and stent placement. Prior Anesthetic Problems: No Pulmonary: Within Defined Limits except [...] Within Defined Limits except as noted below Urology/Track Laborer: Within Defined Limits except as noted below [...] defined limits Physical Exam General: Appearance: Age appropriate and No distress LOC: Alert Airway: Dentition: dental implants, bridges or caps present Mallampati: 3 Mouth Opening: > 3 cm TM Distance:> 6 cm Osorio: No C-Spine ROM: Limited flexion & extension Neck Anatomy: Normal Jaw Protrusion: Normal (lower incisors go above upper incisors) Pulmonary: Respiratory: pulmonary exam normal Breath Sounds: breath sounds normal Cardiovascular: Rhythm: Regular Rate: Normal documented in this en counter Plan of Treatment Not on filedocumented as [...] mcg/kg/m | mL/hr | | | Starting Mon04/19/19 at 0928, | | AM PDT | in | | | | Until Mon04/19/19 at [...]
--- OUTSIDE RECORDS SUMMARY | ~2020-07-30 | XMS | Encounter Summary ---
Demographics + + + | Address | [address] [facility] [address] | | | [place] [address] | + + + | Home Phone [...] Team Providers + +------+ + | Care Operations Program Manager Name | Role | Phone | + +------+ + | Estelita Elizabeth PA-C | PCP | | + +------+ [...] | [facility] [address] | Gio Roe, | | | 2019 - | Encounter | [address] | MD [address] [facility] | | | | | [place], [place] | [address] | | | 03/10/ | | [address] | [place], [place] | | | 2018 | | [phone] | [address] | | | | | | [phone] | | | | | | | [...] might be different fro m the original. [facility] DISCHARGE SUMMARY & INTERDISCIPLINARY INSTRUCTIONS Patient: Monserrat Marrufo Admission Date: 03/06/2019 Discharge Date: 03/10/2019 Attending Physician: Gio Roe MD PCP: Estelita Velasquez PA-C Service: [facility] surgery Diagnoses Principal Final Diagnosis: 1. Bile leak Additional Diagnoses: 2. Deconditioning PROCEDURES 1. Sphincterotomy 2. 10F x 10 cm plastic stent placed 3. ERCP 4. RUQ biloma drain placement - 12 F biliary drain Brief Hospital Course 73 year old female with worsening dementia, recent laparoscopic cholecystectomy presenting as a transfer from [facility] ([facility]) with possible biloma. Patient initially presented to OSH with abdominal pain, work up revealed a [...] for biloma. She was then transferred to [facility] for next level of care. Upon arrival to [facility], patient was very somnolent and hard [...] that I, or Nurse Practitioner or Physician Regional Sales Director working with me, had a face to face encounter with this patient on 03/10/2019 On behalf of Attending Physician: Gio Roe MD I am ordering and certify that the following services are medically necessary home [facility] Evaluate and Treat I am ordering and certify that the following services are medically necessary [facility] Physical Therapy Evaluate and Treat I certify that the patient is homebound based on the following clinical findings Blind or s enile and rquires the assistance of another person in leaving his/her residence Associated attestation - Gio Roe MD - 03/10/2019 11:30 AM PDT Gio Roe M.D. [facility] ([facility]) Professor and Vice-Medical Sales Associate of Surgery [employer] [facility] Panc[employer] Disease Research [facility] [place] Cell phone: [phone] / [facility] provider's line [phone]. email: [email or web address] documented in this encounter Medications at Time [...] tablet by | 50 | 0 | 03/10/20 | | | 8.6-50 mg oral | [...] LOS: 4 days ) Attending Provider: Gio Roe MD Procedure: 03/07 RUQ biloma drain placement [...] Intake/Output 03/08 07 - 03/09 0700 03/09 07 - 03/10 0700 03/10 07 - 03/11 0700 P.O. 400 I.V. 1510 [...] hours (or 3 results) Recent Labs 03/08/19 0526 03/09/19 0502 AST 28 39 ALT 22 26 [...] Cheung MD PGY1 Associated attestation - Gio Roe MD - 03/10/2019 9:57 AM PDT I saw the patient and reviewed and verified all information documented by the medical stud ent and resident, and made modifications to such information, when appropriate Gio Roe M.D. [facility] ([facility]) Professor and Vice-Medical Sales Associate of Surgery [employer] [facility] for Pancreatic Disease Research [facility] [place] Cell phone: [phone] / [facility] provider's line [phone]. email: [email or web address] Jarrett Barrios MD - 03/08/2019 5:42 AM PDTFormatting of this note might be different fro m the original. DEPARTMENT OF SURGERY Blue Surgery Admission Date: 03/06/2019 ( LOS: 2 days ) Attending Provider: Gio Roe MD Procedure: 03/07 RUQ biloma drain placement [...] Resp 18 | SpO2 97% Intake/Output 03/06 701 - 03/07 0703/07 07 - 03/08 0703/08 07 - 03/09 0700 P.O. 0 I.V. [...] today - continue cefepime and metronidazole - MANDARIN CHINESE TEACHER after procedure (when patient is non-NPO) - OT cog eval - PT eval, encourage ambulation - pain control, no opioids - bowel regimen - DVT ppx: SCDs Jarrett Barrios MD General Surgery PGY-1 Pager [phone] Associated attestation - Gio Roe MD - 03/08/2019 3:56 PM PDT. I saw the patient and reviewed and verified all information documented by the medical stud ent and resident, and made modifications to such information, when appropriate Gio Roe M.D. [facility] ([facility]) Professor and Vice-Medical Sales Associate of Surgery [employer] for Pancreatic Disease Research [facility] [place] Cell phone: [phone] / [facility] provider's line [phone]. email: [email or web address] Kortney Russo MD - 03/07/2019 8:50 PM [...] medial edge of dressing Date 03/06/192299 - 03/07/19 0603/07/19 07 - 03/08/19 0659 Shift 3049-5957 24 Hour Total 4427-1954 6542-9578 8677-9550 24 Hour Total I N T A [...] (or 3 results) - Refreshable Recent Labs 03/06/19 191203/07/19 0746 WBC 4.08 4.85 HB 10.5* 10.8* [...] file for this patient. Kortney Russo MD icho Rimma low [facility] - 03/07/2019 12:02 PM PDTINTERVENTIONAL RADIOLOGY POST [...] IR ATTENDING: Dr Sharma IR FELLOW: Dr Knight IR PA: ACCESS: percutaneous MEDICATIONS: Fentanyl 25 mcg IV Versed 0.5 mg IV COMPLICATION(S): None immediate ESTIMATED BLOOD LOSS: minimal FINDINGS: 1. Yellow colored fluid aspirated - a total of 800 ml . Sample sent to lab 2. Keep drain to gravity bag Full dictated report forthcoming, which can be found under the imaging tab in Epic. ALEXY De Jesus [facility] Rimma Diaz [facility] - 03/07/2019 11:03 AM PDTPre-procedure evaluation [...] LOS: 1 day ) Attending Provider: Gio Roe MD Interval History and Events: -febrile to [...] Intake/Output 03/05 701 - 03/06 0700 03/06 0703/07 0700 I.V. 65 IV Piggyback 460 Total [...] Jarrett Barrios MD General Surgery PGY-1 Pager [phone] Associated attestation - Gio Roe MD - 03/07/2019 7:11 AM PDT I saw the patient and reviewed and verified all information documented by the medical stud ent and resident, and made modifications to such information, when appropriate Gio Roe M.D. [facility] ([facility]) Professor and Vice-Medical Sales Associate of Surgery [employer] Panc[employer]ic Disease Research [facility] [place] Cell phone: [phone] / [facility] provider's line [phone]. email: [email or web address] documented in this encounter H&P Notes Ulysses Rondon Jr., MD - 03/08/2019 4:18 PM PDTFormatting of this note might be differe nt from the original. PRE PROCEDURE NOTE: MR# [id number] Subjective: Monserrat Marrufo is a 73 y.o. female who presents today for bile leak post operativ e. Patient History Reviewed Medications reviewed Allergies: Allergies as of 03/06/2019 - Fully Reviewed 03/06/2019 Allergen Reaction Noted Codeine Unknown 03/06/2019 Penicillin Unknown 03/06/2019 Pt NPO for 8 hrs. ROS: All others negative. Objective: Vital Signs: BP 156/74 (BP Location: Right upper arm, Patient Position: Lying on back) | P ulse 104 | Temp 37.2 C (99 F) | Resp 16 | Wt 78.1 kg (172 lb 3.2 oz) | SpO2 94% Neuro: Patient oriented X3. Mental status clear and intact Mallampati Score: III Neck Neck supple. No adenopathy Respiratory: Lungs clear to auscultation bilaterally with good air exchange Cardiovascular: PMI normal. No lifts, heaves, or thrills. RRR. No murmurs, rubs or gallops Abdomen: soft, normal active bowel sounds, nontender, no masses, no organomegaly Impression Patient deemed appropriate candidate for planned procedure and sedation. ASA:3 Plan Proceed with ERCP All risks, benefits and alternatives discussed with the patient and patient wishes to proce ed, consent obtained. See procedure note 03/08/2019 Zaid Daly DO - 03/06/2019 6:33 PM PDT DEPARTMENT OF SURGERY Blue Surgery History and Physical Patient: Monserrat Marrufo ([id number]) Date: 03/06/2019 Chief Complaint: Possible post lap cholecystectomy biloma History of Present Illness: Obtained from chart review and patient interview. 73 year old female with worsening dementia, recent laparoscopic cholecystectomy presenting as a transfer from [facility] ([facility]) with possible biloma. Patient initially presented to OSH with abdominal pain, work up revealed a [...] for biloma. She was then transferred to [facility] for next level of care. Upon arrival to [facility], patient was very somnolent and hard to arouse, requiring 4L by NC. 0. 2 mg of narcan was administered with improvement in alertness. Patient disoriented, difficul t to determine baseline. Will attempt to contact family, although no contact was listed in p aper work. Compact Disk containing her CT images was handed to radiology for upload to our s ystem. She complains of minimal RUQ pain. PMH: diverticulosis, PAD, HTN, hypothyroid PSH: right toal knee replacement, cataracts and bilateral tubal ligation, lap cholecystecto my 02/2019 Allergies Allergen Reactions Codeine Unknown Possible GI Upset. Penicillin Unknown Family History mon had diabetes Social History Social History Marital status: Spouse name: N/A Number of children: N/A Years of education: N/A No tobacco use One EtOH drink per week Estelita Imtiaz is primary care provider -Aristides , no cell phone Son-Aristides [phone] Review of Systems: Unable to obtain BP 124/50 (BP Location: Left upper arm, Patient Position: Lying on back) | Pulse 83 | Tem p 37.3 C (99.1 F) | Resp 16 | SpO2 92% General: initially somnolent, now more alert after narcan HEENT: Nc/at, pupils initially pin point, now round and reactive, dry mucous membranes. Resp: on 4 L NC, non labored CV: tachy to 120s, regular Abd: soft, mildly distended, diffusely tender to palpation with guarding, incisions c/d/i : deferred Extremities: wwp Neuro: somnolent Mental Status: alert to verbal, oriented x 0 Data Recent Labs 03/06/19 1913 WBC 4.08 HB 10.5* HCT 31.7* PLT 219 CMP pending Assessment and Plan: 73 year old female with hx of HTN, hypothyroid, dementia, acute cholecystitis s/p laparosco pic cholecystectomy presenting with intra abdominal fluid collection most consistent with bi josette. Patient is somnolent upon arrival but responding to narcan. She is tachycardic but afe brile with a wbc of 4.08. Appears to be volume down. -NPO -IVmF with bolus -labs: cbc, cmp, INR -IV abx w/cefepime, flagyl -blood cultures x 2 -minimize narcotics -GI consult for possible ERCP -IR consult for possible drain placement [place] [phone] Associated attestation - Gio Roe MD - 03/07/2019 7:09 AM PDT I saw the patient and reviewed and verified all information documented by the medical stud ent and resident, and made modifications to such information, when appropriate Gio Roe M.D. [facility] ([facility]) Professor and Vice-Medical Sales Associate of Surgery [employer] Chair for Pancreatic Disease Research [facility] [place] Cell phone: [phone] / [facility] provider's line [phone]. email: [email or web address] documented in this encounter Procedure Notes Ulysses Rondon Jr., MD - 03/08/2019 5:04 PM PDTAssociated Order(s): ERCPProcedure(s): E RCPPre-Procedure Diagnose(s): Bile leakPost-Procedure Diagnose(s): Bile leakGastroenterology Post-procedure Note Patient was submitted to ERCP with sphincterotomy and stent placement successfully. Garcia Findings: No active extravasation seen during injection but pooling seen over time Sphincterotomy 10F x 10 cm plastic stent placed Recommendations: 1. Repeat ERCP in 6 weeks 2. Clear liquid diet Please refer to procedure report under the results tab for the full details. Ulysses Rondon MD documented in t his encounter Consult Notes John Neumann PharmD - 03/07/2019 4:23 PM PDT Pharmacy Services: Admission Medication Reconciliation Prior to Admission Medications: Prescriptions Prior to Admission Medication Sig Dispense Refill Last Dose amLODIPine 5 mg oral tablet Take 5 mg by mouth once daily. atorvastatin 20 mg oral tablet Take 20 mg by mouth once daily. levothyroxine 88 mcg oral tablet Take 88 mcg by mouth before breakfast. lisinopril 20 mg oral tablet Take 20 mg by mouth once daily. meloxicam 15 mg oral tablet Take 15 mg by mouth once daily. ondansetron ODT 4 mg oral tablet,disintegrating Dissolve 4 mg on tongue and swallow ruddy ry eight hours as needed. pantoprazole 40 mg oral tablet,delayed release (DR/EC) Take 40 mg by mouth once daily. The above list reflects the patient's prior to admission medication use and is complete and accurate to the best of my knowledge. Source of Medication Information: Pharmacy Reliability: Reliable All questions concerning medications, including OTC and herbal products, were addressed. For questions regarding this information please contact pharmacy ThanksJohn PharmD Clinical Pharmacist [facility] [place] Department of Pharmacy, CR 9-4 [address] [facility]. [place] [address] Pager: [phone] Cecile Silva M D - 03/07/2019 8:22 AM PDTAssociated Order(s): IP CONSULT TO GASTROENTEROLOGY Gastroenterology Consult Note 03/07/2019 REASON FOR CONSULT: ?biloma IMPRESSION Monserrat Marrufo is a 73 woman with dementia, s/p lap jethro on 03/05/19 with complications of mod erate bleeding in the surgical bed, an intraoperative cholangiogram was aborted due to diffi cult dissection and bleeding. She is transferred from [place] for continued abdominal pain and failure thrive and minimal PO intake. She has a fluid collection around cystic bed surr ounding the L lobe of the liver concerning for biloma. Currently on cefepime and flagyl. IR will be placing a drain into the collection today. This may not be a persistent leak and if the drainage output suggests this, then we can consider ERCP for biliary stent to decompress the biliary system. RECOMMENDATIONS 1) Agree with IR drainage of the fluid collection 2) monitor the drainage output for several days and if there continues to be persistent el evated amounts of bile coming from the drain we can then consider ERCP for biliary stenting to decompress the biliary tree Thank you for this consult; we will sign off please call us back if the drainage continues to be high over a few days and appears bilious. This plan was discussed and formulated with the gastroenterology attending, Dr. Lynnette Zambrano MD Gastroenterology Fellow GI Pager [phone] HISTORY OF PRESENT ILLNESS Monserrat Marrufo is a 73 woman with dementia, s/p lap jethro on 03/05/19 with complications of mod erate bleeding in the surgical bed, an intraoperative cholangiogram was aborted due to diffi cult dissection and bleeding. She is transferred from [place] for continued abdominal pain and failure thrive and minimal PO intake. She has a fluid collection around cystic bed surr ounding the L lobe of the liver concerning for biloma. Currently on cefepime and flagyl. IR will be considering placement of drain into the fluid collection today. Denies abdominal pain, feels mildly bloated. Passing gas. REVIEW OF SYSTEMS ROS See HPI PAST MEDICAL HISTORY Past Medical History: Diagnosis Date Dementia Diverticulosis HLD (hyperlipidemia) HTN (hypertension) PAD (peripheral artery disease) (HCC) FAMILY HISTORY Family History Problem Relation GI problems Neg Hx SOCIAL HISTORY Social History Social History Marital status: Spouse name: N/A Number of children: N/A Years of education: N/A Social History Main Topics Smoking status: Not on file Smokeless tobacco: Not on file Alcohol use Not on file Drug use: Unknown Sexual activity: Not on file Other Topics Concern Not on file Social History Narrative No narrative on file OUTPATIENT MEDICATIONS None INPATIENT MEDICATIONS acetaminophen (TYLENOL) tablet 650 mg, 650 mg, oral, Q4H PRN bisacodyl (DULCOLAX) suppository 10 mg, 10 mg, rectal, DAILY PRN ceFEPIme (MAXIPIME) injection 1 g, 1 g, intravenous, Q8H lactated ringers IV, 75 mL/hr, intravenous, CONTINUOUS metroNIDAZOLE (FLAGYL) IV 500 mg, 500 mg, intravenous, Q8H naloxone (NARCAN) injection 0.2 mg, 0.2 mg, intravenous, PRN polyethylene glycol (MIRALAX) packet 34 g, 34 g, oral, TID PRN senna-docusate (SENOKOT S) 8.6-50 mg 1 tablet, 1 tablet, oral, BID ALLERGIES: Allergies Allergen Reactions Codeine Unknown Possible GI Upset. Penicillin Unknown PHYSICAL EXAM BP 161/83 (BP Location: Left upper arm, Patient Position: Lying on back) | Pulse 112 | Te mp 37.3 C (99.1 F) | Resp 18 | SpO2 95% : Systolic (24hrs), Av , Min:124 , Max:16 5 / Diastolic (24hrs), Av, Min:50, Max:87 Pulse Av.3 Min: 83 Max: 121 Temp Av.5 C (99.5 F) Min: 36.6 C (97.9 F) Max: 38.8 C (101.8 F) Resp Av.5 Min: 16 Max: 22 SpO2 Av.1 % Min: 92 % Max: 95 % GEN: NAD, alert, not fully oriented, needs son to help interpret questions HEENT: MMM, sclera anicteric COR: RRR, no murmur/rubs/gallops PULM: CTAB ABD: soft nontender EXT: warm and well perfused, no edema SKIN: no rashes, no jaundice NEURO: CN2-12 grossly intact, non-focal neuro exam LABS Recent Labs 03/06/191912 WBC 4.08 HB 10.5* HCT 31.7* PLT 219 Recent Labs 03/06/191912 NA 139 K 3.4 CL 106 BICARB 25 BUN 16 CR 0.67 CA 7.8* MG 1.9 No components found for: INR No results found for: FERRITIN Liver Tests: Last 72 hours (or 3 results) Recent Labs 03/06/19 1913 AST 21 ALT 27 TBILI 0.9 AP 63 ALB 1.7* TP 5.3* Associated attestation - Tatum Church MD - 03/07/2019 8:43 PM PDT Attending Attestation: We visited patient's room but she was off the floor for further testing. Unable to personal ly interview or examine the patient. I personally formulated the assessment and plan with Dr. Zambrano on 03/07/19. See Dr. Zambrano's no te for further details. Tatum Church MD Wire Brusherprincipal associate Department of Gastroenterology [facility] DEPARTMENT: - [phone] Place of Service: [id number] - [facility] CSN: [id number] Suggested Modifiers: GC - Resident Involved Suggested Level of Care: 38871 (<15 minutes)Darrick Ferris MD - 03/06/2019 8:37 PM PDT Associated Order(s): IP CONSULT TO INTERVENTIONAL RADIOLOGY Interventional Radiology Consult Note INTERVENTIONAL RADIOLOGY CONSULTATION Consult Date of Service: 03/06/2019 Requesting Provider: Gio Roe MD Interventional Radiology Attending: Parveen Feng MD, PhD Reason for Consult: Intraperitoneal drain placement ( Patient Location: 10A (Room 24/1) Assessment: 73 y.o. female PMHx dementia presenting as transfer from OSH s/p recent laparoscopic cholec ystectomy with possible biloma. Labs (03/06/19): WBC 4.1 Hct 31.7 Platelets 219 INR 1.47 Cr 0.67 Imaging: Outside CT 03/06/19 reviewed. Changes of cholecystectomy with non-rim enhancing homogeneously hypoattenuating epigastric collection extending from the gallbladder fossa measuring up to 15.0 x 7.6 cm in greatest di mensions. Findings are most consistent with biloma. Allergies: Codeine Penicillin Recommendation: Given stability, patient will be presented in morning rounds on 03/07/19 with consideration f or: -Drain placement for biloma -Aspiration of contents with sample sent to lab for further evaluation NPO at midnight in anticipation of possible procedure HPI: 73 yo female PMHx dementia, PAD, HTN, hypothyroidism transferred from OSH s/p recent laparo scopic cholecystectomy possibly complicated by biloma. The patient initially presented to the OSH with complaints of abdominal pain, the workup fo r which revealed an elevated WBC (12) and CT findings reportedly concerning for acute cholec ystitis. The patient subsequently underwent laparoscopic cholecystectomy on 02/21/19, which w as complicated by moderate bleeding near the liver edges, the bleeding from which led to the of an intraoperative cholangiogram. The patient's recovery post-surgery was slow with low urine output and minimal PO intake do cumented on POD #3. Subsequent CT scan performed 03/06/19 demonstrated findings concerning for biloma. She was thus transferred to [facility] for next level of care. Upon arrival to [facility], patient was very somnolent and hard to arouse, requiring 4L by NC. Na rcan 0.2 mg was administered with improvement in alertness. However, the patient remains no t consentable. Thus, consent was obtained in person from the patient's , Aristides Marrufo. ROS: The review of systems performed was negative except as per HPI. Current Medications: Medications Continuous Medication Dose/Rate, Route, Frequency Last Action lactated ringers IV 75 mL/hr, 75 mL/hr, IV, CONTINUOUS New Ba03/06 1842 Scheduled Medication Dose/Rate, Route, Frequency Last Action ceFEPIme (MAXIPIME) injection 1 g 1 g, IV, Q8H Ordered metroNIDAZOLE (FLAGYL) IV 500 mg 500 mg, IV, Q8H Ordered senna-docusate (SENOKOT S) 8.6-50 mg 1 tablet 1 tablet, oral, BID Ordered PRN Medication Dose/Rate, Route, Frequency Last Action acetaminophen (TYLENOL) tablet 650 mg 650 mg, oral, Q4H PRN Ordered bisacodyl (DULCOLAX) suppository 10 mg 10 mg, rect, DAILY PRN Ordered naloxone (NARCAN) injection 0.2 mg 0.2 mg, IV, PRN Given: 03/06 1947 polyethylene glycol (MIRALAX) packet 34 g 34 g, oral, TID PRN Ordered Allergies: Allergies Allergen Reactions Codeine Unknown Possible GI Upset. Penicillin Unknown Past Medical History: No past medical history on file. There are no active problems to display for this patient. Surgical History: No past surgical history on file. Social History: Social History Substance Use Topics Smoking status: Not on file Smokeless tobacco: Not on file Alcohol use Not on file Family History: Not on file Last 24 hour min/max Temp: 37.1 C (98.8 F) Temp Min: 37.1 C (98.8 F) Max: 37.3 C (99.1 F) Pulse: 108 Pulse Min: 83 Max: 118 Resp: 16 Resp Min: 16 Max: 16 BP: 141/75 BP Min: 124/50 Max: 141/75 SpO2: 93 % SpO2 Min: 92 % Max: 93 % There is no height or weight on file to calculate BMI. Physical Examination: General: somnolent, comfortable in bed, NAD Neuro: CN 2-12 grossly intact HEENT: no scleral icterus Neck: supple, nontender, no cervical adenopathy Pulmonary: CTAB, breathing nonlabored Cardiac: RRR, no murmurs, rubs, or gallops Abdomen: soft, ND, normoactive BS, no guarding or rigidity Skin: warm & dry, no jaundice Extremities: BLE no edema; warm, dry Date 03/05/192299 - 03/06/19658(Not Admitted) 03/06/19699 - 03/07/19 0659 Shift 5315-2792 24 Hour Total 4210-6935 6164-7493 1744-5519 24 Hour Total I N T A K E I.V. 20 20 Shift Total 20 20 O U T P U T Urine 150 150 Shift Total 150 150 Weight (kg) Date 03/06/19699 - 03/07/19 0659 Shift 2728-1104 0433-3060 3432-6617 24 Hour Total I N T A K E I.V. 20 20 Shift Total 20 20 O U T P U T Urine 150 150 Shift Total 150 150 Weight (kg) Labs: Lab Results Component Value Date WBC 4.08 03/06/2019 HB 10.5 03/06/2019 HCT 31.7 03/06/2019 PLT 219 03/06/2019 MCV 88.5 03/06/2019 RDW 46.0 03/06/2019 Lab Results Component Value Date NA 139 03/06/2019 K 3.4 03/06/2019 CL 106 03/06/2019 BICARB 25 03/06/2019 BUN 16 03/06/2019 CR 0.67 03/06/2019 GLU 137 03/06/2019 CA 7.8 03/06/2019 AST 21 03/06/2019 ALT 27 03/06/2019 AP 63 03/06/2019 TBILI 0.9 03/06/2019 TP 5.3 03/06/2019 ALB 1.7 03/06/2019 ANIONGAP 8 03/06/2019 ANIONALBCOR 13 03/06/2019 No results found for: APTT, FIBRINOGEN Lab Results Component Value Date INRPT 1.47 (H) 03/06/2019 Imaging: Independent review of outside CT dated 03/06/19: -As above MD Darrick Menendez MD Tdocumented in this encounter Miscellaneous Notes Plan of Care - Dorothy Sinha RN - 03/10/2019 12:42 PM PDTPatient Education Materials: AVS. D iet and activity restriction, medications, and f/u appt reviewed w/ pt and family. Pt and mell wright verbalized understanding. Additional Instructions: L wrist PIV removed w/o difficulty. No meds held w/ pharmacy, no i tems in hospital safe. Pt reports L hearing aid missing - lost item investigation form fille d out. Pt dc home w/ all other belongings - escorted w/ staff assistance, transported home b y family. Discharge Nurse: Dorothy Sinha RN Date: 03/10/2019 Discharge Time: 12:56 PM andoff - Jessica Ribeiro RN - 2019 7:00 PM PDTNursing Handoff Patient Daily Goal: RN will aim to keep Monserrat comfortable throughout the night (2007) [facility] IP NURSE HANDOFF: Garcia hospital course events: 73 year old female with worsening eboni ia, recent laparoscopic cholecystectomy presenting as a transfer from [facility] ([facility]) with possible biloma. 03/06 [facility], patient was very somnolent and hard to arouse, requiring 4L by NC. 0.2 mg x2 of n arcan was administered with improvement in alertness. Patient disoriented, difficult to dete rmine baseline. 03/07 pt pulled lines and abbott cath out. Sitter in place 03/07 IR for drain placement, VMT initiated 03/08 ERCP RESTORATIVE MEASURES/SELF-MANAGEMENT Patient/Family Target: Monserrat will have BM by end of shift Progress to Target: Improving As evidenced by: Monserrat was feeling "bloated" this morning and reported feeling like she needed to have BM. S he also reported abdominal pain once as well, reduced with tylenol and heat pack. Speech joseph l completed this shift and diet advanced. Senna administered, fluids encouraged, activity en couraged. Monserrat was able to have a BM this shift (incontinent), and reported feeling much bett er following. NURSING ASSESSMENT & RECOMMENDATIONS FORWARD Nursing Assessment of Patient Stability Risk: Moderately stable Recommendations Forward: -Monitor biliary drain output -Continue incontinence care, Monserrat's mentation has improved and she is now reporting when she has voided/had BM and needs a brief change. Blanchable redness to buttocks. Encouraged tur ns frequently and Monserrat was able to get turned to side with minimal assistance. -Encourage family presence at bedside -Speech eval cleared [place] for Reg diet, thin liquids. No evidence of aspiration. -Continue remote pulse ox; currently weaned down to 1L NC -Trial off VMT tonight? Barriers to discharge: -Possible DC tomorrow? Per Case management, MD team will decide by 1 2pm if pt will DC tomorrow to allow time for family to come for a ride home lan of Care - Kel Moleler CCC-MANDARIN CHINESE TEACHER - 2019 10:21 AM PDTFormatting of this note might be different fro m the original. Speech Language Pathology - DYSPHAGIA Evaluation [id number] MONSERRAT MARRUFO Date of : 1945 Referring/Attending Practitioner: Gio Roe MD Primary/Referral Diagnosis/ICD-9: K91.89, K83.8 Bile leak, postoperative Insurance: Payor: [employer] / Plan: [employer] PPO / Product Type: PPO / Service period from: 03/09/19 to:06/07/2019 (90 day period) Time in: 0830 Time out: 0900 Pt was seen for dysphagia evaluation with one on one skilled therapy. Medical Course: "Monserrat Marrufo is a 73 y.o. female withHTN, hypothyroidism and dementia wh o transferred after a recent laparoscopic cholecystectomy c/b biloma s/p drain on 03/07. HIDA scan with ongoing bile leak" - Dr. Barrios (03/08/19) Previous Medical History: Past Medical History: Diagnosis Date Dementia Diverticulosis HLD (hyperlipidemia) HTN (hypertension) PAD (peripheral artery disease) (HCC) Orders received for swallow evaluation due to aspiration risk. PLOF: No history of dysphagia, per patient/family. Regular diet at home. Current Diet: Clear liquid diet pending [employer] CHINESE TEACHER evaluation. Pt's participation during today's bedside swallow evaluation was good. Pt was positioned upright in bed. Pain was not reported or evident.. Respiratory status: Stable on 1L via nasal cannula. Cognitive Status: Awake/alert. Oriented to self/time, however not to place/situation (thoug ht she was still in [place]). Delirium vs sedation recovery? Oral Mechanism Examination: Spouse reports that MD in [place] identified patient as havi ng "hairy tongue," however now appears resolved. Adequate dentition for mastication. Face sy mmetrical at rest, with functional orofacial range of motion. Functional mandibular range of motion. Lingual elevation, depression, protrusion, and lateralization all within functional limits. Velum symmetrical. Vocal quality mildly weak/breathy. Somewhat weak volitional coug h. No imprecision or distortions noted in conversational speech. Presentations: Assessed with 5 oz thin liquids (including large, sequential sips) via stra w, puree x2 bites, mechanical soft x1 bite, dry solid x5 bites. Feeding: Patient independent. Oral Phase: Adequate bolus acceptance and labial seal. Mildly prolonged bolus preparation/ transit, complete clearance. Pharyngeal Phase: Timely swallow initiation. Delayed cough following all trials (per spous e, this is consistent with baseline, does not worsen with PO). No other coughing, throat-anabell aring, wet vocal quality, or other clinical signs/symptoms of aspiration noted at bedside. Education: Focus this session to patient and family includes aspiration precautions. Educat ion Outcome: Patient able to demonstrate precautions. The patient has good rehabilitation potential to achieve stated goals (see Care Plan for go als) and requires continued rehabilitation services, given the patient's medical condition i s such that the skills of a therapist are required for monitoring and adjustment of interven tions, specifically dysphagia intervention. Impressions: Patient presents with mild oral dysphagia in setting of altered mental status characterized by mildly prolonged bolus preparation/transit and timely swallow initiation, with no clinical signs/symptoms of aspiration appreciated today at bedside. Recommend advanc ing to regular solids with thin liquids, as tolerated. Problem: MANDAR[employer] CHINESE TEACHER Goals- Adult Goal: Dysphagia Goal Outcome: Goal partially met Goals: Patient will tolerate least restrictive diet without clinical signs/symptoms of aspi ration. Swallowing - LEVEL 6: Swallowing is safe, and the individual eats and drinks independently and may rarely require minimal cueing. The individual usually self-cues when difficulty occu rs. May need to avoid specific food items (e.g., popcorn and nuts), or require additional ti me (due to dysphagia). Recommendations: DW patient's nurse, with page to #[id number] Advance to REGULAR solids with THIN liquids, as tolerated -set-up assistance/intermittent supervision -upright 90 degrees for all PO -small bites/sips -slow rate -alternate liquids and solids -d/c PO for s/sx aspiration (increased cough, decreased resp status, increased temp) DISCHARGE RECOMMENDATIONS: Continue MANDARIN CHINESE TEACHER services in-house and at next level of care Plan: Initiate MANDARIN CHINESE TEACHER 3x/week Kel Hutchinson MS, CF-MANDARIN CHINESE TEACHER Pager: [phone] andoff - Cally Cardoza RN - 03/08/2019 6:47 PM PDTNursing Handoff [facility] IP NURSE HANDOFF: NURSING ASSESSMENT & RECOMMENDATIONS FORWARD Nursing Assessment of Patient Stability Risk: Moderately unstable Recommendations Forward: ERCP today - pt currently recovering from sedation Remains NPO Worked with PT/OT today - continue to encourage mobility Barriers to discharge: Nutrition (needs to see MANDARIN CHINESE TEACHER), mobility lan of Care - Raymond Moreno, PT - 03/08/2019 3:31 PM PDTFormatting of this note might be different from the sanket jenkins Physical Therapy Treatment Note [id number] MONSERRAT MARRUFO Date of : 1945 Start of care: 03/06/2019 Attending Practitioner: Gio Roe MD Primary/Referral Diagnosis/ICD-9: K91.89, K83.8 Bile leak, postoperative Insurance: Payor: [employer] / Plan: [employer] PPO / Product Type: PPO / 03/08/2019 to 06/06/2019 Time in: 1104 Time out: 1130 Patient was seen for a total of 26 minutes of direct one on one skilled physical therapy wh ich included 26 minutes of therapeutic activity. Patient seen on 10A Hospital Day: 2 Present throughout session besides patient and therapist: n/a Brief Hospital Course: Monserrat Marrufo is a 73 y.o. female who was admitted on 03/06/2019 withH TN, hypothyroidism anddementia who transferred after a recent laparoscopic cholecystectomy c/b biloma. (from Jarrett Barrios MD) Status Update: ECRP today Relevant Precautions: Abdominal, fall risk, dementia Subjective: patient was agreeable to participate in PT Pain: reported to have some pain, did not demonstrate pain distress with all mobility/10. Vital signs: appropriate per observation with all mobility, denied feeling dizzy/lightheade d with all mobility. OBJECTIVE: - At the beginning of PT session patient was supine in bed. - supine to sit at the edge of bed x minimal assistance via log roll - seated rest - sit to stand from edge of bed x front wheel walker x contact guard assistance x cues for appropriate hand placement - ambulated 120 feet with front wheel walker x contact guard assistance, ambulated posterio r to her front wheel walker, with increased gait speed and decreased safety awarenes, with n arrow base of support and normalized heel to toe progression. - stand to sit into a tall back chair x front wheel walker x minimal assistance for eccentr ic control and verbal feedback for appropriate hand placement All mobility on 2L of O2, patient with 95% SpO2. - Education about pain and mobility: if any pain with mobility, then the need to participat e in mild to moderate pain levels only; and, only if pain is manageable. - Education about the need for front wheel walker and assistance when in the hospital. ASSESSMENT: Patient with good mobility progression, more awake then yesterday able to ambulate longer d istances in the hallway, she continues to be oriented to self and place only, and demonstrat ed decreased safety awareness with gait requiring contact guard assistance in order to preve nt loss of dynamic upright postural control. Patient continues to require ongoing acute care skilled Physical Therapy. Pt was seated in a chair at the end of PT tx, RN aware, call kmi daugherty, all needs met, mell wright in the room. Plan for next PT session: Gait with front wheel walker, safety awarness ACTIVITY PLAN FOR NURSING: *re-assess per shift as needed* 1) Patient to ambulate 3x per day with front wheel walker and contact guard assistance. 2) Patient to sit up in a chair 3 x per day for as long as tolerated, transfer with front wheel walker and contact guard assistance for postural control. 3) Keep blinds up for natural light in the room. --Thank You-- DISCHARGE RECOMMENDATIONS: 24 hour skilled care EQUIPMENT NEEDS: defer Should this patient discharge from the hospital prior to next physical therapy treatment th is note is to serve as the discharge summary. JOSY ZACARIAS, PT Pager: [phone] Problem: PT Goals- Adult Goal: Functional Mobility Goal - Patient will be stand by assist with all bed mobility via log roll. - Patient will be able to perform transfers with front wheel walker from/to edge of bed x stand by assist - Patient will be stand by assist with gait with front wheel walker x 150 feet. - Patient will demonstrate safety with static and dynamic postural control with all mobili ty. - Patient will verbalize and demonstrate understanding of abdominal precautions with all f unctional mobility. Outcome: Gradual progress toward goal lan of Care - Yunier Warner, EMMA - 03/08/2019 3:07 PM PDTFormatting of this note might be different from the jhony ginal. Occupational Therapy Evaluation [id number] MONSERRAT MARRUFO Date of : 1945 Start of care: 03/06/2019 Date of onset: 03/06/2019 Referring/Attending Practitioner: Gio Roe MD Primary/Referral Diagnosis/ICD-9: K91.89, K83.8 Bile leak, postoperative Insurance: Payor: [facility] MEDICARE / Plan: [employer] PPO / Product Type: PPO / Service Period: 03/08/2019 to 04/07/2019 03/08/2019 3:07 PM Time in: 1415 Time out: 1504 Pt admitted on 03/06/2019, hospital day # 2. Seen on 10A Brief Hospital : * Monserrat Marrufo is a 73 y.o. female who was admitted on 03/06/2019 withHTN , hypothyroidism anddementia who transferred after a recent laparoscopic cholecystectomy c/b biloma. (from Jarrett Barrios MD) Relevant Precautions: Abdominal, fall risk, dementia Indication for Occupational Therapy Consult: Skilled OT services provided to evaluate/reas sess current level of function and treat for barriers to participation and performance in AD L/IADL; through remediation, adaptive strategies, education of patient and caregivers for in creased safety and independence, to attain patient/caregiver goals and most appropriate disc harge planning. Past Medical History: Diagnosis Date Dementia Diverticulosis HLD (hyperlipidemia) HTN (hypertension) PAD (peripheral artery disease) (HCC) No past surgical history on file. Occupational Profile Reported by Patient, Spouse/significant other (Aristides) and Family Present in Session: spouse, son Aristides and daughter in law- RN intermittently Prior level of function for ADLs: independent with all ADLs but sometimes spouse helps wit h fasteners and transfers into shower- assists with shopping, cooking and medication management Preexisting body functions/structures/psychosocial concerns: See medical history Home environment: Home type: single level house. Lives with: Spouse Steps into home: yes - 3 Bath setup: tub and tub shower, shower has grab bars and bench Equipment: 1st pressman, sock aid, long-handled sponge and FWW Assistance available at home: Spouse and Family could provide intermittent assist at keo e- reports that he can be there 24 hours a day and is not usually gone more than a f ew hours Driving: no Habits, values, beliefs, roles, leisure: clean house, cooking, spending time with family, mother, grandmother- likes to go for walks and usually very active per daugther Fall history: no Pt/family occupational goals: get stronger and back home with family Pain: denies pain Vital signs: See nursing flowsheet Cognitive Screen Level of alertness: Alert, distant Orientation: ox2 (did not recall date or why she was here) Quality of responses: Appropriate 75% of the time, some delay, and confusion of requests Command following: Appropriate 75% of the time, some delay, and confusion of requests- mod verbal cues and some tactile cues for mobility Memory: Impaired, dementia Judgement / safety awareness: Decreased insight and safety awareness Attention / Concentration: Needs cues to attend and redirect Barriers to Learning: Dementia, hard of hearing, mild confusion, low vision Affect: blunted Confusion Assessment Method (CAM): neg Delirium Risk: low Visual Perception: Hard hard time following visual cues Uses Glasses: Yes all the time but glasses are not onsite- lifeflighted Diplopia: No Perception: Intact: able to visually locate various items in environment Nystagmus: None Upper ExtremityPhysical Assessment Dominant Hand: R ROM: within functional limits for basic ADL and transfers Strength: within functional limits for basic ADL and transfers 4/5 bilat Edema: none Skin Integrity: Intact with IVs Activity tolerance: low District Fire Management Officer: within functional limits for basic ADL and transfers Upper Extremity Sensation: Intact Muscle Tone: within normal limits Proprioception: Intact Gross Motor: Intact- some dysmetria (may be from low vision and lack of glasses) Fine Motor: Mild impairment Coordination: mild impaired bilateral use crossing midline and end target Activities of Daily Living: Based on observation of activity and/or functional reach, kervin nce and cognition LB Dressing: Mod-Max doffing/donning brief edge of bed- pt was able to reach down and pul l brief away when released and sit <> stand while OT placed new brief with front wheel walke r Pt performed own keisha care, with contact guard assistance, front wheel walker UB Dressing: minimum assistance UB Grooming: stand by assistance - oral care edge of bed Toileting: dependent with brief Ambulation with ADL: minimum assistance with front wheel walker Transfers: Supine < > sit edge of bed : minimum assistance verbal cues and tactile cues for initiatio n and sequencing Sit < >stand: contact guard assistance with front wheel walker from edge of bed 3 x Commode/chair: not assessed Dynamic balance: Seated: stand by assistance Standing: contact guard assistance with front wheel walker with standing dynamic active ra nge of motion crossing midline activity [facility] daily activity assessment [facility] DAILY ACTIVITY - How much help from another person does the patient currently need f or: Lower body dressing 2 - Alot Bathing 2 - Alot Toileting 1 - Unable to do/total assistance Upper body dressing 2 - Alot Personal grooming 3 - Little Eating meals 3 - Little [facility] Daily Activity Total Score 13 1 - Unable to do/total assistance = Total/Dependent Assist 2 - A lot = Maximum/Moderate Assistance 3 - A little = Minimal/Contact Guard Assist/Supervision 4 None = Modified independent/Independent Interpretation of [facility] Short Form Daily Activity: CMS Modifier (G-Code) Score (in points) % of Functional Impairment, Limitation, or Restriction CN 6 100% impaired, limited, restricted CM 7-9 At least 80%, but less than 100% impaired, limited, or restricted CL 10-14 At least 60%, but less than 80% impaired, limited, or restricted CK 15-19 At least 40%, but less than 60% impaired, limited, or restricted CJ 20-22 At least 20%, but less than 40% impaired, limited, or restricted CI 23 At least 1%, but less than 20% impaired, limited, or restricted CH 24 0% impaired, limited, or restricted Treatment provided this date: MD orders received, chart reviewed and occupational therapy evaluation completed. Patient was greeted supine, with family, and agreeable to evaluation and treatment that included: Education for importance of re-establishing daily ADL/IADL routines, for more effective rec overy and discharge planning to least restrictive environment. Collaborative plan of care development Abdominal precautions review-written on dry erase boardd, poor carry over, pt present Functional transfers ADL edge of bed (changing brief while standing), oral care while seated edge of bed- pt per formed keisha care - front) adaptive equipment preliminary discussion Pt participated in bilateral upper extremity gross motor coordination and fine motor coordi nation (grasping, releasing, manipulating objects) with sequenced, visual spatial tasks, whi le supine, seated and standing. Ended session: Patient was Left seated edge of bed with platform under feet, son sitting next to pt, call light within reach, nurse aware. Discussed getting Kirk bed for pt due to short legs. ASSESSMENT: MONSERRAT MARRUFO presents below baseline secondary to brief hosptial course listed above and is limited by fall risk, low vision, decreased endurance, abdominal precautions, diminished upper extrem ity active range of motion coordination, decreased functional mobility during ADL/IADL, decr eased activity tolerance, difficulty with activities of daily living and psychosocial factor s (dementia) Pt will continue to benefit from skilled occupational therapy services to provide remedial and compensatory strategies to maximize, engagement, safety, independence and performance wi th ADL/IADL participation. Activity/Environmental Plan: *Nursing to re-assess per shift as needed.* - Promote sleep/wake cycle, de-clutter room, increase lighting and open curtains during the day - Encourage active participation/independence with ADL tasks - Encourage out of bed/in chair activities 3x/day (i.e. For meals) Cognitive Pyramid Memory New Learning/Reasoning and Judgement level: ? Provide external orientation aids: utilize white board and cue correct date, place, situa tion, simple goals for the day ? For safe mobility: Raise awareness of possible fall hazards, demonstrate safety strategie s ? Provide assist to identify when problem is occurring, help generate possible solutions ? Focus on one activity or one person at a time ? Help patient to prioritize activities ? Provide immediate and objective feedback during the activity ? Anticipate need for frequent repetition for understanding ? Guide prioritization of top 2 goals for patient to focus on ? Acknowledge frustration as needed and address concerns in a timely manner ? Collaborate on plan for the day ? Problem solve collaboratively ? Safety: Reinforce fall strategies that are working ? Support patient s goals for ADL and mobility success ? Breakdown information into tasks/steps ? Help patient take ownership of things patient can do ? Discuss daily, seasonal events DISCHARGE RECOMMENDATIONS: 24 hour skilled care Problem: OT Goals- Adult Goal: Other Goal Outcome: Gradual progress toward goal Pt will be supervision with carryover for abdomoinal precautions during ADL participation Pt will be stand by assistance with grooming at sink with least restrictive device Pt will dress upper extremity with set up Pt will dress lower extremity with minimum assistance using adaptive equipment with occasio nal verbal cues Pt will be stand by assistance with toilet transfer with front wheel walker Pt will participate in purse lipped breathing during ADL to manage pain and anxiety Pt will be independent with bilateral upper extremity home exercise program for increased p articipation, performance and safety during ADL/IADL Pt will participate in cognitive evaluation for discharge planning Pt will have any durable medical equipment and adaptive equipment recommendations and sourc ing with hand outs PLAN: Provide patient and caregiver educational training on: Precautions + adaptive ADL strategies + home-environmental modifications + pain/anxiety man agement + energy conservation techniques + adaptive equipment and/or DME use + therapeutic e xercises + therapeutic activities + caregiver training + neuro-muscular re-education + sens ory integration + low vision strategies + cognitive skills Frequency: 3x/wk Duration: 2 Weeks Evaluation Complexity (HIGH): -Occupational profile and medical/therapy history is extensive. -Assessment identifies 5 or more performance deficits relating to physical, cognitive or ps ychosocial skills that result in activity limitation and/or participation restrictions. -Clinical decision making is of high analytic complexity and consideration of multiple drea tment options. Patient presents with comorbidities that affect occupational performance. Sig nificant modification of tasks or assistance is required to complete evaluation component. The above plan of care and goals were developed and reviewed with the patient. The skills o f this therapist are necessary to safely and effectively furnish a recognized therapy servic e whose goal is improvement of an impairment or functional limitation. Time in: 1415 Time out: 1504 Patient was seen for an OT evaluation and treatment for a total of 49 minutes of direct one on one skilled OT services, which included: - Therapeutic Activity: 19 minutes - ADL Trainin minutes LORETA Mahajan, OTR/L Pager [phone] signed by Yunier Warner OT at 03/08/2019 3:30 PM PDTPlan of Care - Yunier Warner OT - 03/08/2019 3:07 PM PDTProblem: OT Goals- Adult Goal: Other Goal Outcome: Gradual progress toward goal Pt will be supervision with carryover for abdomoinal precautions during ADL participation Pt will be stand by assistance with grooming at sink with least restrictive device Pt will dress upper extremity with set up Pt will dress lower extremity with minimum assistance using adaptive equipment with occasio nal verbal cues Pt will be stand by assistance with toilet transfer with front wheel walker Pt will participate in purse lipped breathing during ADL to manage pain and anxiety Pt will be independent with bilateral upper extremity home exercise program for increased p articipation, performance and safety during ADL/IADL Pt will participate in cognitive evaluation for discharge planning Pt will have any durable medical equipment and adaptive equipment recommendations and sourc ing with hand outs lan of [place] - Barbara Watts RD - 03/08/2019 11:50 AM PDTProblem: Nutrition Interventions Intervention: Food and nutrient distribution type or amount Pt NPO for procedure today, met with pt and family who report pt was eating well until 03/03 , ate a cup of chicken noodle soup on 03/04 at OSH and was drinking Ensure at OSH (per jeannie medrano pt drank a total of 5), stable weight per family. Rec: -Diet advancement per team -Please obtain and document current weight -Encourage PO intake as tolerated; small/frequent meals once diet is advanced -Offer Ensure compact once diet is advanced -Monitor electrolytes and replete prn -Culturelle probiotics; or Kiran's yogurt once diet is advanced Following Nutrition Dx: potential for inadequate intake related to current NPO status. Goals of care: Meet estimated calorie and protein needs, preserve lean muscle mass. Barbara Watts RD, CNSC, LD Pager # [phone] Comments: Monserrat Marrufo is a 73 y.o. female withHTN, hypothyroidism and dementia who transf erred after a recent laparoscopic cholecystectomy c/b biloma s/p drain on 03/07. HIDA scan wit h ongoing bile leak. UQ biloma drain placement 03/08 Plan for ERCP Diet: NPO BM: PIPE STRAIGHTENER Biliary drain: 850 ml Pert labs: Phos 1.9 Pert meds: cefepime, flagyl, senna, 30 mMol Na Phos 03/08 Ht: 62" (per family) Admit Wt: n/a, Wt per family: 72.7 kg BMI: 29.3 Estimated needs: 9917-7566 kcal/day (25-30 kcal/kg) and 73-109 gm protein/day (1-1.5 gm/kg) lan of [facility] - Leah Holbrook CCC-MANDARIN CHINESE TEACHER - 03/08/2019 10:00 AM PDTSpeech-Language Pathology Contact note: Chart reviewed, orders received, spoke with RN, patient not seen for the following reason: patient NPO for ERCP. MANDARIN CHINESE TEACHER will return as appropriate and as schedule permits. Afshan Holbrook MS, CCC-MANDARIN CHINESE TEACHER Speech-Language Pathologist Pager #[phone] andoff - Luigi Saunders RN - 03/08/2019 6:50 AM PDTNursing Handoff Patient Daily Goal: RN will aim to keep Monserrat comfortable throughout the night (2007) [facility] IP NURSE HANDOFF: Garcia hospital course events: 73 year old female with worsening eboni ia, recent laparoscopic cholecystectomy presenting as a transfer from [facility] ([facility]) with possible biloma. 03/06 [facility], patient was very somnolent and hard to arouse, requiring 4L by NC. 0.2 mg x2 of n arcan was administered with improvement in alertness. Patient disoriented, difficult to dete rmine baseline. 03/07 pt pulled lines and abbott cath out. Sitter in place SAFETY Patient/Family Target: Monserrat will remain safe from pulling at lines Progress to Target: Improving As evidenced by: -Monserrat's family stayed with her throughout the entire shift -VMT in place -Monserrat rested throughout the entire night & was easily redirectable to not touching her lines if she had her hands near them COMFORT/ANXIETY/BEHAVIOR Patient/Family Target: Monserrat will be able to sleep >6 hours Progress to Target: Improving As evidenced by: -At the beginning of the shift, Monserrat was lethargic & arousable to voice -Monserrat slept >8 hours during the night -Family reports that Monserrat is more coherent this morning & seems to be more like herself in r egards to her typical conversations -Family presence at bedside seemed to keep Monserrat much calmer while awake NURSING ASSESSMENT & RECOMMENDATIONS FORWARD Nursing Assessment of Patient Stability Risk: Moderately stable Recommendations Forward: -Monitor biliary drain output -Continue incontinence care every couple of hours; Monserrat does not say when she is wet or need s to be changed (foam dressing applied to bottom; red but blanchable) -Encourage family presence at bedside -Potential ERCP & speech evaluation scheduled for 03/08 -Continue remote pulse ox; currently weaned down to 2L NC Barriers to discharge: -Potential ERCP & speech evaluation today (5/3) andoff - Ayla Ribeiro RN - 03/07/2019 6:09 PM PDTNursing Handoff [facility] IP NURSE HANDOFF: Garcia hospital course events: 73 year old female with worsening eboni ia, recent laparoscopic cholecystectomy presenting as a transfer from OSH ([facility]) with possible biloma. 03/06 [facility], patient was very somnolent and hard to arouse, requiring 4L by NC. 0.2 mg x2 of n arcan was administered with improvement in alertness. Patient disoriented, difficult to dete rmine baseline. 03/07 pt pulled lines and abbott cath out. Sitter in place SAFETY Patient/Family Target: Monserrat will remain safe from pulling at lines Progress to Target: Improving As evidenced by: Monserrat was calm and cooperative this shift. She was disoriented to time and situation and wa s only able to state "hospital" for place. She was lethargic most of shift (drowsy but alway s arousable). Family reported they felt she was slightly more "perky" than prior day. Monserrat di d not pull at any lines with PSA at bedside so VMT was initiated and PSA discontinued. Famil y remains at bedside, however Monserrat has not bee seen pulling at any lines this shift. She did not attempt to get up without assistance at any point. NURSING ASSESSMENT & RECOMMENDATIONS FORWARD Nursing Assessment of Patient Stability Risk: Moderately stable Recommendations Forward: -febrile this shift, MD team aware -Incontinent, not aware of when she has voided. Check brief. -4L o2, remote pulse ox monitoring -Strict NPO (minimal swabs okay), speech eval tomorrow -Tongue very dry with brown discoloration. Swabs and suctions swabs provided today. Topical emollient applied to dry lips. Monserrat declined toothbrush and mouthwash multiple times when of fered reporting she was "too tired." Please encourage frequent oral care. MD team aware of b rown, dry tongue. -Monserrat got up OOB with PT, 2PA, walker. Per PT, Monserrat needed max assist. Continue Q2 turns in b ed until further PT can be provided -IR drain placed today 03/07 - to gravity -HIDA scan today 03/07 Barriers to discharge: -ERCP tomorrow per MD lan of Care - Josy Celso, PT - 03/07/2019 1:21 PM PDTFormatting of this note might be different from the origi nal. Physical Therapy Evaluation [id number] MONSERRAT MARRUFO Date of : 1945 Start of care: 03/06/2019 Attending Practitioner: Gio Roe MD Primary/Referral Diagnosis/ICD-9: K91.89, K83.8 Bile leak, postoperative Insurance: Payor: [employer]ARE / Plan: [employer] PPO / Product Type: PPO / 03/07/2019 to 06/05/2019 Time in: 1411 Time out: 1451 Patient was seen for a total of 30 minutes of direct one on one skilled physical therapy wh ich included 23 minutes of therapeutic activity. Patient seen on 10A Hospital Day: 1 Present throughout session besides patient and therapist: patient's Brief Hospital Course: Monserrat Marrufo is a 73 y.o. female who was admitted on 03/06/2019 with HTN, hypothyroidism and dementia who transferred after a recent laparoscopic cholecystectomy c/b biloma. (from Jarrett Barrios MD) Relevant Precautions: Abdominal, fall risk, dementia Indication for PT Evaluation: Decline in functional mobility Past Medical History: Diagnosis Date Dementia Diverticulosis HLD (hyperlipidemia) HTN (hypertension) PAD (peripheral artery disease) (HCC) No past surgical history on file. Living Environment: house Stairs to enter home: 3, with rail Stairs in the home: none Shower type: tub and walk in, no shower chair, no safety bars Lives with: who is retired and available DME: front wheel walker, walking sticks Prior Level of Function: independent with all mobility and all ADLs, per report, Beth martinez has been able to ambulate up to 1 mile. Denied history of falls over the past 3 months. Patient / Family Goal: to get better Communication: impaired Barriers: decreased level of alertness - somnolent to awake, flat/restricted affect, ineffe ctive listening, cognition Pain: reported to have discomfort in her abdomen and belly, but stated that it is fine. Vital signs: taken prior PT session Pulse Rate 104 bpm Blood Pressure 154/80 mm?Hg SpO2 97 % Amount O2 4 Lpm Cognitive Screen Level of alertness: somnolent to awake Orientation: self only Quality of responses: mostly appropriate to closed ended questions only; preferes to provi de yes/no answers Command following: appropriate to 1 step Judgment / safety awareness: impaired Physical Assessment ROM: within functional limits, bilateral lower extremities Strength: 4/5 into bilateral lower extremities flexion/extension Edema: none per observation Skin Integrity: biliary drain in midline abdomen Posture: within functional limits Neurological Function Sensation: not tested Muscle Tone: within functional limits Proprioception: not tested Gross Motor: within functional limits with bed mobility, transfers, gait Fine Motor: within functional limits, able to utilize call light/tv remote x independent x appropriate Balance: Static upright postural control: good when seated Dynamic upright postural control: fair with transfers and gait with front wheel walker Functional Balance Grades Normal Static: Patient able to maintain steady balance without handhold support Dynamic: Patient accepts maximal challenge and can shift weight easily within full range in all directions Good Static: Patient able to maintain balance without handhold support, limited postural sw ay Dynamic: Patient accepts moderate challenge; able to maintain balance while picking object off floor Fair Static: Patient able to maintain balance with handhold support; may require occasional minimal assistance Dynamic: Patient accepts minimal challenge; able to maintain balance while turning head/shamika nk Poor Static: Patient requires handhold support and moderate to maximal assistance to mainta in position Dynamic: Patient unable to accept challenge or move without loss of balance O Meli Wallace and Jesse Christiansen (2007). Physical rehabilitation: assessment and treatme nt (5th ed.). [place]: Heath Reyes [facility]. p.[phone] Functional Mobility Bed mobility: - supine (hob at 45 deg) to sit at the edge of bed via log x minimal assistance for postur al control safety - sit scoot x stand by assist - static sitting at the edge of bed x stand by assist; patient with slumped posture, lookin g down Transfers: - sit to stand/stand to sit from/to edge of bed with front wheel walker x minimal assistanc e x verbal and tactile cues for appropriate front wheel walker utilization Gait: - patient ambulated 30 feet with front wheel walker x continuous minimal assistance; ambula janiya with increased thoracic kyphosis, looking down, decreased step/stride length, and narrow base of support. She required continuous minimal assistance for dynamic upright postural co ntrol safety and appropriate device management; distance limited by decreased activity jen ance. Outcome Measure: [facility] BASIC MOBILITY Difficulty turning over in bed 3 - A Little - Minimal/Contact Guard Assist/Supervision Difficulty sitting/standing from chair w/ arms 3 - A Little - Minimal/Contact Guard Assist/ Supervision Difficulty moving from supine to sitting on edge of bed 3 - A Little - Minimal/contact Guar d Assist/Supervision Help needed moving from /to chair/wheelchair 3 - A Little - Minimal/Contact Guard Assist/S upervision Help needed walking in hospital room 3 - A Little - Minimal/Contact Guard assist/Supervisio n Help needed climbing 3-5 steps w/railing 1 - Unable to do/total assistance - Total/Dependen t Assist [facility] Basic Mobility Total Score 16 Interpretation of [facility] Short Form - Basic Mobility: CMS Modifier (G-Code) Score (in points) % of Functional Impairment, Limitation, or Restriction CN 6 100% impaired, limited, restricted CM 7-9 At least 80%, but less than 100% impaired, limited, or restricted CL 10-14 At least 60%, but less than 80% impaired, limited, or restricted CK 15-19 At least 40%, but less than 60% impaired, limited, or restricted CJ 20-22 At least 20%, but less than 40% impaired, limited, or restricted CI 23 At least 1%, but less than 20% impaired, limited, or restricted CH 24 0% impaired, limited, or restricted *This score not officially observed but is implied based on other components of patient's m obility and may be an underestimate Predicts discharge post hospitalization ([facility] raw score: 6-24) Home = 20.1 Home with home care = 17.9 shelter facility = 13.6 Inpatient rehabilitation facility = 13.6 [facility] care = 11.5 Butch Powers S. The use of functional outcome measure in acute care to guide discharg e recommendations. J Acute Sales Account Leader. 2012;3(3):248. Treatment and education provided this date: Orders received, chart reviewed, notes beti denson, physical therapy evaluation completed. - Pacing with activity and rate of perceived exertion intensity of 3-5/10. - Pain education, and if any pain with mobility, then the need to participate in mild to mo derate pain levels only; and, only if pain is manageable. - abdominal precautions - orienting patient - bed mobility and appropriate front wheel walker utilization with transfers and gait - gait training and transfer training with front wheel walker Ended session: Patient was supine (hob at 30deg) in bed, all needs within reach, call kim daugherty RN notified, in the room ASSESSMENT: Monserrat Marrufo is a 73 year old admitted on 03/06/2019 with prior level of function independent with all mobility and all ADLs - now s/p ERCP. This date patient somnolent to awake, able to follow 1 step commands with tactile feedback, oriented to self only. Presented with decreas ed activity tolerance, decreased functional strength and dynamic upright postural control as well as decreased safety awareness. Due to patient's impairments and activity limitations landen fowler below, she will benefit from 24 hour skilled care upon discharge for remediation, co mpensation, and return to functional baseline. Personal factors/Comorbidities; High - 3 or more personal factors. Behavior: Flat affect, Restricted affect, Impaired ability to follow commands and Unfocused affect Learning Factors: Cognitive, Ineffective listening. Social Issues: Medical conditions and Multiple hospitalizations Medical Conditions Impacting Care: Multiple co-morbidities Body Systems Elements: High - 4 or more elements Body structures & functions: Strength, Balance and Endurance Activity limitations: Impaired bed mobility, Impaired transfers, Impaired gait, Difficulty with stairs and Difficulty with activities of daily living Participation restrictions: Community activities and Bowel/bladder care. Clinical Presentation: High - Unstable: Drains/lines/tubes, Expected slow progression of re covery, Ongoing surgical interventions requiring reassessment and adjustment of plan of care and Rapid decline of current condition leading to hospitalization Clinical decision making: High Complexity: Multiple problems requiring prioritizing interve ntions, High level of skill to determine plan of care and implement changes accordingly and Clinical coordination of care Complexity: High - [id number] Monserrat's knowledge of disease process: poor The patient requires services that can be safely and effectively performed only by a quali fied therapist to address the aforementioned and highlighted problems and goals. Goals discussed and agreed upon with Monserrat. This patient requires skilled acute care PT services due to participation restrictions, act ivity limitations and impairments listed above. This patient has fair rehabilitation potential to achieve stated goals (see care plan for g oals) and requires continued rehabilitation services, given the patient's medical condition is such that the skills of a therapist are required for monitoring and adjustment of interve ntions, specifically therapeutic activity and therapeutic exercise, per functional mobilty g oals: Functional Mobility Goals - Patient will be stand by assist with all bed mobility via log roll. - Patient will be able to perform transfers with front wheel walker from/to edge of bed x stand by assist - Patient will be stand by assist with gait with front wheel walker x 150 feet. - Patient will demonstrate safety with static and dynamic postural control with all mobili ty. - Patient will verbalize and demonstrate understanding of abdominal precautions with all f unctional mobility. Gradual progress towards goals this session. ACTIVITY PLAN FOR NURSING: *re-assess per shift as needed* 2) Patient to sit up in a chair 3 x per day for as long as tolerated, transfer with front wheel walker and assistance for postural control. 3) Keep blinds up for natural light in the room. Patient is in need of a bed that is lower to the ground for safety with mobility when getti ng in and out of her bed. --Thank You-- DISCHARGE RECOMMENDATIONS: 24 hour skilled care EQUIPMENT NEEDS: defer to facilituy PLAN: Continue plan of care per functional mobility goals. Frequency: 5x/week Duration: 14 days The above plan of care and goals were developed and reviewed with the patient. Should this patient discharge from the hospital prior to the next physical therapy treatmen t, this note shall serve as the discharge summary. Trena - Peggy Tavares RN - 03/07/2019 12:07 PM PDT Interventional Radiology Procedure Nursing Handoff Note Procedure: LUQ drain placement Interventional Radiology Attending:ZacharyInterventional Radiology (Fellow)/pager:Christopher yusuf [phone] Procedure Meds: Fentanyl IV 25 mcg Midazolam IV0.5 mg Access site(s):LUQ Events: Pt arrives somulent, opens eyes briefly to voice, mumbles responses. Responded well to minimal sedation, no change in resp status, still rouses to voice at end of procedure. D rain patent for 800 mls bryant drainage, then to gravity bag; specimen sent to lab. Pt. location prior to IR:10A Pt. Disposition and /or recovery post IR Procedure: 10A lan of Care - Yunier Joyner, OT - 03/07/2019 11:58 AM PDTOccupational therapy contact note: Attempted to see patient. Per chart, pt in OR. OT will follow up for evaluation Yunier Silvianotang OT [phone] lan of Care - Celso Machuca, PT - 03/07/2019 11:28 AM PDTPhysical Therapy Contact Note: Patient in IR for drain placement. Will follow, when patient available and appropriate. Celso Moreno, PT, DPT Pager: [phone] andoff - Agatha Roque RN - 03/07/2019 4:53 AM PDTNursing Handoff [facility] IP NURSE HANDOFF: Garcia hospital course events: 73 year old female with worsening eboni ia, recent laparoscopic cholecystectomy presenting as a transfer from [facility] ([facility]) with possible biloma. 03/06 [facility], patient was very somnolent and hard to arouse, requiring 4L by NC. 0.2 mg x2 of n arcan was administered with improvement in alertness. Patient disoriented, difficult to dete rmine baseline. 03/07 pt pulled lines and abbott cath out. Sitter in place SAFETY Patient/Family Target: Monserrat will be redirectable from pulling her IV lines Progress to Target: Deteriorating As evidenced by: Monserrat woke up and began to pull out her IV lines, abbott, and took off her Spo2 monitor. Monserrat received a sitter and IV team was called to place a new IV line. She was redirectable and d id not pull any lines while sitter was present. LIP notified of pt pulling abbott. Bladder sc an done at 0500 showed 255cc. Provider did not order new abbott at this time noting reassessm ent in AM with day team. COMFORT/ANXIETY/BEHAVIOR Patient/Family Target: Monserrat will not be oversedated Progress to Target: Improving As evidenced by: At beginning of shift Monserrat was somnolent. She received at total of 0.4mg Narcan with sligh t improvement in conciousness. RESTORATIVE MEASURES/SELF-MANAGEMENT Patient/Family Target: VS will be in normal range Progress to Target: Improving As evidenced by: At start of night clerk Monserrat was tachycardic. Vital signs were done q4hrs. She received ma intenance fluids and a bolus with repeat vital signs showed regular rate. SpO2 was in the mi d 90s on 4L NC. NURSING ASSESSMENT & RECOMMENDATIONS FORWARD Nursing Assessment of Patient Stability Risk: Moderately unstable Recommendations Forward: -Sitter to ensure Monserrat does not pull lines she pulled her abbott out and 2 ivs. Only [address] IV therapy refusing to place further lines at this time. -Monitor I/O. Pt pulled out abbott cath at 0200. Has not voided since. No new orders at this time -Monitor for fevers. Monserrat had a fever of 101.8F Barriers to discharge: -IR drain -oliguria -Fevers/ possible infection ignificant Event - Camille Slade RN - 03/06/2019 6:29 PM Wilmer was brought into the hospital by MiTio. She was somnolent and arousable to voice but drifted back to sleep mid-conversation. Monserrat wa s able to answer only select few of our questions. MD at bedside and ordered Narcan. Monserrat rec eived IV dilaudid at OSH and 75mcg of Fentanyl enroute by [facility]. 1ml given per min and sedation was assessed each min. A total of .2mg of Narcan was administered and after the Abhi can Monserrat was more alert and able to keep her eyes open during a conversation. ignificant Event - Zaid Ashford DO - 03/06/2019 6:27 PM PDTPatient with hx of dementia arrived somnolent and was difficult to arouse. Requiring 4 L by OK. Reportedly received 75 mcg of fent and 0.5 mg of hm during transport. 0.2 mg narcan given with improvement in alertness. Continues to be disoriented, could be ba jackelinine. Nolan Ashford R2 Pg [id number] signed by Zaid Ashford DO at 03/06/2019 6:30 PM PDTdocumented in this encounter Plan of Treatment + [...] 2.0 | 1.6 - 2.6 mg/dL | [facility] | | | LASMA | | | [...] [facility] | [address] | [place] [address] | | | SERVICES, CORE | [address] [...] | | | LABORATORY | | | [facility] | | | SERVICES, | | | [...] | + + + + + | [facility] | [address] | [place] [address] | | | SERVICES, KENNY | [address]TTE [...] | + + + + + | [facility] | [address] | [place] [address] | | | SERVICES, CORE | [address] | | | + + + + + MAGNESIUM, PLASMA (2019 5:02 AM PDT) + +-------+ + + + | Component | Value | Ref Range | Performed | Pathologist | | | | | At | Signature | + +-------+ + + + | MAGNESIUM,P | 2.2 | 1.6 - 2.6 mg/dL | [facility] | | | LASMA | | | [...] | + + + + + | [facility] | [address] | [place] [address] | | | SERVICES, CORE | COLETTE [...] | | | LABORATORY | | | SRI [facility]ANK[facility] | | | SERVICES, | | | [...] | + + + + + | [facility] | [address] | [place] [address] | | | SERVICES, CORE | COLETTE [...] + | MRN: | [facility] | | [id number] Date: 03/08/2019Patient Name: Monserrat Perkins #: | ENDOSCOPY | | [id number] of : 4CSN: [id number] Type: | | | InpatientRoom: GI 3Procedure: ERCPIndications: | | | Treatment of bile leakProviders: ULYSSES RONDON | | | MD DEANNE (Doctor), RADHA DUNNE RN | | | (Nurse), GUERO MICHEL (Locomotive Engineer Diesel)Referring MD: GIO ROE, | | | MDRequesting Provider: Medicines: Cipro 400 mg IV, | | | Indomethacin 100 mg [place], Monitored | | | Anesthesia CareComplications: No [...] | | | physician, the nurse, the customer account representative and the | | | wound care technician in the pre-procedure area in the [...] | | | The Olympus [id number]-[id number] Duodenoscope #[id number] was | | | introduced through the mouth, and advanced to the | | | duodenum and used to inject contrast into | | | the bile duct. The ERCP was | | | accomplished without difficulty. The | | | patient tolerated the procedure well.Estimated Blood Loss: | | | Estimated blood loss was minimal.Findings: A manager medicare film of the | | | abdomen [...] | duct.Recommendation: - Return patient to hospital [facility] for | | | ongoing care. - Clear liquid diet today. | | | - Watch for pancreatitis, bleeding, | | | perforation, and cholangitis. | | | - Repeat ERCP in 6 weeks to remove | | | stent.Attending Participation: I personally performed the entire | | | procedure.ULYSSES RONDON JR, MD03/08/2019 5:11:12 PMNumber of | | | Addenda: 0Note Initiated On: 03/08/2019 4:04 [facility] Letter to: | | | ESTELITA ELIZABETH PA-C | | + + + + [...] [facility] | [address] | [place] [address] | | | SERVICES, CORE | PARK [...] | + + + + + | [facility] | [address] | [place] [address] | | | SERVICES, CORE | COLETTE [...] under test. | LABORATORY | | | KENNY POWELL | + + + + + + + + | Performing | Address | City/State/Zipcode | Phone Number | | Organization | | | | + + + + + | [facility] | [address] | [place] [address] | | | KENNY POWELL | [place]LE[place] [...] [facility] | [address] | [place] [address] | | | SERVICES, CORE | PARK [...] + + | [facility] | [address] | [place] [address] | | | SERVICES, CORE | PARK [...] | + + + + + | [facility] | [address] | [place] [address] | | | SERVICES, CORE | COLETTE [...] + + | [facility] | [address] | [place] [address] | | | SERVICES, CORE | PARK [...] | | | LABORATORY | | | SRI LANKAN | | | SERVICES, | | | [...] | + + + + + | [facility] | [address] | [place] [address] | | | KENNY POWELL | COLETTE [...] | | | images in 20 degrees DANISH were obtained for an angiogram and then [...] Lyons MD 03/07/2019 5:23 PM Preliminary: Erica Lyons MD Dictation initiated: Erica Lyons MD 03/07/2019 | [...] | | Dynamic images in 20 degrees DANISH were obtained for an angiogram and then [...] physician(s): | RADIOLOGY VOICE | | Rimma Knight MD Pre-procedure diagnosis: Postoperative biloma | RECOGNITION 2 | | Post-procedure diagnosis: Same Indication: Postoperative biloma | | | Additional clinical history: 33-year-old female status post | | | laparoscopic cholecystectomy now with large intra-abdominal biloma | | | requiring drainage. Complications: No immediate complications. | | | IMPRESSION: Percutaneous placement of a 12.5) Zambian drainage | | | catheter into biliary, yielding 800 mL of purulent fluid. Plan: | | | Back placed to gravity drainage. | | | | | | PROCEDURE SUMMARY: - 12.5 Zambian biliary drainage catheter | | | placement [...] Preliminary: Micah Sharma MD Dictation initiated: Micah Townsend | Cary Sharma MD 03/07/2019 5:32 PM | | + + + + + | Procedure Note | + + | Service Account, Radiant Res In Interface - 03/07/2019 5:37 PM PDT PROCEDURE: | | Drainage catheter placement Procedural PersonnelAttending physician(s): Micah Sharma | | [place] physician(s): Rimma Knight MD Pre-procedure diagnosis: Postoperative | | bilomaPost-procedure diagnosis: SameIndication: Postoperative bilomaAdditional clinical | | history: 33-year-old female status post laparoscopic cholecystectomy now with large | | intra-abdominal biloma requiring drainage. Complications: No immediate complications. | | IMPRESSION: Percutaneous placement of a 12.5) Zambian drainage catheter into biliary, | | yielding 800 mL of purulent fluid. Plan: Back placed to gravity | | drainage. | | PROCEDURE SUMMARY:- 12.5 Zambian biliary drainage catheter placement under ultrasound and [...] Sharma MD 03/07/2019 5:36 PM Preliminary: Micah Shrama MD | | Dictation initiated: Micah Sharma [...] | + + + + + | [facility] | [address] | [place] [address] | | | SERVICES, CORE | COLETTE [...] + | [facility] - | [address] | [place] [address] | | | [place] | | | | + + + [...] | + + + + + | [facility] | [address] | [place] [address] | | | SERVICES, CORE | COLETTE [...] | | | | | | a kqzix-me-mrblt amylase | | | | | | [...] | + + + + + | [facility] | [address] | [place] [address] | | | SERVICES, CORE | COLETTE [...] visit | | | | | | [email or web address] | | | | | | luids/ Test developed | | | | | | and characteristics | | | | | | determined by [facility] | | | | | | Laboratories. See | | | | | | Compliance Statement B: | | | | | | Fundación Bases/CSPerformed | | | | | | by [id number],[id number] | | | | | | [employer] [facility] [place] | | | | | | [address] | | | | | | [phone].[email or web address]. | | | | | | [facility] hospitalVadim MD, | | | | | [...] [facility] | [address] | [place], [place] | | | [facility] | | [address] | | + + + + + [...] + + | [facility] | [address] | [place] [address] | | | SERVICES, CORE | PARK [...] [facility] | [address] | [place] [address] | | | SERVICES, CORE | PARK [...] | | | LABORATORY | | | SRI LANKAN | | | SERVICES, | | | [...] | + + + + + | [facility] | [address] | [place] [address] | | | SERVICES, CORE | COLETTE [...] | + + + + + | [facility] | [address] [facility] | [place] [address] | | | SERVICES, CORE | [address] | | | + + + + + CULTURE, BLOOD BACTI & YEAST RYAN (03/06/2019 9:13 PM PDT) + + + [...] | + + + + + | [facility] | [address] | [place] [address] | | | SHERRY, KENNY | PARK [...] | + + + + + | [facility] | [address] | [place] [address] | | | SERVICES, CORE | COLETTE [...] valves (2.5 - 3.5) INR | SERVICES, CORE | + + + + + + + + | Performing | Address | City/State/Zipcode | Phone Number | | Organization | | | | + + + + + | [facility] | [address] | [place] [address] | | | SERVICES, CORE | [address] | | | + + + + + MAGNESIUM, PLASMA (03/06/2019 7:13 PM PDT) + +-------+ + + + | Component | Value | Ref Range | Performed | Pathologist | | | | | At | Signature | + +-------+ + + + | MAGNESIUM,P | 1.9 | 1.6 - 2.6 mg/dL | [facility] | | | LASMA | | | [...] [facility] | [address] | [place] [address] | | | SERVICES, CORE | COLETTE [...] | | | LABORATORY | | | SRI LANKAN | | | SERVICES, | | | [...] the MDRD equation recommended by the | [facility] | | National Kidney Disease Education [...] | + + + + + | [facility] | [address] | [place] [address] | | | SERVICES, KENNY | COLETTE [...] | + + + + + | [facility] | [address] | [place], [place] | | | CARDIOLOGY | [address] | [address] | | + + + + + [...] | | | | 20 doses, Starting [facility] 03/07/19 at | | | | [...] | | | | | NEEDED, Starting Mon03/06/19 at | | PM PDT | | | | | 1944, Until 03/10/19 at 1848, | | | [...] | | | +---+---+ documented in this encounter
--- OUTSIDE RECORDS SUMMARY | ~2020-07-30 | XMS | Encounter Summary ---
Demographics + + + | Address | [address] | | | [place] [address] | + + + | Home Phone | | + + + | Preferred Language | Unknown | + + + | Marital Status | | + + + | Christian Affiliation | ADV | + + + | Race | White | + + + | Ethnic Group | Not or | + + + Author + + + | Author | [facility] | + + + | Organization | [facility] | + + + | Address | Unknown | + + + | Phone | Unavailable | + + + Support + + +---------+ + | Name | Relationship | Address | Phone | + + +---------+ + | Aristides Marrufo | ECON | Unknown | | + + +---------+ + Care Team Providers + +------+ + | Care Service Supervisor Name | Role | Phone | + +------+ + | Estelita Kitchen PA-C | PCP | | + +------+ + Encounter Details +--------+ + + + + | Date | Type | Department | Care Team | Description | +--------+ + + + + | 03/05/ | Outside | UNKNOWN DEPARTMENT | Other, Faculty | | | 2019 | Records | [address] [facility] | [phone] | | | | | [address] | | | | | | [place], [place] | | | | | | [address] | | | +--------+ + + + [...]
--- OUTSIDE RECORDS SUMMARY | ~2020-07-30 | XMS | Encounter Summary ---
Demographics + + + | Address | [address] | | | [place] [address] | + + + | Home Phone | | + + + | Preferred Language | Unknown | + + + | Marital Status | | + + + | Scientologist Affiliation | ADV | + + + [...] Team Providers + +------+ + | Care Sound Effects Supervisor Name | Role | Phone | [...] + + | 04/19/ | Hospital | [facility] [address] | Ulysses Rondon W | | | 2019 | Encounter | [address] | MD Joseph [address] | | | | | [facility] | [address] | | | | | Cipriano Floreson | [place], [place] | | | | | (MNP/[facility]) | [address] | | | | | [place], [place] | [phone] | | | | | [address] | | | | | | [phone] | | | +--------+ + + + [...] documented as of this encounter Discharge Instructions Instructions Idris Garcia RN - 04/19/2019[place] Care Instructions after ERCP (Endoscopic Retrograde Cholangiopancreatography) [...] the endoscopy department toll free ext. [phone] or After business hours or on weekends and holiday Hospital Steamfitter Supervisor toll free [phone] ext. [phone] and have the GI doctor contract mail carrier paged. The provider who performed your procedure is: Dr. Rondon Results of your ERCP: Stent removed. Balloon sweeps to your common bile duct. Stones remove d. Diet: Clear liquid diet today. Advance diet to normal tomorrow. Follow up Appointments with: Your primary referring provider as needed. Thank you for waqar ing [facility]! Your primary care provider or referring provider [...] | | | | | | release (/JANAK) | | | | | | + + + +---------+ + + | polyethylene | Mix 1 packet and | | 0 | 03/10/20 | | | glycol 17 gram oral [...] + + documented as of this encounter H&P Notes Ulysses Rondon Jr., MD - 04/19/2019 9:06 AM PDTFormatting of this note might be differe nt from the original. PRE PROCEDURE NOTE: MR# [id number] Subjective: Monserrat Marrufo is a 74 y.o. female who presents today for repeat ercp for evaluat ion of bile leak. Patient History Reviewed Medications reviewed Allergies: Allergies as of 03/13/2019 - Fully Reviewed 03/08/2019 Allergen Reaction Noted Codeine Unknown 03/06/2019 Penicillin Unknown 03/06/2019 Pt NPO for 8 hrs. ROS: All others negative. Objective: Vital Signs: BP 144/79 (BP Location: Left upper arm, Patient Position: Lying on back) | Pu lse 84 | Temp 36.2 C (97.2 F) (Forehead) | Resp 16 | Ht 1.588 m (5' 2.5") | Wt 64.4 kg (142 lb) | SpO2 97% | BMI 25.56 kg/m | BSA 1.69 m Neuro: Patient oriented X3. Mental status clear and intact Mallampati Score: II Neck Neck supple. No adenopathy Respiratory: Lungs [...] proce ed, consent obtained. See procedure note 04/19/2019 documented in t his encounter Plan of Treatment + +---------+--------+ + [...] + | MRN: | [facility] | | [id number] Date: 04/19/2019Patient Name: Monserrat Perkins #: | ENDOSCOPY | | [id number] of : 4CSN: [id number] Type: | | | AmbulatoryRoom: GI 3Procedure: ERCPIndications: | | | Follow-up of bile leakProviders: ULYSSES NIEVES | | | NAVARRO ALICEA MD (Doctor), IDRIS GARCIA RN | | | (Nurse), GUERO MICHEL (Senior Accounting Specialist)Referring MD: ULYSSES NIEVES | | | NAVARRO ALICEA MDRequesting Provider: Medicines: | | | Indomethacin 100 mg VA, Cipro 400 mg IV, Monitored | | [...] physician, | | | the nurse, the track laying machine operator and the | | | park maintenance technician in the pre-procedure area in | [...] The Olympus TJF-[id number] Duodenoscope | | | #[id number] was introduced through the | | | mouth, and advanced to the duodenum and | | | used to inject contrast into the bile duct. | | | The ERCP was accomplished without difficulty. The | | | patient tolerated the procedure well.Estimated Blood | | | Loss: Estimated blood loss was minimal.Findings: A | | | biliary stent was visible on the engineer internship film. A engineer internship film of the | | | abdomen [...] | | personally performed the entire procedure.ULYSSES RONDON JR | | | 04/19/2019 10:19:33 AMNumber of Addenda: 0Note Initiated On: | | | 04/19/2019 9:19 [facility] Letter to: ESTELITA KITCHEN PA-C, JOSE LUIS | | | [...] intravenous, POSTPROCEDURE PRN, | | | Starting 04/19/19 at 0916, | | | Until 04/19/19 at 1706, | | | hypopnea | | + +---+ | | | + +---+ | simethicone (MYLICON) | | | suspension 3.333 mg 3.333 mg | | | (rounded from 3.3333 mg = 1 | | | drop), oral, INTRAPROCEDURE PRN, | | | Starting 04/19/19 at 0834, | | | Until 04/19/19 at 1706, gas | | | bubbles in endoscope | | + +---+ | | | + +---+ documented in this encounter
--- OUTSIDE RECORDS SUMMARY | ~2020-07-30 | XMS | Clinical Summary ---
Demographics + + + | Address | [address] | | | [place] [address] | + + + | Home Phone | | + + + | Preferred Language | Unknown | + + + | Marital Status | | + + + | Restoration Affiliation | ADV | + + + [...] Team Providers + +------+ + | Care Sweeper Driver Name | Role | Phone | + +------+ + | Estelita Kitchen PA-C | PCP | | + +------+ + Source Comments RYAN is fully live on both [facility] and [facility] Allergies + + + + + + [...] + + + Last Filed Vital Signs + [...] | | Done | | + + + + + | Influenza (Flu) | | | | | vaccination (#1) | 0 | | | + + + + + | Pneumococcal | Completed | 03/19/20 | | | vaccination | | 19, | | | | | 01/08/20 | | | | | 13 | | + + + + + [...] | STENT | | COOK | | | / | | 03/08/2019 by Ulysses [...] +------+ | [employer]ARE | MODA | [id number] | 05/06/20 | [phone] | [address] | PPO | | | MEDICA | | 16-Pre | 4 | [address] | | | | RE PPO | | sent | | [place], | | | | | | | | [place] [address] | | + +--------+ +--------+ + +------+ + +--------+ +--------+ + + | Guarantor Name | Accoun | Relation to | Date | Phone | Billing Address | | | t Type | Patient | of | | | | | | | | | | + +--------+ +--------+ + + | Monserrat Marrufo | Person | Self | [birth year] | [address] | | | al/Fam | | 1945 | [phone] | [place] [address] | | | vilma | | | [...]
[2020-07-30] MEDS ORDERED: NORCO 5-325 TA1 EACH PO (04:26)
== END 2020-07-30 10:45 | disposition home or self-care (01) ==
LOC: ED 01:24
DX: M54.5 Low back pain (principal); F03.90 Unspecified dementia, unspecified severity, without behavioral disturbance, psychotic disturbance, mood disturbance, and anxiety; I10 Essential (primary) hypertension; E03.9 Hypothyroidism, unspecified; Z88.0 Allergy status to penicillin; Z88.5 Allergy status to narcotic agent; Z79.899 Other long term (current) drug therapy
CPT/HCPCS: 51701; 74176; 80053; 81001; 83690; 85025; 97162; 99284-25; J1170; J2405; J2550

== ENCOUNTER 2022-02-21 20:20 | Emergency (ER) | payer MEDICARE, OTHER ==
[~2022-02-21] VITALS: Ht 160 cm; Wt 77.6 kg
[~2022-02-21 20:20] MED LIST changes: +NORCO 5-325 TA1 EACH PO
--- NOTE | 2022-02-22 06:36 | EKG ---
[facility] [address] [facility] [address] [place] [address] Signed Atrial flutter with variable AV block ST \T\ T wave abnormality, consider lateral ischemia Abnormal ECG When compared with ECG of 07-NOV-2019 11:12, Atrial flutter has replaced Sinus rhythm ST now depressed in Lateral leads T wave inversion now evident in Anterolateral leads Confirmed by ORLY DE ANDA MD ([id number]) on 02/22/2022 6:36:01 AM Electronically Signed By: ORLY DE ANDA MD 02/22/22 0636 PATIENT NAME: ILIANA WANG Electrocardiogram DATE OF : 43 PHYSICIAN: ORLY DE ANDA MD REPORT #: [id number] REPORT IS CONFIDENTIAL AND NOT TO BE RELEASED WITHOUT AUTHORIZATION
== END 2022-02-21 22:15 | disposition left against medical advice (07) ==
LOC: ED 20:20
DX: R07.9 Chest pain, unspecified (principal); M54.9 Dorsalgia, unspecified; I10 Essential (primary) hypertension; E03.9 Hypothyroidism, unspecified; M19.90 Unspecified osteoarthritis, unspecified site; Z88.0 Allergy status to penicillin; Z88.5 Allergy status to narcotic agent; Z79.899 Other long term (current) drug therapy
CPT/HCPCS: 93005; 93010

== ENCOUNTER 2022-03-01 15:13 | Emergency (ER) | payer MEDICARE, OTHER ==
[~2022-03-01] VITALS: Ht 160 cm; Wt 77.6 kg
--- OUTSIDE RECORDS SUMMARY | 2022-03-01 15:21 | XMS ---
PreManage Notification: ILIANA WANG Security Public Service Representative Events No recent Security Events currently on file CRITERIA MET - [facility] - 2 Visits in 30 Days CARE PROVIDERS LEROY ELIZABETH Physician Acid Regenerator 03/04/2019-Current PHONE: [phone] Giselle Flores Prior Authorization Nurse/Tariff Expert 01/04/2022-Current PHONE: [phone] Yamil has no Care Guidelines for this patient. ENioclas VISIT COUNT ([address] [facility] TOTAL 2 NOTE: Visits indicate total known visits. ED/UCC VISIT TRACKING (12 MO.) 03/01/2022 15:14 [facility] [place] TYPE: Emergency COMPLAINT: - ABDOMINAL PAIN 02/21/2022 20:21 [facility] [place] TYPE: Emergency COMPLAINT: - MULTIPLE COMPLAINTS DIAGNOSES: - Allergy status to narcotic agent - Chest pain, unspecified - Other termination clerk (current) drug therapy - Hypothyroidism, unspecified - Essential (primary) hypertension - Allergy status to penicillin - Unspecified osteoarthritis, unspecified site - Dorsalgia, unspecified INPATIENT VISIT TRACKING (12 MO.) No inpatient visits to display in this time frame [email or web address]
[2022-03-01] MEDS ORDERED: HYDROCODONE-ACE15 M3 PO (23:57)
--- NOTE | 2022-03-02 19:09 | EKG ---
[facility] [address] [facility] [address] [place] [address] Signed Normal sinus rhythm T wave abnormality, consider lateral ischemia Abnormal ECG When compared with ECG of 21-FEB-2022 20:22, Sinus rhythm has replaced Atrial flutter QT has lengthened Confirmed by THIERRY GREENE MD ([id number]) on 03/02/2022 7:09:33 PM Electronically Signed By: THIERRY GREENE MD 03/02/22 1909 PATIENT NAME: ILIANA WANG Electrocardiogram DATE OF : 43 PHYSICIAN: THIERRY GREENE MD REPORT #: [id number] REPORT IS CONFIDENTIAL AND NOT TO BE RELEASED WITHOUT AUTHORIZATION
== END 2022-03-02 00:13 | disposition home or self-care (01) ==
LOC: ED 15:13
DX: R10.10 Upper abdominal pain, unspecified (principal); I10 Essential (primary) hypertension; E03.9 Hypothyroidism, unspecified; M19.90 Unspecified osteoarthritis, unspecified site; Z88.0 Allergy status to penicillin; Z88.5 Allergy status to narcotic agent; Z79.899 Other long term (current) drug therapy
CPT/HCPCS: 36415; 71260; 74177; 80053; 81001; 83690; 84484; 85025; 93005; 93010; 99284-25; J1170; J1885; J2405; Q9967; U0003

== ENCOUNTER 2022-03-02 11:22 | Emergency (ER) | payer MEDICARE, OTHER ==
[~2022-03-02] VITALS: Ht 160 cm; Wt 77.6 kg
[~2022-03-02 11:22] MED LIST changes: +HYDROCODONE-ACE15 M3 PO
--- OUTSIDE RECORDS SUMMARY | 2022-03-02 11:30 | XMS ---
PreManage Notification: ILIANA WANG Security Maintenance Job Titles Events No recent Security Events currently on file CRITERIA MET - [facility] - 2 Visits in 30 Days CARE PROVIDERS LEROY ELIZABETH Physician Web Content Coordinator 03/04/2019-Current PHONE: [phone] Giselle Flores Core Paster/Film Casting Operator 01/04/2022-Current PHONE: [phone] Yamil has no Care Guidelines for this patient. ENicolas VISIT COUNT (12 MO.) [address] [place] [address] TOTAL 3 NOTE: Visits indicate total known visits. ED/UCC VISIT TRACKING (12 MO.) 03/02/2022 11:23 [facility] [place] TYPE: Emergency COMPLAINT: - UPPER ABD PAIN 03/01/2022 15:14 [facility] [place] TYPE: Emergency COMPLAINT: - ABDOMINAL PAIN 02/21/2022 20:21 [facility] [place] TYPE: Emergency COMPLAINT: - MULTIPLE COMPLAINTS DIAGNOSES: - Allergy status to narcotic agent - Chest pain, unspecified - Other laborer marine terminal (current) drug therapy - Hypothyroidism, unspecified - Essential (primary) hypertension - Allergy status to penicillin - Unspecified osteoarthritis, unspecified site - Dorsalgia, unspecified INPATIENT VISIT TRACKING (12 MO.) No inpatient visits to display in this time frame [email or web address]
== END 2022-03-02 16:30 | disposition short-term general hospital (02) ==
LOC: ED 11:22
DX: K80.45 Calculus of bile duct with chronic cholecystitis with obstruction (principal); I10 Essential (primary) hypertension; E03.9 Hypothyroidism, unspecified; M19.90 Unspecified osteoarthritis, unspecified site; Z88.0 Allergy status to penicillin; Z88.5 Allergy status to narcotic agent; Z79.899 Other long term (current) drug therapy
CPT/HCPCS: 36415; 76705; 80053; 82140; 83690; 85025; 96374; 96375; 99285-25; J1885; J2405; J7030

== ENCOUNTER 2023-03-04 13:14 | Emergency (ER) | payer MEDICARE, OTHER ==
[~2023-03-04] VITALS: Ht 160 cm; Wt 68.6 kg
[2023-03-04] MEDS ORDERED: KLOR-CON20 MEQ PO (13:24)
[2023-03-04] MEDS ORDERED: QUETIAPINE FUMA50 MG PO (13:24)
[2023-03-04 15:34] VITALS: BP 176/74
== END 2023-03-04 15:34 | disposition home or self-care (01) ==
LOC: ED 13:14
DX: S62.613A Displaced fracture of proximal phalanx of left middle finger, initial encounter for closed fracture (principal); X58.XXXA Exposure to other specified factors, initial encounter; I10 Essential (primary) hypertension; F03.90 Unspecified dementia, unspecified severity, without behavioral disturbance, psychotic disturbance, mood disturbance, and anxiety; E03.9 Hypothyroidism, unspecified; Z88.0 Allergy status to penicillin; Z88.5 Allergy status to narcotic agent; Z79.899 Other long term (current) drug therapy
CPT/HCPCS: 70450; 73130

== ENCOUNTER 2024-05-16 21:08 | Emergency (ER) | payer MEDICARE, OTHER ==
[~2024-05-16] VITALS: Ht 160 cm; Wt 65.8 kg
[~2024-05-16 21:08] MED LIST changes: +KLOR-CON20 MEQ PO; +QUETIAPINE FUMA50 MG PO
[2024-05-16 21:55] LABS: BASOPHILS 0.6 % (0-2); EOSINOPHILS 1.2 % (0-6); HEMATOCRIT 39.3 % (35.0-50.0); HEMOGLOBIN 12.9 g/dL (12.0-18.0); LYMPHOCYTES 33.5 % (24-44); MCH 29.4 (27-36); MCHC 32.9 g/dl (30-36); MCV 89.3 fl (81-99); MONOCYTES 10.7 % (0-12); PLATELET COUNT 222 K/uL (140-440); RDW 13.6 (10.5-15.0)
[2024-05-16] MEDS ORDERED: IBLOOD GLUCOSE TEST STRIP 1 EA TEST XX ONE (22:00)
[2024-05-16 22:07] LABS: ALBUMIN 3.3 g/dL (3.4-5.0); ALBUMIN/GLOBULIN RATIO 0.92 (1.1-2.4); BILIRUBIN, TOTAL 0.5 ng/dL (0.2-1.0); BUN/CREATININE RATIO 15.85 (6.0-28.6); CALCIUM 8.8 mg/dL (8.5-10.1); CREATININE, SERUM 0.82 mg/dL (0.55-1.02); MAGNESIUM 1.9 mg/dL (1.8-2.4); PROTEIN, TOTAL 6.9 g/dL (6.4-8.2)
[2024-05-16 22:50] LABS: BILIRUBIN, URINE POSITIVE (negative); BLOOD/HGB, URINE NEGATIVE (Negative); KETONE, URINE NEGATIVE (Negative); LEUK ESTERASE, URINE NEGATIVE (negative); NITRITE, URINE NEGATIVE (negative); PH, URINE 5.5 (5-7)
[2024-05-16 22:55] LABS: CRYSTALS, URINE NONE SEEN (0-1+); EPITHELIAL CELLS, URINE SQUAMOUS 1+ /lpf (0-1+); RED BLOOD CELLS, URINE 0-1 /hpf (0-5)
[2024-05-16 22:56] LABS: BACTERIA, URINE RARE /hpf (negative); CASTS, URINE NONE SEEN \\lpf; COLLECTION TYPE, URINE CATH; REFLEX CULTURE, URINE Yes (No)
[2024-05-16] MEDS ORDERED: CEFTRIAXONE/SODIUM CHLORIDE 2 GM/100 ML PIGGYBACK IV ONE (23:30)
[2024-05-16] MEDS ORDERED: CEPHALEXIN250 MG/5 M PO (23:42)
[2024-05-17 00:30] VITALS: BP 98/48
--- NOTE | 2024-05-17 22:52 | EKG ---
[facility] [address] [facility] [place] [address] Signed Sinus bradycardia Otherwise normal ECG When compared with ECG of 01-MAR-2022 16:41, T wave inversion no longer evident in Lateral leads QT has shortened Confirmed by Javon Allen MD () on 05/17/2024 10:51:57 PM Electronically Signed By: JAVON ALLEN MD 05/17/24 2252 PATIENT NAME: FELIPEILIANA Electrocardiogram DATE OF : 43 PHYSICIAN: JAVON ALLEN MD REPORT #: [id number] REPORT IS CONFIDENTIAL AND NOT TO BE RELEASED WITHOUT AUTHORIZATION
== END 2024-05-17 00:31 | disposition home or self-care (01) ==
LOC: ED 21:08
PROVIDERS: Emergency Medicine
DX: R41.82 Altered mental status, unspecified (principal); N39.0 Urinary tract infection, site not specified; I10 Essential (primary) hypertension; E03.9 Hypothyroidism, unspecified; Z79.899 Other long term (current) drug therapy; Z88.0 Allergy status to penicillin; Z88.5 Allergy status to narcotic agent
CPT/HCPCS: 36415; 51701; 80053; 81001; 83735; 84484; 85025; 93005; 93010; 99284-25; J0696